=== PATIENT | male | born 1940 | race African-American/Black ===

== ENCOUNTER 2016-08-24 00:06 | Inpatient (IN) | payer OTHER, BC ==
[2016-08-24 01:29] LABS: BASOPHIL 0.5 % (0-2.0); EOSINOPHIL 2.1 % (0-4.5); MCH 30.4 pg (25.7-33.7); MCHC 32.5 g/dl (32.0-35.9); MEAN CELL VOLUME 93.7 fl (80-96); MEAN PLT VOLUME 7.2 fl (7.5-11.1); NEUTROPHILS 58.9 % (42.8-82.8); PLATELET COUNT 207 K/MM3 (134-434); RDW 13.3 % (11.9-15.9); WHITE BLOOD COUNT 4.5 K/mm3 (4.0-10.0)
--- NOTE | 2016-08-24 01:33 | PDOC ---
History of Present Illness - General History Source: Patient Exam Limitations: No Limitations - History of Present Illness Initial Comments: 08/24/16 01:55 The patient is a 76 year old male with a significant past medical history of leukemia, diverticulosis, CAD s/p PCI, CHF, HTN, and hyperlipidemia who presents to the ED with SOB that began this evening. Patient was given O2 by EMS. Patient denies chest pain, fever, chills, nausea, vomiting, diarrhea. Patient states he was diagnosed with leukemia on August 05 2016 at [facility]. Patient was in and out of treatment at [facility]. Patient was released this morning. Patient is on chemo. Last treatment was 2 weeks ago. Patient is on chemo pill now. Past Surgical History: Yes: Colectomy PCP: Dr. Cassie Alex <Ian Celaya - Last Filed: 08/24/16 06:31> <Franklin Linares - Last Filed: 08/24/16 07:11> - General Chief Complaint: Shortness of Breath Stated Complaint: DIFF BREATHING Time Seen by Provider: 08/24/16 01:32 Past History <Ian Celaya - Last Filed: 08/24/16 06:31> - Past Medical History Anemia: No Asthma: No Cancer: No Cardiac Disorders: Yes (a-fib, [place]) CVA: Yes COPD: No CHF: Yes Dementia: No Diabetes: No GI Disorders: No Disorders: No HTN: Yes Hypercholesterolemia: Yes Liver Disease: No Suicide Attempt (Hx): No Seizures: No Thyroid Disease: No - Surgical History Abdominal Surgery: Yes (COLON RESECTION 2013) Appendectomy: No Cardiac Surgery: Yes (Stent placed 2009 pLA) Cholecystectomy: No Lung Surgery: No Neurologic Surgery: Yes (Cyst removed) Orthopedic Surgery: No - Immunization History Immunization Up to Date: Yes - Psycho/Social/Smoking Cessation Hx Anxiety: No Suicidal Ideation: No Smoking Status: No Smoking History: Never smoked Have you smoked in the past 12 months: No Number of Cigarettes Smoked Daily: 5 If you are a former smoker, when did you quit?: 45 YEARS AGO Information on smoking cessation initiated: No Hx Alcohol Use: No Drug/Substance Use Hx: No Substance Use Type: None Hx Substance Use Treatment: No <Franklin Linares - Last Filed: 08/24/16 07:11> - Past Medical History Allergies/Adverse Reactions: Allergies Allergy/AdvReac Type Severity Reaction Status Date / Time nitroglycerin [Nitroglycerin] Allergy Unknown severe Verified 08/24/16 00:43 headache Home Medications: Ambulatory Orders Alprazolam [Alprazolam Xr] 0.5 mg PO TID PRN 04/15/16 Amlodipine Besylate [Norvasc -] 5 mg PO DAILY 04/15/16 Aspirin [ASA -] 81 mg PO DAILY 04/15/16 Atorvastatin Ca [Lipitor] 80 mg PO HS 04/15/16 Metoprolol Succinate [Toprol XL -] 50 mg PO DAILY 04/15/16 Tamsulosin HCl 0.4 mg PO DAILY 04/15/16 Acetaminophen [Tylenol] 325 mg PO Q6H 30 Days 04/17/16 Allopurinol [Zyloprim -] 300 mg PO DAILY #30 tablet 04/17/16 Docusate Sodium [Colace -] 100 mg PO DAILY capsule 04/17/16 Metoprolol Succinate [Toprol Xl] 100 mg PO DAILY #30 tab.sr.24h 04/17/16 Oxycodone HCl [Roxicodone -] 5 mg PO Q4H PRN #0 tablet MDD 4 04/17/16 Sodium Chloride 0.45% [1/2 Normal Saline] 1,000 ml IV ASDIR infus.bag 04/17/16 Review of Systems - Review of Systems Able to Perform ROS?: Yes Comments:: 08/24/16 01:55 CONSTITUTIONAL: Absent: fever, chills, diaphoresis, generalized weakness, malaise, loss of appetite HEENT: Absent: rhinorrhea, nasal congestion, throat pain, throat swelling, difficulty swallowing, mouth swelling, ear pain, eye pain, visual Changes CARDIOVASCULAR: Absent: chest pain, syncope, palpitations, irregular heart rate, lightheadedness , peripheral edema RESPIRATORY: Present: SOB Absent: cough, dyspnea with exertion, orthopnea, wheezing, stridor, hemoptysis GASTROINTESTINAL: Absent: abdominal pain, abdominal distension, nausea, vomiting, diarrhea, constipation, melena, hematochezia GENITOURINARY: Absent: dysuria, frequency, urgency, hesitancy, hematuria, flank pain, genital pain MUSCULOSKELETAL: Absent: myalgia, arthralgia, joint swelling SKIN: Absent: rash, itching, pallor HEMATOLOGIC/IMMUNOLOGIC: Absent: easy bleeding, easy bruising, lymphadenopathy, frequent infections ENDOCRINE: Absent: unexplained weight gain, unexplained weight loss, heat intolerance, cold intolerance NEUROLOGIC: Absent: headache, focal weakness or paresthesias, dizziness, unsteady gait, seizure, mental status changes, bladder or bowel incontinence PSYCHIATRIC: Absent: anxiety, depression, suicidal or homicidal ideation, hallucinations. <Ian Cealya - Last Filed: 08/24/16 06:31> *Physical Exam - Vital Signs Last Vital Signs Temp Pulse Resp BP Pulse Ox 98.1 F 105 H 22 119/82 94 L 08/24/16 00:43 08/24/16 00:43 08/24/16 00:43 08/24/16 00:43 08/24/16 00:43 - Physical Exam Comments: 08/24/16 01:55 GENERAL: Well developed, well nourished. Awake and alert. No acute distress. HEENT: Normocephalic, atraumatic. PERRLA, EOMI. No conjunctival pallor. Sclera are non- icteric. Moist mucous membranes. Oropharynx is clear. NECK: Supple. Full ROM. No JVD. Carotid pulses 2+ and symmetric, without bruits. No thyromegaly. No lymphadenopathy. CARDIOVASCULAR: Regular rate and rhythm. No murmurs, rubs, or gallops. Distal pulses are 2+ and symmetric. PULMONARY: No evidence of respiratory distress. Lungs clear to auscultation bilaterally. No wheezing, rales or rhonchi. ABDOMINAL: Soft. Non-tender. Non-distended. No rebound or guarding. No organomegaly. Normoactive bowel sounds. MUSCULOSKELETAL Normal range of motion at all joints. No bony deformities or tenderness. No CVA tenderness. EXTREMITIES: No cyanosis. No clubbing. No edema. No calf tenderness. SKIN: Warm and dry. Normal capillary refill. No rashes. No jaundice. NEUROLOGICAL: Alert, awake, appropriate. Cranial nerves 2-12 intact. No deficits to light touch and temperature in face, upper extremities and lower extremities. No motor deficits in the in face, upper extremities and lower extremities. Normoreflexic in the upper and lower extremities. Normal speech. Toes are down-going bilaterally. Gait is normal without ataxia. PSYCHIATRIC: Cooperative. Good eye contact. Appropriate mood and affect. <Ian Celaya - Last Filed: 08/24/16 06:31> - Vital Signs Last Vital Signs Temp Pulse Resp BP Pulse Ox 98.1 F 105 H 22 119/82 94 L 08/24/16 00:43 08/24/16 00:43 08/24/16 00:43 08/24/16 00:43 08/24/16 00:43 <Franklin Linares - Last Filed: 08/24/16 07:11> ED Treatment Course - LABORATORY CBC & Chemistry Diagram: 08/24/16 01:00 08/24/16 01:00 - ADDITIONAL ORDERS Additional order review: 08/24/16 01:00 RBC 4.69 D MCV 93.7 MCHC 32.5 RDW 13.3 D MPV 7.2 L D Neutrophils % 58.9 D Lymphocytes % 20.8 D Monocytes % 17.7 H D Eosinophils % 2.1 D Basophils % 0.5 D - RADIOLOGY Radiology Studies Ordered: 08/24/16 06:11 EXAM: CT chest without contrast INDICATION: Right-sided infiltrate versus effusion DATE OF SERVICE: 2016-08-24 05:34:17.0 FINDINGS: There is no aortic aneurysm. There is no significant mediastinal or hilar adenopathy. The heart size is normal. The trachea and bronchi are patent. There is a trace pericardial effusion. There is a moderate to large right pleural effusion and moderate left pleural effusion with compressive atelectasis and/or pneumonia. Moderate paraseptal emphysema is noted. No interstitial edema.. Upper abdominal structures are notable for small gallstones or gallbladder inflammation. IMPRESSION: Moderate to large right pleural effusion with moderate left pleural effusion with compressive atelectasis and/or pneumonia. Paraseptal emphysema. THIS DOCUMENT HAS BEEN ELECTRONICALLY SIGNED Emre Lopes MD <Ian Celaya - Last Filed: 08/24/16 06:31> - LABORATORY CBC & Chemistry Diagram: 08/24/16 01:00 08/24/16 01:00 - ADDITIONAL ORDERS Additional order review: 08/24/16 01:00 RBC 4.69 D MCV 93.7 MCHC 32.5 RDW 13.3 D MPV 7.2 L D Neutrophils % 58.9 D Lymphocytes % 20.8 D Monocytes % 17.7 H D Eosinophils % 2.1 D Basophils % 0.5 D <Franklin Linares - Last Filed: 08/24/16 07:11> Medical Decision Making - Medical Decision Making 08/24/16 06:[address] Cosby at 06:13. 08/24/16 06:[address] Cosby at 06:29. 08/24/16 06:[address] Cosby ( on-call for PCP Dr. Cassie Alex). <Ian Celaya - Last Filed: 08/24/16 06:31> - Medical Decision Making 08/24/16 07:04 Paperwork that patient has with him from his discharge earlier in the day at [facility], it does not look like they saw the infiltrate on the right or the bilateral pleural effusions, right greator than left. Will add Zithromax to the Cipro and Flagyl as well as the antifungal he is already taking. He will need IV Access, and he may actually need a surgical procedure or a PICC line. <Franklin Linares - Last Filed: 08/24/16 07:11> *DC/Admit/Observation/Transfer - Attestations Scribe Attestion: 08/24/16 01:57 Documentation prepared by Ian Celaya, acting as medical education coordinator for Franklin Linares MD/DO. <Ian Celaya - Last Filed: 08/24/16 06:31> - Discharge Dispostion Admit: Yes - Attestations Physician Attestion: 08/24/16 01:32 I, Dr. Franklin Linares, attest that this document has been prepared under my direction and personally reviewed by me in its entirety. I further attest, that it accurately reflects all work, treatment, procedures and medical decision -making performed by me. <Franklin Linares - Last Filed: 08/24/16 07:11> Diagnosis at time of Disposition: Bilateral pleural effusion Acute leukemia Qualifiers: Leukemia Active/Remission status: without remission Qualified Code(s): C95.00 - Acute leukemia of unspecified cell type not having achieved remission Pneumonia Qualifiers: Pneumonia type: due to unspecified organism Laterality: bilateral Lung location : lower lobe of lung Qualified Code(s): J18.9 - Pneumonia, unspecified organism - Discharge Dispostion Condition at time of disposition: Good - Referrals Referrals: Shelley Sharpe MD [Primary Care Provider] -
[2016-08-24 01:52] LABS: ALBUMIN 3.9 g/dl (3.4-5.0); ANION GAP 11 (8-16); BILIRUBIN,TOTAL 0.5 mg/dL (0.2-1.0); CALCIUM 8.9 mg/dL (8.5-10.1); CO2 27 mmol/L (21-32); CREATININE 0.9 mg/dL (0.7-1.3); GLUCOSE,RANDOM 98 mg/dL (74-106); SGPT/ALT 36 U/L (12-78); TOT PROT 7.5 g/dl (6.4-8.2)
[2016-08-24 01:54] LABS: ALK PHOS 69 U/L (45-117)
[2016-08-24 01:55] LABS: SGOT/AST 30 U/L (15-37)
[2016-08-24 02:07] LABS: TROPONIN I < 0.02 ng/ml (0.00-0.05)
[2016-08-24 04:00] LABS: ARTERIAL BLD GAS O2 SATURATION 95.2 % (90-98.9); ARTERIAL BLOOD GAS BASE EXCESS 1.6 meq/l (-2-2); ARTERIAL BLOOD GAS HCO3 24.5 meq/L (22-26); ARTERIAL BLOOD GAS PO2 72.9 mmHg (70-100); ARTERIAL BLOOD GAS pH 7.48 (7.35-7.45)
[2016-08-24 04:01] LABS: METHEMOGLOBIN 1.5 % (0.4-1.5)
[2016-08-24 04:02] LABS: ART PUNCT SITE RIGHT BRACHIAL; LPM/O2% 4; PT. ON O2? YES
[2016-08-24] MEDS ORDERED: AZITHROMYCIN 250 MG TABLET (FP) PO ONE (06:57)
[2016-08-24] MEDS ORDERED: AZITHROMYCIN 250 MG TABLET (FP) ONE (07:47)
[2016-08-24] MEDS ORDERED: OXYCODONE/APAP 5/325MG COMBO TABLET PO ONE (08:00)
[2016-08-24] MEDS ORDERED: oxyCODONE HCL 5 MG TABLET PO PRN (10:19)
[2016-08-24] MEDS ORDERED: ALPRAZolam 0.25 MG TABLET PO PRN (10:19)
[2016-08-24] MEDS ORDERED: ASPIRIN 81 MG CHEWABLE TABLETS PO SCH (10:30)
[2016-08-24] MEDS ORDERED: METOPROLOL SUCCINATE 50 MG TAB.SR.24H (FP) PO SCH (11:37)
--- NOTE | 2016-08-24 11:37 | HP ---
Admitting History and Physical - Primary Care Physician PCP: Shelley Sharpe - Admission Chief Complaint: sob History of Present Illness: 76 yrs old male known to me from previous admission- admitted for SOB He was discharged yesterday morning from [facility]- he was admitted there on 08/14. 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 chest 08/14- showed new patchy ground glass opacities in rt upper lobe.Moderate right and left pleural effusion Negative for PE When pt was home- he experienced SOB and called EMS and was sent here. 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 (Arnold Chiari Malformation- s/p craniotomy/repair- 1998) Cardiovascular: Yes: CAD, CHF, HTN, Hyperlipdemia, Other (Cardiac arrhythmia- atrial tachycardia) Gastrointestinal: Yes: GI Bleed, Hemorrhoids, Other (s/p partial colectomy for diverticulosis) Renal/: Yes: Renal Calculi Heme/Onc: Yes: Other (ALL- [place] positive) - Past Surgical History Past Surgical History: Yes: Colectomy - Smoking History Smoking history: Never smoked Have you smoked in the past 12 months: No Aproximately how many cigarettes per day: 5 If you are a former smoker, when did you quit?: 45 YEARS AGO - Alcohol/Substance Use Hx Alcohol Use: No History of Substance Use: reports: None - Social History 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 Travel: No Home Medications - Allergies Allergies/Adverse Reactions: Allergies Allergy/AdvReac Type Severity Reaction Status Date / Time nitroglycerin [Nitroglycerin] Allergy Unknown severe Verified 08/24/16 00:43 headache - Home Medications Home Medications: Ambulatory Orders Alprazolam [Alprazolam Xr] 0.5 mg PO TID PRN 04/15/16 Amlodipine Besylate [Norvasc -] 5 mg PO DAILY 04/15/16 Aspirin [ASA -] 81 mg PO DAILY 04/15/16 Atorvastatin Ca [Lipitor] 80 mg PO HS 04/15/16 Metoprolol Succinate [Toprol XL -] 50 mg PO DAILY 04/15/16 Tamsulosin HCl 0.4 mg PO DAILY 04/15/16 Acetaminophen [Tylenol] 325 mg PO Q6H 30 Days 04/17/16 Allopurinol [Zyloprim -] 300 mg PO DAILY #30 tablet 04/17/16 Docusate Sodium [Colace -] 100 mg PO DAILY capsule 04/17/16 Metoprolol Succinate [Toprol Xl] 100 mg PO DAILY #30 tab.sr.24h 04/17/16 Oxycodone HCl [Roxicodone -] 5 mg PO Q4H PRN #0 tablet MDD 4 04/17/16 Sodium Chloride 0.45% [1/2 Normal Saline] 1,000 ml IV ASDIR infus.bag 04/17/16 Family Disease History - Family Disease History Family Disease History: Other: Son (CML) Review of Systems - Review of Systems Constitutional: denies: Chills, Fever Cardiovascular: denies: Chest Pain Respiratory: reports: Cough, SOB, SOB on Exertion. denies: Wheezing Gastrointestinal: denies: Bloating, Nausea Physical Examination Vital Signs: Vital Signs Temperature 97.9 F 08/24/16 07:36 Pulse Rate 98 H 08/24/16 08:45 Respiratory Rate 19 08/24/16 08:45 Blood Pressure 149/82 08/24/16 07:36 O2 Sat by Pulse Oximetry (%) 100 08/24/16 08:45 Constitutional: Yes: No Distress, Calm HENT: Yes: Other (periorbital edema) Cardiovascular: Yes: Regular Rate and Rhythm, Tachycardia Respiratory: Yes: Diminished, Rales (mid bases) Gastrointestinal: Yes: Normal Bowel Sounds, Soft. No: Distention, Tenderness Edema: Yes Edema: LLE: 2+, RLE: 2+ Psychiatric: Yes: Alert, Oriented Labs: Laboratory Last Values WBC 4.5 K/mm3 (4.0-10.0) D 08/24/16 01:00 RBC 4.69 M/mm3 (4.00-5.60) D 08/24/16 01:00 Hgb 14.3 GM/dL (11.7-16.9) D 08/24/16 01:00 Hct 44.0 % (35.4-49) D 08/24/16 01:00 MCV 93.7 fl (80-96) 08/24/16 01:00 MCHC 32.5 g/dl (32.0-35.9) 08/24/16 01:00 RDW 13.3 % (11.9-15.9) D 08/24/16 01:00 Plt Count 207 K/MM3 (134-434) D 08/24/16 01:00 MPV 7.2 fl (7.5-11.1) L D 08/24/16 01:00 Neutrophils % 58.9 % (42.8-82.8) D 08/24/16 01:00 Lymphocytes % 20.8 % (8-40) D 08/24/16 01:00 Monocytes % 17.7 % (3.8-10.2) H D 08/24/16 01:00 Eosinophils % 2.1 % (0-4.5) D 08/24/16 01:00 Basophils % 0.5 % (0-2.0) D 08/24/16 01:00 Puncture Site Right brachial 08/24/16 02:02 ABG pH 7.48 (7.35-7.45) H 08/24/16 02:02 ABG pCO2 at Pt Temp 32.9 mmHg (35-45) L 08/24/16 02:02 ABG pO2 at Pt Temp 72.9 mmHg (70-100) 08/24/16 02:02 ABG HCO3 24.5 meq/L (22-26) 08/24/16 02:02 ABG O2 Sat (Measured) 95.2 % (90-98.9) 08/24/16 02:02 ABG O2 Content 11.8 % vol (15-22) L 08/24/16 02:02 ABG Base Excess 1.6 meq/l (-2-2) 08/24/16 02:02 Suhail Test Not applicable 08/24/16 02:02 Carboxyhemoglobin 1.3 gm% (0.5-2.0) 08/24/16 02:03 Methemoglobin 1.5 % (0.4-1.5) 08/24/16 02:03 Oxygen Flow Rate 4 08/24/16 02:02 PEEP 0.0 cmH2O 08/24/16 02:02 Sodium 143 mmol/L (136-145) 08/24/16 01:00 Potassium 4.3 mmol/L (3.5-5.1) 08/24/16 01:00 Chloride 105 mmol/L (98-107) 08/24/16 01:00 Carbon Dioxide 27 mmol/L (21-32) D 08/24/16 01:00 Anion Gap 11 (8-16) 08/24/16 01:00 BUN 16 mg/dL (7-18) D 08/24/16 01:00 Creatinine 0.9 mg/dL (0.7-1.3) 08/24/16 01:00 Creat Clearance w eGFR > 60 (>60) 08/24/16 01:00 Random Glucose 98 mg/dL (74-106) D 08/24/16 01:00 Calcium 8.9 mg/dL (8.5-10.1) 08/24/16 01:00 Total Bilirubin 0.5 mg/dL (0.2-1.0) D 08/24/16 01:00 AST 30 U/L (15-37) D 08/24/16 01:00 ALT 36 U/L (12-78) 08/24/16 01:00 Alkaline Phosphatase 69 U/L (45-117) D 08/24/16 01:00 Creatine Kinase 167 IU/L (39-308) D 08/24/16 01:00 Creatine Kinase Index 1.3 % (0.0-5.0) 08/24/16 01:00 CK-MB (CK-2) 2.179 ng/ml (0.5-3.6) 08/24/16 01:00 CK-MB (CK-2) Rel Index Cancelled 08/24/16 01:00 Troponin I < 0.02 ng/ml (0.00-0.05) 08/24/16 01:00 B-Natriuretic Peptide 62.53 pg/ml (5-450) 08/24/16 01:00 Total Protein 7.5 g/dl (6.4-8.2) D 08/24/16 01:00 Albumin 3.9 g/dl (3.4-5.0) 08/24/16 01:00 Imaging - Results Chest X-ray: Image Reviewed (pleural effusions) Cat Scan: Report Reviewed EKG: Image Reviewed (Atrial trachycardia) Problem List - Problems (1) Acute leukemia Code(s): C95.00 - ACUTE LEUKEMIA OF UNSP CELL TYPE NOT ACHIEVE REMISSION Qualifiers: Leukemia Active/Remission status: without remission Qualified Code(s): C95.00 - Acute leukemia of unspecified cell type not having achieved remission (2) Bilateral pleural effusion Code(s): J90 - PLEURAL EFFUSION, NOT ELSEWHERE CLASSIFIED (3) ASHD (arteriosclerotic heart disease) Code(s): I25.10 - ATHSCL HEART DISEASE OF [place] CORONARY ARTERY W/O ANG PCTRS (4) HTN (hypertension) Code(s): I10 - ESSENTIAL (PRIMARY) HYPERTENSION Qualifiers: Hypertension type: essential hypertension Qualified Code(s): I10 - Essential (primary) hypertension Assessment/Plan PLAN -- pt was discharged on PO Cipro , Flagyl and Posaconazole-- ID eval -- IV Lasix -- monitor CBC -- Spoke with Hematology- Dr Grimaldo- 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
[2016-08-24 12:07] VITALS: BMI 24.4
[2016-08-24] MEDS: ALLOPURINOL 300 MG TABLET (FP) PO SCH (12:22)
[2016-08-24] MEDS: amLODIPine BESYLATE 5 MG TABLET (FP) PO SCH (12:23)
[2016-08-24] MEDS: FUROSEMIDE 40 MG/4 ML INJECTABLE VIAL IVPB SCH ×2 (12:33→12:35)
--- NOTE | 2016-08-24 12:58 | CONSULT ---
Consult Consult Specialty:: PULMONARY Referred by:: Dr. Alex Reason for Consultation:: shortness of breath - History of Present Illness Chief Complaint: shortness of breath History of Present Illness: 76yo male with h/o HTN, hyperlipidemia, CAD s/p stent, ALL diagnosed earlier this month, just discharged from [facility] where he was receiving chemotherapy who presents with worsening shortness of breath. He denies any chest pain or palpitations. No fevers, chills or sweats. He does report a cough productive of clear sputum and no wheezing. No leg swelling but with orthopnea. He is a remote smoker, denies history of asthma or COPD. Last echocardiogram done in 2015 showing normal LVEF with mildly elevated RVSP. MUGA scan done in March showing an EF 66%. CXR and CT chest done showing bilateral effusions, pt denies any history of CHF or pleural effusions. 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 (Arnold Chiari Malformation- s/p craniotomy/repair- 1998) Cardio/Vascular: Yes: CAD, CHF, HTN, Hyperlipdemia, Other (Cardiac arrhythmia- atrial tachycardia) Gastrointestinal: Yes: GI Bleed, Hemorrhoids, Other (s/p partial colectomy for diverticulosis) Renal/: Yes: Renal Calculi - Past Surgical History Past Surgical History: Yes: Colectomy - Alcohol/Substance Use Hx Alcohol Use: No History of Substance Use: reports: None - Smoking History Smoking history: Never smoked Have you smoked in the past 12 months: No Aproximately how many cigarettes per day: 5 If you are a former smoker, when did you quit?: 45 YEARS AGO - Social History Usual Living Arrangement: With Spouse 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 Travel: No Home Medications - Allergies Allergies/Adverse Reactions: Allergies Allergy/AdvReac Type Severity Reaction Status Date / Time nitroglycerin [Nitroglycerin] Allergy Unknown severe Verified 08/24/16 00:43 headache - Home Medications Home Medications: Ambulatory Orders Alprazolam [Alprazolam Xr] 0.5 mg PO TID PRN 04/15/16 Amlodipine Besylate [Norvasc -] 5 mg PO DAILY 04/15/16 Aspirin [ASA -] 81 mg PO DAILY 04/15/16 Atorvastatin Ca [Lipitor] 80 mg PO HS 04/15/16 Metoprolol Succinate [Toprol XL -] 50 mg PO DAILY 04/15/16 Tamsulosin HCl 0.4 mg PO DAILY 04/15/16 Acetaminophen [Tylenol] 325 mg PO Q6H 30 Days 04/17/16 Allopurinol [Zyloprim -] 300 mg PO DAILY #30 tablet 04/17/16 Docusate Sodium [Colace -] 100 mg PO DAILY capsule 04/17/16 Metoprolol Succinate [Toprol Xl] 100 mg PO DAILY #30 tab.sr.24h 04/17/16 Oxycodone HCl [Roxicodone -] 5 mg PO Q4H PRN #0 tablet MDD 4 04/17/16 Sodium Chloride 0.45% [1/2 Normal Saline] 1,000 ml IV ASDIR infus.bag 04/17/16 Family Disease History - Family Disease History Family Disease History: Other: Son (CML) Review of Systems - Review of Systems Constitutional: reports: Weakness. denies: Chills, Fever Eyes: denies: Recent Change in Vision HENT: denies: Nasal Congestion, Throat Pain Neck: denies: Stiffness, Tenderness Cardiovascular: reports: Shortness of Breath. denies: Chest Pain, Edema, Palpitations Respiratory: reports: Cough, SOB, SOB on Exertion. denies: Hemoptysis, Wheezing Gastrointestinal: denies: Abdominal Pain, Nausea, Vomiting Genitourinary: denies: Dysuria, Hematuria Neurological: denies: Dizziness, Headache Physical Exam Vital Sings: Vital Signs Temperature 98.9 F 08/24/16 11:47 Pulse Rate 99 H 08/24/16 12:34 Respiratory Rate 24 08/24/16 12:34 Blood Pressure 142/72 08/24/16 12:34 O2 Sat by Pulse Oximetry (%) 98 08/24/16 12:16 Constitutional: Yes: Calm Eyes: Yes: Conjunctiva Clear, EOM Intact HENT: Yes: Atraumatic, Normocephalic Neck: Yes: Supple, Trachea Midline Cardiovascular: Yes: Regular Rate and Rhythm Respiratory: Yes: Diminished (decreased breath sounds at the bases), Rales (R>L) ...Clubbing: No Gastrointestinal: Yes: Normal Bowel Sounds, Soft. No: Tenderness Edema: No Neurological: Yes: Alert, Oriented Labs: ABG Results ABG pH 7.48 (7.35-7.45) H 08/24/16 02:02 ABG pCO2 at Pt Temp 32.9 mmHg (35-45) L 08/24/16 02:02 ABG pO2 at Pt Temp 72.9 mmHg (70-100) 08/24/16 02:02 ABG HCO3 24.5 meq/L (22-26) 08/24/16 02:02 ABG O2 Sat (Measured) 95.2 % (90-98.9) 08/24/16 02:02 ABG O2 Content 11.8 % vol (15-22) L 08/24/16 02:02 ABG Base Excess 1.6 meq/l (-2-2) 08/24/16 02:02 Imaging - Results Chest X-ray: Report Reviewed, Image Reviewed Cat Scan: Report Reviewed, Image Reviewed (bilateral effusions with compressive atelectasis) Problem List - Problems (1) Shortness of breath Code(s): R06.02 - SHORTNESS OF BREATH (2) Bilateral pleural effusion Code(s): J90 - PLEURAL EFFUSION, NOT ELSEWHERE CLASSIFIED (3) Acute leukemia Code(s): C95.00 - ACUTE LEUKEMIA OF UNSP CELL TYPE NOT ACHIEVE REMISSION Qualifiers: Leukemia Active/Remission status: without remission Qualified Code(s): C95.00 - Acute leukemia of unspecified cell type not having achieved remission (4) ASHD (arteriosclerotic heart disease) Code(s): I25.10 - ATHSCL HEART DISEASE OF [place] CORONARY ARTERY W/O ANG PCTRS (5) HTN (hypertension) Code(s): I10 - ESSENTIAL (PRIMARY) HYPERTENSION Qualifiers: Hypertension type: essential hypertension Qualified Code(s): I10 - Essential (primary) hypertension Assessment/Plan Shortness of Breath ALL on Chemotherapy Bilateral Pleural Effusions Pulmonary HTN HTN CAD Hyperlipidemia - pt on active chemotherapy with new pleural effusions, although no history of CHF and BNP normal, would give trial of lasix to assess response - if no improvement in imaging or symptoms, would recommend a diagnostic/ therapeutic thoracentesis for fluid analysis - do not suspect pneumonia at this time, can d/c antibiotics if cultures negative - O2 to keep Spo2 >90% - will obtain a more recent echocardiogram as pt now post chemotherapy to re- evaluate LVEF, RVSP - inhaled bronchodilators as needed - DVT prophylaxis - will follow Thank you for this consult Brian Harris MD
[2016-08-24] MEDS ORDERED: metroNIDAZOLE 250 MG TABLET PO SCH (14:00)
[2016-08-24] MEDS ORDERED: valACYclovir HCL 500 MG TABLET (FP) PO ONE (16:15)
--- NOTE | 2016-08-24 16:28 | PN ---
Progress Note (short form) - Note Progress Note: ID Consult dictated 76 y/o male PMH ALL on chemotherapy admitted with dyspnea, LE swelling CT chest bilateral pleural effusions, possible infiltrates No fever WBC 4.5 ANC 2.6 Bilateral effusions Possible pneumonia Leukopenia Recent E coli bacteremia/ sepsis Empiric zosyn Diuretic therapy Posaconazole, valtrex
[2016-08-24] MEDS: METOPROLOL SUCCINATE 50 MG TAB.SR.24H (FP) PO SCH (16:40)
--- NOTE | 2016-08-24 16:58 | CONS ---
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 The patient was discharged from [facility] after being admitted with GI bleed. His course at that time was complicated by E. coli bacteremia, for which he received a course of IV antibiotic therapy. He was discharged home yesterday after a 10-day hospitalization to complete a 14-day course of antibiotic therapy for his sepsis. He is now readmitted with increasing shortness of breath and edema. The family member reports that he had increasing shortness of breath associated with bilateral leg edema. He presented to the emergency room where he was afebrile. His white blood cell count was 4.5. A CAT scan of the chest was performed that showed bilateral moderately sized pleural effusions with compressive atelectasis versus consolidation at the lung bases. He complains of shortness of breath. He has occasional cough. He denies any purulent sputum production, no hemoptysis, no complaints of chest pain. He has been afebrile, no shaking chills. PAST MEDICAL HISTORY: Positive for ALL, coronary artery disease, hypertension, hyperlipidemia, nephrolithiasis, GI bleeding, Arnold Chiari malformation, coronary artery disease. PAST SURGICAL HISTORY: Status post coronary artery stent, colectomy, and craniotomy. ALLERGIES: NITROGLYCERIN. DISCHARGE MEDICATIONS: Included ciprofloxacin, Flagyl, posaconazole, Valtrex. SOCIAL HISTORY: Lives at home with family members. Former smoker. SYSTEMS REVIEW: Neurologic: No loss of consciousness, seizure activity, or focal weakness. Cardiac: Negative chest pain or palpitations. Respiratory: As per HPI. Gastrointestinal: Status post recent GI bleed. Genitourinary: Negative for urinary tract infection. LABORATORY DATA: White count 4.5, with an absolute neutrophil count of 2.6, 59 neutrophils, 17 lymphocytes, 2 monocytes, hematocrit 44.0, platelet count 207. BUN 16, creatinine 0.9. Liver enzymes normal. Urinalysis pending. PHYSICAL EXAMINATION: General: He is awake and alert. He is slightly short of breath at rest. Vital signs: Temperature 98.9, blood pressure 143/73, pulse 98 regular, respirations 21 per minute. HEENT: Sclerae anicteric. Cardiovascular: Heart sounds S1, S2. Respiratory: Lungs diminished breath sounds at the bases bilaterally. Abdomen: Soft. Nontender. Extremities: Positive for edema. 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 Admitted with dyspnea, lower extremity swelling. Chest x-ray with bilateral pleural effusions and possible lung consolidations. 1. Bilateral pleural effusions. 2. Possible hospital acquired pneumonia. 3. Leukopenia. 4. History of recent Escherichia coli bacteremia/sepsis. 5. Acute lymphocytic leukemia status post chemotherapy. Etiology of pleural effusion is unclear, may be secondary to recent chemotherapy, infected parapneumonic effusion or empyema, less likely. Cannot rule out hospital-acquired pneumonia; however, this is also less likely. Await blood culture results. Continue diuretic therapy. Possible diagnostic/therapeutic thoracentesis. Empiric antibiotic coverage nosocomial respiratory tract pathogens with Zosyn as well as to complete the course of therapy for his E. coli bacteremia, continue posaconazole and Valtrex, monitor white blood cell count. Case discussed with family member present at the time of the examination. Thank you for the kind referral. ESDRAS NESBITT M.D. [id number]
[2016-08-24] MEDS: PIPERACILLIN/TAZOB 3.375 GM 50 ML IVPB SCH (18:21)
[2016-08-24] MEDS: POSACONAZOLE PO SCH (18:22)
[2016-08-24] MEDS ORDERED: PT OWN MED DRAWER 7, Y5N ONE (18:28)
--- NOTE | 2016-08-24 18:29 | CONSULT ---
Consult - text type - Consultation Consultation Note: 76yo male with h/o HTN, hyperlipidemia, CAD s/p stent, ALL diagnosed earlier this year, just discharged from [facility] where he was receiving chemotherapy who presents with worsening shortness of breath. He denies any chest pain or palpitations. No fevers, chills or sweats. He does report a cough productive of clear sputum and no wheezing. No leg swelling but with orthopnea. He is a remote smoker, denies history of asthma or COPD. Last echocardiogram done in 2015 showing normal LVEF with mildly elevated RVSP. MUGA scan done in March showing an EF 66%. CXR and CT chest done showing bilateral effusions, pt denies any history of CHF or pleural effusions. 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 Home Medications - Allergies Allergies/Adverse Reactions: Allergies Allergy/AdvReac Type Severity Reaction Status Date / Time nitroglycerin [Nitroglycerin] Allergy Unknown severe Verified 08/24/16 00:43 headache - Home Medications Home Medications: Ambulatory Orders Alprazolam [Alprazolam Xr] 0.5 mg PO TID PRN 04/15/16 Amlodipine Besylate [Norvasc -] 5 mg PO DAILY 04/15/16 Aspirin [ASA -] 81 mg PO DAILY 04/15/16 Atorvastatin Ca [Lipitor] 80 mg PO HS 04/15/16 Metoprolol Succinate [Toprol XL -] 50 mg PO DAILY 04/15/16 Tamsulosin HCl 0.4 mg PO DAILY 04/15/16 Acetaminophen [Tylenol] 325 mg PO Q6H 30 Days 04/17/16 Allopurinol [Zyloprim -] 300 mg PO DAILY #30 tablet 04/17/16 Docusate Sodium [Colace -] 100 mg PO DAILY capsule 04/17/16 Metoprolol Succinate [Toprol Xl] 100 mg PO DAILY #30 tab.sr.24h 04/17/16 Oxycodone HCl [Roxicodone -] 5 mg PO Q4H PRN #0 tablet MDD 4 04/17/16 Sodium Chloride 0.45% [1/2 Normal Saline] 1,000 ml IV ASDIR infus.bag 04/17/16 Current Medications Acetaminophen (Tylenol -) 650 mg PO Q6H PRN PRN Reason: FEVER Allopurinol (Zyloprim -) 300 mg PO DAILY [facility] Last Admin: 08/24/16 12:22 Dose: 300 mg Alprazolam (Xanax -) 0.5 mg PO TID PRN PRN Reason: ANXIETY Amlodipine Besylate (Norvasc -) 5 mg PO DAILY [facility] Last Admin: 08/24/16 12:23 Dose: 5 mg Atorvastatin Calcium (Lipitor -) 80 mg PO HS [facility] Docusate Sodium (Colace -) 100 mg PO DAILY [facility] Furosemide (Lasix Injection -) 40 mg IVPB DAILY [facility] Last Admin: 08/24/16 12:35 Dose: 40 mg Piperacillin Sod/Tazobactam Sod (Zosyn 3.375gm Ivpb (Pre-Docked)) 50 mls @ 100 mls/hr IVPB Q8H-IV [facility] Last Admin: 08/24/16 18:21 Dose: 100 mls/hr Metoprolol Succinate (Toprol Xl -) 50 mg PO DAILY [facility] Last Admin: 08/24/16 16:40 Dose: 50 mg Oxycodone HCl (Roxicodone -) 10 mg PO Q4H PRN PRN Reason: PAIN Tamsulosin HCl (Flomax -) 0.4 mg PO DAILY@0830 [facility] Family Disease History - Family Disease History Family Disease History: Other: Son (CML) Physical Exam Vital Sings: Vital Signs Temperature 98.9 F 08/24/16 11:47 Pulse Rate 99 H 08/24/16 12:34 Respiratory Rate 24 08/24/16 12:34 Blood Pressure 142/72 08/24/16 12:34 O2 Sat by Pulse Oximetry (%) 98 08/24/16 12:16 Constitutional: Yes: Calm Eyes: Yes: Conjunctiva Clear, EOM Intact HENT: Yes: Atraumatic, Normocephalic Neck: Yes: Supple, Trachea Midline Cardiovascular: Yes: Regular Rate and Rhythm Respiratory: Yes: Diminished (decreased breath sounds at the bases), Rales (R>L) Gastrointestinal: Yes: Normal Bowel Sounds, Soft. No: Tenderness Neurological: Yes: Alert, Oriented - Results Chest X-ray: Report Reviewed, Image Reviewed Cat Scan: Report Reviewed, Image Reviewed (bilateral effusions with compressive atelectasis) Problem List - Problems (1) Shortness of breath Code(s): R06.02 - SHORTNESS OF BREATH (2) Bilateral pleural effusion Code(s): J90 - PLEURAL EFFUSION, NOT ELSEWHERE CLASSIFIED (3) Acute leukemia Code(s): C95.00 - ACUTE LEUKEMIA OF [place]SP CELL TYPE NOT ACHIEVE REMISSION Qualifiers: Leukemia Active/Remission status: without remission Qualified Code(s): C95.00 - Acute leukemia of unspecified cell type not having achieved remission (4) ASHD (arteriosclerotic heart disease) Code(s): I25.10 - ATHSCL HEART DISEASE OF [place] CORONARY ARTERY W/O ANG PCTRS (5) HTN (hypertension) Code(s): I10 - ESSENTIAL (PRIMARY) HYPERTENSION Qualifiers: Hypertension type: essential hypertension Qualified Code(s): I10 - Essential (primary) hypertension Assessment/Plan Shortness of Breath 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 Bilateral Pleural Effusions Pulmonary HTN HTN CAD Hyperlipidemia Pleural effusions--due to dasatinib. Hold dasatinib. On supportive care -- diuretics. May need steroids/.thoracentesis. consider echo to r/o pericardial effusion will discuss with team at [facility] ? Pneumonia --cultures pending. On empiric and prophylactic antibiotics
[2016-08-24] MEDS: ATORVASTATIN CA 80 MG TABLET (FP) PO SCH (22:33)
[2016-08-25] MEDS: PIPERACILLIN/TAZOB 3.375 GM 50 ML IVPB SCH (02:38)
[2016-08-25] MEDS: ACETAMINOPHEN 325 MG TABLET (FP) PO PRN ×3 (03:35→22:48)
[2016-08-25 08:24] LABS: INR 1.22 (0.82-1.09); PROTHROMBIN TIME (PATIENT) 13.5 SEC (9.98-11.88)
[2016-08-25 08:27] LABS: ACTIVATED PTT 31.6 SECONDS (26.9-34.4)
[2016-08-25 08:48] LABS: CALCIUM 8.1 mg/dL (8.5-10.1); CREATININE 1.1 mg/dL (0.7-1.3)
--- NOTE | 2016-08-25 08:52 | PN ---
Progress Note, Physician Chief Complaint: ID Alert NAD and no fever chills since admission Zosyn started - Current Medication List Current Medications: Active Medications Acetaminophen (Tylenol -) 650 mg PO Q6H PRN PRN Reason: FEVER Last Admin: 08/25/16 03:35 Dose: 650 mg Allopurinol (Zyloprim -) 300 mg PO DAILY [facility] Last Admin: 08/24/16 12:22 Dose: 300 mg Alprazolam (Xanax -) 0.5 mg PO TID PRN PRN Reason: ANXIETY Amlodipine Besylate (Norvasc -) 5 mg PO DAILY [facility] Last Admin: 08/24/16 12:23 Dose: 5 mg Atorvastatin Calcium (Lipitor -) 80 mg PO HS [facility] Last Admin: 08/24/16 22:33 Dose: 80 mg Docusate Sodium (Colace -) 100 mg PO DAILY [facility] Furosemide (Lasix Injection -) 40 mg IVPB DAILY [facility] Last Admin: 08/24/16 12:35 Dose: 40 mg Piperacillin Sod/Tazobactam Sod (Zosyn 3.375gm Ivpb (Pre-Docked)) 50 mls @ 100 mls/hr IVPB Q8H-IV [facility] Last Admin: 08/25/16 02:38 Dose: 100 mls/hr Metoprolol Succinate (Toprol Xl -) 50 mg PO DAILY [facility] Last Admin: 08/24/16 16:40 Dose: 50 mg Oxycodone HCl (Roxicodone -) 10 mg PO Q4H PRN PRN Reason: PAIN Tamsulosin HCl (Flomax -) 0.4 mg PO DAILY@0830 [facility] - Objective Vital Signs: Vital Signs Temperature 97.7 F 08/25/16 06:00 Pulse Rate 100 H 08/25/16 06:00 Respiratory Rate 20 08/25/16 06:00 Blood Pressure 144/75 08/25/16 06:00 O2 Sat by Pulse Oximetry (%) 98 08/24/16 21:00 Constitutional: Yes: Well Nourished, No Distress Neck: Yes: WNL, Supple Cardiovascular: Yes: Regular Rate and Rhythm, S1, S2. No: Murmur Respiratory: Yes: WNL, Regular, CTA Bilaterally, Diminished Gastrointestinal: Yes: Soft. No: Tenderness, Tenderness, Rebound Edema: Yes Labs: INR, PTT INR 1.22 (0.82-1.09) H 08/25/16 06:45 Assessment/Plan Microbiology 08/24/16 01:50 Blood - Peripheral Venous Blood Culture - Preliminary Pending Organism 08/24/16 01:50 Blood - Peripheral Venous Blood Culture - Preliminary NO GROWTH OBTAINED AFTER 24 HOURS, INCUBATION TO CONTINUE FOR 4 DAYS. Laboratory Tests 08/24/16 01:00 WBC 4.5 D Hgb 14.3 D Plt Count 207 D Neutrophils % 58.9 D Lymphocytes % 20.8 D Monocytes % 17.7 H D Assessment No evidence for current infection Has bilateral pleural effusions with bilateral peripheral edema ? heart failure. 09/01 blood GPC clusters probable contaminant NO fever chills Plan Would stop Zosyn Await final blood culture report ? Coag negative staph 09/01 Dena HERNANDEZ
[2016-08-25] MEDS ORDERED: PT OWN MED DRAWER 7, Y5N ONE ×2 (08:56→17:00)
[2016-08-25] MEDS: POSACONAZOLE PO SCH ×2 (09:00→18:23)
[2016-08-25] MEDS: DOCUSATE SODIUM 100 MG CAPSULE (FP) PO SCH ×2 (09:02→10:31)
[2016-08-25] MEDS: TAMSULOSIN HCL 0.4 MG CAP.ER.24H (FP) PO SCH (09:02)
[2016-08-25] MEDS: FUROSEMIDE 40 MG/4 ML INJECTABLE VIAL IVPB SCH (09:03)
[2016-08-25] MEDS: METOPROLOL SUCCINATE 50 MG TAB.SR.24H (FP) PO SCH (09:03)
[2016-08-25] MEDS: ALLOPURINOL 300 MG TABLET (FP) PO SCH ×2 (09:03→13:33)
[2016-08-25] MEDS: amLODIPine BESYLATE 5 MG TABLET (FP) PO SCH (09:03)
[2016-08-25 09:10] LABS: MCH 28.2 pg (25.7-33.7); MCHC 32.6 g/dl (32.0-35.9); MEAN CELL VOLUME 86.5 fl (80-96); MEAN PLT VOLUME 8.9 fl (7.5-11.1); PLATELET COUNT 67 K/MM3 (134-434); RDW 16.3 % (11.9-15.9)
[2016-08-25 09:13] LABS: WHITE BLOOD COUNT 30.1 K/mm3 (4.0-10.0)
[2016-08-25] MEDS ORDERED: CEFTRIAXONE 50 ML IVPB SCH (10:00)
[2016-08-25] MEDS ORDERED: METOPROLOL SUCCINATE 50 MG TAB.SR.24H (FP) PO SCH ×2 (10:00)
[2016-08-25] MEDS ORDERED: METOPROLOL SUCCINATE 100 MG TAB.SR.24H (FP) PO SCH (10:00)
--- NOTE | 2016-08-25 11:31 | PN ---
Progress Note (short form) - Note Progress Note: PULMONARY AWAKE/ALERT SOB IS IMPROVED/LYING FLAT NO O2/NOT SOB VSS/AFEBRILE ANICTERIC DISTANT B/L BREATH SOUNDS BASES S1S2 BS+ 2+ EDEMA LABS/MEDS/NOTES/IMAGING REVIEWED ECHO PENDING ALL ON CHEMOTX B/L EFFUSIONS ETIOLOGY TO BE DETERMINED PULMONARY HTN MILD CAD S/P STENT/HTN/HPL WOULD SUGGEST THORACENTESIS TO DETERMINE NATURE OF FLUID CHECK ECHO CONTINUE CURRENT TREATMENT Harjinder FIGUEROA MD
--- NOTE | 2016-08-25 11:57 | PN ---
Progress Note, Physician Chief Complaint: Pt feels well today states he does not have SOB when he ambulates to the bathroom No chest pain no cough - Current Medication List Current Medications: Active Medications Acetaminophen (Tylenol -) 650 mg PO Q6H PRN PRN Reason: FEVER Last Admin: 08/25/16 03:35 Dose: 650 mg Allopurinol (Zyloprim -) 300 mg PO DAILY [facility] Last Admin: 08/24/16 12:22 Dose: 300 mg Alprazolam (Xanax -) 0.5 mg PO TID PRN PRN Reason: ANXIETY Amlodipine Besylate (Norvasc -) 5 mg PO DAILY [facility] Last Admin: 08/25/16 09:03 Dose: 5 mg Atorvastatin Calcium (Lipitor -) 80 mg PO HS [facility] Last Admin: 08/24/16 22:33 Dose: 80 mg Docusate Sodium (Colace -) 100 mg PO DAILY [facility] Last Admin: 08/25/16 10:31 Dose: Not Given Furosemide (Lasix Injection -) 40 mg IVPB DAILY [facility] Last Admin: 08/25/16 09:03 Dose: 40 mg Metoprolol Succinate (Toprol Xl -) 50 mg PO DAILY [facility] Last Admin: 08/25/16 09:03 Dose: 50 mg Oxycodone HCl (Roxicodone -) 10 mg PO Q4H PRN PRN Reason: PAIN Tamsulosin HCl (Flomax -) 0.4 mg PO DAILY@0830 [facility] Last Admin: 08/25/16 09:02 Dose: 0.4 mg - Objective Vital Signs: Vital Signs Temperature 97.7 F 08/25/16 06:00 Pulse Rate 100 H 08/25/16 06:00 Respiratory Rate 20 08/25/16 06:00 Blood Pressure 144/75 08/25/16 06:00 O2 Sat by Pulse Oximetry (%) 98 08/24/16 21:00 Constitutional: Yes: No Distress, Calm Cardiovascular: Yes: Regular Rate and Rhythm Respiratory: Yes: Diminished, Rales Gastrointestinal: Yes: Normal Bowel Sounds, Soft. No: Distention, Tenderness Edema: Yes Edema: LLE: 2+, RLE: 2+ Psychiatric: Yes: Alert, Oriented Labs: CBC, BMP 08/25/16 06:45 08/25/16 06:45 INR, PTT INR 1.22 (0.82-1.09) H 08/25/16 06:45 Problem List - Problems (1) Acute leukemia Code(s): C95.00 - ACUTE LEUKEMIA OF [place] CELL TYPE NOT ACHIEVE REMISSION Qualifiers: Leukemia Active/Remission status: without remission Qualified Code(s): C95.00 - Acute leukemia of unspecified cell type not having achieved remission (2) Bilateral pleural effusion Code(s): J90 - PLEURAL EFFUSION, NOT ELSEWHERE CLASSIFIED (3) ASHD (arteriosclerotic heart disease) Code(s): I25.10 - ATHSCL HEART DISEASE OF [place] CORONARY ARTERY W/O ANG PCTRS (4) HTN (hypertension) Code(s): I10 - ESSENTIAL (PRIMARY) HYPERTENSION Qualifiers: Hypertension type: essential hypertension Qualified Code(s): I10 - Essential (primary) hypertension Assessment/Plan PLAN -- noted positive blood cultires- one bottle -- IV Lasix -- repeat CBC today -- may need therapeutic thoracentesis -- check Echo -- continue with Toprol -- appreciate pulmonary and ID eval
[2016-08-25 12:23] LABS: MCHC 32.7 g/dl (32.0-35.9); MEAN CELL VOLUME 85.8 fl (80-96); MEAN PLT VOLUME 8.4 fl (7.5-11.1); PLATELET COUNT 77 K/MM3 (134-434); RDW 16.5 % (11.9-15.9)
[2016-08-25 12:30] LABS: WHITE BLOOD COUNT 34.4 K/mm3 (4.0-10.0)
[2016-08-25 13:01] LABS: METAMYELOCYTE 6 % (0-2)
[2016-08-25] MEDS: POTASSIUM CHLORIDE TABS 20 MEQ TABLET.ER (FP) PO SCH (13:34)
--- NOTE | 2016-08-25 16:55 | EKG ---
Test Reason : Blood Pressure : / mmHG Vent. Rate : 099 BPM Atrial Rate : 099 BPM P-R Int : 150 ms QRS Dur : 084 ms QT Int : 378 ms P-R-T Axes : 046 034 027 degrees QTc Int : 485 ms SINUS RHYTHM WITH PREMATURE SUPRAVENTRICULAR COMPLEXES WITH OCCASIONAL PREMATURE VENTRICULAR COMPLEXES SEPTAL INFARCT , AGE UNDETERMINED ABNORMAL ECG WHEN COMPARED WITH ECG OF 15-APR-2016 18:20, PREMATURE VENTRICULAR COMPLEXES ARE NOW PRESENT PREMATURE SUPRAVENTRICULAR COMPLEXES ARE NOW PRESENT SEPTAL INFARCT IS NOW PRESENT Confirmed by PHILIP LIRIANO MD ([id number]) on 08/25/2016 4:55:33 PM Referred By: Overread By: PHILIP LIRIANO MD
--- NOTE | 2016-08-25 21:07 | PN ---
Progress Note (short form) - Note Progress Note: Patient seen and examined Dnies any complaints Last Vital Signs Temp Pulse Resp BP Pulse Ox 98.1 F 97 H 18 146/83 95 08/25/16 18:30 08/25/16 18:30 08/25/16 18:30 08/25/16 18:30 08/25/16 09:00 HEENT: [place], EOM Intact Oropharynx: No thrush, No mucositis Neck: Supple Nodes: Without adenopathy Breasts: Without masses Cor: RSR, No murmurs, No gallops Lungs: Clear to P&A Abd: Soft, Normal bowel sounds, No organomegaly Ext:No significant edema Skin: No rashes, Integument intact Abnormal Lab Results 08/25/16 08/25/16 08/25/16 06:45 06:45 06:45 WBC 30.1 H* D RBC 3.04 L D Hgb 8.6 L D Hct 26.3 L D RDW 16.3 H D Plt Count 67 L D Lymphocytes % 2.0 L D Monocytes % 11.0 H Metamyelocytes 6 H D Myelocytes 6 H D INR 1.22 H Sodium 148 H Potassium 3.0 L D Chloride 112 H Calcium 8.1 L 08/25/16 12:00 WBC 34.4 H* RBC 3.40 L Hgb 9.5 L D Hct 29.1 L RDW 16.5 H Plt Count 77 L Lymphocytes % Monocytes % Metamyelocytes Myelocytes INR Sodium Potassium Chloride Calcium Current Medications Acetaminophen (Tylenol -) 650 mg PO Q6H PRN PRN Reason: FEVER Last Admin: 08/25/16 13:39 Dose: 650 mg Allopurinol (Zyloprim -) 300 mg PO DAILY [facility] Last Admin: 08/25/16 13:33 Dose: 300 mg Alprazolam (Xanax -) 0.5 mg PO TID PRN PRN Reason: ANXIETY Amlodipine Besylate (Norvasc -) 5 mg PO DAILY [facility] Last Admin: 08/25/16 09:03 Dose: 5 mg Atorvastatin Calcium (Lipitor -) 80 mg PO HS [facility] Last Admin: 08/24/16 22:33 Dose: 80 mg Docusate Sodium (Colace -) 100 mg PO DAILY [facility] Last Admin: 08/25/16 10:31 Dose: Not Given Furosemide (Lasix Injection -) 40 mg IVPB DAILY [facility] Last Admin: 08/25/16 09:03 Dose: 40 mg Metoprolol Succinate (Toprol Xl -) 50 mg PO DAILY [facility] Last Admin: 08/25/16 09:03 Dose: 50 mg Oxycodone HCl (Roxicodone -) 10 mg PO Q4H PRN PRN Reason: PAIN Potassium Chloride (K-Dur -) 40 meq PO DAILY [facility] Last Admin: 08/25/16 13:34 Dose: 40 meq Tamsulosin HCl (Flomax -) 0.4 mg PO DAILY@0830 [facility] Last Admin: 08/25/16 09:02 Dose: 0.4 mg A/P 76 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 Now with pleural effusions/SOB Echo pending WBC rising/ thrombocytopenia --few atypical ceels on smear check flowcytometry will consider switch to gleevec as patient with recurrent effusions on dasatinib continue allopurinol monitor Cr on lasix thoracentesis ordered. to consider platelets iof <[id number] monitor
[2016-08-25] MEDS: ATORVASTATIN CA 80 MG TABLET (FP) PO SCH (22:38)
[2016-08-25] MEDS: oxyCODONE HCL 5 MG TABLET PO PRN (22:48)
[2016-08-26] MEDS ORDERED: PT OWN MED DRAWER 7, Y5N ONE ×2 (09:15→17:05)
[2016-08-26] MEDS: POSACONAZOLE PO SCH ×2 (09:16→18:22)
[2016-08-26] MEDS: TAMSULOSIN HCL 0.4 MG CAP.ER.24H (FP) PO SCH (09:16)
[2016-08-26] MEDS: amLODIPine BESYLATE 5 MG TABLET (FP) PO SCH (09:34)
[2016-08-26] MEDS: ALLOPURINOL 300 MG TABLET (FP) PO SCH (09:34)
[2016-08-26] MEDS: POTASSIUM CHLORIDE TABS 20 MEQ TABLET.ER (FP) PO SCH (09:35)
[2016-08-26] MEDS: FUROSEMIDE 40 MG/4 ML INJECTABLE VIAL IVPB SCH (09:35)
[2016-08-26] MEDS: METOPROLOL SUCCINATE 50 MG TAB.SR.24H (FP) PO SCH (09:35)
[2016-08-26] MEDS: DOCUSATE SODIUM 100 MG CAPSULE (FP) PO SCH (10:08)
[2016-08-26 10:27] LABS: MCH 27.9 pg (25.7-33.7); MCHC 32.1 g/dl (32.0-35.9); MEAN CELL VOLUME 86.9 fl (80-96); MEAN PLT VOLUME 9.2 fl (7.5-11.1); PLATELET COUNT 125 K/MM3 (134-434)
[2016-08-26 10:40] LABS: WHITE BLOOD COUNT 31.2 K/mm3 (4.0-10.0)
[2016-08-26 10:57] LABS: ALBUMIN 2.5 g/dl (3.4-5.0); ANION GAP 7 (8-16); CALCIUM 8.3 mg/dL (8.5-10.1); CO2 30 mmol/L (21-32); GLUCOSE,RANDOM 135 mg/dL (74-106)
[2016-08-26 11:01] LABS: BILIRUBIN,TOTAL 0.6 mg/dL (0.2-1.0); CREATININE 0.9 mg/dL (0.7-1.3); SGOT/AST 45 U/L (15-37); SGPT/ALT 40 U/L (12-78); TOT PROT 6.4 g/dl (6.4-8.2)
[2016-08-26 11:02] LABS: ALK PHOS 104 U/L (45-117)
--- NOTE | 2016-08-26 11:22 | PN ---
Progress Note, Physician Chief Complaint: Pt feels well has SOB No chest pain he is urinating frequently no cough - Current Medication List Current Medications: Active Medications Acetaminophen (Tylenol -) 650 mg PO Q6H PRN PRN Reason: FEVER Last Admin: 08/25/16 22:48 Dose: 650 mg Allopurinol (Zyloprim -) 300 mg PO DAILY [facility] Last Admin: 08/26/16 09:34 Dose: 300 mg Alprazolam (Xanax -) 0.5 mg PO TID PRN PRN Reason: ANXIETY Amlodipine Besylate (Norvasc -) 5 mg PO DAILY [facility] Last Admin: 08/26/16 09:34 Dose: 5 mg Atorvastatin Calcium (Lipitor -) 80 mg PO HS [facility] Last Admin: 08/25/16 22:38 Dose: 80 mg Docusate Sodium (Colace -) 100 mg PO DAILY [facility] Last Admin: 08/26/16 10:08 Dose: Not Given Furosemide (Lasix Injection -) 40 mg IVPB DAILY [facility] Last Admin: 08/26/16 09:35 Dose: 40 mg Metoprolol Succinate (Toprol Xl -) 50 mg PO DAILY [facility] Last Admin: 08/26/16 09:35 Dose: 50 mg Oxycodone HCl (Roxicodone -) 10 mg PO Q4H PRN PRN Reason: PAIN Last Admin: 08/25/16 22:48 Dose: 10 mg Potassium Chloride (K-Dur -) 40 meq PO DAILY [facility] Last Admin: 08/26/16 09:35 Dose: 40 meq Tamsulosin HCl (Flomax -) 0.4 mg PO DAILY@0830 [facility] Last Admin: 08/26/16 09:16 Dose: 0.4 mg - Objective Vital Signs: Vital Signs Temperature 98.9 F 08/26/16 10:56 Pulse Rate 92 H 08/26/16 09:33 Respiratory Rate 20 08/26/16 09:33 Blood Pressure 146/80 08/26/16 09:33 O2 Sat by Pulse Oximetry (%) 95 08/25/16 21:00 Constitutional: Yes: No Distress, Calm Cardiovascular: Yes: Regular Rate and Rhythm Respiratory: Yes: Diminished, Rales Gastrointestinal: Yes: Normal Bowel Sounds, Soft. No: Distention, Tenderness Edema: Yes (decreased) Labs: CBC, BMP 08/26/16 09:58 08/26/16 09:58 INR, PTT INR 1.22 (0.82-1.09) H 08/25/16 06:45 Problem List - Problems (1) Acute leukemia Code(s): C95.00 - ACUTE LEUKEMIA OF [place] CELL TYPE NOT ACHIEVE REMISSION Qualifiers: Leukemia Active/Remission status: without remission Qualified Code(s): C95.00 - Acute leukemia of unspecified cell type not having achieved remission (2) Bilateral pleural effusion Code(s): J90 - PLEURAL EFFUSION, NOT ELSEWHERE CLASSIFIED (3) ASHD (arteriosclerotic heart disease) Code(s): I25.10 - ATHSCL HEART DISEASE OF [place] CORONARY ARTERY W/O ANG PCTRS (4) HTN (hypertension) Code(s): I10 - ESSENTIAL (PRIMARY) HYPERTENSION Qualifiers: Hypertension type: essential hypertension Qualified Code(s): I10 - Essential (primary) hypertension Assessment/Plan PLAN -- noted positive blood cultures- one bottle -- contaminant-- off antibiotics per ID -- IV Lasix , replace potassium -- need therapeutic thoracentesis -- likely today -- spoke with Dr marroquin-- awaiting flow cytometry -- continue with Deshaun
[2016-08-26 11:52] LABS: METAMYELOCYTE 1 % (0-2)
[2016-08-26] MEDS ORDERED: POTASSIUM CHLORIDE TABS 20 MEQ TABLET.ER (FP) PO ONE (11:57)
--- NOTE | 2016-08-26 13:03 | PN ---
Progress Note (short form) - Note Progress Note: PULMONARY Breathing better. Getting thoracentesis. Last Vital Signs Temp Pulse Resp BP Pulse Ox 98.9 F 92 H 20 146/80 95 08/26/16 10:56 08/26/16 09:33 08/26/16 09:33 08/26/16 09:33 08/25/16 21:00 Gen: NAD at rest Heart: RRR Lung: decreased breath sounds at the bases Abd: soft, nontender Ext: no edema CBC, BMP 08/26/16 09:58 08/26/16 09:58 Active Medications Acetaminophen (Tylenol -) 650 mg PO Q6H PRN PRN Reason: FEVER Last Admin: 08/25/16 22:48 Dose: 650 mg Allopurinol (Zyloprim -) 300 mg PO DAILY [facility] Last Admin: 08/26/16 09:34 Dose: 300 mg Alprazolam (Xanax -) 0.5 mg PO TID PRN PRN Reason: ANXIETY Amlodipine Besylate (Norvasc -) 5 mg PO DAILY [facility] Last Admin: 08/26/16 09:34 Dose: 5 mg Atorvastatin Calcium (Lipitor -) 80 mg PO HS [facility] Last Admin: 08/25/16 22:38 Dose: 80 mg Docusate Sodium (Colace -) 100 mg PO DAILY [facility] Last Admin: 08/26/16 10:08 Dose: Not Given Furosemide (Lasix Injection -) 40 mg IVPB DAILY [facility] Last Admin: 08/26/16 09:35 Dose: 40 mg Metoprolol Succinate (Toprol Xl -) 50 mg PO DAILY [facility] Last Admin: 08/26/16 09:35 Dose: 50 mg Oxycodone HCl (Roxicodone -) 10 mg PO Q4H PRN PRN Reason: PAIN Last Admin: 08/25/16 22:48 Dose: 10 mg Potassium Chloride (K-Dur -) 40 meq PO DAILY [facility] Last Admin: 08/26/16 09:35 Dose: 40 meq Tamsulosin HCl (Flomax -) 0.4 mg PO DAILY@0830 [facility] Last Admin: 08/26/16 09:16 Dose: 0.4 mg A/P ALL on Chemotherapy Bilateral Pleural Effusions Pulmonary HTN HTN CAD Hyperlipidemia - f/u pleural fluid studies - monitor off antibiotics - continue lasix for now - replete lytes - O2 to keep Spo2 >90% - inhaled bronchodilators as needed - DVT prophylaxis - further recommendations pending fluid analysis Problem List - Problems (1) Shortness of breath Code(s): R06.02 - SHORTNESS OF BREATH (2) Bilateral pleural effusion Code(s): J90 - PLEURAL EFFUSION, NOT ELSEWHERE CLASSIFIED (3) Acute leukemia Code(s): C95.00 - ACUTE LEUKEMIA OF [place] CELL TYPE NOT ACHIEVE REMISSION Qualifiers: Leukemia Active/Remission status: without remission Qualified Code(s): C95.00 - Acute leukemia of unspecified cell type not having achieved remission (4) ASHD (arteriosclerotic heart disease) Code(s): I25.10 - ATHSCL HEART DISEASE OF [place] CORONARY ARTERY W/O ANG PCTRS (5) HTN (hypertension) Code(s): I10 - ESSENTIAL (PRIMARY) HYPERTENSION Qualifiers: Hypertension type: essential hypertension Qualified Code(s): I10 - Essential (primary) hypertension
[2016-08-26 14:22] LABS: GLUCOSE,PLEURAL FLUID 113.838; TOTAL PROTEIN,PLEURAL FLUID 2.526
[2016-08-26 14:24] LABS: CHLORIDE PLEURAL FLUID 113
[2016-08-26] MEDS: oxyCODONE HCL 5 MG TABLET PO PRN ×2 (14:55→21:36)
[2016-08-26 15:06] LABS: PLEURAL FLUID APPEARANCE HAZY; PLEURAL FLUID COLOR YELLOW; PLEURAL FLUID SOURCE RIGHT PLEURAL
--- NOTE | 2016-08-26 15:46 | PN ---
Progress Note, Physician History of Present Illness: S/P thoracentesis Breathing , LE edema improved No fever/ chills Off antibiotics - Current Medication List Current Medications: Active Medications Acetaminophen (Tylenol -) 650 mg PO Q6H PRN PRN Reason: FEVER Last Admin: 08/25/16 22:48 Dose: 650 mg Allopurinol (Zyloprim -) 300 mg PO DAILY [facility] Last Admin: 08/26/16 09:34 Dose: 300 mg Alprazolam (Xanax -) 0.5 mg PO TID PRN PRN Reason: ANXIETY Amlodipine Besylate (Norvasc -) 5 mg PO DAILY [facility] Last Admin: 08/26/16 09:34 Dose: 5 mg Atorvastatin Calcium (Lipitor -) 80 mg PO HS [facility] Last Admin: 08/25/16 22:38 Dose: 80 mg Docusate Sodium (Colace -) 100 mg PO DAILY [facility] Last Admin: 08/26/16 10:08 Dose: Not Given Furosemide (Lasix Injection -) 40 mg IVPB DAILY [facility] Last Admin: 08/26/16 09:35 Dose: 40 mg Metoprolol Succinate (Toprol Xl -) 50 mg PO DAILY [facility] Last Admin: 08/26/16 09:35 Dose: 50 mg Oxycodone HCl (Roxicodone -) 10 mg PO Q4H PRN PRN Reason: PAIN Last Admin: 08/26/16 14:55 Dose: 10 mg Potassium Chloride (K-Dur -) 40 meq PO DAILY [facility] Last Admin: 08/26/16 09:35 Dose: 40 meq Tamsulosin HCl (Flomax -) 0.4 mg PO DAILY@0830 [facility] Last Admin: 08/26/16 09:16 Dose: 0.4 mg - Objective Vital Signs: Vital Signs Temperature 98.9 F 08/26/16 10:56 Pulse Rate 90 08/26/16 13:49 Respiratory Rate 24 08/26/16 13:49 Blood Pressure 145/73 08/26/16 13:49 O2 Sat by Pulse Oximetry (%) 100 08/26/16 13:49 Constitutional: Yes: No Distress Eyes: Yes: Conjunctiva Clear Cardiovascular: Yes: Regular Rate and Rhythm, S1, S2 Respiratory: Yes: Diminished Gastrointestinal: Yes: Normal Bowel Sounds, Soft Edema: Yes Labs: CBC, BMP 08/26/16 09:58 08/26/16 09:58 INR, PTT INR 1.22 (0.82-1.09) H 08/25/16 06:45 Assessment/Plan S/P thoracentesis AML Observe off antibiotics
[2016-08-26] MEDS: ATORVASTATIN CA 80 MG TABLET (FP) PO SCH (21:37)
[2016-08-26 21:41] LABS: PLEURAL FLUID LYMPHOCYTES 31 %; PLEURAL FLUID MACROPHAGES 37 %; PLEURAL FLUID NEUTROPHIL 18 %
[2016-08-27 07:22] LABS: MCH 27.8 pg (25.7-33.7); MCHC 32.6 g/dl (32.0-35.9); MEAN CELL VOLUME 85.5 fl (80-96); MEAN PLT VOLUME 8.9 fl (7.5-11.1); PLATELET COUNT 219 K/MM3 (134-434); RDW 16.2 % (11.9-15.9)
[2016-08-27 07:44] LABS: WHITE BLOOD COUNT 30.8 K/mm3 (4.0-10.0)
[2016-08-27 08:02] LABS: ALBUMIN 2.6 g/dl (3.4-5.0); ALK PHOS 93 U/L (45-117); ANION GAP 9 (8-16); BILIRUBIN,TOTAL 0.5 mg/dL (0.2-1.0); CALCIUM 8.4 mg/dL (8.5-10.1); CO2 28 mmol/L (21-32); CREATININE 0.9 mg/dL (0.7-1.3); GLUCOSE,RANDOM 96 mg/dL (74-106); SGOT/AST 38 U/L (15-37); SGPT/ALT 37 U/L (12-78); TOT PROT 6.3 g/dl (6.4-8.2)
--- NOTE | 2016-08-27 08:30 | PN ---
Progress Note (short form) - Note Progress Note: SUBJECTIVE: Patient seen and examined. Chart reviewed. Chief complaint: Pain at the thoracentesis site. Denies chest pain. Breathing is stable. OBJECTIVE: Intake & Output 08/26/16 08/27/16 08/27/16 23:59 07:59 15:59 Intake Total 1550 0 Output Total 950 Balance 600 0 Weight 70.777 kg Intake: IVPB 0 Oral 1550 Output: Urine 950 Void 950 Other: Voiding Method Urinal Urinal Bowel Movement No Weight Measurement Method Standing Scale Active Medications Acetaminophen (Tylenol -) 650 mg PO Q6H PRN PRN Reason: FEVER Last Admin: 08/25/16 22:48 Dose: 650 mg Allopurinol (Zyloprim -) 300 mg PO DAILY [facility] Last Admin: 08/26/16 09:34 Dose: 300 mg Alprazolam (Xanax -) 0.5 mg PO TID PRN PRN Reason: ANXIETY Amlodipine Besylate (Norvasc -) 5 mg PO DAILY [facility] Last Admin: 08/26/16 09:34 Dose: 5 mg Atorvastatin Calcium (Lipitor -) 80 mg PO HS [facility] Last Admin: 08/26/16 21:37 Dose: 80 mg Docusate Sodium (Colace -) 100 mg PO DAILY [facility] Last Admin: 08/26/16 10:08 Dose: Not Given Furosemide (Lasix Injection -) 40 mg IVPB DAILY [facility] Last Admin: 08/26/16 09:35 Dose: 40 mg Metoprolol Succinate (Toprol Xl -) 50 mg PO DAILY [facility] Last Admin: 08/26/16 09:35 Dose: 50 mg Oxycodone HCl (Roxicodone -) 10 mg PO Q4H PRN PRN Reason: PAIN Last Admin: 08/26/16 21:36 Dose: 10 mg Potassium Chloride (K-Dur -) 40 meq PO DAILY [facility] Last Admin: 08/26/16 09:35 Dose: 40 meq Tamsulosin HCl (Flomax -) 0.4 mg PO DAILY@0830 [facility] Last Admin: 08/27/16 09:15 Dose: 0.4 mg CBC, BMP 08/27/16 05:35 08/27/16 05:35 Laboratory Results - last 24 hr 08/26/16 08/26/16 08/26/16 09:58 09:58 13:30 WBC 31.2 H* RBC 3.02 L Hgb 8.4 L D Hct 26.3 L MCV 86.9 MCHC 32.1 RDW 16.0 H Plt Count 125 L D MPV 9.2 Neutrophils % 84.0 H Lymphocytes % 2.0 L Monocytes % 5.0 Band Neutrophils 4.0 Metamyelocytes 1 D Myelocytes 2 D Differential Comment Manual diff done Blast Cells 2 H D Sodium 146 H Potassium 3.3 L Chloride 109 H Carbon Dioxide 30 Anion Gap 7 L BUN 8 D Creatinine 0.9 Creat Clearance w eGFR > 60 Random Glucose 135 H D Calcium 8.3 L Total Bilirubin 0.6 AST 45 H D ALT 40 Alkaline Phosphatase 104 D Total Protein 6.4 Albumin 2.5 L D Pleural Fluid Source Right pleural Pleural Color Yellow Pleural Appearance Hazy Pleural WBC Replacer Pleural RBC Y Pleural Neutrophils 18 Pleural Lymphocytes 31 Pleural Monocytes 5 Pleural Macrophages 37 Pleural Mesothelial 9 Pleural Chloride 113 Pleural Total Protein 2.526 Pleural Albumin 1 Pleural LDH 271 Pleural Glucose 113.838 Pleural Amylase 14.552 Pleural Cholesterol < 50 08/27/16 08/27/16 05:35 05:35 WBC 30.8 H* RBC 2.96 L Hgb 8.3 L Hct 25.3 L MCV 85.5 MCHC 32.6 RDW 16.2 H Plt Count 219 D MPV 8.9 Neutrophils % 75.0 Lymphocytes % 3.0 L D Monocytes % 8.0 Band Neutrophils 1.0 D Metamyelocytes 3 H D Myelocytes 6 H D Differential Comment Manual diff done Blast Cells 4 H D Sodium 146 H Potassium 3.1 L Chloride 109 H Carbon Dioxide 28 Anion Gap 9 BUN 8 Creatinine 0.9 Creat Clearance w eGFR > 60 Random Glucose 96 D Calcium 8.4 L Total Bilirubin 0.5 AST 38 H ALT 37 Alkaline Phosphatase 93 Total Protein 6.3 L Albumin 2.6 L Pleural Fluid Source Pleural Color Pleural Appearance Pleural WBC Pleural RBC Pleural Neutrophils Pleural Lymphocytes Pleural Monocytes Pleural Macrophages Pleural Mesothelial Pleural Chloride Pleural Total Protein Pleural Albumin Pleural LDH Pleural Glucose Pleural Amylase Pleural Cholesterol Microbiology 08/24/16 01:50 Blood Culture - Preliminary Blood - Peripheral Venous Staphylococcus Epidermidis 08/26/16 13:30 AFB Smear Concentration - Preliminary Pleural Fluid Mycobacterial Culture - Preliminary 08/24/16 01:50 Blood Culture - Preliminary Blood - Peripheral Venous NO GROWTH OBTAINED AFTER 72 HOURS, INCUBATION TO CONTINUE FOR 2 DAYS. PHYSICAL EXAMINATION: Constitutional: Yes: No Distress, Calm Cardiovascular: Yes: Regular Rate and Rhythm Respiratory: Yes: Diminished at bases. Gastrointestinal: Yes: Normal Bowel Sounds, Soft. No: Distention, Tenderness Edema: Yes (decreased) ASSESSMENT & PLAN: - Status post thoracentesis. - Off antibiotics. - Continue present care. - Pain control. - Fix electrolytes. - Will follow. Documentation prepared by Nely Smith, acting as a medical records assistant for Leona Cosby MD.
[2016-08-27 08:46] LABS: METAMYELOCYTE 3 % (0-2)
[2016-08-27] MEDS ORDERED: PT OWN MED DRAWER 7, Y5N ONE ×4 (09:13→17:55)
[2016-08-27] MEDS: TAMSULOSIN HCL 0.4 MG CAP.ER.24H (FP) PO SCH (09:15)
[2016-08-27] MEDS: POSACONAZOLE PO SCH ×3 (09:16→18:46)
[2016-08-27] MEDS: DOCUSATE SODIUM 100 MG CAPSULE (FP) PO SCH (10:50)
[2016-08-27] MEDS: ALLOPURINOL 300 MG TABLET (FP) PO SCH (10:56)
[2016-08-27] MEDS: METOPROLOL SUCCINATE 50 MG TAB.SR.24H (FP) PO SCH (10:56)
[2016-08-27] MEDS: FUROSEMIDE 40 MG/4 ML INJECTABLE VIAL IVPB SCH (10:56)
[2016-08-27] MEDS: oxyCODONE HCL 5 MG TABLET PO PRN (10:57)
[2016-08-27] MEDS: amLODIPine BESYLATE 5 MG TABLET (FP) PO SCH (10:58)
[2016-08-27] MEDS: POTASSIUM CHLORIDE TABS 20 MEQ TABLET.ER (FP) PO SCH (11:07)
--- NOTE | 2016-08-27 13:46 | PN ---
Progress Note (short form) - Note Progress Note: PULMONARY AWAKE/ALERT SOB IS IMPROVED/LYING FLAT NO O2/NOT SOB VSS/AFEBRILE ANICTERIC DISTANT B/L BREATH SOUNDS BASES S1S2 BS+ 2+ EDEMA LABS/MEDS/NOTES/IMAGING/ECHO REVIEWED EXUDATIVE CHARACTERISTIC BY LDH CRITERIA(GREATER THAN 2/3 UPPER LIMIT OF NL SERUM LDH) ALL ON CHEMOTX PULMONARY HTN CAD S/P STENT/HTN/HPL PLEURAL EFFUSION CONTINUE CURRENT TREATMENT CHECK CYTOLOGY ON PLEURAL FLUID Harjinder FIGUEROA MD
--- NOTE | 2016-08-27 15:22 | PATH ---
Surgical Pathology Report Patient Name: AGATHA KING Med. Rec. #: [id number] /Age/Gender: 1940 (Age: 76) / M Account: [id number] Location: [address] [place] [address]/[facility] Taken: 08/25/2016 Received: 08/25/2016 Reported: 08/27/2016 Physicians: Hanane Easley M.D. Specimen(s) Received PERIPHERAL BLOOD Clinical History H/o B-ALL with Ph chromosome Final Diagnosis FLOW CYTOMETRY PERFORMED AND INTERPRETED AT [place], [place] ([id number]) SHOWED THE FOLLOWING: INTERPRETATION: In the sample analyzed there is no detectable evidence of recurrent acute lymphoblastic leukemia. Phenotype: In the sample analyzed, there is a mixed population of myeloid cells, B cells and T cells. No abnormal myeloid maturation is seen. There is no increase in CD34+ positive blasts and they comprise 2% of total cells. Myeloid cells are 86% and monocytes are 7% of total cells. The B-cells are virtually absent and the T-cells (3% of total) show no arenas T-cell antigen deletion. Electronically Signed Armaan Flores M.D. Gross Description Received is one lavender top tube of blood which is sent to [facility]. 08/25/201608/25/2016
--- NOTE | 2016-08-27 15:40 | PATH ---
Cytology Non-Gynecological Report Patient Name: AGATHA KING [facility]. Rec. #: [id number] /Age/Gender: 1940 (Age: 76) / M Account: [id number] Location: [address] [place] [address]/[facility] Taken: 08/26/2016 Received: 08/26/2016 Reported: 08/27/2016 Physicians: Jade Irizarry M.D. Smitha Mellacheruvu, M.D. Specimen(s) Received A: RIGHT PLEURAL FLUID IN 50% ALCOHOL B: RIGHT PLEURAL FLUID FRESH Clinical History Pleural effusion Final Diagnosis ----- A,B. Pleural fluid, right, thoracentesis: Satisfactory for evaluation. No malignant cells identified. Reactive mesothelial cells, histiocytes and lymphocytes. Comment: Immunohistochemical stains performed and interpreted on cell block at [facility] show the following: the cells in the effusion are negative for BerEP4/YISEL and TTF1 immunostains; CK7 highlights mesothelial cells. This result is supportive of the interpretation above. ___ Electronically Signed Armaan Flores M.D. Gross Description ----- A. Received is a 50 cc of bloody fluid in 50% alcohol. One cytofunnel slide and one cell block are made. B. Received is 1000 cc of bloody fluid fresh. One cytofunnel slide and one cell block are made. ___
[2016-08-27] MEDS: ACETAMINOPHEN 325 MG TABLET (FP) PO PRN (19:18)
[2016-08-27] MEDS ORDERED: VANCOMYCIN 1,000 MG in DEXTROSE 5%-WATER - 250 ML IVPB ONE (21:27)
[2016-08-27] MEDS ORDERED: PIPERACILLIN/TAZOB 3.375 GM 3.375 GM in DEXTROSE 5%-WATER - 50 ML IVPB SCH (21:30)
[2016-08-27] MEDS ORDERED: VANCOMYCIN 1 GRAM (PRE-DOCKED) 1,000 MG/250 ML BAG IVPB ONE (21:45)
[2016-08-27] MEDS: PIPERACILLIN/TAZOB 3.375 GM/50 ML PRE-DOCKED IVPB SCH (21:53)
[2016-08-27] MEDS: ATORVASTATIN CA 80 MG TABLET (FP) PO SCH (21:54)
--- NOTE | 2016-08-27 22:44 | PN ---
Progress Note (short form) - Note Progress Note: Patient seen and examined c/o headaches Last Vital Signs Temp Pulse Resp BP Pulse Ox 101.5 F H 104 H 28 H 136/73 97 08/27/16 19:17 08/27/16 19:17 08/27/16 19:17 08/27/16 14:02 08/27/16 11:00 HEENT: MASOOD, EOM Intact Oropharynx: coated tongue Cor: RSR, No murmurs, No gallops Lungs: Clear to P&A Abd: Soft, Normal bowel sounds, No organomegaly Abnormal Lab Results 08/27/16 08/27/16 05:35 05:35 WBC 30.8 H* RBC 2.96 L Hgb 8.3 L Hct 25.3 L RDW 16.2 H Lymphocytes % 3.0 L D Metamyelocytes 3 H D Myelocytes 6 H D Blast Cells 4 H D Sodium 146 H Potassium 3.1 L Chloride 109 H Calcium 8.4 L AST 38 H Total Protein 6.3 L Albumin 2.6 L Current Medications Acetaminophen (Tylenol -) 650 mg PO Q6H PRN PRN Reason: FEVER Last Admin: 08/27/16 19:18 Dose: 650 mg Allopurinol (Zyloprim -) 300 mg PO DAILY [facility] Last Admin: 08/27/16 10:56 Dose: 300 mg Alprazolam (Xanax -) 0.5 mg PO TID PRN PRN Reason: ANXIETY Amlodipine Besylate (Norvasc -) 5 mg PO DAILY [facility] Last Admin: 08/27/16 10:58 Dose: 5 mg Atorvastatin Calcium (Lipitor -) 80 mg PO HS [facility] Last Admin: 08/27/16 21:54 Dose: 80 mg Docusate Sodium (Colace -) 100 mg PO DAILY [facility] Last Admin: 08/27/16 10:50 Dose: Not Given Furosemide (Lasix Injection -) 40 mg IVPB DAILY [facility] Last Admin: 08/27/16 10:56 Dose: 40 mg Metoprolol Succinate (Toprol Xl -) 50 mg PO DAILY [facility] Last Admin: 08/27/16 10:56 Dose: 50 mg Oxycodone HCl (Roxicodone -) 10 mg PO Q4H PRN PRN Reason: PAIN Last Admin: 08/27/16 10:57 Dose: 10 mg Piperacillin Sod/Tazobactam Sod (Zosyn 3.375gm Ivpb (Pre-Docked)) 3.375 gm IVPB Q8H-IV [facility] Stop: 08/28/16 02:01 Last Admin: 08/27/16 21:53 Dose: 3.375 gm Piperacillin Sod/Tazobactam Sod (Zosyn 3.375gm Ivpb (Pre-Docked)) 3.375 gm IVPB Q8H-IV [facility] Potassium Chloride (K-Dur -) 40 meq PO DAILY [facility] Last Admin: 08/27/16 11:07 Dose: 40 meq Tamsulosin HCl (Flomax -) 0.4 mg PO DAILY@0830 [facility] Last Admin: 08/27/16 09:15 Dose: 0.4 mg Valacyclovir HCl (Valtrex -) 500 mg PO DAILY [facility] 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 Now with pleural effusions/SOB Echo pending WBC rising/ thrombocytopenia -- flowcytometry shows no e/o recurrent blasts. 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 Fever-- repeat cx/. check sputum cx. Restart valtrex/ zosyn/ Vanco. 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 and headaches. Refusing CT scan
[2016-08-28] MEDS: ACETAMINOPHEN 325 MG TABLET (FP) PO PRN ×4 (02:05→21:50)
[2016-08-28] MEDS: PIPERACILLIN/TAZOB 3.375 GM/50 ML PRE-DOCKED IVPB SCH (02:32)
[2016-08-28] MEDS ORDERED: PT OWN MED DRAWER 7, Y5N ONE ×3 (08:29→17:02)
[2016-08-28] MEDS: TAMSULOSIN HCL 0.4 MG CAP.ER.24H (FP) PO SCH (08:32)
[2016-08-28 08:33] LABS: MCH 28.4 pg (25.7-33.7); MEAN CELL VOLUME 85.9 fl (80-96); MEAN PLT VOLUME 8.5 fl (7.5-11.1); PLATELET COUNT 371 K/MM3 (134-434)
[2016-08-28 08:59] LABS: WHITE BLOOD COUNT 30.8 K/mm3 (4.0-10.0)
[2016-08-28 09:04] LABS: ALBUMIN 2.8 g/dl (3.4-5.0); BILIRUBIN,TOTAL 0.4 mg/dL (0.2-1.0); CALCIUM 8.5 mg/dL (8.5-10.1); CREATININE 1.2 mg/dL (0.7-1.3); MAGNESIUM 1.7 mg/dL (1.8-2.4); TOT PROT 7.1 g/dl (6.4-8.2)
[2016-08-28 09:13] LABS: INR 1.2 (0.82-1.09); PROTHROMBIN TIME (PATIENT) 13.2 SEC (9.98-11.88)
[2016-08-28 09:16] LABS: ACTIVATED PTT 31.2 SECONDS (26.9-34.4)
[2016-08-28] MEDS: METOPROLOL SUCCINATE 50 MG TAB.SR.24H (FP) PO SCH (09:16)
[2016-08-28] MEDS: POTASSIUM CHLORIDE TABS 20 MEQ TABLET.ER (FP) PO SCH (09:16)
[2016-08-28] MEDS: amLODIPine BESYLATE 5 MG TABLET (FP) PO SCH (09:16)
[2016-08-28] MEDS: ALLOPURINOL 300 MG TABLET (FP) PO SCH (09:17)
[2016-08-28] MEDS: DOCUSATE SODIUM 100 MG CAPSULE (FP) PO SCH (09:17)
[2016-08-28] MEDS: FUROSEMIDE 40 MG/4 ML INJECTABLE VIAL IVPB SCH (09:17)
--- NOTE | 2016-08-28 09:21 | PN ---
Progress Note, Physician Chief Complaint: ID Asked to see him for onset of fever 101 Denies any localizing complaints NO SOB chest pain headaches urinary complaints or diarrhea Zosyn given NAD History of Present Illness: ID - Current Medication List Current Medications: Active Medications Acetaminophen (Tylenol -) 650 mg PO Q6H PRN PRN Reason: FEVER Last Admin: 08/28/16 08:31 Dose: 650 mg Allopurinol (Zyloprim -) 300 mg PO DAILY [facility] Last Admin: 08/27/16 10:56 Dose: 300 mg Alprazolam (Xanax -) 0.5 mg PO TID PRN PRN Reason: ANXIETY Amlodipine Besylate (Norvasc -) 5 mg PO DAILY [facility] Last Admin: 08/27/16 10:58 Dose: 5 mg Atorvastatin Calcium (Lipitor -) 80 mg PO HS [facility] Last Admin: 08/27/16 21:54 Dose: 80 mg Docusate Sodium (Colace -) 100 mg PO DAILY [facility] Last Admin: 08/27/16 10:50 Dose: Not Given Furosemide (Lasix Injection -) 40 mg IVPB DAILY [facility] Last Admin: 08/27/16 10:56 Dose: 40 mg Metoprolol Succinate (Toprol Xl -) 50 mg PO DAILY [facility] Last Admin: 08/27/16 10:56 Dose: 50 mg Oxycodone HCl (Roxicodone -) 10 mg PO Q4H PRN PRN Reason: PAIN Last Admin: 08/27/16 10:57 Dose: 10 mg Piperacillin Sod/Tazobactam Sod (Zosyn 3.375gm Ivpb (Pre-Docked)) 3.375 gm IVPB Q8H-IV [facility] Potassium Chloride (K-Dur -) 40 meq PO DAILY [facility] Last Admin: 08/27/16 11:07 Dose: 40 meq Tamsulosin HCl (Flomax -) 0.4 mg PO DAILY@0830 [facility] Last Admin: 08/28/16 08:32 Dose: 0.4 mg Valacyclovir HCl (Valtrex -) 500 mg PO DAILY [facility] - Objective Vital Signs: Vital Signs Temperature 99.6 F 08/28/16 06:00 Pulse Rate 96 H 08/28/16 06:00 Respiratory Rate 20 08/28/16 06:00 Blood Pressure 146/68 08/28/16 06:00 O2 Sat by Pulse Oximetry (%) 96 08/27/16 21:00 Constitutional: Yes: Well Nourished, No Distress HENT: Yes: Other (Dentures). No: Thrush Neck: Yes: WNL, Supple Cardiovascular: Yes: Regular Rate and Rhythm, Murmur, S1, S2 Respiratory: Yes: WNL, Regular, CTA Bilaterally. No: Rales, Rhonchi Gastrointestinal: Yes: WNL, Normal Bowel Sounds, Soft. No: Tenderness Edema: No Labs: CBC, BMP 08/28/16 07:00 INR, PTT INR 1.22 (0.82-1.09) H 08/25/16 06:45 Assessment/Plan Laboratory Tests 08/28/16 07:00 WBC 30.8 H* Hgb 8.7 L Hct 26.2 L Plt Count 371 D Microbiology Laboratory Tests 08/27/16 05:35 BUN 8 Creatinine 0.9 Creat Clearance w eGFR > 60 Assessment ALL post chemotherapy New onset of fever with no localizing source He is on Posaconazole for antifungal prophylaxis ? hospital acquired though blood cultures negative so far this morning Pleural effusion sent for culture fungal routine no gram stain WBC up from leukemia Advise Empiric Vanco and Cefepime pending final cultures Await c.s Crypto Antigen Dena HERNANDEZ
[2016-08-28] MEDS: valACYclovir HCL 500 MG TABLET (FP) PO SCH (09:45)
[2016-08-28] MEDS: POSACONAZOLE PO SCH ×2 (09:46→17:29)
[2016-08-28] MEDS ORDERED: PIPERACILLIN/TAZOB 3.375 GM/50 ML PRE-DOCKED IVPB SCH (10:00)
[2016-08-28] MEDS ORDERED: CEFEPIME HCL 2 GM VIAL (RESTRICTED TO ID) IVPB SCH (10:00)
[2016-08-28 10:51] LABS: ANISOCYTOSIS 1+; HYPOCHROMIA 1+; METAMYELOCYTE 2 % (0-2); PLATELET COMMENT2 NO CLOTTING DETECTED; PLATELET ESTIMATE ADEQUATE (NORMAL); POIKILOCYTOSIS 1+; SMUDGE CELLS FEW
[2016-08-28 10:52] LABS: TOXIC GRANULATION 1+
--- NOTE | 2016-08-28 11:18 | PN ---
Progress Note (short form) - Note Progress Note: PULMONARY AWAKE/ALERT SOB IS IMPROVED/LYING FLAT NO O2/NOT SOB VSS/LOW GRADE TEMPS ANICTERIC DISTANT B/L BREATH SOUNDS BASES S1S2 BS+ 2+ EDEMA LABS/MEDS/NOTES/IMAGING/ECHO REVIEWED EXUDATIVE CHARACTERISTIC BY LDH CRITERIA(GREATER THAN 2/3 UPPER LIMIT OF NL SERUM LDH) CULTURE OF PL FLUID NO GROWTH/SUBSTANTIAL IMPROVEMENT IN CXR POST TAP FEVER DOWN TRENDING ALL ON CHEMOTX PULMONARY HTN CAD S/P STENT/HTN/HPL PLEURAL EFFUSION CONTINUE CURRENT TREATMENT/ABS/ID F/U CHECK CYTOLOGY ON PLEURAL FLUID Harjinder FGIUEROA MD
[2016-08-28] MEDS: CEFEPIME 2 GM in DEXTROSE 5%-WATER - 100 ML IVPB SCH ×2 (12:01→17:05)
--- NOTE | 2016-08-28 12:22 | PN ---
Progress Note, Physician Chief Complaint: no complaints breathing better - Current Medication List Current Medications: Active Medications Acetaminophen (Tylenol -) 650 mg PO Q6H PRN PRN Reason: FEVER Last Admin: 08/28/16 08:31 Dose: 650 mg Allopurinol (Zyloprim -) 300 mg PO DAILY [facility] Last Admin: 08/28/16 09:17 Dose: 300 mg Alprazolam (Xanax -) 0.5 mg PO TID PRN PRN Reason: ANXIETY Amlodipine Besylate (Norvasc -) 5 mg PO DAILY [facility] Last Admin: 08/28/16 09:16 Dose: 5 mg Atorvastatin Calcium (Lipitor -) 80 mg PO HS [facility] Last Admin: 08/27/16 21:54 Dose: 80 mg Docusate Sodium (Colace -) 100 mg PO DAILY [facility] Last Admin: 08/28/16 09:17 Dose: Not Given Furosemide (Lasix Injection -) 40 mg IVPB DAILY [facility] Last Admin: 08/28/16 09:17 Dose: 40 mg Vancomycin HCl (Vancomycin (Pre-Docked)) 250 mls @ 166.667 mls/hr IVPB BID [facility] Cefepime HCl 2 gm/ Dextrose 100 mls @ 200 mls/hr IVPB Q8H-IV [facility] Last Admin: 08/28/16 12:01 Dose: 200 mls/hr Metoprolol Succinate (Toprol Xl -) 50 mg PO DAILY [facility] Last Admin: 08/28/16 09:16 Dose: 50 mg Oxycodone HCl (Roxicodone -) 10 mg PO Q4H PRN PRN Reason: PAIN Last Admin: 08/27/16 10:57 Dose: 10 mg Potassium Chloride (K-Dur -) 40 meq PO DAILY [facility] Last Admin: 08/28/16 09:16 Dose: 40 meq Tamsulosin HCl (Flomax -) 0.4 mg PO DAILY@0830 [facility] Last Admin: 08/28/16 08:32 Dose: 0.4 mg Valacyclovir HCl (Valtrex -) 500 mg PO DAILY [facility] Last Admin: 08/28/16 09:45 Dose: 500 mg - Objective Vital Signs: Vital Signs Temperature 99.6 F 08/28/16 06:00 Pulse Rate 96 H 08/28/16 06:00 Respiratory Rate 20 08/28/16 06:00 Blood Pressure 146/68 08/28/16 06:00 O2 Sat by Pulse Oximetry (%) 96 08/27/16 21:00 Constitutional: Yes: No Distress Cardiovascular: Yes: Regular Rate and Rhythm Respiratory: Yes: Diminished Gastrointestinal: Yes: Normal Bowel Sounds, Soft. No: Tenderness Edema: No Labs: CBC, BMP 08/28/16 07:00 08/28/16 07:00 INR, PTT INR 1.20 (0.82-1.09) H 08/28/16 07:00 Fibrinogen 320.0 mg/dL (238-498) 08/28/16 07:00 Problem List - Problems (1) Acute leukemia Code(s): C95.00 - ACUTE LEUKEMIA OF UNSP CELL TYPE NOT ACHIEVE REMISSION Qualifiers: Leukemia Active/Remission status: without remission Qualified Code(s): C95.00 - Acute leukemia of unspecified cell type not having achieved remission (2) Bilateral pleural effusion Code(s): J90 - PLEURAL EFFUSION, NOT ELSEWHERE CLASSIFIED (3) ASHD (arteriosclerotic heart disease) Code(s): I25.10 - ATHSCL HEART DISEASE OF [place] CORONARY ARTERY W/O ANG PCTRS (4) HTN (hypertension) Code(s): I10 - ESSENTIAL (PRIMARY) HYPERTENSION Qualifiers: Hypertension type: essential hypertension Qualified Code(s): I10 - Essential (primary) hypertension Assessment/Plan PLAN -- pt febrile -- on antibiotics -- cultures pending -- IV Lasix , replace potassium and magnesium -- s/p thoracentesis -- incentive spirometry
[2016-08-28] MEDS: VANCOMYCIN 1 GRAM (PRE-DOCKED) 250 ML IVPB SCH ×2 (13:17→21:50)
[2016-08-28] MEDS: oxyCODONE HCL 5 MG TABLET PO PRN (16:50)
[2016-08-28] MEDS ORDERED: POTASSIUM CHLORIDE TABS 20 MEQ TABLET.ER (FP) PO ONE (17:03)
[2016-08-28] MEDS ORDERED: MAGNESIUM SULF 50% (8.12 MEQ/2 ML-1 GM VIAL) IVPB ONE ×2 (17:03→17:29)
--- NOTE | 2016-08-28 17:36 | PN ---
Progress Note (short form) - Note Progress Note: Patient seen and examined c/o headaches Last Vital Signs Temp Pulse Resp BP Pulse Ox 101.8 F H 98 H 20 148/77 96 08/28/16 14:35 08/28/16 14:35 08/28/16 14:35 08/28/16 08:30 08/28/16 09:00 HEENT: MASOOD, EOM Intact Oropharynx: coated tongue Cor: RSR, No murmurs, No gallops Lungs: Clear to P&A Abd: Soft, Normal bowel sounds, No organomegaly Abnormal Lab Results 08/28/16 08/28/16 08/28/16 07:00 07:00 07:00 WBC 30.8 H* RBC 3.05 L Hgb 8.7 L Hct 26.2 L RDW 16.0 H Lymphocytes % 2.0 L D ESR 80 H INR Potassium 3.4 L Magnesium 1.7 L D AST 80 H D LD Total 734 H D Albumin 2.8 L 08/28/16 07:00 WBC RBC Hgb Hct RDW Lymphocytes % ESR INR 1.20 H Potassium Magnesium AST LD Total Albumin Current Medications Acetaminophen (Tylenol -) 650 mg PO Q6H PRN PRN Reason: FEVER Last Admin: 08/28/16 14:49 Dose: 650 mg Allopurinol (Zyloprim -) 300 mg PO DAILY [facility] Last Admin: 08/28/16 09:17 Dose: 300 mg Alprazolam (Xanax -) 0.5 mg PO TID PRN PRN Reason: ANXIETY Amlodipine Besylate (Norvasc -) 5 mg PO DAILY [facility] Last Admin: 08/28/16 09:16 Dose: 5 mg Atorvastatin Calcium (Lipitor -) 80 mg PO HS [facility] Last Admin: 08/27/16 21:54 Dose: 80 mg Docusate Sodium (Colace -) 100 mg PO DAILY [facility] Last Admin: 08/28/16 09:17 Dose: Not Given Vancomycin HCl (Vancomycin (Pre-Docked)) 250 mls @ 166.667 mls/hr IVPB BID [facility] Last Admin: 08/28/16 13:17 Dose: 166.667 mls/hr Cefepime HCl 2 gm/ Dextrose 100 mls @ 200 mls/hr IVPB Q8H-IV [facility] Last Admin: 08/28/16 17:05 Dose: 200 mls/hr Sodium Chloride (Normal Saline -) 1,000 mls @ 42 mls/hr IV [facility] Metoprolol Succinate (Toprol Xl -) 50 mg PO DAILY [facility] Last Admin: 08/28/16 09:16 Dose: 50 mg Oxycodone HCl (Roxicodone -) 10 mg PO Q4H PRN PRN Reason: PAIN Last Admin: 08/28/16 16:50 Dose: 10 mg Potassium Chloride (K-Dur -) 40 meq PO DAILY [facility] Last Admin: 08/28/16 09:16 Dose: 40 meq Tamsulosin HCl (Flomax -) 0.4 mg PO DAILY@0830 [facility] Last Admin: 08/28/16 08:32 Dose: 0.4 mg Valacyclovir HCl (Valtrex -) 500 mg PO DAILY [facility] Last Admin: 08/28/16 09:45 Dose: 500 mg 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 Now with pleural effusions/SOB Echo pending WBC rising/ thrombocytopenia -- flowcytometry shows no e/o recurrent blasts. 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 Fever-- repeat cx/. check sputum cx. Restart valtrex/ zosyn/ Vanco. HAs cough/ headaches,. ? 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 and headaches. Refusing CT scan [facility] with [facility] --will consider transfer
[2016-08-28] MEDS: SODIUM CHLORIDE 1,000 ML IV SCH (17:50)
[2016-08-28] MEDS: ATORVASTATIN CA 80 MG TABLET (FP) PO SCH (21:55)
[2016-08-29] MEDS: oxyCODONE HCL 5 MG TABLET PO PRN ×3 (01:18→15:31)
[2016-08-29] MEDS: CEFEPIME 2 GM in DEXTROSE 5%-WATER - 100 ML IVPB SCH ×3 (01:18→17:22)
[2016-08-29] MEDS ORDERED: PT OWN MED DRAWER 7, Y5N ONE ×2 (08:15→10:27)
[2016-08-29] MEDS: TAMSULOSIN HCL 0.4 MG CAP.ER.24H (FP) PO SCH (08:21)
[2016-08-29] MEDS: POSACONAZOLE PO SCH ×2 (09:12→17:22)
--- NOTE | 2016-08-29 09:46 | PN ---
Progress Note, Physician Chief Complaint: has recurrent fever sore throat mild headaches no neck stiffness no body aches - Current Medication List Current Medications: Active Medications Acetaminophen (Tylenol -) 650 mg PO Q6H PRN PRN Reason: FEVER Last Admin: 08/28/16 21:50 Dose: 650 mg Allopurinol (Zyloprim -) 300 mg PO DAILY [facility] Last Admin: 08/28/16 09:17 Dose: 300 mg Alprazolam (Xanax -) 0.5 mg PO TID PRN PRN Reason: ANXIETY Amlodipine Besylate (Norvasc -) 5 mg PO DAILY [facility] Last Admin: 08/28/16 09:16 Dose: 5 mg Atorvastatin Calcium (Lipitor -) 80 mg PO HS [facility] Last Admin: 08/28/16 21:55 Dose: 80 mg Docusate Sodium (Colace -) 100 mg PO DAILY [facility] Last Admin: 08/28/16 09:17 Dose: Not Given Vancomycin HCl (Vancomycin (Pre-Docked)) 250 mls @ 166.667 mls/hr IVPB BID [facility] Last Admin: 08/28/16 21:50 Dose: 166.667 mls/hr Cefepime HCl 2 gm/ Dextrose 100 mls @ 200 mls/hr IVPB Q8H-IV [facility] Last Admin: 08/29/16 01:18 Dose: 200 mls/hr Sodium Chloride (Normal Saline -) 1,000 mls @ 42 mls/hr IV ASDIR [facility] Last Admin: 08/28/16 17:50 Dose: 42 mls/hr Metoprolol Succinate (Toprol Xl -) 50 mg PO DAILY [facility] Last Admin: 08/28/16 09:16 Dose: 50 mg Oxycodone HCl (Roxicodone -) 10 mg PO Q4H PRN PRN Reason: PAIN Last Admin: 08/29/16 01:18 Dose: 10 mg Potassium Chloride (K-Dur -) 40 meq PO DAILY [facility] Last Admin: 08/28/16 09:16 Dose: 40 meq Tamsulosin HCl (Flomax -) 0.4 mg PO DAILY@0830 [facility] Last Admin: 08/29/16 08:21 Dose: 0.4 mg Valacyclovir HCl (Valtrex -) 500 mg PO DAILY [facility] Last Admin: 08/28/16 09:45 Dose: 500 mg - Objective Vital Signs: Vital Signs Temperature 99.5 F 01/01/17 06:00 Pulse Rate 86 08/29/16 06:00 Respiratory Rate 20 08/29/16 06:00 Blood Pressure 139/77 08/29/16 06:00 O2 Sat by Pulse Oximetry (%) 95 08/28/16 21:00 Constitutional: Yes: No Distress HENT: No: Pharyngeal Erythema, Thrush Cardiovascular: Yes: Regular Rate and Rhythm Respiratory: Yes: Diminished Gastrointestinal: Yes: Normal Bowel Sounds, Soft. No: Distention, Tenderness Edema: Yes Edema: LLE: Trace, RLE: Trace Labs: CBC, BMP 08/28/16 07:00 08/28/16 07:00 INR, PTT INR 1.20 (0.82-1.09) H 08/28/16 07:00 Fibrinogen 320.0 mg/dL (238-498) 08/28/16 07:00 Problem List - Problems (1) Acute leukemia Code(s): C95.00 - ACUTE LEUKEMIA OF UNSP CELL TYPE NOT ACHIEVE REMISSION Qualifiers: Leukemia Active/Remission status: without remission Qualified Code(s): C95.00 - Acute leukemia of unspecified cell type not having achieved remission (2) Bilateral pleural effusion Code(s): J90 - PLEURAL EFFUSION, NOT ELSEWHERE CLASSIFIED (3) ASHD (arteriosclerotic heart disease) Code(s): I25.10 - ATHSCL HEART DISEASE OF [place] CORONARY ARTERY W/O ANG PCTRS (4) HTN (hypertension) Code(s): I10 - ESSENTIAL (PRIMARY) HYPERTENSION Qualifiers: Hypertension type: essential hypertension Qualified Code(s): I10 - Essential (primary) hypertension Assessment/Plan PLAN -- pt febrile -- check influenza swab -- spoke with Oncology-- may need to be transferred to [facility] -- on iv antibiotics -- s/p thoracentesis -- incentive spirometry
[2016-08-29] MEDS: POTASSIUM CHLORIDE TABS 20 MEQ TABLET.ER (FP) PO SCH (10:07)
[2016-08-29] MEDS: METOPROLOL SUCCINATE 50 MG TAB.SR.24H (FP) PO SCH (10:08)
[2016-08-29] MEDS: ALLOPURINOL 300 MG TABLET (FP) PO SCH (10:08)
[2016-08-29] MEDS: DOCUSATE SODIUM 100 MG CAPSULE (FP) PO SCH ×2 (10:08→10:16)
[2016-08-29] MEDS: amLODIPine BESYLATE 5 MG TABLET (FP) PO SCH (10:08)
[2016-08-29] MEDS: valACYclovir HCL 500 MG TABLET (FP) PO SCH (10:10)
[2016-08-29] MEDS: ACETAMINOPHEN 325 MG TABLET (FP) PO PRN (10:47)
--- NOTE | 2016-08-29 10:49 | PN ---
Progress Note, Physician Chief Complaint: ID Fevers 101 Reports headaches 5/10 pain scale but says that he gets these chronically no different - Current Medication List Current Medications: Active Medications Acetaminophen (Tylenol -) 650 mg PO Q6H PRN PRN Reason: FEVER Last Admin: 08/28/16 21:50 Dose: 650 mg Allopurinol (Zyloprim -) 300 mg PO DAILY [facility] Last Admin: 08/29/16 10:08 Dose: 300 mg Alprazolam (Xanax -) 0.5 mg PO TID PRN PRN Reason: ANXIETY Amlodipine Besylate (Norvasc -) 5 mg PO DAILY [facility] Last Admin: 08/29/16 10:08 Dose: 5 mg Atorvastatin Calcium (Lipitor -) 80 mg PO HS [facility] Last Admin: 08/28/16 21:55 Dose: 80 mg Docusate Sodium (Colace -) 100 mg PO DAILY [facility] Last Admin: 08/29/16 10:16 Dose: Not Given Vancomycin HCl (Vancomycin (Pre-Docked)) 250 mls @ 166.667 mls/hr IVPB BID [facility] Last Admin: 08/28/16 21:50 Dose: 166.667 mls/hr Cefepime HCl 2 gm/ Dextrose 100 mls @ 200 mls/hr IVPB Q8H-IV [facility] Last Admin: 08/29/16 10:08 Dose: 200 mls/hr Sodium Chloride (Normal Saline -) 1,000 mls @ 42 mls/hr IV ASDIR [facility] Last Admin: 08/28/16 17:50 Dose: 42 mls/hr Metoprolol Succinate (Toprol Xl -) 50 mg PO DAILY [facility] Last Admin: 08/29/16 10:08 Dose: 50 mg Oxycodone HCl (Roxicodone -) 10 mg PO Q4H PRN PRN Reason: PAIN Last Admin: 08/29/16 01:18 Dose: 10 mg Potassium Chloride (K-Dur -) 40 meq PO DAILY [facility] Last Admin: 08/29/16 10:07 Dose: 40 meq Tamsulosin HCl (Flomax -) 0.4 mg PO DAILY@0830 [facility] Last Admin: 08/29/16 08:21 Dose: 0.4 mg Valacyclovir HCl (Valtrex -) 500 mg PO DAILY [facility] Last Admin: 08/29/16 10:10 Dose: 500 mg - Objective Vital Signs: Vital Signs Temperature 99.5 F 08/29/16 06:00 Pulse Rate 86 08/29/16 06:00 Respiratory Rate 20 08/29/16 06:00 Blood Pressure 139/77 08/29/16 06:00 O2 Sat by Pulse Oximetry (%) 95 08/28/16 21:00 Constitutional: Yes: Well Nourished, No Distress HENT: No: Pharyngeal Erythema, Thrush Neck: Yes: WNL, Supple Cardiovascular: Yes: Regular Rate and Rhythm, S1, S2. No: Murmur Respiratory: Yes: WNL, Regular, CTA Bilaterally Gastrointestinal: Yes: WNL, Normal Bowel Sounds, Soft. No: Tenderness Edema: No Labs: CBC, BMP 08/28/16 07:00 08/28/16 07:00 INR, PTT INR 1.20 (0.82-1.09) H 08/28/16 07:00 Fibrinogen 320.0 mg/dL (238-498) 08/28/16 07:00 Assessment/Plan Microbiology 08/24/16 01:50 Blood - Peripheral Venous Blood Culture - Final Staphylococcus Epidermidis Laboratory Tests 08/28/16 08/28/16 07:00 07:00 WBC 30.8 H* Hgb 8.7 L Hct 26.2 L Plt Count 371 D BUN 8 Creatinine 1.2 D Creat Clearance w eGFR 58.86 Microbiology 08/27/16 23:30 Sputum - Expectorated Gram Stain - Final 08/28/16 09:50 Serum Cryptococcal Antigen - Preliminary 08/27/16 23:30 Sputum - Expectorated Sputum Culture - Preliminary Lactose Fermenting Neg Bacilli 08/27/16 21:45 Blood - Peripheral Venous Blood Culture - Preliminary NO GROWTH OBTAINED AFTER 24 HOURS, INCUBATION TO CONTINUE FOR 4 DAYS. 08/27/16 21:45 Blood - Peripheral Venous Blood Culture - Preliminary NO GROWTH OBTAINED AFTER 24 HOURS, INCUBATION TO CONTINUE FOR 4 DAYS. 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
[2016-08-29] MEDS: VANCOMYCIN 1 GRAM (PRE-DOCKED) 250 ML IVPB SCH (10:52)
[2016-08-29 11:02] LABS: MCH 28.1 pg (25.7-33.7); MCHC 32.7 g/dl (32.0-35.9); MEAN CELL VOLUME 85.8 fl (80-96); MEAN PLT VOLUME 8.5 fl (7.5-11.1); PLATELET COUNT 436 K/MM3 (134-434); RDW 16.2 % (11.9-15.9); WHITE BLOOD COUNT 24.4 K/mm3 (4.0-10.0)
--- NOTE | 2016-08-29 11:13 | PN ---
Progress Note (short form) - Note Progress Note: PULMONARY AWAKE/ALERT SOB IS IMPROVED/LYING FLAT NO O2/NOT SOB VSS/ TEMPS CONTINUE ANICTERIC DISTANT B/L BREATH SOUNDS BASES S1S2 BS+ 2+ EDEMA LABS/MEDS/NOTES/IMAGING/ECHO/MICRO REVIEWED EXUDATIVE CHARACTERISTIC BY LDH CRITERIA(GREATER THAN 2/3 UPPER LIMIT OF NL SERUM LDH) CULTURE OF PL FLUID NO GROWTH/SUBSTANTIAL IMPROVEMENT IN CXR POST TAP THROAT CULTURE/NASAL SWAB PENDING FEVER ALL ON CHEMOTX PULMONARY HTN CAD S/P STENT/HTN/HPL PLEURAL EFFUSION S/P THORACENTESIS CONTINUE CURRENT TREATMENT/ABS/ID F/U CHECK CYTOLOGY ON PLEURAL FLUID ONCO IS CONSIDERING TRANSFER TO [facility] MD
[2016-08-29 12:23] LABS: METAMYELOCYTE 3 % (0-2)
[2016-08-29 12:24] LABS: TOXIC GRANULATION 1+
[2016-08-29 12:49] LABS: ALBUMIN 2.5 g/dl (3.4-5.0); ALK PHOS 445 U/L (45-117); ANION GAP 11 (8-16); BILIRUBIN,TOTAL 0.4 mg/dL (0.2-1.0); CALCIUM 7.6 mg/dL (8.5-10.1); CO2 24 mmol/L (21-32); CREATININE 1.1 mg/dL (0.7-1.3); GLUCOSE,RANDOM 112 mg/dL (74-106); MAGNESIUM 1.8 mg/dL (1.8-2.4); SGOT/AST 247 U/L (15-37); SGPT/ALT 150 U/L (12-78); TOT PROT 6.7 g/dl (6.4-8.2)
--- NOTE | 2016-08-29 17:59 | PN ---
Progress Note (short form) - Note Progress Note: Patient seen and examined c/o headaches Last Vital Signs Temp Pulse Resp BP Pulse Ox 100 F H 99 H 20 144/75 98 08/29/16 09:00 08/29/16 09:00 08/29/16 09:00 08/29/16 09:00 08/29/16 09:00 HEENT: MASOOD, EOM Intact Oropharynx: coated tongue Cor: RSR, No murmurs, No gallops Lungs: Clear to P&A Abd: Soft, Normal bowel sounds, No organomegaly Abnormal Lab Results 08/29/16 08/29/16 10:30 10:30 WBC 24.4 H RBC 2.86 L Hgb 8.0 L Hct 24.6 L RDW 16.2 H Plt Count 436 H Lymphocytes % 5.0 L D Monocytes % 12.0 H Metamyelocytes 3 H D Myelocytes 3 H D Nucleated RBCs 1 H Random Glucose 112 H Calcium 7.6 L AST 247 H D ALT 150 H D Alkaline Phosphatase 445 H D Albumin 2.5 L Current Medications Acetaminophen (Tylenol -) 650 mg PO Q6H PRN PRN Reason: FEVER Last Admin: 08/29/16 10:47 Dose: 650 mg Allopurinol (Zyloprim -) 300 mg PO DAILY [facility] Last Admin: 08/29/16 10:08 Dose: 300 mg Alprazolam (Xanax -) 0.5 mg PO TID PRN PRN Reason: ANXIETY Amlodipine Besylate (Norvasc -) 5 mg PO DAILY [facility] Last Admin: 08/29/16 10:08 Dose: 5 mg Atorvastatin Calcium (Lipitor -) 80 mg PO HS [facility] Last Admin: 08/28/16 21:55 Dose: 80 mg Benzocaine/Menthol (Cepacol Lozenge -) 1 each MM PRN PRN PRN Reason: SORE THROAT Docusate Sodium (Colace -) 100 mg PO DAILY [facility] Last Admin: 08/29/16 10:16 Dose: Not Given Cefepime HCl 2 gm/ Dextrose 100 mls @ 200 mls/hr IVPB Q8H-IV [facility] Last Admin: 08/29/16 17:22 Dose: 200 mls/hr Sodium Chloride (Normal Saline -) 1,000 mls @ 42 mls/hr IV ASDIR [facility] Last Admin: 08/28/16 17:50 Dose: 42 mls/hr Metoprolol Succinate (Toprol Xl -) 50 mg PO DAILY [facility] Last Admin: 08/29/16 10:08 Dose: 50 mg Oseltamivir Phosphate (Tamiflu -) 30 mg PO BID [facility] Oxycodone HCl (Roxicodone -) 10 mg PO Q4H PRN PRN Reason: PAIN Last Admin: 08/29/16 15:31 Dose: 10 mg Potassium Chloride (K-Dur -) 40 meq PO DAILY [facility] Last Admin: 08/29/16 10:07 Dose: 40 meq Tamsulosin HCl (Flomax -) 0.4 mg PO DAILY@0830 [facility] Last Admin: 08/29/16 08:21 Dose: 0.4 mg Valacyclovir HCl (Valtrex -) 500 mg PO DAILY [facility] Last Admin: 08/29/16 10:10 Dose: 500 mg 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 Now with pleural effusions/SOB Echo pending WBC rising/ thrombocytopenia -- flowcytometry shows no e/o recurrent blasts. 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 Fever-- repeat cx/. check sputum cx. Restart valtrex/ zosyn/ Vanco. HAs cough/ headaches,. ? 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 and headaches. Refusing CT scan discussed with [facility] team --will consider transfer
[2016-08-29] MEDS: SODIUM CHLORIDE 1,000 ML IV SCH ×2 (19:16→21:41)
[2016-08-29] MEDS: ATORVASTATIN CA 80 MG TABLET (FP) PO SCH (21:40)
[2016-08-29] MEDS: OSELTAMIVIR PHOSPHATE 30 MG CAPSULE PO SCH (21:40)
[2016-08-30] MEDS ORDERED: PT OWN MED DRAWER 7, Y5N ONE ×5 (01:46→21:15)
[2016-08-30] MEDS: CEFEPIME 2 GM in DEXTROSE 5%-WATER - 100 ML IVPB SCH ×2 (01:50→10:58)
[2016-08-30] MEDS: oxyCODONE HCL 5 MG TABLET PO PRN ×2 (01:50→10:59)
[2016-08-30] MEDS: BENZOCAINE/MENTH/CETYLPYRD CL 1 EACH LOZENGE MM PRN ×2 (06:13→22:03)
[2016-08-30] MEDS: valACYclovir HCL 500 MG TABLET (FP) PO SCH (10:57)
[2016-08-30] MEDS: TAMSULOSIN HCL 0.4 MG CAP.ER.24H (FP) PO SCH (10:57)
--- NOTE | 2016-08-30 10:57 | PN ---
Progress Note (short form) - Note Progress Note: PULMONARY AWAKE/ALERT VSS/ TEMPS CONTINUE ANICTERIC DISTANT B/L BREATH SOUNDS BASES S1S2 BS+ 2+ EDEMA LABS/MEDS/NOTES/IMAGING/ECHO/MICRO REVIEWED INFLU A+ FEVER RESOLVING/TAMIFLU ALL PULMONARY HTN CAD S/P STENT/HTN/HPL PLEURAL EFFUSION S/P THORACENTESIS CONTINUE CURRENT TREATMENT/ABS/ID F/U CYTOLOGY ON PLEURAL FLUID IS NEGATIVE PER ONCO ONCO IS CONSIDERING TRANSFER TO [facility] MD
[2016-08-30] MEDS: DOCUSATE SODIUM 100 MG CAPSULE (FP) PO SCH (10:58)
[2016-08-30] MEDS: ALLOPURINOL 300 MG TABLET (FP) PO SCH (10:58)
[2016-08-30] MEDS: METOPROLOL SUCCINATE 50 MG TAB.SR.24H (FP) PO SCH (10:58)
[2016-08-30] MEDS: POTASSIUM CHLORIDE TABS 20 MEQ TABLET.ER (FP) PO SCH (10:59)
[2016-08-30] MEDS: OSELTAMIVIR PHOSPHATE 30 MG CAPSULE PO SCH ×2 (11:00→22:01)
[2016-08-30] MEDS: amLODIPine BESYLATE 5 MG TABLET (FP) PO SCH (11:00)
[2016-08-30] MEDS: POSACONAZOLE PO SCH ×2 (11:01→20:02)
--- NOTE | 2016-08-30 11:31 | PN ---
Progress Note, Physician History of Present Illness: Feeling better No focal complaint No fever/ chills Temps down- low grade No bodyache. Denies headache Occasional cough, dry - Current Medication List Current Medications: Active Medications Acetaminophen (Tylenol -) 650 mg PO Q6H PRN PRN Reason: FEVER Last Admin: 08/29/16 10:47 Dose: 650 mg Allopurinol (Zyloprim -) 300 mg PO DAILY [facility] Last Admin: 08/30/16 10:58 Dose: 300 mg Alprazolam (Xanax -) 0.5 mg PO TID PRN PRN Reason: ANXIETY Amlodipine Besylate (Norvasc -) 5 mg PO DAILY [facility] Last Admin: 08/30/16 11:00 Dose: 5 mg Atorvastatin Calcium (Lipitor -) 80 mg PO HS [facility] Last Admin: 08/29/16 21:40 Dose: 80 mg Benzocaine/Menthol (Cepacol Lozenge -) 1 each MM PRN PRN PRN Reason: SORE THROAT Last Admin: 08/30/16 06:13 Dose: 1 each Docusate Sodium (Colace -) 100 mg PO DAILY [facility] Last Admin: 08/30/16 10:58 Dose: 100 mg Cefepime HCl 2 gm/ Dextrose 100 mls @ 200 mls/hr IVPB Q8H-IV [facility] Last Admin: 08/30/16 10:58 Dose: 200 mls/hr Sodium Chloride (Normal Saline -) 1,000 mls @ 42 mls/hr IV ASDIR [facility] Last Admin: 08/29/16 21:41 Dose: 42 mls/hr Metoprolol Succinate (Toprol Xl -) 50 mg PO DAILY [facility] Last Admin: 08/30/16 10:58 Dose: 50 mg Oseltamivir Phosphate (Tamiflu -) 30 mg PO BID [facility] Last Admin: 08/30/16 11:00 Dose: 30 mg Oxycodone HCl (Roxicodone -) 10 mg PO Q4H PRN PRN Reason: PAIN Last Admin: 08/30/16 10:59 Dose: 10 mg Potassium Chloride (K-Dur -) 40 meq PO DAILY [facility] Last Admin: 08/30/16 10:59 Dose: 40 meq Tamsulosin HCl (Flomax -) 0.4 mg PO DAILY@0830 [facility] Last Admin: 08/30/16 10:57 Dose: 0.4 mg Valacyclovir HCl (Valtrex -) 500 mg PO DAILY [facility] Last Admin: 08/30/16 10:57 Dose: 500 mg - Objective Vital Signs: Vital Signs Temperature 98.6 F 08/30/16 06:00 Pulse Rate 78 08/30/16 06:00 Respiratory Rate 20 08/30/16 06:00 Blood Pressure 136/72 08/30/16 06:00 O2 Sat by Pulse Oximetry (%) 98 08/29/16 21:00 Constitutional: Yes: No Distress Eyes: Yes: Conjunctiva Clear Cardiovascular: Yes: Regular Rate and Rhythm, S1, S2 Respiratory: Yes: CTA Bilaterally Gastrointestinal: Yes: Normal Bowel Sounds, Soft. No: Tenderness Extremities: Yes: Other (decreased edema) Labs: CBC, BMP 08/29/16 10:30 08/29/16 10:30 INR, PTT INR 1.20 (0.82-1.09) H 08/28/16 07:00 Fibrinogen 320.0 mg/dL (238-498) 08/28/16 07:00 Assessment/Plan Acute influenza A + sputum c/s Klebsiella CML Continue Tamiflu- complete 5d course Levaquin for treatment of Klebsiella in sputum
[2016-08-30] MEDS: LEVOFLOXACIN 500 MG IVPB 100 ML IVPB SCH (12:19)
--- NOTE | 2016-08-30 13:53 | PN ---
Progress Note (short form) - Note Progress Note: Patient seen and examined feels better Last Vital Signs Temp Pulse Resp BP Pulse Ox 98.4 F 76 18 131/60 98 08/30/16 10:00 08/30/16 10:00 08/30/16 10:00 08/30/16 10:00 08/29/16 21:00 HEENT: MASOOD, EOM Intact Oropharynx: coated tongue Cor: RSR, No murmurs, No gallops Lungs: Clear to P&A Abd: Soft, Normal bowel sounds, No organomegaly Current Medications Acetaminophen (Tylenol -) 650 mg PO Q6H PRN PRN Reason: FEVER Last Admin: 08/29/16 10:47 Dose: 650 mg Allopurinol (Zyloprim -) 300 mg PO DAILY [facility] Last Admin: 08/30/16 10:58 Dose: 300 mg Alprazolam (Xanax -) 0.5 mg PO TID PRN PRN Reason: ANXIETY Amlodipine Besylate (Norvasc -) 5 mg PO DAILY [facility] Last Admin: 08/30/16 11:00 Dose: 5 mg Atorvastatin Calcium (Lipitor -) 80 mg PO HS [facility] Last Admin: 08/29/16 21:40 Dose: 80 mg Benzocaine/Menthol (Cepacol Lozenge -) 1 each MM PRN PRN PRN Reason: SORE THROAT Last Admin: 08/30/16 06:13 Dose: 1 each Docusate Sodium (Colace -) 100 mg PO DAILY [facility] Last Admin: 08/30/16 10:58 Dose: 100 mg Sodium Chloride (Normal Saline -) 1,000 mls @ 42 mls/hr IV ASDIR [facility] Last Admin: 08/29/16 21:41 Dose: 42 mls/hr Levofloxacin (Levaquin 500 Mg Premixed Ivpb -) 100 mls @ 100 mls/hr IVPB DAILY [facility] Last Admin: 08/30/16 12:19 Dose: 100 mls/hr Metoprolol Succinate (Toprol Xl -) 50 mg PO DAILY [facility] Last Admin: 08/30/16 10:58 Dose: 50 mg Oseltamivir Phosphate (Tamiflu -) 30 mg PO BID [facility] Last Admin: 08/30/16 11:00 Dose: 30 mg Oxycodone HCl (Roxicodone -) 10 mg PO Q4H PRN PRN Reason: PAIN Last Admin: 08/30/16 10:59 Dose: 10 mg Potassium Chloride (K-Dur -) 40 meq PO DAILY [facility] Last Admin: 08/30/16 10:59 Dose: 40 meq Tamsulosin HCl (Flomax -) 0.4 mg PO DAILY@0830 [facility] Last Admin: 08/30/16 10:57 Dose: 0.4 mg Tramadol HCl (Ultram -) 50 mg PO Q6H PRN PRN Reason: PAIN Valacyclovir HCl (Valtrex -) 500 mg PO DAILY [facility] Last Admin: 08/30/16 10:57 Dose: 500 mg 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 Now with pleural effusions/SOB Echo pending WBC rising/ thrombocytopenia -- flowcytometry shows no e/o recurrent blasts. 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 Fever-- repeat cx/. check sputum cx. Restart valtrex/ zosyn/ Vanco. Influenza A+ --fever curve coming down. 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 and headaches. Refusing CT scan
--- NOTE | 2016-08-30 15:40 | PN ---
Progress Note, Physician Chief Complaint: no fever feels better has mild headaches no neck stiffness no body aches now on droplet isolation - Current Medication List Current Medications: Active Medications Acetaminophen (Tylenol -) 650 mg PO Q6H PRN PRN Reason: FEVER Last Admin: 08/29/16 10:47 Dose: 650 mg Allopurinol (Zyloprim -) 300 mg PO DAILY [facility] Last Admin: 08/30/16 10:58 Dose: 300 mg Alprazolam (Xanax -) 0.5 mg PO TID PRN PRN Reason: ANXIETY Amlodipine Besylate (Norvasc -) 5 mg PO DAILY [facility] Last Admin: 08/30/16 11:00 Dose: 5 mg Atorvastatin Calcium (Lipitor -) 80 mg PO HS [facility] Last Admin: 08/29/16 21:40 Dose: 80 mg Benzocaine/Menthol (Cepacol Lozenge -) 1 each MM PRN PRN PRN Reason: SORE THROAT Last Admin: 08/30/16 06:13 Dose: 1 each Docusate Sodium (Colace -) 100 mg PO DAILY [facility] Last Admin: 08/30/16 10:58 Dose: 100 mg Sodium Chloride (Normal Saline -) 1,000 mls @ 42 mls/hr IV ASDIR [facility] Last Admin: 08/29/16 21:41 Dose: 42 mls/hr Levofloxacin (Levaquin 500 Mg Premixed Ivpb -) 100 mls @ 100 mls/hr IVPB DAILY [facility] Last Admin: 08/30/16 12:19 Dose: 100 mls/hr Metoprolol Succinate (Toprol Xl -) 50 mg PO DAILY [facility] Last Admin: 08/30/16 10:58 Dose: 50 mg Oseltamivir Phosphate (Tamiflu -) 30 mg PO BID [facility] Last Admin: 08/30/16 11:00 Dose: 30 mg Oxycodone HCl (Roxicodone -) 10 mg PO Q4H PRN PRN Reason: PAIN Last Admin: 08/30/16 10:59 Dose: 10 mg Potassium Chloride (K-Dur -) 40 meq PO DAILY [facility] Last Admin: 08/30/16 10:59 Dose: 40 meq Tamsulosin HCl (Flomax -) 0.4 mg PO DAILY@0830 [facility] Last Admin: 08/30/16 10:57 Dose: 0.4 mg Tramadol HCl (Ultram -) 50 mg PO Q6H PRN PRN Reason: PAIN Valacyclovir HCl (Valtrex -) 500 mg PO DAILY [facility] Last Admin: 08/30/16 10:57 Dose: 500 mg - Objective Vital Signs: Vital Signs Temperature 98.4 F 08/30/16 10:00 Pulse Rate 76 08/30/16 10:00 Respiratory Rate 18 08/30/16 10:00 Blood Pressure 131/60 08/30/16 10:00 O2 Sat by Pulse Oximetry (%) 98 08/29/16 21:00 Constitutional: Yes: No Distress, Calm Cardiovascular: Yes: Regular Rate and Rhythm Respiratory: Yes: Diminished Gastrointestinal: Yes: Normal Bowel Sounds, Soft. No: Distention, Tenderness Edema: No Labs: CBC, BMP 08/29/16 10:30 08/29/16 10:30 INR, PTT INR 1.20 (0.82-1.09) H 08/28/16 07:00 Fibrinogen 320.0 mg/dL (238-498) 08/28/16 07:00 Problem List - Problems (1) Acute leukemia Code(s): C95.00 - ACUTE LEUKEMIA OF [place] CELL TYPE NOT ACHIEVE REMISSION Qualifiers: Leukemia Active/Remission status: without remission Qualified Code(s): C95.00 - Acute leukemia of unspecified cell type not having achieved remission (2) Bilateral pleural effusion Code(s): J90 - PLEURAL EFFUSION, NOT ELSEWHERE CLASSIFIED (3) ASHD (arteriosclerotic heart disease) Code(s): I25.10 - ATHSCL HEART DISEASE OF [place] CORONARY ARTERY W/O ANG PCTRS (4) HTN (hypertension) Code(s): I10 - ESSENTIAL (PRIMARY) HYPERTENSION Qualifiers: Hypertension type: essential hypertension Qualified Code(s): I10 - Essential (primary) hypertension Assessment/Plan PLAN -- pt febrile -- influenza swab positive -- on tamiflu --LFT elevated-- check sono abdomen, maybe due to meds -- on iv antibiotics -- s/p thoracentesis -- incentive spirometry
[2016-08-30] MEDS: traMADol HCL 50 MG TABLET PO PRN ×2 (17:25→22:00)
[2016-08-30] MEDS: ENOXAPARIN NA (PORCINE) 40 MG/0.4 ML DISP.SYRIN SQ SCH (17:25)
[2016-08-30] MEDS: SODIUM CHLORIDE 1,000 ML IV SCH ×2 (19:29→23:00)
[2016-08-30] MEDS: ATORVASTATIN CA 80 MG TABLET (FP) PO SCH (22:02)
[2016-08-31 08:21] LABS: MCH 28.4 pg (25.7-33.7); MEAN PLT VOLUME 8.6 fl (7.5-11.1); PLATELET COUNT 496 K/MM3 (134-434); RDW 16.5 % (11.9-15.9); WHITE BLOOD COUNT 17.1 K/mm3 (4.0-10.0)
[2016-08-31] MEDS ORDERED: PT OWN MED DRAWER 7, Y5N ONE ×2 (08:28→17:02)
[2016-08-31 08:43] LABS: ALBUMIN 2.4 g/dl (3.4-5.0); ANION GAP 9 (8-16); CALCIUM 7.8 mg/dL (8.5-10.1); CO2 24 mmol/L (21-32); CREATININE 0.7 mg/dL (0.7-1.3); GLUCOSE,RANDOM 86 mg/dL (74-106); SGOT/AST 95 U/L (15-37); SGPT/ALT 86 U/L (12-78)
[2016-08-31 08:45] LABS: ALK PHOS 298 U/L (45-117); BILIRUBIN,TOTAL 0.5 mg/dL (0.2-1.0); TOT PROT 6.4 g/dl (6.4-8.2)
--- NOTE | 2016-08-31 09:22 | PN ---
Progress Note (short form) - Note Progress Note: Overall appears better. No fever. No acute events overnight. Intake & Output 08/28/16 08/29/16 08/30/16 08/31/16 23:59 23:59 23:59 23:59 Intake Total 1492 1210 2401 394 Output Total 2150 800 Balance -015 342 8301 394 Weight 155 lb 7 oz 160 lb 157 lb 6 oz Last Vital Signs Temp Pulse Resp BP Pulse Ox 98.2 F 78 20 146/72 98 08/31/16 07:07 08/31/16 07:07 08/31/16 07:07 08/31/16 07:07 08/30/16 21:00 Active Medications Acetaminophen (Tylenol -) 650 mg PO Q6H PRN PRN Reason: FEVER Last Admin: 08/29/16 10:47 Dose: 650 mg Allopurinol (Zyloprim -) 300 mg PO DAILY [facility] Last Admin: 08/30/16 10:58 Dose: 300 mg Alprazolam (Xanax -) 0.5 mg PO TID PRN PRN Reason: ANXIETY Amlodipine Besylate (Norvasc -) 5 mg PO DAILY [facility] Last Admin: 08/30/16 11:00 Dose: 5 mg Atorvastatin Calcium (Lipitor -) 80 mg PO HS [facility] Last Admin: 08/30/16 22:02 Dose: 80 mg Benzocaine/Menthol (Cepacol Lozenge -) 1 each MM PRN PRN PRN Reason: SORE THROAT Last Admin: 08/30/16 22:03 Dose: 1 each Docusate Sodium (Colace -) 100 mg PO DAILY [facility] Last Admin: 08/30/16 10:58 Dose: 100 mg Enoxaparin Sodium (Lovenox -) 40 mg SQ DAILY [facility] Last Admin: 08/30/16 17:25 Dose: 40 mg Sodium Chloride (Normal Saline -) 1,000 mls @ 42 mls/hr IV ASDIR [facility] Last Admin: 08/30/16 23:00 Dose: 42 mls/hr Levofloxacin (Levaquin 500 Mg Premixed Ivpb -) 100 mls @ 100 mls/hr IVPB DAILY [facility] Last Admin: 08/30/16 12:19 Dose: 100 mls/hr Metoprolol Succinate (Toprol Xl -) 50 mg PO DAILY [facility] Last Admin: 08/30/16 10:58 Dose: 50 mg Oseltamivir Phosphate (Tamiflu -) 30 mg PO BID [facility] Last Admin: 08/30/16 22:01 Dose: 30 mg Oxycodone HCl (Roxicodone -) 10 mg PO Q4H PRN PRN Reason: PAIN Last Admin: 08/30/16 10:59 Dose: 10 mg Potassium Chloride (K-Dur -) 40 meq PO DAILY [facility] Last Admin: 08/30/16 10:59 Dose: 40 meq Tamsulosin HCl (Flomax -) 0.4 mg PO DAILY@0830 [facility] Last Admin: 08/30/16 10:57 Dose: 0.4 mg Tramadol HCl (Ultram -) 50 mg PO Q6H PRN PRN Reason: PAIN Last Admin: 08/30/16 22:00 Dose: 50 mg Valacyclovir HCl (Valtrex -) 500 mg PO DAILY [facility] Last Admin: 08/30/16 10:57 Dose: 500 mg Gen: NAD at rest Heart: RRR Lung: decreased breath sounds at the bases Abd: soft, nontender Ext: no edema Laboratory Results - last 24 hr 08/31/16 08/31/16 07:30 07:30 WBC 17.1 H RBC 2.66 L Hgb 7.6 L Hct 22.9 L MCV 86.0 MCHC 33.0 RDW 16.5 H Plt Count 496 H MPV 8.6 Neutrophils % Y Lymphocytes % Y Sodium 142 Potassium 3.6 Chloride 109 H Carbon Dioxide 24 Anion Gap 9 BUN 8 Creatinine 0.7 D Creat Clearance w eGFR > 60 Random Glucose 86 D Calcium 7.8 L Total Bilirubin 0.5 D AST 95 H D ALT 86 H D Alkaline Phosphatase 298 H D Total Protein 6.4 Albumin 2.4 L A/P ALL on Chemotherapy Bilateral Pleural Effusions Pulmonary HTN HTN CAD Hyperlipidemia - f/u pleural fluid studies - monitor off antibiotics - continue lasix for now - replete lytes - O2 to keep Spo2 >90% - inhaled bronchodilators as needed - DVT prophylaxis - further recommendations pending fluid analysis Problem List - Problems (1) Shortness of breath Code(s): R06.02 - SHORTNESS OF BREATH (2) Bilateral pleural effusion Code(s): J90 - PLEURAL EFFUSION, NOT ELSEWHERE CLASSIFIED (3) Acute leukemia Code(s): C95.00 - ACUTE LEUKEMIA OF [place] CELL TYPE NOT ACHIEVE REMISSION Qualifiers: Leukemia Active/Remission status: without remission Qualified Code(s): C95.00 - Acute leukemia of unspecified cell type not having achieved remission (4) ASHD (arteriosclerotic heart disease) Code(s): I25.10 - ATHSCL HEART DISEASE OF [place] CORONARY ARTERY W/O ANG PCTRS (5) HTN (hypertension) Code(s): I10 - ESSENTIAL (PRIMARY) HYPERTENSION Qualifiers: Hypertension type: essential hypertension Qualified Code(s): I10 - Essential (primary) hypertension A/P Influenza A Transudative Pleural effusion (Negative fluid cytology) ALL on Chemotherapy Pulmonary HTN HTN CAD Hyperlipidemia Klebsiella (+) sputum -> (?) PNA - Tamiflu / Levaquin per ID - Lasix - O2 to keep Spo2 >90% - inhaled bronchodilators as needed - DVT prophylaxis Dr Castaneda
[2016-08-31 10:14] LABS: METAMYELOCYTE 3 % (0-2)
[2016-08-31] MEDS: TAMSULOSIN HCL 0.4 MG CAP.ER.24H (FP) PO SCH (10:52)
[2016-08-31] MEDS: ENOXAPARIN NA (PORCINE) 40 MG/0.4 ML DISP.SYRIN SQ SCH (10:52)
[2016-08-31] MEDS: METOPROLOL SUCCINATE 50 MG TAB.SR.24H (FP) PO SCH (10:53)
[2016-08-31] MEDS: DOCUSATE SODIUM 100 MG CAPSULE (FP) PO SCH (10:53)
[2016-08-31] MEDS: ALLOPURINOL 300 MG TABLET (FP) PO SCH (10:53)
[2016-08-31] MEDS: amLODIPine BESYLATE 5 MG TABLET (FP) PO SCH (10:53)
[2016-08-31] MEDS: POTASSIUM CHLORIDE TABS 20 MEQ TABLET.ER (FP) PO SCH (10:54)
[2016-08-31] MEDS: LEVOFLOXACIN 500 MG IVPB 100 ML IVPB SCH (10:54)
[2016-08-31] MEDS: POSACONAZOLE PO SCH ×2 (10:54→17:48)
[2016-08-31] MEDS: OSELTAMIVIR PHOSPHATE 30 MG CAPSULE PO SCH ×2 (10:55→21:28)
[2016-08-31] MEDS ORDERED: FUROSEMIDE 40 MG/4 ML INJECTABLE VIAL IVPB SCH (11:00)
[2016-08-31] MEDS: valACYclovir HCL 500 MG TABLET (FP) PO SCH (11:14)
--- NOTE | 2016-08-31 11:46 | PN ---
Progress Note, Physician Chief Complaint: no distress no cough or SOb or chest pain - Current Medication List Current Medications: Active Medications Acetaminophen (Tylenol -) 650 mg PO Q6H PRN PRN Reason: FEVER Last Admin: 08/29/16 10:47 Dose: 650 mg Allopurinol (Zyloprim -) 300 mg PO DAILY [facility] Last Admin: 08/31/16 10:53 Dose: 300 mg Alprazolam (Xanax -) 0.5 mg PO TID PRN PRN Reason: ANXIETY Amlodipine Besylate (Norvasc -) 5 mg PO DAILY [facility] Last Admin: 08/31/16 10:53 Dose: 5 mg Atorvastatin Calcium (Lipitor -) 80 mg PO HS [facility] Last Admin: 08/30/16 22:02 Dose: 80 mg Benzocaine/Menthol (Cepacol Lozenge -) 1 each MM PRN PRN PRN Reason: SORE THROAT Last Admin: 08/30/16 22:03 Dose: 1 each Docusate Sodium (Colace -) 100 mg PO DAILY [facility] Last Admin: 08/31/16 10:53 Dose: 100 mg Enoxaparin Sodium (Lovenox -) 40 mg SQ DAILY [facility] Last Admin: 08/31/16 10:52 Dose: 40 mg Furosemide (Lasix Injection -) 40 mg IVPB ONCE ONE Stop: 08/31/16 11:45 Sodium Chloride (Normal Saline -) 1,000 mls @ 42 mls/hr IV ASDIR [facility] Last Admin: 08/30/16 23:00 Dose: 42 mls/hr Levofloxacin (Levaquin 500 Mg Premixed Ivpb -) 100 mls @ 100 mls/hr IVPB DAILY [facility] Last Admin: 08/31/16 10:54 Dose: 100 mls/hr Metoprolol Succinate (Toprol Xl -) 50 mg PO DAILY [facility] Last Admin: 08/31/16 10:53 Dose: 50 mg Oseltamivir Phosphate (Tamiflu -) 30 mg PO BID [facility] Last Admin: 08/31/16 10:55 Dose: 30 mg Oxycodone HCl (Roxicodone -) 10 mg PO Q4H PRN PRN Reason: PAIN Last Admin: 08/30/16 10:59 Dose: 10 mg Potassium Chloride (K-Dur -) 40 meq PO DAILY [facility] Last Admin: 08/31/16 10:54 Dose: 40 meq Tamsulosin HCl (Flomax -) 0.4 mg PO DAILY@0830 [facility] Last Admin: 08/31/16 10:52 Dose: 0.4 mg Tramadol HCl (Ultram -) 50 mg PO Q6H PRN PRN Reason: PAIN Last Admin: 08/30/16 22:00 Dose: 50 mg Valacyclovir HCl (Valtrex -) 500 mg PO DAILY [facility] Last Admin: 08/31/16 11:14 Dose: 500 mg - Objective Vital Signs: Vital Signs Temperature 98.2 F 08/31/16 07:07 Pulse Rate 78 08/31/16 07:07 Respiratory Rate 20 08/31/16 07:07 Blood Pressure 146/72 08/31/16 07:07 O2 Sat by Pulse Oximetry (%) 98 08/30/16 21:00 Constitutional: Yes: No Distress, Calm Cardiovascular: Yes: Regular Rate and Rhythm Respiratory: Yes: Diminished. No: Rales, Wheezes Gastrointestinal: Yes: Normal Bowel Sounds, Soft. 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.00 - ACUTE LEUKEMIA OF [place] CELL TYPE NOT ACHIEVE REMISSION Qualifiers: Leukemia Active/Remission status: without remission Qualified Code(s): C95.00 - Acute leukemia of unspecified cell type not having achieved remission (2) Bilateral pleural effusion Code(s): J90 - PLEURAL EFFUSION, NOT ELSEWHERE CLASSIFIED (3) ASHD (arteriosclerotic heart disease) Code(s): I25.10 - ATHSCL HEART DISEASE OF [place] CORONARY ARTERY W/O ANG PCTRS (4) HTN (hypertension) Code(s): I10 - ESSENTIAL (PRIMARY) HYPERTENSION Qualifiers: Hypertension type: essential hypertension Qualified Code(s): I10 - Essential (primary) hypertension Assessment/Plan PLAN -- pt febrile -- influenza swab positive -- on tamiflu --LFT trending down spoke with Dr Koo today- will transfuse 2 units PRBC -- on iv antibiotics -- s/p thoracentesis -- incentive spirometry
--- NOTE | 2016-08-31 13:13 | PN ---
Progress Note, Physician History of Present Illness: Feeling better Afebrile Occasional cough- white sputum No c/o chest pain/ dyspnea - Current Medication List Current Medications: Active Medications Acetaminophen (Tylenol -) 650 mg PO Q6H PRN PRN Reason: FEVER Last Admin: 08/29/16 10:47 Dose: 650 mg Allopurinol (Zyloprim -) 300 mg PO DAILY [facility] Last Admin: 08/31/16 10:53 Dose: 300 mg Alprazolam (Xanax -) 0.5 mg PO TID PRN PRN Reason: ANXIETY Amlodipine Besylate (Norvasc -) 5 mg PO DAILY [facility] Last Admin: 08/31/16 10:53 Dose: 5 mg Atorvastatin Calcium (Lipitor -) 80 mg PO HS [facility] Last Admin: 08/30/16 22:02 Dose: 80 mg Benzocaine/Menthol (Cepacol Lozenge -) 1 each MM PRN PRN PRN Reason: SORE THROAT Last Admin: 08/30/16 22:03 Dose: 1 each Docusate Sodium (Colace -) 100 mg PO DAILY [facility] Last Admin: 08/31/16 10:53 Dose: 100 mg Enoxaparin Sodium (Lovenox -) 40 mg SQ DAILY [facility] Last Admin: 08/31/16 10:52 Dose: 40 mg Furosemide (Lasix Injection -) 40 mg IVPB [employer] [facility] Stop: 08/31/16 18:00 Sodium Chloride (Normal Saline -) 1,000 mls @ 42 mls/hr IV ASDIR [facility] Last Admin: 08/30/16 23:00 Dose: 42 mls/hr Levofloxacin (Levaquin 500 Mg Premixed Ivpb -) 100 mls @ 100 mls/hr IVPB DAILY [facility] Last Admin: 08/31/16 10:54 Dose: 100 mls/hr Metoprolol Succinate (Toprol Xl -) 50 mg PO DAILY [facility] Last Admin: 08/31/16 10:53 Dose: 50 mg Oseltamivir Phosphate (Tamiflu -) 30 mg PO BID [facility] Last Admin: 08/31/16 10:55 Dose: 30 mg Oxycodone HCl (Roxicodone -) 10 mg PO Q4H PRN PRN Reason: PAIN Last Admin: 08/30/16 10:59 Dose: 10 mg Potassium Chloride (K-Dur -) 40 meq PO DAILY [facility] Last Admin: 08/31/16 10:54 Dose: 40 meq Tamsulosin HCl (Flomax -) 0.4 mg PO DAILY@0830 [facility] Last Admin: 08/31/16 10:52 Dose: 0.4 mg Tramadol HCl (Ultram -) 50 mg PO Q6H PRN PRN Reason: PAIN Last Admin: 08/30/16 22:00 Dose: 50 mg Valacyclovir HCl (Valtrex -) 500 mg PO DAILY [facility] Last Admin: 08/31/16 11:14 Dose: 500 mg - Objective Vital Signs: Vital Signs Temperature 98.4 F 08/31/16 10:00 Pulse Rate 82 08/31/16 10:00 Respiratory Rate 18 08/31/16 10:00 Blood Pressure 175/71 08/31/16 10:00 O2 Sat by Pulse Oximetry (%) 98 08/30/16 21:00 Constitutional: Yes: No Distress Eyes: Yes: Conjunctiva Clear Cardiovascular: Yes: Regular Rate and Rhythm, S1, S2 Respiratory: Yes: CTA Bilaterally Gastrointestinal: Yes: Normal Bowel Sounds, Soft. No: Tenderness Edema: Yes Edema: LLE: 1+, RLE: 1+ Labs: CBC, BMP 08/31/16 07:30 08/31/16 07:30 INR, PTT INR 1.20 (0.82-1.09) H 08/28/16 07:00 Fibrinogen 320.0 mg/dL (238-498) 08/28/16 07:00 Assessment/Plan Acute influenza A clinically improved + sputum c/s Klebsiella CML Continue Tamiflu- complete 5d course Levaquin for treatment of Klebsiella in sputum
[2016-08-31] MEDS: SODIUM CHLORIDE 1,000 ML IV SCH (17:48)
--- NOTE | 2016-08-31 18:21 | PN ---
Progress Note (short form) - Note Progress Note: Patient seen and examined Clinically improved . Fever down, LFT's improving, less SOB, less cough and sputum which is clear. Last Vital Signs Temp Pulse Resp BP Pulse Ox 97.8 F 72 18 134/70 98 08/31/16 14:00 08/31/16 14:00 08/31/16 14:53 08/31/16 14:00 08/31/16 14:53 HEENT: MASOOD, EOM Intact Oropharynx: No thrush, No mucositis Neck: Supple Cor: RSR, No murmurs, No gallops Lungs: Clear to P&A Abd: Soft, Normal bowel sounds, No organomegaly Ext:No significant edema Skin: No rashes, Integument intact CBC, BMP 08/31/16 07:30 08/31/16 07:30 Current Medications Generic Name Dose Route Start Last Admin Trade Name Freq PRN Reason Stop Dose Admin Acetaminophen 650 mg 08/24/16 10:19 08/29/16 10:47 Tylenol - PO 650 mg Q6H PRN Administration FEVER Allopurinol 300 mg 08/24/16 11:00 08/31/16 10:53 Zyloprim - PO 300 mg DAILY [facility] Administration Alprazolam 0.5 mg 08/24/16 10:19 Xanax - PO TID PRN ANXIETY Amlodipine Besylate 5 mg 08/24/16 11:00 08/31/16 10:53 Norvasc - PO 5 mg DAILY [facility] Administration Atorvastatin Calcium 80 mg 08/24/16 22:00 08/30/16 22:02 Lipitor - PO 80 mg HS [facility] Administration Benzocaine/Menthol 1 each 08/29/16 11:31 08/30/16 22:03 Cepacol Lozenge - MM 1 each PRN PRN Administration SORE THROAT Docusate Sodium 100 mg 08/25/16 10:00 08/31/16 10:53 Colace - PO 100 mg DAILY [facility] Administration Enoxaparin Sodium 40 mg 08/30/16 16:00 08/31/16 10:52 Lovenox - SQ 40 mg DAILY [facility] Administration Sodium Chloride 1,000 mls @ 42 mls/hr 08/28/16 17:30 08/31/16 17:48 Normal Saline - IV Not Given ASDIR [facility] Levofloxacin 100 mls @ 100 mls/hr 08/30/16 12:15 08/31/16 10:54 Levaquin 500 Mg Premixed Ivpb - IVPB 100 mls/hr DAILY [facility] Administration Metoprolol Succinate 50 mg 08/24/16 16:45 08/31/16 10:53 Toprol Xl - PO 50 mg DAILY [facility] Administration Oseltamivir Phosphate 30 mg 08/29/16 22:00 08/31/16 10:55 Tamiflu - PO 30 mg BID [facility] Administration Oxycodone HCl 10 mg 08/24/16 15:41 08/30/16 10:59 Roxicodone - PO 10 mg Q4H PRN Administration PAIN Potassium Chloride 40 meq 08/25/16 12:00 08/31/16 10:54 K-Dur - PO 40 meq DAILY [facility] Administration Tamsulosin HCl 0.4 mg 08/25/16 08:30 08/31/16 10:52 Flomax - PO 0.4 mg DAILY@0830 [facility] Administration Tramadol HCl 50 mg 08/30/16 12:42 08/30/16 22:00 Ultram - PO 50 mg Q6H PRN Administration PAIN Valacyclovir HCl 500 mg 08/28/16 10:00 08/31/16 11:14 Valtrex - PO 500 mg DAILY [facility] Administration 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 ??Gleevac in future
[2016-08-31] MEDS: ATORVASTATIN CA 80 MG TABLET (FP) PO SCH (21:23)
[2016-08-31] MEDS: traMADol HCL 50 MG TABLET PO PRN (21:29)
[2016-08-31] MEDS: oxyCODONE HCL 5 MG TABLET PO PRN (23:57)
[2016-09-01] MEDS: SODIUM CHLORIDE 1,000 ML IV SCH ×2 (02:00→19:14)
[2016-09-01] MEDS ORDERED: PT OWN MED DRAWER 7, Y5N ONE ×4 (08:09→21:58)
[2016-09-01 08:20] LABS: MCH 29.2 pg (25.7-33.7); MCHC 34.1 g/dl (32.0-35.9); MEAN CELL VOLUME 85.7 fl (80-96); MEAN PLT VOLUME 8.5 fl (7.5-11.1); PLATELET COUNT 493 K/MM3 (134-434); RDW 15.4 % (11.9-15.9); WHITE BLOOD COUNT 16.2 K/mm3 (4.0-10.0)
[2016-09-01] MEDS: TAMSULOSIN HCL 0.4 MG CAP.ER.24H (FP) PO SCH (08:20)
[2016-09-01] MEDS: amLODIPine BESYLATE 5 MG TABLET (FP) PO SCH (09:39)
[2016-09-01] MEDS: DOCUSATE SODIUM 100 MG CAPSULE (FP) PO SCH ×2 (09:39→10:13)
[2016-09-01] MEDS: POTASSIUM CHLORIDE TABS 20 MEQ TABLET.ER (FP) PO SCH (09:39)
[2016-09-01] MEDS: POSACONAZOLE PO SCH ×2 (09:40→17:34)
[2016-09-01] MEDS: valACYclovir HCL 500 MG TABLET (FP) PO SCH (09:41)
[2016-09-01] MEDS: OSELTAMIVIR PHOSPHATE 30 MG CAPSULE PO SCH ×2 (09:41→22:00)
[2016-09-01] MEDS: METOPROLOL SUCCINATE 50 MG TAB.SR.24H (FP) PO SCH (09:41)
[2016-09-01] MEDS: LEVOFLOXACIN 500 MG IVPB 100 ML IVPB SCH (09:42)
[2016-09-01] MEDS: ALLOPURINOL 300 MG TABLET (FP) PO SCH (09:42)
[2016-09-01] MEDS: ENOXAPARIN NA (PORCINE) 40 MG/0.4 ML DISP.SYRIN SQ SCH (09:42)
[2016-09-01] MEDS: oxyCODONE HCL 5 MG TABLET PO PRN ×2 (10:51→22:00)
--- NOTE | 2016-09-01 11:28 | PN ---
Progress Note, Physician History of Present Illness: Clinically improved No c/o fever/ chills Afebrile Occasional cough- white sputum No chest pain/ dyspnea WBC, LFTs improving Day # 4 Tamiflu - Current Medication List Current Medications: Active Medications Acetaminophen (Tylenol -) 650 mg PO Q6H PRN PRN Reason: FEVER Last Admin: 08/29/16 10:47 Dose: 650 mg Allopurinol (Zyloprim -) 300 mg PO DAILY [facility] Last Admin: 09/01/16 09:42 Dose: 300 mg Alprazolam (Xanax -) 0.5 mg PO TID PRN PRN Reason: ANXIETY Amlodipine Besylate (Norvasc -) 5 mg PO DAILY [facility] Last Admin: 09/01/16 09:39 Dose: 5 mg Atorvastatin Calcium (Lipitor -) 80 mg PO HS [facility] Last Admin: 08/31/16 21:23 Dose: 80 mg Benzocaine/Menthol (Cepacol Lozenge -) 1 each MM PRN PRN PRN Reason: SORE THROAT Last Admin: 08/30/16 22:03 Dose: 1 each Docusate Sodium (Colace -) 100 mg PO DAILY [facility] Last Admin: 09/01/16 10:13 Dose: Not Given Enoxaparin Sodium (Lovenox -) 40 mg SQ DAILY [facility] Last Admin: 09/01/16 09:42 Dose: 40 mg Sodium Chloride (Normal Saline -) 1,000 mls @ 42 mls/hr IV ASDIR [facility] Last Admin: 09/01/16 02:00 Dose: 42 mls/hr Levofloxacin (Levaquin 500 Mg Premixed Ivpb -) 100 mls @ 100 mls/hr IVPB DAILY [facility] Last Admin: 09/01/16 09:42 Dose: 100 mls/hr Metoprolol Succinate (Toprol Xl -) 50 mg PO DAILY [facility] Last Admin: 09/01/16 09:41 Dose: 50 mg Oseltamivir Phosphate (Tamiflu -) 30 mg PO BID [facility] Last Admin: 09/01/16 09:41 Dose: 30 mg Oxycodone HCl (Roxicodone -) 10 mg PO Q4H PRN PRN Reason: PAIN Last Admin: 09/01/16 10:51 Dose: 10 mg Potassium Chloride (K-Dur -) 40 meq PO DAILY [facility] Last Admin: 09/01/16 09:39 Dose: 40 meq Tamsulosin HCl (Flomax -) 0.4 mg PO DAILY@0830 [facility] Last Admin: 09/01/16 08:20 Dose: 0.4 mg Tramadol HCl (Ultram -) 50 mg PO Q6H PRN PRN Reason: PAIN Last Admin: 08/31/16 21:29 Dose: 50 mg Valacyclovir HCl (Valtrex -) 500 mg PO DAILY [facility] Last Admin: 09/01/16 09:41 Dose: 500 mg - Objective Vital Signs: Vital Signs Temperature 98.1 F 09/01/16 08:39 Pulse Rate 86 09/01/16 08:39 Respiratory Rate 18 09/01/16 08:39 Blood Pressure 137/67 09/01/16 08:39 O2 Sat by Pulse Oximetry (%) 98 08/31/16 21:00 Constitutional: Yes: No Distress Eyes: Yes: Conjunctiva Clear Cardiovascular: Yes: Regular Rate and Rhythm, S1, S2 Respiratory: Yes: CTA Bilaterally Gastrointestinal: Yes: Normal Bowel Sounds, Soft. No: Tenderness Edema: Yes Edema: LLE: 1+, RLE: 1+ Labs: CBC, BMP 09/01/16 06:00 08/31/16 07:30 INR, PTT INR 1.20 (0.82-1.09) H 08/28/16 07:00 Fibrinogen 320.0 mg/dL (238-498) 08/28/16 07:00 Assessment/Plan Acute influenza A clinically improved + sputum c/s Klebsiella CML Continue Tamiflu- day #4/5 Levaquin for treatment of Klebsiella in sputum
--- NOTE | 2016-09-01 14:37 | PN ---
Progress Note (short form) - Note Progress Note: PULMONARY Ambulating around room. Some dyspnea on exertion but feeling overall improved. No fevers, chills. Minimal cough. Last Vital Signs Temp Pulse Resp BP Pulse Ox 98.1 F 86 18 137/67 98 09/01/16 08:39 09/01/16 08:39 09/01/16 08:39 09/01/16 08:39 08/31/16 21:00 Gen: NAD at rest Heart: RRR Lung: decreased breath sounds at the bases Abd: soft, nontender Ext: no edema CBC, BMP 09/01/16 06:00 08/31/16 07:30 Active Medications Acetaminophen (Tylenol -) 650 mg PO Q6H PRN PRN Reason: FEVER Last Admin: 08/29/16 10:47 Dose: 650 mg Allopurinol (Zyloprim -) 300 mg PO DAILY [facility] Last Admin: 09/01/16 09:42 Dose: 300 mg Alprazolam (Xanax -) 0.5 mg PO TID PRN PRN Reason: ANXIETY Amlodipine Besylate (Norvasc -) 5 mg PO DAILY [facility] Last Admin: 09/01/16 09:39 Dose: 5 mg Atorvastatin Calcium (Lipitor -) 80 mg PO HS [facility] Last Admin: 08/31/16 21:23 Dose: 80 mg Benzocaine/Menthol (Cepacol Lozenge -) 1 each MM PRN PRN PRN Reason: SORE THROAT Last Admin: 08/30/16 22:03 Dose: 1 each Docusate Sodium (Colace -) 100 mg PO DAILY [facility] Last Admin: 09/01/16 10:13 Dose: Not Given Enoxaparin Sodium (Lovenox -) 40 mg SQ DAILY [facility] Last Admin: 09/01/16 09:42 Dose: 40 mg Sodium Chloride (Normal Saline -) 1,000 mls @ 42 mls/hr IV ASDIR [facility] Last Admin: 09/01/16 02:00 Dose: 42 mls/hr Levofloxacin (Levaquin 500 Mg Premixed Ivpb -) 100 mls @ 100 mls/hr IVPB DAILY [facility] Last Admin: 09/01/16 09:42 Dose: 100 mls/hr Metoprolol Succinate (Toprol Xl -) 50 mg PO DAILY [facility] Last Admin: 01/04/17 09:41 Dose: 50 mg Oseltamivir Phosphate (Tamiflu -) 30 mg PO BID [facility] Last Admin: 09/01/16 09:41 Dose: 30 mg Oxycodone HCl (Roxicodone -) 10 mg PO Q4H PRN PRN Reason: PAIN Last Admin: 09/01/16 10:51 Dose: 10 mg Potassium Chloride (K-Dur -) 40 meq PO DAILY [facility] Last Admin: 09/01/16 09:39 Dose: 40 meq Tamsulosin HCl (Flomax -) 0.4 mg PO DAILY@0830 [facility] Last Admin: 09/01/16 08:20 Dose: 0.4 mg Tramadol HCl (Ultram -) 50 mg PO Q6H PRN PRN Reason: PAIN Last Admin: 08/31/16 21:29 Dose: 50 mg Valacyclovir HCl (Valtrex -) 500 mg PO DAILY [facility] Last Admin: 09/01/16 09:41 Dose: 500 mg A/P ALL/CML on Chemotherapy Bilateral Pleural Effusions Pulmonary HTN Influenza A HTN CAD Hyperlipidemia - antibiotics, tamiflu per ID - O2 to keep Spo2 >90% - inhaled bronchodilators as needed - DVT prophylaxis - rehab/PT Problem List - Problems (1) Shortness of breath Code(s): R06.02 - SHORTNESS OF BREATH (2) Bilateral pleural effusion Code(s): J90 - PLEURAL EFFUSION, NOT ELSEWHERE CLASSIFIED (3) Acute leukemia Code(s): C95.00 - ACUTE LEUKEMIA OF [place] CELL TYPE NOT ACHIEVE REMISSION Qualifiers: Leukemia Active/Remission status: without remission Qualified Code(s): C95.00 - Acute leukemia of unspecified cell type not having achieved remission (4) ASHD (arteriosclerotic heart disease) Code(s): I25.10 - ATHSCL HEART DISEASE OF [place] CORONARY ARTERY W/O ANG PCTRS (5) HTN (hypertension) Code(s): I10 - ESSENTIAL (PRIMARY) HYPERTENSION Qualifiers: Hypertension type: essential hypertension Qualified Code(s): I10 - Essential (primary) hypertension
[2016-09-01] MEDS: ATORVASTATIN CA 80 MG TABLET (FP) PO SCH (22:00)
[2016-09-02] MEDS: SODIUM CHLORIDE 1,000 ML IV SCH (01:28)
[2016-09-02] MEDS ORDERED: PT OWN MED DRAWER 7, Y5N ONE ×2 (08:06→09:29)
[2016-09-02 08:15] LABS: MCH 29.2 pg (25.7-33.7); MCHC 33.9 g/dl (32.0-35.9); MEAN CELL VOLUME 86.2 fl (80-96); MEAN PLT VOLUME 8.6 fl (7.5-11.1); PLATELET COUNT 495 K/MM3 (134-434); WHITE BLOOD COUNT 15.7 K/mm3 (4.0-10.0)
[2016-09-02] MEDS: TAMSULOSIN HCL 0.4 MG CAP.ER.24H (FP) PO SCH (08:16)
[2016-09-02 08:48] LABS: ALBUMIN 2.7 g/dl (3.4-5.0); ANION GAP 11 (8-16); CALCIUM 8.3 mg/dL (8.5-10.1); CO2 23 mmol/L (21-32); GLUCOSE,RANDOM 80 mg/dL (74-106); SGPT/ALT 66 U/L (12-78)
[2016-09-02 08:51] LABS: ALK PHOS 239 U/L (45-117); BILIRUBIN,TOTAL 0.6 mg/dL (0.2-1.0); CREATININE 0.8 mg/dL (0.7-1.3); SGOT/AST 55 U/L (15-37); TOT PROT 6.6 g/dl (6.4-8.2)
--- NOTE | 2016-09-02 09:17 | PN ---
Progress Note (short form) - Note Progress Note: Overall appears better. No acute events overnight. Intake & Output 08/30/16 08/31/16 09/01/16 09/02/16 23:59 23:59 23:59 23:59 Intake Total 2401 1869 489 444 Output Total 600 Balance 2401 1269 489 444 Weight 160 lb 157 lb 6 oz Last Vital Signs Temp Pulse Resp BP Pulse Ox 98.4 F 83 18 143/79 98 09/01/16 16:30 09/01/16 16:30 09/01/16 16:30 09/01/16 16:30 09/01/16 21:00 Active Medications Acetaminophen (Tylenol -) 650 mg PO Q6H PRN PRN Reason: FEVER Last Admin: 08/29/16 10:47 Dose: 650 mg Allopurinol (Zyloprim -) 300 mg PO DAILY [facility] Last Admin: 09/01/16 09:42 Dose: 300 mg Alprazolam (Xanax -) 0.5 mg PO TID PRN PRN Reason: ANXIETY Amlodipine Besylate (Norvasc -) 5 mg PO DAILY [facility] Last Admin: 09/01/16 09:39 Dose: 5 mg Atorvastatin Calcium (Lipitor -) 80 mg PO HS [facility] Last Admin: 09/01/16 22:00 Dose: 80 mg Benzocaine/Menthol (Cepacol Lozenge -) 1 each MM PRN PRN PRN Reason: SORE THROAT Last Admin: 08/30/16 22:03 Dose: 1 each Docusate Sodium (Colace -) 100 mg PO DAILY [facility] Last Admin: 09/01/16 10:13 Dose: Not Given Enoxaparin Sodium (Lovenox -) 40 mg SQ DAILY [facility] Last Admin: 09/01/16 09:42 Dose: 40 mg Sodium Chloride (Normal Saline -) 1,000 mls @ 42 mls/hr IV ASDIR [facility] Last Admin: 09/02/16 01:28 Dose: 42 mls/hr Levofloxacin (Levaquin 500 Mg Premixed Ivpb -) 100 mls @ 100 mls/hr IVPB DAILY [facility] Last Admin: 09/01/16 09:42 Dose: 100 mls/hr Metoprolol Succinate (Toprol Xl -) 50 mg PO DAILY [facility] Last Admin: 09/01/16 09:41 Dose: 50 mg Oseltamivir Phosphate (Tamiflu -) 30 mg PO BID [facility] Last Admin: 09/01/16 22:00 Dose: 30 mg Oxycodone HCl (Roxicodone -) 10 mg PO Q4H PRN PRN Reason: PAIN Last Admin: 09/01/16 22:00 Dose: 10 mg Potassium Chloride (K-Dur -) 40 meq PO DAILY [facility] Last Admin: 09/01/16 09:39 Dose: 40 meq Tamsulosin HCl (Flomax -) 0.4 mg PO DAILY@0830 [facility] Last Admin: 09/02/16 08:16 Dose: 0.4 mg Tramadol HCl (Ultram -) 50 mg PO Q6H PRN PRN Reason: PAIN Last Admin: 08/31/16 21:29 Dose: 50 mg Valacyclovir HCl (Valtrex -) 500 mg PO DAILY [facility] Last Admin: 09/01/16 09:41 Dose: 500 mg Gen: NAD at rest Heart: RRR Lung: decreased breath sounds at the bases Abd: soft, nontender Ext: no edema Laboratory Results - last 24 hr 09/02/16 09/02/16 06:55 06:55 WBC 15.7 H RBC 3.48 L Hgb 10.2 L Hct 30.0 L MCV 86.2 MCHC 33.9 RDW 16.0 H Plt Count 495 H MPV 8.6 Neutrophils % Y Lymphocytes % Y Sodium 143 Potassium 3.8 Chloride 109 H Carbon Dioxide 23 Anion Gap 11 BUN 10 D Creatinine 0.8 Creat Clearance w eGFR > 60 Random Glucose 80 Calcium 8.3 L Total Bilirubin 0.6 AST 55 H D ALT 66 D Alkaline Phosphatase 239 H Total Protein 6.6 Albumin 2.7 L Problem List - Problems (1) Shortness of breath Code(s): R06.02 - SHORTNESS OF BREATH (2) Bilateral pleural effusion Code(s): J90 - PLEURAL EFFUSION, NOT ELSEWHERE CLASSIFIED (3) Acute leukemia Code(s): C95.00 - ACUTE LEUKEMIA OF UNSP CELL TYPE NOT ACHIEVE REMISSION Qualifiers: Leukemia Active/Remission status: without remission Qualified Code(s): C95.00 - Acute leukemia of unspecified cell type not having achieved remission (4) ASHD (arteriosclerotic heart disease) Code(s): I25.10 - ATHSCL HEART DISEASE OF [place] CORONARY ARTERY W/O ANG PCTRS (5) HTN (hypertension) Code(s): I10 - ESSENTIAL (PRIMARY) HYPERTENSION Qualifiers: Hypertension type: essential hypertension Qualified Code(s): I10 - Essential (primary) hypertension A/P Influenza A Transudative Pleural effusion (Negative fluid cytology) ALL on Chemotherapy Pulmonary HTN HTN CAD Hyperlipidemia Klebsiella (+) sputum -> (?) PNA - Tamiflu / Levaquin per ID - Lasix - O2 to keep Spo2 >90% - inhaled bronchodilators as needed - DVT prophylaxis Dr Castaneda
[2016-09-02] MEDS: POTASSIUM CHLORIDE TABS 20 MEQ TABLET.ER (FP) PO SCH (09:32)
[2016-09-02] MEDS: DOCUSATE SODIUM 100 MG CAPSULE (FP) PO SCH (09:32)
[2016-09-02] MEDS: amLODIPine BESYLATE 5 MG TABLET (FP) PO SCH (09:35)
[2016-09-02] MEDS: oxyCODONE HCL 5 MG TABLET PO PRN ×3 (09:36→20:39)
[2016-09-02] MEDS: OSELTAMIVIR PHOSPHATE 30 MG CAPSULE PO SCH ×2 (09:36→21:58)
[2016-09-02] MEDS: valACYclovir HCL 500 MG TABLET (FP) PO SCH (09:37)
[2016-09-02] MEDS: ALLOPURINOL 300 MG TABLET (FP) PO SCH (09:37)
[2016-09-02] MEDS: LEVOFLOXACIN 500 MG IVPB 100 ML IVPB SCH (09:37)
[2016-09-02] MEDS: METOPROLOL SUCCINATE 50 MG TAB.SR.24H (FP) PO SCH (09:37)
[2016-09-02] MEDS: ENOXAPARIN NA (PORCINE) 40 MG/0.4 ML DISP.SYRIN SQ SCH (09:37)
[2016-09-02] MEDS: POSACONAZOLE PO SCH ×2 (11:23→17:56)
--- NOTE | 2016-09-02 12:16 | PN ---
[id number] Medications: Active Medications Acetaminophen (Tylenol -) 650 mg PO Q6H PRN PRN Reason: FEVER Last Admin: 08/29/16 10:47 Dose: 650 mg Allopurinol (Zyloprim -) 300 mg PO DAILY [facility] Last Admin: 09/02/16 09:37 Dose: 300 mg Alprazolam (Xanax -) 0.5 mg PO TID PRN PRN Reason: ANXIETY Amlodipine Besylate (Norvasc -) 5 mg PO DAILY [facility] Last Admin: 09/02/16 09:35 Dose: 5 mg Atorvastatin Calcium (Lipitor -) 80 mg PO HS [facility] Last Admin: 09/01/16 22:00 Dose: 80 mg Benzocaine/Menthol (Cepacol Lozenge -) 1 each MM PRN PRN PRN Reason: SORE THROAT Last Admin: 08/30/16 22:03 Dose: 1 each Docusate Sodium (Colace -) 100 mg PO DAILY [facility] Last Admin: 09/02/16 09:32 Dose: Not Given Enoxaparin Sodium (Lovenox -) 40 mg SQ DAILY [facility] Last Admin: 09/02/16 09:37 Dose: 40 mg Sodium Chloride (Normal Saline -) 1,000 mls @ 42 mls/hr IV ASDIR [facility] Last Admin: 09/02/16 01:28 Dose: 42 mls/hr Levofloxacin (Levaquin 500 Mg Premixed Ivpb -) 100 mls @ 100 mls/hr IVPB DAILY [facility] Last Admin: 09/02/16 09:37 Dose: 100 mls/hr Metoprolol Succinate (Toprol Xl -) 50 mg PO DAILY [facility] Last Admin: 09/02/16 09:37 Dose: 50 mg Oseltamivir Phosphate (Tamiflu -) 30 mg PO BID [facility] Last Admin: 09/02/16 09:36 Dose: 30 mg Oxycodone HCl (Roxicodone -) 10 mg PO Q4H PRN PRN Reason: PAIN Last Admin: 09/02/16 09:36 Dose: 10 mg Potassium Chloride (K-Dur -) 40 meq PO DAILY [facility] Last Admin: 09/02/16 09:32 Dose: 40 meq Tamsulosin HCl (Flomax -) 0.4 mg PO DAILY@0830 [facility] Last Admin: 09/02/16 08:16 Dose: 0.4 mg Tramadol HCl (Ultram -) 50 mg PO Q6H PRN PRN Reason: PAIN Last Admin: 08/31/16 21:29 Dose: 50 mg Valacyclovir HCl (Valtrex -) 500 mg PO DAILY [facility] Last Admin: 09/02/16 09:37 Dose: 500 mg - Objective Vital Signs: Vital Signs Temperature 98.4 F 09/01/16 16:30 Pulse Rate 83 09/01/16 16:30 Respiratory Rate 18 09/01/16 16:30 Blood Pressure 143/79 09/01/16 16:30 O2 Sat by Pulse Oximetry (%) 98 09/01/16 21:00 Constitutional: Yes: No Distress Cardiovascular: Yes: Regular Rate and Rhythm Respiratory: Yes: CTA Bilaterally Gastrointestinal: Yes: Normal Bowel Sounds, Soft. No: Tenderness Edema: No Labs: CBC, BMP 09/02/16 06:55 09/02/16 06:55 INR, PTT INR 1.20 (0.82-1.09) H 08/28/16 07:00 Fibrinogen 320.0 mg/dL (238-498) 08/28/16 07:00 Problem List - Problems (1) Acute leukemia Code(s): C95.00 - ACUTE LEUKEMIA OF UNSP CELL TYPE NOT ACHIEVE REMISSION Qualifiers: Leukemia Active/Remission status: without remission Qualified Code(s): C95.00 - Acute leukemia of unspecified cell type not having achieved remission (2) Bilateral pleural effusion Code(s): J90 - PLEURAL EFFUSION, NOT ELSEWHERE CLASSIFIED (3) ASHD (arteriosclerotic heart disease) Code(s): I25.10 - ATHSCL HEART DISEASE OF [place] CORONARY ARTERY W/O ANG PCTRS (4) HTN (hypertension) Code(s): I10 - ESSENTIAL (PRIMARY) HYPERTENSION Qualifiers: Hypertension type: essential hypertension Qualified Code(s): I10 - Essential (primary) hypertension Assessment/Plan PLAN -- afebrile -- on PO Levaquin now -- dc planning -- completes TAmiflu today -- dc isolation --LFT trending down -- s/p thoracentesis -- incentive spirometry
--- NOTE | 2016-09-02 12:31 | PN ---
Progress Note, Physician History of Present Illness: Appears comfortable at rest No c/o dyspnea/ cough Afebrile Completing course of Tamiflu - Current Medication List Current Medications: Active Medications Acetaminophen (Tylenol -) 650 mg PO Q6H PRN PRN Reason: FEVER Last Admin: 08/29/16 10:47 Dose: 650 mg Allopurinol (Zyloprim -) 300 mg PO DAILY [facility] Last Admin: 09/02/16 09:37 Dose: 300 mg Alprazolam (Xanax -) 0.5 mg PO TID PRN PRN Reason: ANXIETY Amlodipine Besylate (Norvasc -) 5 mg PO DAILY [facility] Last Admin: 09/02/16 09:35 Dose: 5 mg Atorvastatin Calcium (Lipitor -) 80 mg PO HS [facility] Last Admin: 09/01/16 22:00 Dose: 80 mg Benzocaine/Menthol (Cepacol Lozenge -) 1 each MM PRN PRN PRN Reason: SORE THROAT Last Admin: 08/30/16 22:03 Dose: 1 each Docusate Sodium (Colace -) 100 mg PO DAILY [facility] Last Admin: 09/02/16 09:32 Dose: Not Given Enoxaparin Sodium (Lovenox -) 40 mg SQ DAILY [facility] Last Admin: 09/02/16 09:37 Dose: 40 mg Sodium Chloride (Normal Saline -) 1,000 mls @ 42 mls/hr IV ASDIR [facility] Last Admin: 09/02/16 01:28 Dose: 42 mls/hr Levofloxacin (Levaquin 500 Mg Premixed Ivpb -) 100 mls @ 100 mls/hr IVPB DAILY [facility] Last Admin: 09/02/16 09:37 Dose: 100 mls/hr Metoprolol Succinate (Toprol Xl -) 50 mg PO DAILY [facility] Last Admin: 09/02/16 09:37 Dose: 50 mg Oseltamivir Phosphate (Tamiflu -) 30 mg PO BID [facility] Last Admin: 09/02/16 09:36 Dose: 30 mg Oxycodone HCl (Roxicodone -) 10 mg PO Q4H PRN PRN Reason: PAIN Last Admin: 09/02/16 09:36 Dose: 10 mg Potassium Chloride (K-Dur -) 40 meq PO DAILY [facility] Last Admin: 09/02/16 09:32 Dose: 40 meq Tamsulosin HCl (Flomax -) 0.4 mg PO DAILY@0830 [facility] Last Admin: 09/02/16 08:16 Dose: 0.4 mg Tramadol HCl (Ultram -) 50 mg PO Q6H PRN PRN Reason: PAIN Last Admin: 08/31/16 21:29 Dose: 50 mg Valacyclovir HCl (Valtrex -) 500 mg PO DAILY [facility] Last Admin: 09/02/16 09:37 Dose: 500 mg - Objective Vital Signs: Vital Signs Temperature 97.6 F 09/02/16 09:00 Pulse Rate 78 09/02/16 09:00 Respiratory Rate 20 09/02/16 09:00 Blood Pressure 144/73 09/02/16 09:00 O2 Sat by Pulse Oximetry (%) 98 09/01/16 21:00 Constitutional: Yes: No Distress Eyes: Yes: Conjunctiva Clear Cardiovascular: Yes: Regular Rate and Rhythm, S1, S2 Respiratory: Yes: CTA Bilaterally Gastrointestinal: Yes: Normal Bowel Sounds, Soft. No: Tenderness Edema: Yes Edema: LLE: 1+, RLE: 1+ Labs: CBC, BMP 09/02/16 06:55 09/02/16 06:55 INR, PTT INR 1.20 (0.82-1.09) H 08/28/16 07:00 Fibrinogen 320.0 mg/dL (238-498) 08/28/16 07:00 Assessment/Plan Acute influenza A clinically improved + sputum c/s Klebsiella CML Continue Tamiflu- day #5/5 Switch to po levaquin x 48h
[2016-09-02] MEDS ORDERED: ACETAMINOPHEN 325 MG TABLET (FP) PO PRN (13:45)
--- NOTE | 2016-09-02 20:25 | PN ---
Progress Note (short form) - Note Progress Note: Patient seen and examined feels much better Last Vital Signs Temp Pulse Resp BP Pulse Ox 98.2 F 79 20 141/77 98 09/02/16 16:30 09/02/16 16:30 09/02/16 20:42 09/02/16 16:30 09/02/16 20:42 HEENT: MASOOD, EOM Intact Oropharynx: coated tongue Cor: RSR, No murmurs, No gallops Lungs: Clear to P&A Abd: Soft, Normal bowel sounds, No organomegaly Current Medications Acetaminophen (Tylenol -) 650 mg PO Q4H PRN PRN Reason: FEVER Last Admin: 09/02/16 20:39 Dose: 650 mg Allopurinol (Zyloprim -) 300 mg PO DAILY [facility] Last Admin: 09/02/16 09:37 Dose: 300 mg Alprazolam (Xanax -) 0.5 mg PO TID PRN PRN Reason: ANXIETY Amlodipine Besylate (Norvasc -) 5 mg PO DAILY [facility] Last Admin: 09/02/16 09:35 Dose: 5 mg Atorvastatin Calcium (Lipitor -) 80 mg PO HS [facility] Last Admin: 09/02/16 21:58 Dose: 80 mg Benzocaine/Menthol (Cepacol Lozenge -) 1 each MM PRN PRN PRN Reason: SORE THROAT Last Admin: 08/30/16 22:03 Dose: 1 each Docusate Sodium (Colace -) 100 mg PO DAILY [facility] Last Admin: 09/02/16 09:32 Dose: Not Given Enoxaparin Sodium (Lovenox -) 40 mg SQ DAILY [facility] Last Admin: 09/02/16 09:37 Dose: 40 mg Levofloxacin (Levaquin -) 500 mg PO DAILY@0600 [facility] Metoprolol Succinate (Toprol Xl -) 50 mg PO DAILY [facility] Last Admin: 09/02/16 09:37 Dose: 50 mg Oseltamivir Phosphate (Tamiflu -) 30 mg PO BID [facility] Last Admin: 09/02/16 21:58 Dose: 30 mg Oxycodone HCl (Roxicodone -) 10 mg PO Q4H PRN PRN Reason: PAIN Last Admin: 09/02/16 20:39 Dose: 10 mg Potassium Chloride (K-Dur -) 40 meq PO DAILY [facility] Last Admin: 09/02/16 09:32 Dose: 40 meq Tamsulosin HCl (Flomax -) 0.4 mg PO DAILY@0830 [facility] Last Admin: 09/02/16 08:16 Dose: 0.4 mg Valacyclovir HCl (Valtrex -) 500 mg PO DAILY [facility] Last Admin: 09/02/16 09:37 Dose: 500 mg Abnormal Lab Results 09/02/16 09/02/16 06:55 06:55 WBC 15.7 H RBC 3.48 L Hgb 10.2 L Hct 30.0 L RDW 16.0 H Plt Count 495 H Monocytes % 19.0 H D Myelocytes 3 H D Chloride 109 H Calcium 8.3 L AST 55 H D Alkaline Phosphatase 239 H Albumin 2.7 L A/P 76 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 Now with pleural effusions/SOB Echo pending WBC elevated flowcytometry shows no e/o recurrent blasts. ?ch. phase CML will consider switch to gleevec as patient with recurrent effusions on dasatinib continue allopurinol to f/u closely with [facility] team on tue, noted pulmonary findings of exudative effusion cytology neg. Fever-- Influenza A+ --fever curve coming down. on tamiflu also on levaquin for klebsiella PAtient also reports h/o [employer] shunt removed 17 yrs. ago. and headaches. Refusing CT scan
[2016-09-02] MEDS: ATORVASTATIN CA 80 MG TABLET (FP) PO SCH (21:58)
[2016-09-03] MEDS ORDERED: LEVOFLOXACIN 500 MG TABLET (FP) PO SCH (06:00)
[2016-09-03] MEDS ORDERED: PT OWN MED DRAWER 7, Y5N ONE ×2 (06:56→09:05)
--- NOTE | 2016-09-03 08:10 | DS ---
Physical Examination Vital Signs: Vital Signs Temperature 98.4 F 09/03/16 07:17 Pulse Rate 82 09/03/16 07:17 Respiratory Rate 16 09/03/16 07:17 Blood Pressure 148/66 09/03/16 07:17 O2 Sat by Pulse Oximetry (%) 98 09/02/16 20:42 Findings/Remarks: patient feels much better Denies chest pain Denies shortness of breath Constitutional: Yes: No Distress, Calm Eyes: Yes: Conjunctiva Clear Neck: Yes: Supple Cardiovascular: Yes: Regular Rate and Rhythm Respiratory: Yes: Diminished (at bases) Gastrointestinal: Yes: Normal Bowel Sounds, Soft Edema: No Neurological: Yes: Alert Labs: CBC, BMP 09/02/16 06:55 09/02/16 06:55 Discharge Summary Reason For Visit: PNEUMONIA,ACUTE LEUKEMIA Current Active Problems Acute leukemia (Acute) Bilateral pleural effusion (Acute) Influenza A (Acute) Pneumonia (Acute) Shortness of breath (Acute) Hospital Course: patient With extensive past medical history as documented admitted for shortness of breath workup revealed pleural effusion as well as Klebsiella -positive sputum as well as positive for influenza Treated with antibiotics and Tamiflu ID followed as well as pulmonary Patient also had thoracocentesis done--which revealed no malignant cells. echocardiogram also done which showed severe pulmonary hypertension and severe TR Patient got better with treatment Oncology also followed due to his history of leukemia. patient stable enough to go home. finished treatment with Tamiflu We will send him on Levaquin Patient to follow with his PMD within 1 week Patient in agreement Plan also discussed with nursing staff Medications reconciled and prescribed as needed Condition: Good - Instructions Diet, Activity, Other Instructions: Activity as tolerated May take shower Regular diet Referrals: Hanane Easley MD [Staff Physician] - Shelley Sharpe MD [Primary Care Provider] - Disposition: HOME - Home Medications Comprehensive Discharge Medication List: Ambulatory Orders Alprazolam [Alprazolam Xr] 0.5 mg PO TID PRN 04/15/16 Amlodipine Besylate [Norvasc -] 5 mg PO DAILY 04/15/16 Aspirin [ASA -] 81 mg PO DAILY 04/15/16 Atorvastatin Ca [Lipitor] 80 mg PO HS 04/15/16 Tamsulosin HCl 0.4 mg PO DAILY 04/15/16 Acetaminophen [Tylenol] 325 mg PO Q6H 30 Days 04/17/16 Allopurinol [Zyloprim -] 300 mg PO DAILY #30 tablet 04/17/16 Docusate Sodium [Colace -] 100 mg PO DAILY capsule 04/17/16 Levofloxacin [Levaquin -] 500 mg PO DAILY@0600 #5 tablet 09/03/16 Metoprolol Succinate [Toprol XL -] 50 mg PO DAILY tab.sr.24h 09/03/16 Posaconazole [Noxafil] 400 mg PO BIDWM ml 09/03/16 Tramadol HCl [Ultram -] 50 mg PO Q6H PRN #30 tablet MDD 3 09/03/16 Valacyclovir HCl [Valtrex -] 500 mg PO DAILY tablet 09/03/16
[2016-09-03 08:42] VITALS: BP 143/62; PULSE 74; TEMP 97.8
[2016-09-03] MEDS: valACYclovir HCL 500 MG TABLET (FP) PO SCH (09:07)
[2016-09-03] MEDS: DOCUSATE SODIUM 100 MG CAPSULE (FP) PO SCH (09:07)
[2016-09-03] MEDS: ENOXAPARIN NA (PORCINE) 40 MG/0.4 ML DISP.SYRIN SQ SCH (09:07)
[2016-09-03] MEDS: METOPROLOL SUCCINATE 50 MG TAB.SR.24H (FP) PO SCH (09:07)
[2016-09-03] MEDS: ALLOPURINOL 300 MG TABLET (FP) PO SCH (09:07)
[2016-09-03] MEDS: amLODIPine BESYLATE 5 MG TABLET (FP) PO SCH (09:07)
[2016-09-03] MEDS: TAMSULOSIN HCL 0.4 MG CAP.ER.24H (FP) PO SCH (09:07)
[2016-09-03] MEDS: POTASSIUM CHLORIDE TABS 20 MEQ TABLET.ER (FP) PO SCH (09:07)
[2016-09-03] MEDS: OSELTAMIVIR PHOSPHATE 30 MG CAPSULE PO SCH (09:08)
--- NOTE | 2016-09-03 10:17 | PN ---
Progress Note (short form) - Note Progress Note: Patient seen and examined Completed course of Tamiflu Breathing, cough, sputum, all improved Last Vital Signs Temp Pulse Resp BP Pulse Ox 97.8 F 74 16 143/62 98 09/03/16 08:41 09/03/16 08:41 09/03/16 08:41 09/03/16 08:41 09/02/16 20:42 HEENT: [place], EOM Intact Oropharynx: No thrush, No mucositis Cor: RSR, No murmurs, No gallops Lungs: Clear to P&A Abd: Soft, Normal bowel sounds, No organomegaly Ext:No significant edema Skin: No rashes, Integument intact CBC, BMP 09/02/16 06:55 09/02/16 06:55 Current Medications Generic Name Dose Route Start Last Admin Trade Name Freq PRN Reason Stop Dose Admin Acetaminophen 650 mg 09/02/16 13:45 09/02/16 20:39 Tylenol - PO 650 mg Q4H PRN Administration FEVER Allopurinol 300 mg 08/24/16 11:00 09/03/16 09:07 Zyloprim - PO 300 mg DAILY [facility] Administration Alprazolam 0.5 mg 08/24/16 10:19 Xanax - PO TID PRN ANXIETY Amlodipine Besylate 5 mg 08/24/16 11:00 09/03/16 09:07 Norvasc - PO 5 mg DAILY [facility] Administration Atorvastatin Calcium 80 mg 08/24/16 22:00 09/02/16 21:58 Lipitor - PO 80 mg HS [facility] Administration Benzocaine/Menthol 1 each 08/29/16 11:31 08/30/16 22:03 Cepacol Lozenge - MM 1 each PRN PRN Administration SORE THROAT Docusate Sodium 100 mg 08/25/16 10:00 09/03/16 09:07 Colace - PO 100 mg DAILY [facility] Administration Enoxaparin Sodium 40 mg 08/30/16 16:00 09/03/16 09:07 Lovenox - SQ 40 mg DAILY [facility] Administration Levofloxacin 500 mg 09/03/16 06:00 09/03/16 05:41 Levaquin - PO 500 mg DAILY@0600 [facility] Administration Metoprolol Succinate 50 mg 08/24/16 16:45 09/03/16 09:07 Toprol Xl - PO 50 mg DAILY [facility] Administration Oseltamivir Phosphate 30 mg 08/29/16 22:00 09/03/16 09:08 Tamiflu - PO 30 mg BID [facility] Administration Oxycodone HCl 10 mg 08/24/16 15:41 09/02/16 20:39 Roxicodone - PO 10 mg Q4H PRN Administration PAIN Potassium Chloride 40 meq 08/25/16 12:00 09/03/16 09:07 K-Dur - PO 40 meq DAILY [facility] Administration Tamsulosin HCl 0.4 mg 08/25/16 08:30 09/03/16 09:07 Flomax - PO 0.4 mg DAILY@0830 [facility] Administration Valacyclovir HCl 500 mg 08/28/16 10:00 09/03/16 09:07 Valtrex - PO 500 mg DAILY [facility] Administration 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
== END 2016-09-03 11:26 | disposition home or self-care (01) | DRG 186 ==
LOC: JER 00:06 → JERBED 07:13 → J5S 09:59 → J8W 08-29 13:25
PROVIDERS: ADMIT Internal Medicine; ATTEND Internal Medicine
PROC: 0W993ZX Drainage of Right Pleural Cavity, Percutaneous Approach, Diagnostic (ICD-10-PCS; principal; 2016-08-26)
PROC: 30233N1 Transfusion of Nonautologous Red Blood Cells into Peripheral Vein, Percutaneous Approach (ICD-10-PCS; 2016-08-31)
DX: J90 Pleural effusion, not elsewhere classified (principal); J18.9 Pneumonia, unspecified organism; C91.00 Acute lymphoblastic leukemia not having achieved remission; T45.1X5A Adverse effect of antineoplastic and immunosuppressive drugs, initial encounter; J09.X2 Influenza due to identified novel influenza A virus with other respiratory manifestations; D69.6 Thrombocytopenia, unspecified; I27.2 Other secondary pulmonary hypertension; I25.10 Atherosclerotic heart disease of native coronary artery without angina pectoris; Z98.61 Coronary angioplasty status; E78.5 Hyperlipidemia, unspecified; I10 Essential (primary) hypertension; Z92.21 Personal history of antineoplastic chemotherapy
CPT/HCPCS: 36415; 36430; 36600; 71010-TC; 71250-TC; 76098-TC; 76705-TC; 76942; 80048; 80053; 82042; 82150; 82375; 82438; 82550; 82553; 82803; 82945; 83050; 83615; 83735; 83880; 84157; 84311; 84484; 85025; 85027; 85384; 85610; 85651; 85730; 86850; 86900; 86901; 86922; 87040; 87070; 87075; 87086; 87102; 87116; 87186; 87205; 87206; 87210; 87430; 87804; 87899; 88108; 88300-TC; 88305-TC; 88341-TC; 89051; 93005; 93010; 93306-TC; 97116-GP; 97163-GP; 99285-25; P9058

== ENCOUNTER 2017-05-11 06:32 | Day surgery (SDC) | payer OTHER, BC ==
[2017-05-09 08:21] VITALS: BMI 22.6
[~2017-05-11 06:32] MED LIST: ACETAMINOPHEN 325 MG TABLET (FP) PO PRN; CIPROFLOXACIN HCL 0.3% OPHTH 2.5ML BOTTLE OP SCH; CYCLOPENTOLATE HCL 1% OPHTH SOLN 2 ML BOTTLE OP SCH; FLURBIPROFEN 0.03% OPHTH SOLN 2.5 ML BOTTLE OP SCH; PHENYLEPHRINE 2.5% OPHTH SOLN 15 ML BOTTLE OP SCH; TROPICAMIDE 1% OPHTH SOLN 15 ML BOTTLE OP SCH; VANCOMYCIN 500 MG VIAL (RESTRICTED TO ID ONLY) IVPB ONE
[2017-05-11 06:33] VITALS: TEMP 98.1
[2017-05-11] MEDS ORDERED: CYCLOPENTOLATE HCL 1% OPHTH SOLN 2 ML BOTTLE ONE (06:40)
[2017-05-11] MEDS ORDERED: PHENYLEPHRINE 2.5% OPHTH SOLN 15 ML BOTTLE ONE (06:40)
[2017-05-11] MEDS ORDERED: CIPROFLOXACIN 0.3% EYE DROPS 5 ML BOTTLE ONE (06:40)
[2017-05-11] MEDS ORDERED: TROPICAMIDE 1% OPHTH SOLN 15 ML BOTTLE ONE (06:40)
[2017-05-11] MEDS ORDERED: CYCLOPENTOLATE HCL 1% OPHTH SOLN 2 ML BOTTLE OS ONE ×3 (06:45→07:08)
[2017-05-11] MEDS ORDERED: TROPICAMIDE 1% OPHTH SOLN 15 ML BOTTLE OS ONE ×3 (06:45→07:08)
[2017-05-11] MEDS ORDERED: PHENYLEPHRINE 2.5% OPHTH SOLN 15 ML BOTTLE OS ONE ×3 (06:45→07:09)
[2017-05-11] MEDS ORDERED: CIPROFLOXACIN HCL 0.3% OPHTH 2.5ML BOTTLE OS ONE ×2 (06:45→06:51)
[2017-05-11] MEDS ORDERED: LIDOCAINE HCL 2% JELLY (5 ML/TUBE) ONE (07:35)
[2017-05-11] MEDS ORDERED: VANCOMYCIN 500 MG VIAL (RESTRICTED TO ID ONLY) ONE (07:35)
[2017-05-11] MEDS ORDERED: LIDOCAINE HCL/PF 1% SDV 5ML VIAL ONE (07:35)
[2017-05-11] MEDS ORDERED: BSS (NA/CA/MG/K) BALANCED SALT SOLUTION OPHTH SOLN 15 ML BOTTLE ONE (07:35)
[2017-05-11] MEDS ORDERED: POVIDONE-IODINE 5% OPHTHALMIC PREP 30 ML SOLUTION ONE (07:35)
[2017-05-11] MEDS ORDERED: LIDOCAINE HCL 2% JELLY (5 ML/TUBE) TP ONE (07:52)
[2017-05-11] MEDS ORDERED: MIDAZOLAM HCL 2 MG/2 ML SINGLE DOSE VIAL ONE (08:10)
[2017-05-11] MEDS ORDERED: POVIDONE-IODINE 5% OPHTHALMIC PREP 30 ML SOLUTION OD ONE (08:12)
[2017-05-11] MEDS ORDERED: PHENYLEPHRINE/KETOROLAC 4 ML VIAL IO ONE ×2 (08:15→08:21)
[2017-05-11] MEDS ORDERED: BSS (NA/CA/MG/K) BALANCED SALT SOLUTION OPHTH SOLN 15 ML BOTTLE IO ONE (08:19)
[2017-05-11] MEDS ORDERED: LIDOCAINE HCL 1% PRESERVATIVE FREE - 30ML VIAL IO ONE (08:20)
[2017-05-11] MEDS ORDERED: CHONDROITIN SU A/HYALUR SOD 1 KIT IO ONE (08:21)
[2017-05-11] MEDS ORDERED: TRYPAN BLUE 0.5 ML DISP.SYRIN IO ONE ×2 (08:21)
[2017-05-11] MEDS ORDERED: VANCOMYCIN 500 MG VIAL (RESTRICTED TO ID ONLY) IVPB ONE (08:39)
[2017-05-11] MEDS ORDERED: TRYPAN BLUE 0.5 ML DISP.SYRIN ONE (09:02)
[2017-05-11 09:42] VITALS: BP 147/61; PULSE 73
--- NOTE | 2017-05-12 07:52 | SPEC ---
DATE OF OPERATION: 05/11/2017 PREOPERATIVE DIAGNOSIS: Cataract, left eye. POSTOPERATIVE DIAGNOSIS: Mature cataract, left eye. OPERATION: Phacoemulsification of left cataract with posterior chamber intraocular lens implantation and capsular staining with Trypan blue. The, lens used [id number], 22.5 diopter power, serial No. [id number]. SURGEON: Hermann Shay M.D. ANESTHESIA: Topical MAC. COMPLICATIONS: None. PROCEDURE: The patient was brought to the operating room and correctly identified along with the operative site as well as correct intraocular lens combs. The patient was then prepped and draped in the usual sterile fashion including 5% Betadine solution in the conjunctival sac and an eyelid drape. An eyelid speculum was then placed into the operative eye. The eye was inspected and a poor red reflex was noted. A paracentesis port was created and .5 mL of intracameral preservative-free Lidocaine 1% was given. Beneath an air bubble, the capsule was then stained with Trypan blue. The Trypan blue was then irrigated from the eye with balanced salt solution (BBS). Viscoelastic was injected to inflate the anterior chamber. A temporal clear corneal wound was created. A continuous circular capsulorrhexis was performed. The nucleus was then hydro-dissected and hydro-delineated was BSS and removed with phacoemulsification via [id number] approach. The remaining cortical material was irrigated and aspirated from the eye. Viscoelastic was injected in the anterior chamber to inflate the capsular bag. The intraocular lens was then injected into the bag. The Viscoelastic was irrigated and aspirated from the eye. All wounds were tested and found to be watertight. No suture was placed. The intraocular lens was noted to be well centered and covered by the anterior capsular border. Topical Vancomycin was given. The eye was patched and shielded. The patient was discharged from the operating room in stable condition HERMANN SHAY M.D. [id number]
== END 2017-05-11 09:45 | disposition home or self-care (01) ==
LOC: JASU-SURG 06:32
PROVIDERS: ATTEND Ophthalmology
PROC: 08RK3JZ Replacement of Left Lens with Synthetic Substitute, Percutaneous Approach (ICD-10-PCS; principal; 2017-05-11 08:00)
DX: H25.092 Other age-related incipient cataract, left eye (principal)
CPT/HCPCS: C9447

== ENCOUNTER 2017-07-27 03:18 | Inpatient (IN) | payer OTHER, BC ==
[2017-07-27] MEDS ORDERED: ALBUTEROL SO4 2.5/IPRATROPIUM 0.5 INH SOL 3 ML VIAL.NEB. NEB STA ×2 (04:07→06:14)
[2017-07-27] MEDS ORDERED: methylPREDNISolone NA SUCC 125 MG/2 ML VIAL IVPB ONE (04:07)
[2017-07-27] MEDS ORDERED: MAGNESIUM SULF 50% (8.12 MEQ/2 ML-1 GM VIAL) IVPB ONE (04:08)
[2017-07-27] MEDS ORDERED: ACETAMINOPHEN 500 MG TABLET (FP) PO ONE (04:09)
--- NOTE | 2017-07-27 04:09 | PDOC ---
History of Present Illness - General History Source: Patient - History of Present Illness Initial Comments: 07/27/17 04:11 The patient is a 77 year old male, with a significant past medical history of leukemia, diverticulosis, Afib, CAD s/p PCI, CHF, HTN, and hyperlipidemia, who presents to the emergency department with subjective fever, as well as, shortness of breath since Tuesday afternoon. The patient reports being seated, at rest, when he developed shortness of breath exacerbated by deep inspiration. He denies pleuritic chest pain. He denies recent travels. He denies recent sick contacts. He denies chest pain, headache and dizziness. He denies chills, nausea, vomit, diarrhea and constipation. Hedenies dysuria, frequency, urgency and hematuria. Allergies: nitroglycerin Past surgical history: colon resection (2009), Stent (2009), Cyst removal Social history: former smoker PCP - Dr. Cassie Alex <Britney Santos - Last Filed: 07/27/17 07:10> - General History Source: Patient <Ori Presley - Last Filed: 07/27/17 19:43> - General Chief Complaint: Shortness of Breath Stated Complaint: SHORTNESS OF BREATH Time Seen by Provider: 07/27/17 04:03 Past History <Britney Santos - Last Filed: 07/27/17 07:10> - Past Medical History Anemia: No Asthma: No Cancer: Yes (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) Cardiac Disorders: Yes (a-fib, STENTS [place]) CVA: No (denies stroke) COPD: No CHF: Yes Dementia: No Diabetes: No GI Disorders: No Disorders: No HTN: Yes Hypercholesterolemia: Yes Liver Disease: No Seizures: No Thyroid Disease: Yes (KIDNEY STONE) - Surgical History Abdominal Surgery: Yes (COLON RESECTION 2013) Cardiac Surgery: Yes (Stent placed 2009 pLA) Neurologic Surgery: Yes (Cyst removed) - Immunization History Immunization Up to Date: Yes - Suicide/Smoking/Psychosocial Hx Smoking Status: No Smoking History: Never smoked Have you smoked in the past 12 months: No Number of Cigarettes Smoked Daily: 5 If you are a former smoker, when did you quit?: 45 YEARS AGO Cigars Per Day: 0 Information on smoking cessation initiated: No 'Breaking Loose' booklet given: 08/24/16 Hx Alcohol Use: No Drug/Substance Use Hx: No Substance Use Type: None Hx Substance Use Treatment: No <Ori Presley - Last Filed: 07/27/17 19:43> - Past Medical History Allergies/Adverse Reactions: Allergies Allergy/AdvReac Type Severity Reaction Status Date / Time nitroglycerin [Nitroglycerin] Allergy Unknown severe Verified 07/27/17 03:45 headache Home Medications: Ambulatory Orders Amlodipine Besylate [Norvasc -] 5 mg PO DAILY 04/15/16 Atorvastatin Ca [Lipitor] 80 mg PO HS 04/15/16 Tamsulosin HCl 0.4 mg PO DAILY 04/15/16 Metoprolol Succinate [Toprol XL -] 50 mg PO DAILY tab.sr.24h 09/03/16 Dasatinib [Sprycel] 50 mg PO DAILY 05/09/17 Review of Systems - Review of Systems Able to Perform ROS?: Yes Comments:: 07/27/17 04:14 CONSTITUTIONAL: (+) fever, Absent:chills, diaphoresis, generalized weakness, malaise, loss of appetite HEENT: Absent: rhinorrhea, nasal congestion, throat pain, throat swelling, difficulty swallowing, mouth swelling, ear pain, eye pain, visual Changes CARDIOVASCULAR: Absent: chest pain, syncope, palpitations, irregular heart rate, lightheadedness , peripheral edema RESPIRATORY: (+) shortness of breath, Absent: cough, dyspnea with exertion, orthopnea, wheezing, stridor, hemoptysis GASTROINTESTINAL: Absent: abdominal pain, abdominal distension, nausea, vomiting, diarrhea, constipation, melena, hematochezia GENITOURINARY: Absent: dysuria, frequency, urgency, hesitancy, hematuria, flank pain, genital pain MUSCULOSKELETAL: Absent: myalgia, arthralgia, joint swelling SKIN: Absent: rash, itching, pallor HEMATOLOGIC/IMMUNOLOGIC: Absent: easy bleeding, easy bruising, lymphadenopathy, frequent infections ENDOCRINE: Absent: unexplained weight gain, unexplained weight loss, heat intolerance, cold intolerance NEUROLOGIC: Absent: headache, focal weakness or paresthesias, dizziness, unsteady gait, seizure, mental status changes, bladder or bowel incontinence PSYCHIATRIC: Absent: anxiety, depression, suicidal or homicidal ideation, hallucinations. <Brtiney Santos - Last Filed: 07/27/17 07:10> *Physical Exam - Vital Signs Last Vital Signs Temp Pulse Resp BP Pulse Ox 100.4 F H 119 H 20 126/69 97 07/27/17 03:45 07/27/17 03:45 07/27/17 03:45 07/27/17 03:45 07/27/17 03:45 - Physical Exam Comments: 07/27/17 04:14 GENERAL: Well developed, well nourished. Awake and alert. No acute distress. HEENT: Normocephalic, atraumatic. PERRLA, EOMI. No conjunctival pallor. Sclera are non- icteric. Moist mucous membranes. Oropharynx is clear. NECK: Supple. Full ROM. No JVD. Carotid pulses 2+ and symmetric, without bruits. No thyromegaly. No lymphadenopathy. CARDIOVASCULAR: Regular rate and rhythm. No murmurs, rubs, or gallops. Distal pulses are 2+ and symmetric. PULMONARY: (+) diminished breath sounds throughout and mild conversational dyspnea. No wheezing, rales or rhonchi. ABDOMINAL: Soft. Non-tender. Non-distended. No rebound or guarding. No organomegaly. Normoactive bowel sounds. MUSCULOSKELETAL Normal range of motion at all joints. No bony deformities or tenderness. No CVA tenderness. EXTREMITIES: No cyanosis. No clubbing. No edema. No calf tenderness. SKIN: Warm and dry. Normal capillary refill. No rashes. No jaundice. NEUROLOGICAL: Alert, awake, appropriate. Cranial nerves 2-12 intact. Normoreflexic in the upper and lower extremities. Normal speech. Toes are down-going bilaterally. Gait is normal without ataxia. PSYCHIATRIC: Cooperative. Good eye contact. Appropriate mood and affect. <Britney Santos - Last Filed: 07/27/17 07:10> - Vital Signs Last Vital Signs Temp Pulse Resp BP Pulse Ox 100.4 F H 119 H 20 126/69 97 07/27/17 03:45 07/27/17 03:45 07/27/17 03:45 07/27/17 03:45 07/27/17 03:45 <Ori Presley - Last Filed: 07/27/17 19:43> Heart Score/ECG Review - ECG Intrepretation Comment:: 07/27/17 05:05 ECG was read by Dr. Presley at 04:58 Impression: Sinus tachycardia. Septal infarct Vent. Rate: 101 bpm IN Interval: 130 ms QTc: 407 ms <Britney Santos - Last Filed: 07/27/17 07:10> ED Treatment Course - LABORATORY CBC & Chemistry Diagram: 07/27/17 04:32 07/27/17 04:32 <Britney Santos - Last Filed: 07/27/17 07:10> - LABORATORY CBC & Chemistry Diagram: 07/27/17 04:32 07/27/17 04:32 <Ori Presley - Last Filed: 07/27/17 19:43> Medical Decision Making - Medical Decision Making 07/27/17 06:15 Dr. Ray was paged via answering service requesting a call back for doctor to doctor. 07/27/17 06:50 Dr. Ray was paged via answering service requesting a call back for doctor to doctor. <Britney Santos - Last Filed: 07/27/17 07:10> - Medical Decision Making 07/27/17 19:43 Dr. Presley: The scribe's documentation has been prepared under my direction and personally reviewed by me in its entirery. I confirm that the note above accurately reflects all work, treatment, procedures, and medical decision making performed by me. <Ori Presley - Last Filed: 07/27/17 19:43> *DC/Admit/Observation/Transfer - Attestations Scribe Attestion: 07/27/17 04:15 Documentation prepared by Britney Santos, acting as electromedical service engineer for Ori Presley DO <Britney Santos - Last Filed: 07/27/17 07:10> <Ori Presley - Last Filed: 07/27/17 19:43> Diagnosis at time of Disposition: Shortness of breath, COPD (chronic obstructive pulmonary disease) - Discharge Dispostion Condition at time of disposition: Stable
[2017-07-27] MEDS ORDERED: ACETAMINOPHEN 325 MG TABLET (FP) ONE ×3 (04:13→16:17)
[2017-07-27] MEDS ORDERED: MAGNESIUM SULF 50% (8.12 MEQ/2 ML-1 GM VIAL) ONE (04:14)
[2017-07-27] MEDS ORDERED: methylPREDNISolone NA SUCC 125 MG/2 ML VIAL ONE (04:14)
[2017-07-27 04:49] LABS: PH,URINE 5.5 (5.0-8.0); URINE APPEARANCE CLEAR; URINE BILIRUBIN NEGATIVE (NEGATIVE); URINE BLOOD 2+ (NEGATIVE); URINE COLOR LT. YELLOW; URINE GLUCOSE (UA) NEGATIVE (NEGATIVE); URINE KETONE NEGATIVE (NEGATIVE); URINE NITRITE NEGATIVE (NEGATIVE); URINE UROBILINOGEN 0.2 mg/dL (0.2-1.0)
[2017-07-27 04:51] LABS: BASOPHIL 0.2 % (0-2.0); EOSINOPHIL 0.1 % (0-4.5); MCH 34.9 pg (25.7-33.7); MEAN CELL VOLUME 102.6 fl (80-96); NEUTROPHILS 80.9 % (42.8-82.8); PLATELET COUNT 127 K/MM3 (134-434); RDW 14.7 % (11.9-15.9); WHITE BLOOD COUNT 12.6 K/mm3 (4.0-10.0)
[2017-07-27 05:12] LABS: INR 1.12 (0.82-1.09); PROTHROMBIN TIME (PATIENT) 12.6 SEC (9.98-11.88)
[2017-07-27 05:20] LABS: ALBUMIN 3.5 g/dl (3.4-5.0); ANION GAP 9 (8-16); CALCIUM 8.6 mg/dL (8.5-10.1); CO2 23 mmol/L (21-32); CREATININE 1.1 mg/dL (0.7-1.3); GLUCOSE,RANDOM 101 mg/dL (74-106); SGPT/ALT 46 U/L (12-78)
[2017-07-27 05:25] LABS: ALK PHOS 69 U/L (45-117); BILIRUBIN,TOTAL 0.6 mg/dL (0.2-1.0); CPK 157 IU/L (39-308); TOT PROT 7.3 g/dl (6.4-8.2); TROPONIN I 0.02 ng/ml (0.00-0.05)
[2017-07-27 05:26] LABS: SGOT/AST 29 U/L (15-37)
[2017-07-27 06:03] LABS: URINE PROTEIN 2+ (NEGATIVE)
[2017-07-27 06:43] VITALS: BMI 22.6
[2017-07-27 06:50] LABS: URINE BACTERIA RARE /hpf (NONE SEEN); URINE HYALINE CAST 1 /lpf; URINE MUCUS RARE; URINE RBC 1 /hpf (0-3); URINE WBC 2 /hpf (3-5)
[2017-07-27] MEDS ORDERED: AZITHROMYCIN IVPB 500 MG in DEXTROSE 5%-WATER - 250 ML IVPB ONE (08:31)
--- NOTE | 2017-07-27 08:34 | PDOC ---
*Physical Exam - Vital Signs Last Vital Signs Temp Pulse Resp BP Pulse Ox 100.4 F H 119 H 20 126/69 97 07/27/17 03:45 07/27/17 03:45 07/27/17 03:45 07/27/17 03:45 07/27/17 03:45 <Batool Kolb - Last Filed: 07/27/17 08:30> - Vital Signs Last Vital Signs Temp Pulse Resp BP Pulse Ox 99 F 99 H 20 152/71 97 07/27/17 08:23 07/27/17 08:23 07/27/17 08:35 07/27/17 08:23 07/27/17 08:35 <Sara Lr - Last Filed: 07/27/17 09:07> ED Treatment Course - LABORATORY CBC & Chemistry Diagram: 07/27/17 04:32 07/27/17 04:32 - ADDITIONAL ORDERS Additional order review: Laboratory Results 07/27/17 07/27/17 07/27/17 04:39 04:37 04:32 PT with INR INR Sodium 140 Potassium 3.6 Chloride 108 H Carbon Dioxide 23 Anion Gap 9 BUN 18 Creatinine 1.1 Creat Clearance w eGFR > 60 Random Glucose 101 Lactic Acid 0.8 Calcium 8.6 Total Bilirubin 0.6 AST 29 D ALT 46 D Alkaline Phosphatase 69 Creatine Kinase 157 Creatine Kinase Index CK-MB (CK-2) < 1.000 Troponin I 0.02 B-Natriuretic Peptide 308.44 Total Protein 7.3 Albumin 3.5 Urine Color Lt. yellow Urine Appearance Clear Urine pH 5.5 Ur Specific [place] 1.025 Urine Protein 2+ H Urine Glucose (UA) Negative Urine Ketones Negative Urine Blood 2+ H Urine Nitrite Negative Urine Bilirubin Negative Urine Urobilinogen 0.2 Urine WBC (Auto) 2 Urine RBC (Auto) 1 Ur Epithelial Cells Rare Urine Bacteria Rare Hyaline Casts 1 Urine Mucus Rare 07/27/17 04:32 PT with INR 12.60 H INR 1.12 Sodium Potassium Chloride Carbon Dioxide Anion Gap BUN Creatinine Creat Clearance w eGFR Random Glucose Lactic Acid Calcium Total Bilirubin AST ALT Alkaline Phosphatase Creatine Kinase Creatine Kinase Index CK-MB (CK-2) Troponin I B-Natriuretic Peptide Total Protein Albumin Urine Color Urine Appearance Urine pH Ur Specific [place] Urine Protein Urine Glucose (UA) Urine Ketones Urine Blood Urine Nitrite Urine Bilirubin Urine Urobilinogen Urine WBC (Auto) Urine RBC (Auto) Ur Epithelial Cells Urine Bacteria Hyaline Casts Urine Mucus 07/27/17 04:32 RBC 2.99 L MCV 102.6 H MCHC 34.0 RDW 14.7 MPV 8.0 Neutrophils % 80.9 D Lymphocytes % 8.7 D Monocytes % 10.1 Eosinophils % 0.1 D Basophils % 0.2 - Medications Given in the ED: ED Medications Discontinued Medications Generic Name Dose Route Start Last Admin Trade Name Edna PRN Reason Stop Dose Admin Acetaminophen 975 mg 07/27/17 04:09 07/27/17 04:48 Tylenol - PO 07/27/17 04:10 975 mg ONCE ONE Administration Albuterol/Ipratropium 1 amp 07/27/17 04:07 07/27/17 04:10 Duoneb - NEB 07/27/17 04:08 1 amp ONCE STA Administration Magnesium Sulfate 1 gm 07/27/17 04:08 07/27/17 05:03 Magnesium Sulfate IVPB 07/27/17 04:09 1 gm ONCE ONE Administration Methylprednisolone Sodium Succinate 125 mg 07/27/17 04:07 07/27/17 04:55 Solu-Medrol - IVPB 07/27/17 04:08 125 mg ONCE ONE Administration <Batool Kolb - Last Filed: 07/27/17 08:30> - LABORATORY CBC & Chemistry Diagram: 07/27/17 04:32 07/27/17 04:32 - ADDITIONAL ORDERS Additional order review: Laboratory Results 07/27/17 07/27/17 07/27/17 04:39 04:37 04:32 PT with INR INR Sodium 140 Potassium 3.6 Chloride 108 H Carbon Dioxide 23 Anion Gap 9 BUN 18 Creatinine 1.1 Creat Clearance w eGFR > 60 Random Glucose 101 Lactic Acid 0.8 Calcium 8.6 Total Bilirubin 0.6 AST 29 D ALT 46 D Alkaline Phosphatase 69 Creatine Kinase 157 Creatine Kinase Index CK-MB (CK-2) < 1.000 Troponin I 0.02 B-Natriuretic Peptide 308.44 Total Protein 7.3 Albumin 3.5 Urine Color Lt. yellow Urine Appearance Clear Urine pH 5.5 Ur Specific [place] 1.025 Urine Protein 2+ H Urine Glucose (UA) Negative Urine Ketones Negative Urine Blood 2+ H Urine Nitrite Negative Urine Bilirubin Negative Urine Urobilinogen 0.2 Urine WBC (Auto) 2 Urine RBC (Auto) 1 Ur Epithelial Cells Rare Urine Bacteria Rare Hyaline Casts 1 Urine Mucus Rare 07/27/17 04:32 PT with INR 12.60 H INR 1.12 Sodium Potassium Chloride Carbon Dioxide Anion Gap BUN Creatinine Creat Clearance w eGFR Random Glucose Lactic Acid Calcium Total Bilirubin AST ALT Alkaline Phosphatase Creatine Kinase Creatine Kinase Index CK-MB (CK-2) Troponin I B-Natriuretic Peptide Total Protein Albumin Urine Color Urine Appearance Urine pH Ur Specific [place] Urine Protein Urine Glucose (UA) Urine Ketones Urine Blood Urine Nitrite Urine Bilirubin Urine Urobilinogen Urine WBC (Auto) Urine RBC (Auto) Ur Epithelial Cells Urine Bacteria Hyaline Casts Urine Mucus 07/27/17 04:32 RBC 2.99 L MCV 102.6 H MCHC 34.0 RDW 14.7 MPV 8.0 Neutrophils % 80.9 D Lymphocytes % 8.7 D Monocytes % 10.1 Eosinophils % 0.1 D Basophils % 0.2 - Medications Given in the ED: ED Medications Discontinued Medications Generic Name Dose Route Start Last Admin Trade Name Keeq PRN Reason Stop Dose Admin Acetaminophen 975 mg 07/27/17 04:09 07/27/17 04:48 Tylenol - PO 07/27/17 04:10 975 mg ONCE ONE Administration Albuterol/Ipratropium 1 amp 07/27/17 04:07 07/27/17 04:10 Duoneb - NEB 07/27/17 04:08 1 amp ONCE STA Administration Albuterol/Ipratropium 1 amp 07/27/17 06:14 07/27/17 08:49 Duoneb - NEB 07/27/17 06:15 1 amp ONCE STA Administration Magnesium Sulfate 1 gm 07/27/17 04:08 07/27/17 05:03 Magnesium Sulfate IVPB 07/27/17 04:09 1 gm ONCE ONE Administration Methylprednisolone Sodium Succinate 125 mg 07/27/17 04:07 07/27/17 04:55 Solu-Medrol - IVPB 07/27/17 04:08 125 mg ONCE ONE Administration <Sara Lr - Last Filed: 07/27/17 09:07> Medical Decision Making - Medical Decision Making 07/27/17 08:31 Patient signed out to me by Dr. Presley pending admission for COPD exacerbation. On reevaluation, patient is tachycardic to 110 and febrile to 100.4. I added azithromycin to cover for community-acquired pneumonia. Will also obtain a CTA to rule out PE or infiltrate. Patient admitted to Dr. Cosby for further evaluation and management Case discussed in detail with admitting physician including history, physical exam and ancillary studies. Admitting physician has assumed care for the patient, will follow all pending diagnostics and will complete the evaluation and treatment. <Batool Kolb - Last Filed: 07/27/17 08:30> - Medical Decision Making 07/27/17 09:02 Dr. Fontenot office paged at 7:[address] Fontenot cell phone paged at 8:19 AM-- no dial tone. Dr. Fontenot office paged at 8:20 AM-- Awaiting call back. Dr. Cosby returned the page at 8:35 AM and the patients case was discussed. <Sara Lr - Last Filed: 07/27/17 09:07> *DC/Admit/Observation/Transfer - Discharge Dispostion Admit: Yes - Attestations Physician Attestion: 07/27/17 08:33 I, Dr. Batool Kolb MD, attest that this document has been prepared under my direction and personally reviewed by me in its entirety. I further attest, that it accurately reflects all work, treatment, procedures and medical decision -making performed by me. <Batool Kolb - Last Filed: 07/27/17 08:30> - Attestations Scribe Attestion: 07/27/17 09:07 Documentation prepared by Sara Lr, acting as medical doctor md for Batool Kolb MD <Sara Lr - Last Filed: 07/27/17 09:07> Diagnosis at time of Disposition: Shortness of breath, COPD (chronic obstructive pulmonary disease) - Discharge Dispostion Condition at time of disposition: Stable
[2017-07-27] MEDS ORDERED: AZITHROMYCIN IVPB 250 ML IVPB ONE (08:38)
[2017-07-27] MEDS ORDERED: ALBUTEROL SO4 2.5/IPRATROPIUM 0.5 INH SOL 3 ML VIAL.NEB. NEB ONE (08:39)
[2017-07-27 09:08] LABS: URINE LEUK ESTERASE Negative (NEGATIVE)
--- NOTE | 2017-07-27 09:40 | HP ---
Admitting History and Physical - Primary Care Physician PCP: Alfredo Cameron - Admission Chief Complaint: SOB History of Present Illness: ER HISTORY General History Source: Patient - History of Present Illness Initial Comments: 07/27/17 04:11 The patient is a 77 year old male, with a significant past medical history of leukemia, diverticulosis, Afib, CAD s/p PCI, CHF, HTN, and hyperlipidemia, who presents to the emergency department with subjective fever, as well as, shortness of breath since Tuesday afternoon. The patient reports being seated, at rest, when he developed shortness of breath exacerbated by deep inspiration. He denies pleuritic chest pain. He denies recent travels. He denies recent sick contacts. He denies chest pain, headache and dizziness. He denies chills, nausea, vomit, diarrhea and constipation. He denies dysuria, frequency, urgency and hematuria. Allergies: nitroglycerin Past surgical history: colon resection (2009), Stent (2009), Cyst removal Social history: former smoker Pt examined by me in ER Known to me from previous admission. 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 Pt has been feeling SOB since yesterday, chills CBC checked in Hematology clinic-- WBC normal. 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 (Arnold Chiari Malformation- s/p craniotomy/repair- 1998) Cardiovascular: Yes: CAD, CHF, HTN, Hyperlipdemia, Other (Cardiac arrhythmia- atrial tachycardia) Gastrointestinal: Yes: GI Bleed, Hemorrhoids, Other (s/p partial colectomy for diverticulosis) Renal/: Yes: Renal Calculi Heme/Onc: Yes: Other (ALL- [place] positive) - Past Surgical History Past Surgical History: Yes: Colectomy - Smoking History Smoking history: Former smoker Have you smoked in the past 12 months: No Aproximately how many cigarettes per day: 5 If you are a former smoker, when did you quit?: 45 YEARS AGO - Alcohol/Substance Use Hx Alcohol Use: No History of Substance Use: reports: None - Social History 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 Travel: No Home Medications - Allergies Allergies/Adverse Reactions: Allergies Allergy/AdvReac Type Severity Reaction Status Date / Time nitroglycerin [Nitroglycerin] Allergy Unknown severe Verified 07/27/17 03:45 headache - Home Medications Home Medications: Ambulatory Orders Amlodipine Besylate [Norvasc -] 5 mg PO DAILY 04/15/16 Atorvastatin Ca [Lipitor] 80 mg PO HS 04/15/16 Tamsulosin HCl 0.4 mg PO DAILY 04/15/16 Metoprolol Succinate [Toprol XL -] 50 mg PO DAILY tab.sr.24h 09/03/16 Dasatinib [Sprycel] 50 mg PO DAILY 05/09/17 Family Disease History - Family Disease History Family Disease History: Other: Son (CML) Review of Systems - Review of Systems Constitutional: reports: Chills. denies: Fever, Loss of Appetite, Weakness Neck: denies: Tenderness Cardiovascular: reports: Shortness of Breath. denies: Chest Pain, Palpitations Respiratory: reports: SOB, SOB on Exertion. denies: Cough, Wheezing Physical Examination Vital Signs: Vital Signs Temperature 99 F 07/27/17 08:23 Pulse Rate 99 H 07/27/17 08:23 Respiratory Rate 20 07/27/17 08:35 Blood Pressure 152/71 07/27/17 08:23 O2 Sat by Pulse Oximetry (%) 97 07/27/17 08:35 Constitutional: Yes: No Distress, Calm Cardiovascular: Yes: Regular Rate and Rhythm Respiratory: Yes: Diminished. No: Rales, Rhonchi Gastrointestinal: Yes: Normal Bowel Sounds, Soft. No: Distention, Tenderness Edema: No Neurological: Yes: Alert, Oriented Labs: CBC, BMP 07/27/17 04:32 07/27/17 04:32 Imaging - Results Chest X-ray: Image Reviewed Cat Scan: Report Reviewed EKG: Image Reviewed (sinus tachycardia) Problem List - Problems (1) Community acquired bacterial pneumonia Code(s): J15.9 - UNSPECIFIED BACTERIAL PNEUMONIA (2) ALL (acute lymphoid leukemia) in remission Code(s): C91.01 - ACUTE LYMPHOBLASTIC LEUKEMIA, IN REMISSION (3) COPD (chronic obstructive pulmonary disease) Code(s): J44.9 - CHRONIC OBSTRUCTIVE PULMONARY DISEASE, UNSPECIFIED (4) Shortness of breath Code(s): R06.02 - SHORTNESS OF BREATH (5) HTN (hypertension) Code(s): I10 - ESSENTIAL (PRIMARY) HYPERTENSION Qualifiers: Hypertension type: essential hypertension Qualified Code(s): I10 - Essential (primary) hypertension Assessment/Plan PLAN COPD / Community acquired pneumonia -- received Solumedrol , Duoneb and Zithromax in ER -- continue with Solumedrol , though at lower dose and Duoneb -- Ceftriaxone IV -- check urine antigens -- O2 as needed -- CTA -- no PE ALL in remission -- continue with Desatinib -- hematology evaluation HTN/CAD/ASHD -- on meds- Amlodipine and Lipitor -- clinically stable -- cardiology eval called by ER -- echo ordered DVT prophylaxis -- Lovenox sc, OOB daily Time spent in assessment, plan, speaking to family, documentation 35 min
[2017-07-27] MEDS ORDERED: ALBUTEROL SO4 2.5/IPRATROPIUM 0.5 INH SOL 3 ML VIAL.NEB. NEB PRN (09:42)
--- NOTE | 2017-07-27 10:08 | EKG ---
Test Reason : Blood Pressure : / mmHG Vent. Rate : 101 BPM Atrial Rate : 102 BPM P-R Int : 130 ms QRS Dur : 074 ms QT Int : 314 ms P-R-T Axes : 050 061 057 degrees QTc Int : 407 ms SINUS TACHYCARDIA SEPTAL INFARCT , AGE UNDETERMINED ABNORMAL ECG WHEN COMPARED WITH ECG OF 15-APR-2017 08:16, NO SIGNIFICANT CHANGE WAS FOUND Confirmed by RUBY GARCIA MD ([id number]) on 07/27/2017 10:08:06 AM Referred By: Confirmed By:RUBY GARCIA MD
--- NOTE | 2017-07-27 10:10 | CON.CARD ---
Consult Consult Specialty:: Cardiology - History of Present Illness Chief Complaint: sob fever History of Present Illness: The patient is a 77 year old male, with a significant past medical history of leukemia, diverticulosis, SVT sd/p ablation, CAD s/p PCI, CHF, HTN, and hyperlipidemia, who presents to the emergency department with subjective fever, as well as, shortness of breath since Tuesday. The patient reports being seated, at rest, when he developed shortness of breath exacerbated by deep inspiration. He denies pleuritic chest pain. He denies recent travels. He denies recent sick contacts. He denies chest pain, headache and dizziness. He denies chills, nausea, vomit, diarrhea and constipation. Hedenies dysuria, frequency, urgency and hematuria. Allergies: nitroglycerin Past surgical history: colon resection (2009), Stent (2009), Cyst removal Social history: former smoker PCP - Dr. 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 (Arnold Chiari Malformation- s/p craniotomy/repair- 1998) Cardio/Vascular: Yes: CAD, CHF, HTN, Hyperlipdemia, Other (Cardiac arrhythmia- atrial tachycardia) Gastrointestinal: Yes: GI Bleed, Hemorrhoids, Other (s/p partial colectomy for diverticulosis) Renal/: Yes: Renal Calculi - Past Surgical History Past Surgical History: Yes: Colectomy - Alcohol/Substance Use Hx Alcohol Use: No History of Substance Use: reports: None - Smoking History Smoking history: Former smoker Have you smoked in the past 12 months: No Aproximately how many cigarettes per day: 5 If you are a former smoker, when did you quit?: 45 YEARS AGO - Social History Usual Living Arrangement: With Spouse 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 Travel: No Home Medications - Allergies Allergies/Adverse Reactions: Allergies Allergy/AdvReac Type Severity Reaction Status Date / Time nitroglycerin [Nitroglycerin] Allergy Unknown severe Verified 07/27/17 03:45 headache - Home Medications Home Medications: Ambulatory Orders Amlodipine Besylate [Norvasc -] 5 mg PO DAILY 04/15/16 Atorvastatin Ca [Lipitor] 80 mg PO HS 04/15/16 Tamsulosin HCl 0.4 mg PO DAILY 04/15/16 Metoprolol Succinate [Toprol XL -] 50 mg PO DAILY tab.sr.24h 09/03/16 Dasatinib [Sprycel] 50 mg PO DAILY 05/09/17 Family Disease History - Family Disease History Family Disease History: Other: Son (CML) Review of Systems - Review of Systems Constitutional: reports: Fever Eyes: reports: No Symptoms HENT: reports: No Symptoms Neck: reports: No Symptoms Cardiovascular: reports: Shortness of Breath Respiratory: reports: SOB Gastrointestinal: reports: No Symptoms Genitourinary: reports: No Symptoms Breasts: reports: No Symptoms Reported Musculoskeletal: reports: No Symptoms Integumentary: reports: No Symptoms Neurological: reports: No Symptoms Endocrine: reports: No Symptoms Hematology/Lymphatic: reports: No Symptoms Psychiatric: reports: No Symptoms Vital Signs: Vital Signs Temperature 99 F 07/27/17 08:23 Pulse Rate 99 H 07/27/17 08:23 Respiratory Rate 20 07/27/17 08:35 Blood Pressure 152/71 07/27/17 08:23 O2 Sat by Pulse Oximetry (%) 97 07/27/17 08:35 Constitutional: Yes: Well Nourished, No Distress, Calm Eyes: Yes: WNL, Conjunctiva Clear, EOM Intact HENT: Yes: WNL, Atraumatic, Normocephalic Neck: Yes: WNL, Supple, Trachea Midline Respiratory: Yes: WNL, Regular, CTA Bilaterally Gastrointestinal: Yes: WNL, Normal Bowel Sounds Renal/: Yes: WNL Cardiovascular: Yes: WNL, Regular Rate and Rhythm Musculoskeletal: Yes: WNL Extremities: Yes: WNL Integumentary: Yes: WNL Neurological: Yes: WNL, Alert, Oriented ...Motor Strength: WNL Psychiatric: Yes: WNL, Alert, Oriented - Other Data Labs, Other Data: CBC, BMP 07/27/17 04:32 07/27/17 04:32 INR, PTT INR 1.12 (0.82-1.09) 07/27/17 04:32 Troponin, BNP 07/27/17 04:32 Troponin I 0.02 B-Natriuretic Peptide 308.44 Troponin, BNP 07/27/17 04:32 Troponin I 0.02 B-Natriuretic Peptide 308.44 Imaging - Results Chest X-ray: Image Reviewed (no i/e) EKG: Image Reviewed (s tachy ant septal mi) Problem List - Problems (1) ALL (acute lymphoid leukemia) in remission Code(s): C91.01 - ACUTE LYMPHOBLASTIC LEUKEMIA, IN REMISSION (2) COPD (chronic obstructive pulmonary disease) Code(s): J44.9 - CHRONIC OBSTRUCTIVE PULMONARY DISEASE, UNSPECIFIED (3) Community acquired bacterial pneumonia Code(s): J15.9 - UNSPECIFIED BACTERIAL PNEUMONIA (4) Shortness of breath Code(s): R06.02 - SHORTNESS OF BREATH (5) ASHD (arteriosclerotic heart disease) Code(s): I25.10 - ATHSCL HEART DISEASE OF [place] CORONARY ARTERY W/O ANG PCTRS (6) Abdominal abscess Code(s): K65.1 - PERITONEAL ABSCESS (7) Abscess of gastrointestinal tract Code(s): K63.0 - ABSCESS OF INTESTINE (8) Acute leukemia Code(s): C95.00 - ACUTE LEUKEMIA OF [place]SP CELL TYPE NOT ACHIEVE REMISSION Qualifiers: Leukemia Active/Remission status: without remission Qualified Code(s): C95.00 - Acute leukemia of unspecified cell type not having achieved remission (9) Atrial tachycardia Code(s): I47.1 - SUPRAVENTRICULAR TACHYCARDIA (10) Bilateral pleural effusion Code(s): J90 - PLEURAL EFFUSION, NOT ELSEWHERE CLASSIFIED (11) Chest pain Code(s): R07.9 - CHEST PAIN, UNSPECIFIED Qualifiers: Chest pain type: other chest pain Qualified Code(s): R07.89 - Other chest pain (12) Chronic pain Code(s): G89.29 - OTHER CHRONIC PAIN (13) Dyspnea Code(s): R06.00 - DYSPNEA, UNSPECIFIED Qualifiers: Dyspnea type: dyspnea on exertion Qualified Code(s): R06.09 - Other forms of dyspnea (14) GI bleeding Code(s): K92.2 - GASTROINTESTINAL HEMORRHAGE, UNSPECIFIED (15) H/O heart artery stent Code(s): Z95.5 - PRESENCE OF CORONARY ANGIOPLASTY IMPLANT AND GRAFT (16) HTN (hypertension) Code(s): I10 - ESSENTIAL (PRIMARY) HYPERTENSION Qualifiers: Hypertension type: essential hypertension Qualified Code(s): I10 - Essential (primary) hypertension (17) Hydronephrosis of left kidney Code(s): N13.30 - UNSPECIFIED HYDRONEPHROSIS (18) Hydroureter on left Code(s): N13.4 - HYDROURETER (19) Influenza A Code(s): J10.1 - FLU DUE TO OTH IDENT INFLUENZA VIRUS W OTH RESP MANIFEST (20) Ischemic bowel syndrome Code(s): K55.9 - VASCULAR DISORDER OF INTESTINE, UNSPECIFIED (21) Leukocytosis Code(s): D72.829 - ELEVATED WHITE BLOOD CELL COUNT, UNSPECIFIED Qualifiers: Leukocytosis type: unspecified Qualified Code(s): D72.829 - Elevated white blood cell count, unspecified (22) Pneumonia Code(s): J18.9 - PNEUMONIA, UNSPECIFIED ORGANISM Qualifiers: Pneumonia type: due to unspecified organism Laterality: bilateral Lung location: lower lobe of lung Qualified Code(s): J18.9 - Pneumonia, unspecified organism (23) Postoperative ileus Code(s): K91.3 - POSTPROCEDURAL INTESTINAL OBSTRUCTION * DO NOT USE * (24) Renal calculus or stone Code(s): N20.0 - CALCULUS OF KIDNEY (25) S/P left colectomy Code(s): Z90.49 - ACQUIRED ABSENCE OF OTHER SPECIFIED PARTS OF DIGESTIVE TRACT Assessment/Plan PNA, leukemia, diverticulosis, SVT sd/p ablation, CAD s/p PCI, CHF, HTN abx echo med rx dvt plx will f/u
[2017-07-27] MEDS: amLODIPine BESYLATE 5 MG TABLET (FP) PO SCH (13:19)
[2017-07-27] MEDS: PANTOPRAZOLE 40 MG TABLET (FP) PO SCH (13:19)
[2017-07-27] MEDS: METOPROLOL SUCCINATE 50 MG TAB.SR.24H (FP) PO SCH (13:19)
[2017-07-27] MEDS: CEFTRIAXONE 1 G/50 ML PREMIX 50 ML IVPB SCH (13:20)
[2017-07-27] MEDS: TAMSULOSIN HCL 0.4 MG CAP.ER.24H (FP) PO SCH (13:20)
[2017-07-27] MEDS ORDERED: methylPREDNISolone NA SUCC 40 MG/1 ML VIAL IVPUSH SCH (15:00)
[2017-07-27] MEDS: DASATINIB 50 MG PO SCH (16:00)
[2017-07-27] MEDS: ACETAMINOPHEN 325 MG TABLET (FP) PO PRN ×2 (16:20→22:08)
--- NOTE | 2017-07-27 17:48 | CONSULT ---
Consult Consult Specialty:: Oncology - History of Present Illness History of Present Illness: The patient is a 77 year old male, with a significant past medical history of leukemia, diverticulosis, Afib, CAD s/p PCI, CHF, HTN, and hyperlipidemia, who presents to the emergency department with subjective fever, as well as, shortness of breath since Tuesday. The patient reports being seated, at rest, when he developed shortness of breath exacerbated by deep inspiration. He denies pleuritic chest pain. He denies recent travels. He denies recent sick contacts. He denies chest pain, headache and dizziness. He denies chills, nausea, vomit, diarrhea and constipation. He denies dysuria, frequency, urgency and hematuria. 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 (Arnold Chiari Malformation- s/p craniotomy/repair- 1998) Cardio/Vascular: Yes: CAD, CHF, HTN, Hyperlipdemia, Other (Cardiac arrhythmia- atrial tachycardia) Gastrointestinal: Yes: GI Bleed, Hemorrhoids, Other (s/p partial colectomy for diverticulosis) Renal/: Yes: Renal Calculi - Past Surgical History Past Surgical History: Yes: Colectomy - Alcohol/Substance Use Hx Alcohol Use: No History of Substance Use: reports: None - Smoking History Smoking history: Former smoker Have you smoked in the past 12 months: No Aproximately how many cigarettes per day: 5 If you are a former smoker, when did you quit?: 45 YEARS AGO - Social History Usual Living Arrangement: With Spouse 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 Travel: No Home Medications - Allergies Allergies/Adverse Reactions: Allergies Allergy/AdvReac Type Severity Reaction Status Date / Time nitroglycerin [Nitroglycerin] Allergy Unknown severe Verified 07/27/17 03:45 headache - Home Medications Home Medications: Ambulatory Orders Amlodipine Besylate [Norvasc -] 5 mg PO DAILY 04/15/16 Atorvastatin Ca [Lipitor] 80 mg PO HS 04/15/16 Tamsulosin HCl 0.4 mg PO DAILY 04/15/16 Metoprolol Succinate [Toprol XL -] 50 mg PO DAILY tab.sr.24h 09/03/16 Dasatinib [Sprycel] 50 mg PO DAILY 05/09/17 Family Disease History - Family Disease History Family Disease History: Other: Son (CML) Physical Exam Vital Signs: Vital Signs Temperature 98 F 07/27/17 13:21 Pulse Rate 96 H 07/27/17 13:21 Respiratory Rate 20 07/27/17 13:21 Blood Pressure 159/85 07/27/17 13:21 O2 Sat by Pulse Oximetry (%) 98 07/27/17 13:21 Constitutional: Yes: Well Nourished, No Distress, Calm Eyes: Yes: Conjunctiva Clear HENT: Yes: Atraumatic, Normocephalic Neck: Yes: Supple, Trachea Midline Cardiovascular: Yes: Regular Rate and Rhythm Respiratory: Yes: Regular, CTA Bilaterally Gastrointestinal: Yes: Soft Labs: CBC, BMP 07/27/17 04:32 07/27/17 04:32 Imaging - Results X-ray: Report Reviewed Problem List - Problems (1) ALL (acute lymphoid leukemia) in remission Code(s): C91.01 - ACUTE LYMPHOBLASTIC LEUKEMIA, IN REMISSION (2) COPD (chronic obstructive pulmonary disease) Code(s): J44.9 - CHRONIC OBSTRUCTIVE PULMONARY DISEASE, UNSPECIFIED (3) Thrombocytopenia Code(s): D69.6 - THROMBOCYTOPENIA, UNSPECIFIED Assessment/Plan 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 Monitor CBC ( has h/o thrombocytopenia with dasa in the past). COPD exacerbation per PMD/Pulm will follow
[2017-07-27] MEDS: methylPREDNISolone NA SUCC 40 MG/1 ML VIAL IVPUSH SCH (18:30)
[2017-07-27] MEDS: ATORVASTATIN CA 80 MG TABLET (FP) PO SCH (22:05)
[2017-07-28] MEDS: methylPREDNISolone NA SUCC 40 MG/1 ML VIAL IVPUSH SCH ×3 (02:46→15:48)
[2017-07-28 09:08] LABS: ALBUMIN 3.3 g/dl (3.4-5.0); ANION GAP 11 (8-16); BILIRUBIN,TOTAL 0.3 mg/dL (0.2-1.0); CALCIUM 8.9 mg/dL (8.5-10.1); CO2 21 mmol/L (21-32); GLUCOSE,RANDOM 140 mg/dL (74-106); SGPT/ALT 41 U/L (12-78); TOT PROT 7.5 g/dl (6.4-8.2)
[2017-07-28 09:09] LABS: ALK PHOS 61 U/L (45-117)
[2017-07-28 09:11] LABS: SGOT/AST 21 U/L (15-37)
[2017-07-28] MEDS: TAMSULOSIN HCL 0.4 MG CAP.ER.24H (FP) PO SCH (09:26)
[2017-07-28] MEDS: PANTOPRAZOLE 40 MG TABLET (FP) PO SCH (10:16)
[2017-07-28] MEDS: ENOXAPARIN NA (PORCINE) 40 MG/0.4 ML DISP.SYRIN SQ SCH (10:16)
[2017-07-28] MEDS: amLODIPine BESYLATE 5 MG TABLET (FP) PO SCH (10:16)
[2017-07-28] MEDS: CEFTRIAXONE 1 G/50 ML PREMIX 50 ML IVPB SCH (10:17)
[2017-07-28 10:22] LABS: BASOPHIL 0.1 % (0-2.0); MEAN CELL VOLUME 102.9 fl (80-96); MEAN PLT VOLUME 8.1 fl (7.5-11.1); NEUTROPHILS 86.7 % (42.8-82.8); PLATELET COUNT 151 K/MM3 (134-434); RDW 14.9 % (11.9-15.9)
[2017-07-28] MEDS: ACETAMINOPHEN 325 MG TABLET (FP) PO PRN ×2 (10:22→18:18)
[2017-07-28] MEDS: METOPROLOL SUCCINATE 50 MG TAB.SR.24H (FP) PO SCH (10:22)
[2017-07-28] MEDS: DASATINIB 50 MG PO SCH (12:30)
--- NOTE | 2017-07-28 14:53 | PN ---
Progress Note (short form) - Note Progress Note: Patient seen and examined in his room feels much better- overall cough+ productive mild sob on exertion Vital Signs Temp 98.4 F 07/28/17 06:00 Pulse 91 H 07/28/17 06:00 Resp 18 07/28/17 06:00 BP 150/78 07/28/17 06:00 Pulse Ox 100 07/27/17 20:33 Intake & Output 07/27/17 07/28/17 07/28/17 23:59 11:59 23:59 Intake Total 300 350 Balance 300 350 Weight 162 lb Intake: IVPB 0 Oral 300 350 Other: Voiding Method Toilet Toilet # Unmeasured Voids Void 1 1 Bowel Movement No Height 5 ft 11 in Body Mass Index (BMI) 22.6 Weight Measurement Method Stated by Patient Active Medications Acetaminophen (Tylenol -) 650 mg PO Q6H PRN PRN Reason: FEVER OR PAIN Last Admin: 07/28/17 10:22 Dose: 650 mg Albuterol/Ipratropium (Duoneb -) 1 amp NEB Q6H PRN PRN Reason: SHORTNESS OF BREATH Amlodipine Besylate (Norvasc -) 5 mg PO DAILY [facility] Last Admin: 07/28/17 10:16 Dose: 5 mg Atorvastatin Calcium (Lipitor -) 80 mg PO HS [facility] Last Admin: 07/27/17 22:05 Dose: 80 mg Enoxaparin Sodium (Lovenox -) 40 mg SQ DAILY [facility] Last Admin: 07/28/17 10:16 Dose: 40 mg CEFTRIAXONE 1 G/50 ML PREMIX (Ceftriaxone 1 Gm-D5w Bag) 50 mls @ 100 mls/hr IVPB DAILY [facility] Last Admin: 07/28/17 10:17 Dose: 100 mls/hr Methylprednisolone Sodium Succinate (Solu-Medrol -) 40 mg IVPUSH Q8H-IV [facility] Last Admin: 07/28/17 10:16 Dose: 40 mg Metoprolol Succinate (Toprol Xl -) 50 mg PO DAILY [facility] Last Admin: 07/28/17 10:22 Dose: 50 mg Pt's Own (Non- Formulary) ( Dasatinib [Sprycel] 50 Mg) 50 mg PO DAILY [facility] Last Admin: 07/28/17 12:30 Dose: 50 mg Pantoprazole Sodium (Protonix -) 40 mg PO DAILY [facility] Last Admin: 07/28/17 10:16 Dose: 40 mg Tamsulosin HCl (Flomax -) 0.4 mg PO DAILY@0830 [facility] Last Admin: 07/28/17 09:26 Dose: 0.4 mg Current Medications Generic Name Dose Route Start Last Admin Trade Name Edna PRN Reason Stop Dose Admin Acetaminophen 650 mg 07/27/17 12:55 07/28/17 10:22 Tylenol - PO 650 mg Q6H PRN Administration FEVER OR PAIN Albuterol/Ipratropium 1 amp 07/27/17 09:42 Duoneb - NEB Q6H PRN SHORTNESS OF BREATH Amlodipine Besylate 5 mg 07/27/17 10:00 07/28/17 10:16 Norvasc - PO 5 mg DAILY ELIF Administration Atorvastatin Calcium 80 mg 07/27/17 22:00 07/27/17 22:05 Lipitor - PO 80 mg HS [facility] Administration Enoxaparin Sodium 40 mg 07/28/17 10:00 07/28/17 10:16 Lovenox - SQ 40 mg DAILY [facility] Administration CEFTRIAXONE 1 G/50 ML PREMIX 50 mls @ 100 mls/hr 07/27/17 10:00 07/28/17 10: 17 Ceftriaxone 1 Gm-D5w Bag IVPB 100 mls/hr DAILY [facility] Administration Methylprednisolone Sodium Succinate 40 mg 07/27/17 18:00 07/28/17 10:16 Solu-Medrol - IVPUSH 40 mg Q8H-IV [facility]IF Administration Metoprolol Succinate 50 mg 07/27/17 10:00 07/28/17 10:22 Toprol Xl - PO 50 mg DAILY [facility] Administration Pt's Own (Non- 50 mg 07/27/17 16:00 07/28/17 12:30 Formulary) ( PO 50 mg Dasatinib [Sprycel] DAILY [facility] Administration 50 Mg) Pantoprazole Sodium 40 mg 07/27/17 10:00 07/28/17 10:16 Protonix - PO 40 mg DAILY ELIF Administration Tamsulosin HCl 0.4 mg 07/27/17 10:00 07/28/17 09:26 Flomax - PO 0.4 mg DAILY@0830 ELIF Administration N- alert, oriented cvs-s1s2 lungs-clear, no rhonchi, no wheezing abd-soft, nt LE- No edema plan CAP - Continue antibiotics -taper steroids -CT chest- no PE - ALL in remission - continue medications -hematology following - CAD, S/P PCI -no active issues - continue medications Need CT chest outpatient 3-4 weeks for complete resolution of infiltrates Problem List - Problems (1) ALL (acute lymphoid leukemia) in remission Code(s): C91.01 - ACUTE LYMPHOBLASTIC LEUKEMIA, IN REMISSION (2) Community acquired bacterial pneumonia Code(s): J15.9 - UNSPECIFIED BACTERIAL PNEUMONIA (3) COPD (chronic obstructive pulmonary disease) Code(s): J44.9 - CHRONIC OBSTRUCTIVE PULMONARY DISEASE, UNSPECIFIED (4) ASHD (arteriosclerotic heart disease) Code(s): I25.10 - ATHSCL HEART DISEASE OF [place] CORONARY ARTERY W/O ANG PCTRS
--- NOTE | 2017-07-28 14:56 | PN ---
Progress Note (short form) - Note Progress Note: Pt examined alongside JANITOR HELPER Sylvia I agree with her findings and plan Pt has no complaints He is feeling better Vital Signs - 24 hr 07/27/17 07/27/17 07/27/17 18:56 20:00 20:30 Temperature 98.3 F Pulse Rate 88 86 Pulse Rate [ Left Radial] Respiratory 18 18 18 Rate Blood Pressure 153/74 156/65 Blood Pressure [Right Arm] O2 Sat by Pulse 97 97 Oximetry (%) 07/27/17 07/28/17 20:33 06:00 Temperature 98.4 F 98.4 F Pulse Rate 91 H Pulse Rate [ 88 Left Radial] Respiratory 18 18 Rate Blood Pressure 150/78 Blood Pressure 152/80 [Right Arm] O2 Sat by Pulse 100 Oximetry (%) Current Medications Generic Name Dose Route Start Last Admin Trade Name Freq PRN Reason Stop Dose Admin Acetaminophen 650 mg 07/27/17 12:55 07/28/17 10:22 Tylenol - PO 650 mg Q6H PRN Administration FEVER OR PAIN Albuterol/Ipratropium 1 amp 07/27/17 09:42 Duoneb - NEB Q6H PRN SHORTNESS OF BREATH Amlodipine Besylate 5 mg 07/27/17 10:00 07/28/17 10:16 Norvasc - PO 5 mg DAILY ELIF Administration Atorvastatin Calcium 80 mg 07/27/17 22:00 07/27/17 22:05 Lipitor - PO 80 mg HS ELIF Administration Enoxaparin Sodium 40 mg 07/28/17 10:00 07/28/17 10:16 Lovenox - SQ 40 mg DAILY [facility] Administration CEFTRIAXONE 1 G/50 ML PREMIX 50 mls @ 100 mls/hr 07/27/17 10:00 07/28/17 10: 17 Ceftriaxone 1 Gm-D5w Bag IVPB 100 mls/hr DAILY [facility] Administration Methylprednisolone Sodium Succinate 40 mg 07/27/17 18:00 07/28/17 10:16 Solu-Medrol - IVPUSH 40 mg Q8H-IV ELIF Administration Metoprolol Succinate 50 mg 07/27/17 10:00 07/28/17 10:22 Toprol Xl - PO 50 mg DAILY [facility] Administration Pt's Own (Non- 50 mg 07/27/17 16:00 07/28/17 12:30 Formulary) ( PO 50 mg Dasatinib [Sprycel] DAILY [facility]IF Administration 50 Mg) Pantoprazole Sodium 40 mg 07/27/17 10:00 07/28/17 10:16 Protonix - PO 40 mg DAILY [facility]IF Administration Tamsulosin HCl 0.4 mg 07/27/17 10:00 07/28/17 09:26 Flomax - PO 0.4 mg DAILY@0830 ELIF Administration Laboratory Results - last 24 hr 07/28/17 07/28/17 08:00 08:00 WBC 15.0 H RBC 3.08 L Hgb 10.5 L Hct 31.7 L MCV 102.9 H MCH 34.0 H MCHC 33.0 RDW 14.9 Plt Count 151 MPV 8.1 Neutrophils % 86.7 H Lymphocytes % 7.9 L Monocytes % 5.3 Eosinophils % 0.0 D Basophils % 0.1 Sodium 140 Potassium 4.3 Chloride 108 H Carbon Dioxide 21 Anion Gap 11 BUN 23 H D Creatinine 1.0 Creat Clearance w eGFR > 60 Random Glucose 140 H D Calcium 8.9 Total Bilirubin 0.3 D AST 21 D ALT 41 Alkaline Phosphatase 61 Total Protein 7.5 Albumin 3.3 L S1 S2 RRR' Lungs clear No rales or ronchi No edema Abd soft, NT PLAN taper solumedrol CT chest as outpt within a month for resolution of infiltrates Continue with Dasatinib Problem List - Problems (1) Community acquired bacterial pneumonia Code(s): J15.9 - UNSPECIFIED BACTERIAL PNEUMONIA (2) ALL (acute lymphoid leukemia) in remission Code(s): C91.01 - ACUTE LYMPHOBLASTIC LEUKEMIA, IN REMISSION (3) COPD (chronic obstructive pulmonary disease) Code(s): J44.9 - CHRONIC OBSTRUCTIVE PULMONARY DISEASE, UNSPECIFIED (4) Shortness of breath Code(s): R06.02 - SHORTNESS OF BREATH (5) HTN (hypertension) Code(s): I10 - ESSENTIAL (PRIMARY) HYPERTENSION Qualifiers: Hypertension type: essential hypertension Qualified Code(s): I10 - Essential (primary) hypertension
--- NOTE | 2017-07-28 16:06 | PN ---
Progress Note, Physician Chief Complaint: Pt A&Ox3; feels weak, but otherwise has no complaints. History of Present Illness: The patient is a 77 year old black male, with a significant past medical history of leukemia, diverticulosis, Afib, CAD s/p PCI, diastolic CHF with mild- moderate AR, HTN, hyperlipidemia, and BPH, who presents to the emergency department with subjective fever, as well as shortness of breath since Tuesday. The patient reports being seated, at rest, when he developed shortness of breath exacerbated by deep inspiration. He denies pleuritic chest pain. He denies recent travels. He denies recent sick contacts. He denies chest pain, headache and dizziness. He denies chills, nausea, vomit, diarrhea and constipation. He denies dysuria, frequency, urgency and hematuria. Allergies: nitroglycerin Past surgical history: colon resection (2009), Stent (2009), Cyst removal Social history: former smoker PCP - Dr. Cassie Alex - Current Medication List Current Medications: Active Medications Acetaminophen (Tylenol -) 650 mg PO Q6H PRN PRN Reason: FEVER OR PAIN Last Admin: 07/28/17 10:22 Dose: 650 mg Albuterol/Ipratropium (Duoneb -) 1 amp NEB Q6H PRN PRN Reason: SHORTNESS OF BREATH Amlodipine Besylate (Norvasc -) 5 mg PO DAILY [facility] Last Admin: 07/28/17 10:16 Dose: 5 mg Atorvastatin Calcium (Lipitor -) 80 mg PO HS [facility] Last Admin: 07/27/17 22:05 Dose: 80 mg Enoxaparin Sodium (Lovenox -) 40 mg SQ DAILY [facility] Last Admin: 07/28/17 10:16 Dose: 40 mg CEFTRIAXONE 1 G/50 ML PREMIX (Ceftriaxone 1 Gm-D5w Bag) 50 mls @ 100 mls/hr IVPB DAILY [facility] Last Admin: 07/28/17 10:17 Dose: 100 mls/hr Methylprednisolone Sodium Succinate (Solu-Medrol -) 40 mg IVPUSH Q12H [facility] Last Admin: 07/28/17 15:48 Dose: 40 mg Metoprolol Succinate (Toprol Xl -) 50 mg PO DAILY [facility] Last Admin: 07/28/17 10:22 Dose: 50 mg Pt's Own (Non- Formulary) ( Dasatinib [Sprycel] 50 Mg) 50 mg PO DAILY [facility] Last Admin: 07/28/17 12:30 Dose: 50 mg Pantoprazole Sodium (Protonix -) 40 mg PO DAILY [facility] Last Admin: 07/28/17 10:16 Dose: 40 mg Tamsulosin HCl (Flomax -) 0.4 mg PO DAILY@0830 [facility] Last Admin: 07/28/17 09:26 Dose: 0.4 mg - Objective Vital Signs: Vital Signs Temperature 98.2 F 07/28/17 15:00 Pulse Rate 81 07/28/17 15:00 Respiratory Rate 18 07/28/17 15:00 Blood Pressure 155/73 07/28/17 15:00 O2 Sat by Pulse Oximetry (%) 100 07/27/17 20:33 Constitutional: Yes: Well Nourished, Calm Eyes: Yes: WNL HENT: Yes: WNL Neck: Yes: WNL Cardiovascular: Yes: Regular Rate and Rhythm, S1, S2, S4 Respiratory: Yes: WNL Gastrointestinal: Yes: Soft ...Rectal Exam: Yes: Deferred Genitourinary: Yes: Anuria Breast(s): Yes: WNL Musculoskeletal: Yes: WNL Extremities: Yes: WNL Edema: No Peripheral Pulses WNL: Yes Integumentary: Yes: WNL Neurological: Yes: WNL Psychiatric: Yes: WNL Labs: CBC, BMP 07/28/17 08:00 07/28/17 08:00 INR, PTT INR 1.12 (0.82-1.09) 07/27/17 04:32 - ....Imaging EKG: Image Reviewed (sinus tachycardia) Problem List - Problems (1) ALL (acute lymphoid leukemia) in remission Assessment/Plan: f/u with oncologist. Code(s): C91.01 - ACUTE LYMPHOBLASTIC LEUKEMIA, IN REMISSION (2) COPD (chronic obstructive pulmonary disease) Code(s): J44.9 - CHRONIC OBSTRUCTIVE PULMONARY DISEASE, UNSPECIFIED (3) Shortness of breath Code(s): R06.02 - SHORTNESS OF BREATH (4) Thrombocytopenia Assessment/Plan: level improving, and now WNL. Code(s): D69.6 - THROMBOCYTOPENIA, UNSPECIFIED (5) ASHD (arteriosclerotic heart disease) Assessment/Plan: 10/14: stress MIBI negative for ischemia. coronary stent 2009. Has not smoked for years. Code(s): I25.10 - ATHSCL HEART DISEASE OF [place] CORONARY ARTERY W/O ANG PCTRS (6) Atrial tachycardia Code(s): I47.1 - SUPRAVENTRICULAR TACHYCARDIA (7) H/O heart artery stent Code(s): Z95.5 - PRESENCE OF CORONARY ANGIOPLASTY IMPLANT AND GRAFT (8) HTN (hypertension) Code(s): I10 - ESSENTIAL (PRIMARY) HYPERTENSION Qualifiers: Hypertension type: essential hypertension Qualified Code(s): I10 - Essential (primary) hypertension (9) S/P left colectomy Code(s): Z90.49 - ACQUIRED ABSENCE OF OTHER SPECIFIED PARTS OF DIGESTIVE TRACT (10) Hyperlipidemia Assessment/Plan: on high-dose atorvastatin; f/u lipids. Code(s): E78.5 - HYPERLIPIDEMIA, UNSPECIFIED
--- NOTE | 2017-07-28 16:44 | PN ---
Progress Note (short form) - Note Progress Note: Patient seen and examined. feels better than yesterday. breathing much improved. O/E: Constitutional: Yes: Well Nourished, No Distress, Calm Eyes: Yes: Conjunctiva Clear HENT: Yes: Atraumatic, Normocephalic Neck: Yes: Supple, Trachea Midline Cardiovascular: Yes: Regular Rate and Rhythm Respiratory: Yes: Regular, CTA Bilaterally Gastrointestinal: Yes: Soft Last Vital Signs Temp Pulse Resp BP Pulse Ox 98.2 F 81 18 155/73 100 07/28/17 15:00 07/28/17 15:00 07/28/17 15:00 07/28/17 15:00 07/28/17 09:00 CBC, BMP 07/28/17 08:00 07/28/17 08:00 Current Medications Generic Name Dose Route Start Last Admin Trade Name Freq PRN Reason Stop Dose Admin Acetaminophen 650 mg 07/27/17 12:55 07/28/17 10:22 Tylenol - PO 650 mg Q6H PRN Administration FEVER OR PAIN Albuterol/Ipratropium 1 amp 07/27/17 09:42 Duoneb - NEB Q6H PRN SHORTNESS OF BREATH Amlodipine Besylate 5 mg 07/27/17 10:00 07/28/17 10:16 Norvasc - PO 5 mg DAILY ELIF Administration Atorvastatin Calcium 80 mg 07/27/17 22:00 07/27/17 22:05 Lipitor - PO 80 mg HS ELIF Administration Enoxaparin Sodium 40 mg 07/28/17 10:00 07/28/17 10:16 Lovenox - SQ 40 mg DAILY ELIF Administration CEFTRIAXONE 1 G/50 ML PREMIX 50 mls @ 100 mls/hr 07/27/17 10:00 07/28/17 10: 17 Ceftriaxone 1 Gm-D5w Bag IVPB 100 mls/hr DAILY ELIF Administration Methylprednisolone Sodium Succinate 40 mg 07/28/17 15:15 07/28/17 15:48 Solu-Medrol - IVPUSH 40 mg Q12H ELIF Administration Metoprolol Succinate 50 mg 07/27/17 10:00 07/28/17 10:22 Toprol Xl - PO 50 mg DAILY ELIF Administration Pt's Own (Non- 50 mg 07/27/17 16:00 07/28/17 12:30 Formulary) ( PO 50 mg Dasatinib [Sprycel] DAILY ELIF Administration 50 Mg) Pantoprazole Sodium 40 mg 07/27/17 10:00 07/28/17 10:16 Protonix - PO 40 mg DAILY ELIF Administration Tamsulosin HCl 0.4 mg 07/27/17 10:00 07/28/17 09:26 Flomax - PO 0.4 mg DAILY@0830 ELIF Administration 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
[2017-07-28] MEDS: ATORVASTATIN CA 80 MG TABLET (FP) PO SCH (21:45)
[2017-07-29] MEDS: ACETAMINOPHEN 325 MG TABLET (FP) PO PRN ×2 (00:01→16:55)
[2017-07-29] MEDS: methylPREDNISolone NA SUCC 40 MG/1 ML VIAL IVPUSH SCH (04:00)
[2017-07-29] MEDS: METOPROLOL SUCCINATE 50 MG TAB.SR.24H (FP) PO SCH (10:09)
[2017-07-29] MEDS: PANTOPRAZOLE 40 MG TABLET (FP) PO SCH (10:09)
[2017-07-29] MEDS: amLODIPine BESYLATE 5 MG TABLET (FP) PO SCH (10:09)
[2017-07-29] MEDS: ENOXAPARIN NA (PORCINE) 40 MG/0.4 ML DISP.SYRIN SQ SCH (10:09)
[2017-07-29] MEDS: TAMSULOSIN HCL 0.4 MG CAP.ER.24H (FP) PO SCH (10:09)
[2017-07-29] MEDS: CEFTRIAXONE 1 G/50 ML PREMIX 50 ML IVPB SCH (11:19)
--- NOTE | 2017-07-29 11:19 | PN ---
Progress Note, Physician Chief Complaint: feels well No SOB or cough - Current Medication List Current Medications: Active Medications Acetaminophen (Tylenol -) 650 mg PO Q6H PRN PRN Reason: FEVER OR PAIN Last Admin: 07/29/17 00:01 Dose: 650 mg Albuterol/Ipratropium (Duoneb -) 1 amp NEB Q6H PRN PRN Reason: SHORTNESS OF BREATH Amlodipine Besylate (Norvasc -) 5 mg PO DAILY [facility] Last Admin: 07/29/17 10:09 Dose: 5 mg Atorvastatin Calcium (Lipitor -) 80 mg PO HS [facility] Last Admin: 07/28/17 21:45 Dose: Not Given Enoxaparin Sodium (Lovenox -) 40 mg SQ DAILY [facility] Last Admin: 07/29/17 10:09 Dose: 40 mg CEFTRIAXONE 1 G/50 ML PREMIX (Ceftriaxone 1 Gm-D5w Bag) 50 mls @ 100 mls/hr IVPB DAILY [facility] Last Admin: 07/29/17 11:19 Dose: 100 mls/hr Methylprednisolone Sodium Succinate (Solu-Medrol -) 40 mg IVPUSH Q12H [facility] Last Admin: 07/29/17 04:00 Dose: 40 mg Metoprolol Succinate (Toprol Xl -) 50 mg PO DAILY [facility] Last Admin: 07/29/17 10:09 Dose: 50 mg Pt's Own (Non- Formulary) ( Dasatinib [Sprycel] 50 Mg) 50 mg PO DAILY [facility] Last Admin: 07/28/17 12:30 Dose: 50 mg Pantoprazole Sodium (Protonix -) 40 mg PO DAILY [facility] Last Admin: 07/29/17 10:09 Dose: 40 mg Tamsulosin HCl (Flomax -) 0.4 mg PO DAILY@0830 [facility] Last Admin: 07/29/17 10:09 Dose: 0.4 mg - Objective Vital Signs: Vital Signs Temperature 98 F 07/29/17 10:11 Pulse Rate 85 07/29/17 10:11 Respiratory Rate 18 07/29/17 10:11 Blood Pressure 144/83 07/29/17 10:11 O2 Sat by Pulse Oximetry (%) 100 07/29/17 10:00 Constitutional: Yes: No Distress, Calm Cardiovascular: Yes: Regular Rate and Rhythm Respiratory: Yes: CTA Bilaterally Gastrointestinal: Yes: Normal Bowel Sounds, Soft. No: Distention, Tenderness Edema: No Neurological: Yes: Alert, Oriented Labs: CBC, BMP 07/28/17 08:00 07/28/17 08:00 INR, PTT INR 1.12 (0.82-1.09) 07/27/17 04:32 Problem List - Problems (1) Community acquired bacterial pneumonia Code(s): J15.9 - UNSPECIFIED BACTERIAL PNEUMONIA (2) ALL (acute lymphoid leukemia) in remission Code(s): C91.01 - ACUTE LYMPHOBLASTIC LEUKEMIA, IN REMISSION (3) COPD (chronic obstructive pulmonary disease) Code(s): J44.9 - CHRONIC OBSTRUCTIVE PULMONARY DISEASE, UNSPECIFIED (4) Shortness of breath Code(s): R06.02 - SHORTNESS OF BREATH (5) HTN (hypertension) Code(s): I10 - ESSENTIAL (PRIMARY) HYPERTENSION Qualifiers: Hypertension type: essential hypertension Qualified Code(s): I10 - Essential (primary) hypertension Assessment/Plan PLAN COPD / Community acquired pneumonia -- Taper steroid -- on ceftriaxone -- clinically improving -- urine antigens, influenza screen negative -- dc plan ALL in remission -- continue with Desatinib HTN/CAD/ASHD -- on meds- Amlodipine and Lipitor -- clinically stable -- echo noted DVT prophylaxis -- Lovenox sc, OOB daily
[2017-07-29] MEDS: DASATINIB 50 MG PO SCH ×2 (11:52→15:10)
--- NOTE | 2017-07-29 18:01 | PN ---
Progress Note (short form) - Note Progress Note: Patient seen and examined Breathing improved Denies chest pains, SOB , significant cough or sputum. Last Vital Signs Temp Pulse Resp BP Pulse Ox 98.4 F 80 18 126/66 100 07/29/17 14:48 07/29/17 14:48 07/29/17 10:11 07/29/17 14:48 07/29/17 10:00 HEENT: MASOOD, EOM Intact Cor: RSR, No murmurs, No gallops Lungs: Clear to P&A Abd: Soft, Normal bowel sounds, No organomegaly Ext:No significant edema Skin: No rashes, Integument intact CBC, BMP 07/28/17 08:00 07/28/17 08:00 Current Medications Generic Name Dose Route Start Last Admin Trade Name Freq PRN Reason Stop Dose Admin Acetaminophen 650 mg 07/27/17 12:55 07/29/17 16:55 Tylenol - PO 650 mg Q6H PRN Administration FEVER OR PAIN Albuterol/Ipratropium 1 amp 07/27/17 09:42 Duoneb - NEB Q6H PRN SHORTNESS OF BREATH Amlodipine Besylate 5 mg 07/27/17 10:00 07/29/17 10:09 Norvasc - PO 5 mg DAILY ELIF Administration Atorvastatin Calcium 80 mg 07/27/17 22:00 07/28/17 21:45 Lipitor - PO Not Given HS ELIF Enoxaparin Sodium 40 mg 07/28/17 10:00 07/29/17 10:09 Lovenox - SQ 40 mg DAILY ELIF Administration CEFTRIAXONE 1 G/50 ML PREMIX 50 mls @ 100 mls/hr 07/27/17 10:00 07/29/17 11: 19 Ceftriaxone 1 Gm-D5w Bag IVPB 100 mls/hr DAILY ELIF Administration Methylprednisolone Sodium Succinate 40 mg 07/30/17 10:00 Solu-Medrol - IVPUSH DAILY ELIF Metoprolol Succinate 50 mg 07/27/17 10:00 07/29/17 10:09 Toprol Xl - PO 50 mg DAILY ELIF Administration Pt's Own (Non- 50 mg 07/29/17 11:51 07/29/17 15:10 Formulary) ( PO 50 mg Dasatinib [Sprycel] DAILY@1500 ELIF Administration 50 Mg) Pantoprazole Sodium 40 mg 07/27/17 10:00 07/29/17 10:09 Protonix - PO 40 mg DAILY ELIF Administration Tamsulosin HCl 0.4 mg 07/27/17 10:00 07/29/17 10:09 Flomax - PO 0.4 mg DAILY@0830 ELIF Administration Impression: 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
[2017-07-29] MEDS: ATORVASTATIN CA 80 MG TABLET (FP) PO SCH ×2 (21:56→21:58)
[2017-07-30] MEDS: ACETAMINOPHEN 325 MG TABLET (FP) PO PRN (03:50)
--- NOTE | 2017-07-30 07:03 | PN ---
Progress Note, Physician Chief Complaint: Pt A&Ox3; no chest pain or dyspnea. History of Present Illness: The patient is a 77 year old black male, with a significant past medical history of leukemia, diverticulosis, Afib, CAD s/p PCI, diastolic CHF with mild- moderate AR, HTN, hyperlipidemia, and BPH, who presents to the emergency department with subjective fever, as well as shortness of breath since Tuesday. The patient reports being seated, at rest, when he developed shortness of breath exacerbated by deep inspiration. He denies pleuritic chest pain. He denies recent travels. He denies recent sick contacts. He denies chest pain, headache and dizziness. He denies chills, nausea, vomit, diarrhea and constipation. He denies dysuria, frequency, urgency and hematuria. Allergies: nitroglycerin Past surgical history: colon resection (2009), Stent (2009); (stress MIBI 2015: no myocardial ischemia); Cyst removal Social history: former smoker PCP - Dr. Cassie Alex - Current Medication List Current Medications: Active Medications Acetaminophen (Tylenol -) 650 mg PO Q6H PRN PRN Reason: FEVER OR PAIN Last Admin: 07/30/17 03:50 Dose: 650 mg Albuterol/Ipratropium (Duoneb -) 1 amp NEB Q6H PRN PRN Reason: SHORTNESS OF BREATH Amlodipine Besylate (Norvasc -) 5 mg PO DAILY [facility] Last Admin: 07/29/17 10:09 Dose: 5 mg Atorvastatin Calcium (Lipitor -) 80 mg PO HS [facility] Last Admin: 07/29/17 21:58 Dose: Not Given Enoxaparin Sodium (Lovenox -) 40 mg SQ DAILY [facility] Last Admin: 07/29/17 10:09 Dose: 40 mg CEFTRIAXONE 1 G/50 ML PREMIX (Ceftriaxone 1 Gm-D5w Bag) 50 mls @ 100 mls/hr IVPB DAILY [facility] Last Admin: 07/29/17 11:19 Dose: 100 mls/hr Methylprednisolone Sodium Succinate (Solu-Medrol -) 40 mg IVPUSH DAILY [facility] Metoprolol Succinate (Toprol Xl -) 50 mg PO DAILY [facility] Last Admin: 07/29/17 10:09 Dose: 50 mg Pt's Own (Non- Formulary) ( Dasatinib [Sprycel] 50 Mg) 50 mg PO DAILY@1500 [facility] Last Admin: 07/29/17 15:10 Dose: 50 mg Pantoprazole Sodium (Protonix -) 40 mg PO DAILY [facility] Last Admin: 07/29/17 10:09 Dose: 40 mg Tamsulosin HCl (Flomax -) 0.4 mg PO DAILY@0830 [facility] Last Admin: 07/29/17 10:09 Dose: 0.4 mg - Objective Vital Signs: Vital Signs Temperature 98.5 F 07/30/17 06:00 Pulse Rate 74 07/30/17 06:00 Respiratory Rate 18 07/30/17 06:00 Blood Pressure 144/75 07/30/17 06:00 O2 Sat by Pulse Oximetry (%) 100 07/29/17 22:00 Constitutional: Yes: Calm Eyes: Yes: WNL HENT: Yes: WNL Neck: Yes: WNL Cardiovascular: Yes: WNL, Murmur (2/4 diastolic murmur, RSB-->base) Respiratory: Yes: WNL Gastrointestinal: Yes: Soft ...Rectal Exam: Yes: Deferred Genitourinary: Yes: Anuria Breast(s): Yes: WNL Musculoskeletal: Yes: WNL Extremities: Yes: WNL Edema: No Peripheral Pulses WNL: Yes Integumentary: Yes: WNL Neurological: Yes: WNL Psychiatric: Yes: WNL Labs: CBC, BMP 07/28/17 08:00 07/28/17 08:00 INR, PTT INR 1.12 (0.82-1.09) 07/27/17 04:32 Problem List - Problems (1) ALL (acute lymphoid leukemia) in remission Assessment/Plan: f/u with oncologist. Code(s): C91.01 - ACUTE LYMPHOBLASTIC LEUKEMIA, IN REMISSION (2) COPD (chronic obstructive pulmonary disease) Assessment/Plan: has not smoked for years. Pulmonary clinic may be of benefit. [place] in RML on chest CT. Code(s): J44.9 - CHRONIC OBSTRUCTIVE PULMONARY DISEASE, UNSPECIFIED (3) Shortness of breath Code(s): R06.02 - SHORTNESS OF BREATH (4) ASHD (arteriosclerotic heart disease) Code(s): I25.10 - ATHSCL HEART DISEASE OF [place] CORONARY ARTERY W/O ANG PCTRS (5) Atrial tachycardia Code(s): I47.1 - SUPRAVENTRICULAR TACHYCARDIA (6) H/O heart artery stent Code(s): Z95.5 - PRESENCE OF CORONARY ANGIOPLASTY IMPLANT AND GRAFT (7) HTN (hypertension) Code(s): I10 - ESSENTIAL (PRIMARY) HYPERTENSION Qualifiers: Hypertension type: essential hypertension Qualified Code(s): I10 - Essential (primary) hypertension (8) S/P left colectomy Code(s): Z90.49 - ACQUIRED ABSENCE OF OTHER SPECIFIED PARTS OF DIGESTIVE TRACT (9) Hyperlipidemia Assessment/Plan: on high-dose atorvastatin; f/u lipids. F/u TSH. Code(s): E78.5 - HYPERLIPIDEMIA, UNSPECIFIED
--- NOTE | 2017-07-30 09:44 | PN ---
Progress Note, Physician History of Present Illness: The patient is a 77 year old male, with a significant past medical history of leukemia, diverticulosis, SVT sd/p ablation, CAD s/p PCI, CHF, HTN, and hyperlipidemia, who presents to the emergency department with subjective fever, as well as, shortness of breath since Tuesday. The patient reports being seated, at rest, when he developed shortness of breath exacerbated by deep inspiration. He denies pleuritic chest pain. He denies recent travels. He denies recent sick contacts. He denies chest pain, headache and dizziness. He denies chills, nausea, vomit, diarrhea and constipation. Hedenies dysuria, frequency, urgency and hematuria. Allergies: nitroglycerin Past surgical history: colon resection (2009), Stent (2009), Cyst removal Social history: former smoker PCP - Dr. Cassie Alex - Current Medication List Current Medications: Active Medications Acetaminophen (Tylenol -) 650 mg PO Q6H PRN PRN Reason: FEVER OR PAIN Last Admin: 07/30/17 03:50 Dose: 650 mg Albuterol/Ipratropium (Duoneb -) 1 amp NEB Q6H PRN PRN Reason: SHORTNESS OF BREATH Amlodipine Besylate (Norvasc -) 5 mg PO DAILY [facility] Last Admin: 07/29/17 10:09 Dose: 5 mg Atorvastatin Calcium (Lipitor -) 80 mg PO HS [facility] Last Admin: 07/29/17 21:58 Dose: Not Given Enoxaparin Sodium (Lovenox -) 40 mg SQ DAILY [facility] Last Admin: 07/29/17 10:09 Dose: 40 mg CEFTRIAXONE 1 G/50 ML PREMIX (Ceftriaxone 1 Gm-D5w Bag) 50 mls @ 100 mls/hr IVPB DAILY [facility] Last Admin: 07/29/17 11:19 Dose: 100 mls/hr Methylprednisolone Sodium Succinate (Solu-Medrol -) 40 mg IVPUSH DAILY [facility] Metoprolol Succinate (Toprol Xl -) 50 mg PO DAILY [facility] Last Admin: 07/29/17 10:09 Dose: 50 mg Pt's Own (Non- Formulary) ( Dasatinib [Sprycel] 50 Mg) 50 mg PO DAILY@1500 [facility] Last Admin: 07/29/17 15:10 Dose: 50 mg Pantoprazole Sodium (Protonix -) 40 mg PO DAILY [facility] Last Admin: 12/01/17 10:09 Dose: 40 mg Tamsulosin HCl (Flomax -) 0.4 mg PO DAILY@0830 [facility] Last Admin: 07/29/17 10:09 Dose: 0.4 mg - Objective Vital Signs: Vital Signs Temperature 98.5 F 07/30/17 06:00 Pulse Rate 74 07/30/17 06:00 Respiratory Rate 18 07/30/17 06:00 Blood Pressure 144/75 07/30/17 06:00 O2 Sat by Pulse Oximetry (%) 100 07/29/17 22:00 Eyes: Yes: WNL, Conjunctiva Clear, EOM Intact HENT: Yes: WNL, Atraumatic, Normocephalic Neck: Yes: WNL, Supple, Trachea Midline Cardiovascular: Yes: WNL, Regular Rate and Rhythm Respiratory: Yes: WNL, Regular, CTA Bilaterally Gastrointestinal: Yes: WNL, Normal Bowel Sounds Genitourinary: Yes: WNL Musculoskeletal: Yes: WNL Extremities: Yes: WNL Edema: No Integumentary: Yes: WNL Neurological: Yes: WNL, Alert, Oriented ...Motor Strength: WNL Psychiatric: Yes: WNL Labs: CBC, BMP 07/28/17 08:00 07/28/17 08:00 INR, PTT INR 1.12 (0.82-1.09) 07/27/17 04:32 Problem List - Problems (1) ALL (acute lymphoid leukemia) in remission Code(s): C91.01 - ACUTE LYMPHOBLASTIC LEUKEMIA, IN REMISSION (2) COPD (chronic obstructive pulmonary disease) Code(s): J44.9 - CHRONIC OBSTRUCTIVE PULMONARY DISEASE, UNSPECIFIED (3) Community acquired bacterial pneumonia Code(s): J15.9 - UNSPECIFIED BACTERIAL PNEUMONIA (4) Shortness of breath Code(s): R06.02 - SHORTNESS OF BREATH (5) ASHD (arteriosclerotic heart disease) Code(s): I25.10 - ATHSCL HEART DISEASE OF [place] CORONARY ARTERY W/O ANG PCTRS (6) Abdominal abscess Code(s): K65.1 - PERITONEAL ABSCESS (7) Abscess of gastrointestinal tract Code(s): K63.0 - ABSCESS OF INTESTINE (8) Acute leukemia Code(s): C95.00 - ACUTE LEUKEMIA OF UNSP CELL TYPE NOT ACHIEVE REMISSION Qualifiers: Leukemia Active/Remission status: without remission Qualified Code(s): C95.00 - Acute leukemia of unspecified cell type not having achieved remission (9) Atrial tachycardia Code(s): I47.1 - SUPRAVENTRICULAR TACHYCARDIA (10) Bilateral pleural effusion Code(s): J90 - PLEURAL EFFUSION, NOT ELSEWHERE CLASSIFIED (11) Chest pain Code(s): R07.9 - CHEST PAIN, UNSPECIFIED Qualifiers: Chest pain type: other chest pain Qualified Code(s): R07.89 - Other chest pain (12) Chronic pain Code(s): G89.29 - OTHER CHRONIC PAIN (13) Dyspnea Code(s): R06.00 - DYSPNEA, UNSPECIFIED Qualifiers: Dyspnea type: dyspnea on exertion Qualified Code(s): R06.09 - Other forms of dyspnea (14) GI bleeding Code(s): K92.2 - GASTROINTESTINAL HEMORRHAGE, UNSPECIFIED (15) H/O heart artery stent Code(s): Z95.5 - PRESENCE OF CORONARY ANGIOPLASTY IMPLANT AND GRAFT (16) HTN (hypertension) Code(s): I10 - ESSENTIAL (PRIMARY) HYPERTENSION Qualifiers: Hypertension type: essential hypertension Qualified Code(s): I10 - Essential (primary) hypertension (17) Hydronephrosis of left kidney Code(s): N13.30 - UNSPECIFIED HYDRONEPHROSIS (18) Hydroureter on left Code(s): N13.4 - HYDROURETER (19) Influenza A Code(s): J10.1 - FLU DUE TO OTH IDENT INFLUENZA VIRUS W OTH RESP MANIFEST (20) Ischemic bowel syndrome Code(s): K55.9 - VASCULAR DISORDER OF INTESTINE, UNSPECIFIED (21) Leukocytosis Code(s): D72.829 - ELEVATED WHITE BLOOD CELL COUNT, UNSPECIFIED Qualifiers: Leukocytosis type: unspecified Qualified Code(s): D72.829 - Elevated white blood cell count, unspecified (22) Pneumonia Code(s): J18.9 - PNEUMONIA, UNSPECIFIED ORGANISM Qualifiers: Pneumonia type: due to unspecified organism Laterality: bilateral Lung location: lower lobe of lung Qualified Code(s): J18.9 - Pneumonia, unspecified organism (23) Postoperative ileus Code(s): K91.3 - POSTPROCEDURAL INTESTINAL OBSTRUCTION * DO NOT USE * (24) Renal calculus or stone Code(s): N20.0 - CALCULUS OF KIDNEY (25) S/P left colectomy Code(s): Z90.49 - ACQUIRED ABSENCE OF OTHER SPECIFIED PARTS OF DIGESTIVE TRACT Assessment/Plan - Problems (1) ALL (acute lymphoid leukemia) in remission Assessment/Plan: f/u with oncologist. Code(s): C91.01 - ACUTE LYMPHOBLASTIC LEUKEMIA, IN REMISSION (2) COPD (chronic obstructive pulmonary disease) Assessment/Plan: has not smoked for years. Pulmonary clinic may be of benefit. [place] in RML on chest CT. Code(s): J44.9 - CHRONIC OBSTRUCTIVE PULMONARY DISEASE, UNSPECIFIED (3) Shortness of breath Code(s): R06.02 - SHORTNESS OF BREATH (4) ASHD (arteriosclerotic heart disease) Code(s): I25.10 - ATHSCL HEART DISEASE OF [place] CORONARY ARTERY W/O ANG PCTRS (5) Atrial tachycardia Code(s): I47.1 - SUPRAVENTRICULAR TACHYCARDIA (6) H/O heart artery stent Code(s): Z95.5 - PRESENCE OF CORONARY ANGIOPLASTY IMPLANT AND GRAFT (7) HTN (hypertension) Code(s): I10 - ESSENTIAL (PRIMARY) HYPERTENSION Qualifiers: Hypertension type: essential hypertension Qualified Code(s): I10 - Essential (primary) hypertension (8) S/P left colectomy Code(s): Z90.49 - ACQUIRED ABSENCE OF OTHER SPECIFIED PARTS OF DIGESTIVE TRACT (9) Hyperlipidemia Assessment/Plan: on high-dose atorvastatin; f/u lipids. F/u TSH. Code(s): E78.5 - HYPERLIPIDEMIA, UNSPECIFIED
[2017-07-30] MEDS ORDERED: methylPREDNISolone NA SUCC 40 MG/1 ML VIAL IVPUSH SCH (10:00)
[2017-07-30 10:32] LABS: CHOLESTEROL 148 mg/dL (50-200)
[2017-07-30 10:44] VITALS: BP 140/60; PULSE 72
[2017-07-30] MEDS: TAMSULOSIN HCL 0.4 MG CAP.ER.24H (FP) PO SCH (10:54)
[2017-07-30] MEDS: PANTOPRAZOLE 40 MG TABLET (FP) PO SCH (10:54)
[2017-07-30] MEDS: amLODIPine BESYLATE 5 MG TABLET (FP) PO SCH (10:54)
[2017-07-30] MEDS: ENOXAPARIN NA (PORCINE) 40 MG/0.4 ML DISP.SYRIN SQ SCH (10:55)
[2017-07-30] MEDS: CEFTRIAXONE 1 G/50 ML PREMIX 50 ML IVPB SCH (10:57)
[2017-07-30] MEDS: METOPROLOL SUCCINATE 50 MG TAB.SR.24H (FP) PO SCH (10:58)
[2017-07-30 12:06] VITALS: TEMP 98.3
--- NOTE | 2017-07-30 13:56 | DS ---
Physical Examination Vital Signs: Vital Signs Temperature 98.3 F 07/30/17 12:00 Pulse Rate 72 07/30/17 10:44 Respiratory Rate 20 07/30/17 10:44 Blood Pressure 140/60 07/30/17 10:44 O2 Sat by Pulse Oximetry (%) 100 07/29/17 22:00 Findings/Remarks: feels well. wants to go home. chart reviewed says much better Constitutional: Yes: No Distress Eyes: Yes: Conjunctiva Clear Neck: Yes: Supple Cardiovascular: Yes: Regular Rate and Rhythm Respiratory: Yes: CTA Bilaterally, Rhonchi (few scatterd) Gastrointestinal: Yes: Normal Bowel Sounds, Soft Edema: No Psychiatric: Yes: Alert Labs: CBC, BMP 07/28/17 08:00 07/28/17 08:00 Discharge Summary Reason For Visit: SHORTNESS OF BREATH Current Active Problems ALL (acute lymphoid leukemia) in remission (Acute) COPD (chronic obstructive pulmonary disease) (Acute) Community acquired bacterial pneumonia (Acute) Hyperlipidemia (Acute) Shortness of breath (Acute) Hospital Course: admitted for sob. found to have copd exac/ pneumonia ct angio- bilateral upper and left lower lobe pneumonia treated with abx much better will discharge today. pt to follow with his pmd next week pt strongly advised that need to have repaet ct chest in 3 months to see clearing of pneumonia pt in agreement. meds reconcilled. prescribed as needed discussed with nursing staff also. time spend 40min in examining/ documenting/ coordating care. Condition: Stable - Instructions Diet, Activity, Other Instructions: needs CT Chest in 3 weeks to ensure resolution of infiltrates Disposition: HOME - Home Medications Comprehensive Discharge Medication List: Ambulatory Orders Amlodipine Besylate [Norvasc -] 5 mg PO DAILY 04/15/16 Atorvastatin Ca [Lipitor] 80 mg PO HS 04/15/16 Tamsulosin HCl 0.4 mg PO DAILY 04/15/16 Metoprolol Succinate [Toprol XL -] 50 mg PO DAILY tab.sr.24h 09/03/16 Dasatinib [Sprycel] 50 mg PO DAILY 05/09/17 Cefuroxime Axetil [Ceftin -] 500 mg PO Q12H #14 tablet 07/29/17 Albuterol 2.5/Ipratropium 0.5 [Duoneb -] 1 amp NEB Q6H PRN #100 amp 07/30/17 Albuterol Sulfate Inhaler - [Ventolin Hfa Inhaler -] 1 - 2 inh PO Q4H PRN #1 inhaler 07/30/17 Budesonide/Formeterol Fumarate [SYMBICORT 160/4.5mcg -] 1 inh PO BID #1 cannister 07/30/17 Nebulizer Accessories [A.i.r.s. Nebulizer] 1 each ASDIR #1 kit 07/30/17 Pantoprazole Sodium [Protonix -] 40 mg PO DAILY #30 tablet.ec 07/30/17 Prednisone 10 mg PO DAILY 14 Days #30 tablet 07/30/17
[2017-07-30] MEDS: DASATINIB 50 MG PO SCH (14:43)
== END 2017-07-30 15:46 | disposition home or self-care (01) | DRG 190 ==
LOC: JER 03:18 → JERBED 08:34 → J5S 21:48
PROVIDERS: ADMIT Internal Medicine; ATTEND Internal Medicine
DX: J44.1 Chronic obstructive pulmonary disease with (acute) exacerbation (principal); J18.9 Pneumonia, unspecified organism; C91.01 Acute lymphoblastic leukemia, in remission; I50.32 Chronic diastolic (congestive) heart failure; I11.0 Hypertensive heart disease with heart failure; I48.91 Unspecified atrial fibrillation; I25.10 Atherosclerotic heart disease of native coronary artery without angina pectoris; D69.6 Thrombocytopenia, unspecified; E78.5 Hyperlipidemia, unspecified; Z95.5 Presence of coronary angioplasty implant and graft; Z90.49 Acquired absence of other specified parts of digestive tract; Z87.891 Personal history of nicotine dependence; I35.1 Nonrheumatic aortic (valve) insufficiency; N40.0 Benign prostatic hyperplasia without lower urinary tract symptoms
CPT/HCPCS: 36415; 71010-TC; 71275-TC; 80053; 80061; 81003; 81015; 82550; 82553; 83605; 83721; 83880; 84484; 85025; 85610; 87040; 87804; 87899; 93005; 93010; 93306-TC; 99285-25

== ENCOUNTER 2017-08-24 10:51 | Observation (INO) | payer OTHER, BC ==
[2017-08-24] MEDS ORDERED: ASPIRIN 325 MG TABLET PO ONE (11:08)
[2017-08-24 11:12] VITALS: BMI 23.6
--- NOTE | 2017-08-24 11:17 | PDOC ---
History of Present Illness - General History Source: Patient, Family - History of Present Illness Presenting Symptoms: Chest Pain Severity/Quality: reports: moderate Location: reports: substernal Chest Pain Radiation: reports: no radiation Beta Marcos taken at Home (Core Measure): Yes <Efra Veloz - Last Filed: 08/24/17 12:23> <To Mo - Last Filed: 08/24/17 16:23> - General Chief Complaint: Chest Pain Stated Complaint: CHEST PAIN Time Seen by Provider: 08/24/17 11:00 Past History - Past Medical History Anemia: No Asthma: No Cancer: Yes (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) Cardiac Disorders: Yes (a-fib, STENTS NC) CVA: No (denies stroke) COPD: No CHF: Yes Dementia: No Diabetes: No GI Disorders: No Disorders: No HTN: Yes Hypercholesterolemia: Yes Liver Disease: No Seizures: No Thyroid Disease: Yes (KIDNEY STONE) - Surgical History Abdominal Surgery: Yes (COLON RESECTION 2013) Cardiac Surgery: Yes (Stent placed 2009 pLA) Neurologic Surgery: Yes (Cyst removed) - Immunization History Immunization Up to Date: Yes - Suicide/Smoking/Psychosocial Hx Smoking Status: No Smoking History: Former smoker Have you smoked in the past 12 months: No Number of Cigarettes Smoked Daily: 5 If you are a former smoker, when did you quit?: 45 YEARS AGO Cigars Per Day: 0 'Breaking Loose' booklet given: 08/24/16 Hx Alcohol Use: No Drug/Substance Use Hx: No Substance Use Type: None Hx Substance Use Treatment: No <Efra Veloz - Last Filed: 08/24/17 12:23> <To Mo - Last Filed: 08/24/17 16:23> - Past Medical History Allergies/Adverse Reactions: Allergies Allergy/AdvReac Type Severity Reaction Status Date / Time nitroglycerin [Nitroglycerin] Allergy Unknown severe Verified 08/24/17 11:09 headache Home Medications: Ambulatory Orders Amlodipine Besylate [Norvasc -] 5 mg PO DAILY 04/15/16 Atorvastatin Ca [Lipitor] 80 mg PO HS 04/15/16 Tamsulosin HCl 0.4 mg PO DAILY 04/15/16 Metoprolol Succinate [Toprol XL -] 50 mg PO DAILY tab.sr.24h 09/03/16 Dasatinib [Sprycel] 50 mg PO DAILY 05/09/17 Albuterol Sulfate Inhaler - [Ventolin Hfa Inhaler -] 1 - 2 inh PO Q4H PRN #1 inhaler 07/30/17 Cardiac Specific PMH - Complaint Specific PMHX Pacemaker: No <PrydeinigEfra - Last Filed: 08/24/17 12:23> Review of Systems - Review of Systems Constitutional: No: Chills, Fever Respiratory: No: Cough, Shortness of Breath, Wheezing Cardiac (ROS): Yes: Chest Pain ABD/GI: No: Nausea, Vomiting <Efra Veloz - Last Filed: 08/24/17 12:23> *Physical Exam - Physical Exam General Appearance: Yes: Appropriately Dressed. No: Apparent Distress HEENT: positive: Normal Voice. negative: Scleral Icterus (R), Scleral Icterus ( L) Neck: positive: Supple Respiratory/Chest: positive: Lungs Clear, Normal Breath Sounds. negative: Chest Tender, Respiratory Distress, Wheezing Gastrointestinal/Abdominal: positive: Soft. negative: Tender Extremity: positive: Normal Inspection. negative: Pedal Edema Integumentary: positive: Dry, Warm Neurologic: positive: Fully Oriented, Alert, Normal Mood/Affect <Efra Veloz - Last Filed: 08/24/17 12:23> - Vital Signs Last Vital Signs Temp Pulse Resp BP Pulse Ox 98.5 F 79 17 125/87 98 08/24/17 13:46 08/24/17 13:46 08/24/17 13:46 08/24/17 13:46 08/24/17 13:46 Heart Score/ECG Review - History History: Moderately suspicious - Electrocardiogram EKG: Normal - Age Age: >/= 65 - Risk Factors Risk Factors Heart Score: Yes Hx Hypercholesterolemia, Yes Hx Hypertension Based on the list above the patient has:: >/=3 risk factors or Hx atherosclerotic disease - Troponin Troponin: </= normal limit - Score Heart Score - Total: 5 <Efra Veloz - Last Filed: 08/24/17 12:23> <To Mo - Last Filed: 08/24/17 16:23> - ECG Intrepretation Comment:: 08/24/17 12:22 Twelve-lead EKG was performed and reviewed by me. There is normal sinus rhythm with a normal rate. The axis is normal. The intervals are normal. There are no ST or T wave abnormalities. Impression: Normal twelve-lead EKG (Efra Veloz) ED Treatment Course - LABORATORY CBC & Chemistry Diagram: 08/24/17 12:14 <Efra Veloz - Last Filed: 08/24/17 12:23> - LABORATORY CBC & Chemistry Diagram: 08/24/17 12:14 08/24/17 13:54 <To Mo - Last Filed: 08/24/17 16:23> - ADDITIONAL ORDERS Additional order review: Laboratory Results 08/24/17 08/24/17 08/24/17 13:54 12:14 12:14 Sodium 143 Potassium 3.7 Chloride 108 H Carbon Dioxide 25 Anion Gap 10 BUN 13 D Creatinine 0.9 Creat Clearance w eGFR > 60 Random Glucose 112 H Calcium 9.1 Total Bilirubin 0.5 D AST 38 H D ALT 70 D Alkaline Phosphatase 78 D Creatine Kinase 153 Creatine Kinase Index 0.8 CK-MB (CK-2) 1.339 Troponin I < 0.02 B-Natriuretic Peptide 414.23 Total Protein 7.5 Albumin 3.5 Urine Color Urine Appearance Urine pH Ur Specific [place] Urine Protein Urine Glucose (UA) Urine Ketones Urine Blood Urine Nitrite Urine Bilirubin Urine Urobilinogen Urine WBC (Auto) Urine RBC (Auto) Urine Mucus 08/24/17 12:14 Sodium Potassium Chloride Carbon Dioxide Anion Gap BUN Creatinine Creat Clearance w eGFR Random Glucose Calcium Total Bilirubin AST ALT Alkaline Phosphatase Creatine Kinase Creatine Kinase Index CK-MB (CK-2) Troponin I B-Natriuretic Peptide Total Protein Albumin Urine Color Yellow Urine Appearance Clear Urine pH 6.0 Ur Specific [place] 1.020 Urine Protein 2+ H Urine Glucose (UA) Negative Urine Ketones Negative Urine Blood 1+ H Urine Nitrite Negative Urine Bilirubin Negative Urine Urobilinogen Negative Urine WBC (Auto) 1 Urine RBC (Auto) 4 Urine Mucus Rare 08/24/17 12:14 RBC 3.41 L MCV 103.6 H MCHC 32.6 RDW 14.8 MPV 8.2 Neutrophils % 68.2 D Lymphocytes % 21.7 D Monocytes % 9.2 Eosinophils % 0.5 D Basophils % 0.4 D - Medications Given in the ED: ED Medications Discontinued Medications Generic Name Dose Route Start Last Admin Trade Name Freq PRN Reason Stop Dose Admin Morphine Sulfate 2 mg 08/24/17 13:17 08/24/17 13:31 Morphine Injection - IVPUSH 08/24/17 13:18 2 mg ONCE ONE Administration Morphine Sulfate 4 mg 08/24/17 14:34 08/24/17 15:42 Morphine Injection - IVPUSH 08/24/17 14:35 4 mg ONCE ONE Administration Medical Decision Making <Efra Veloz - Last Filed: 08/24/17 12:23> <To Mo - Last Filed: 08/24/17 16:23> - Medical Decision Making 08/24/17 11:11 77-year-old male, former smoker, COPD, SVT status post ablation, CAD status post PCI, CHF, hypertension, hyperlipidemia, leukemia, currently in remission, here with chest pain. Patient reports substernal, non-radiating chest pain since yesterday pressure-like in nature with an intensity of 7 out of 10 with no exacerbating or alleviating factors. Does report some shortness of breath and fatigue when walking, but states that is baseline for him, but might have worsened yesterday. Had diaphoresis enroute to ER. No n/v, palpitations, edema , wheezing, cough, f/c. States pain similar to prior to his cardiac stent that he had placed remotely. Stress test done last year, but does not remember results. 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 See exam CP R/o ACS, less likely CHF or COPD flare, has RF for PE given h/o leukemia but no tachycardia or leg pain/swelling -asa given enroute -ekg -labs -cxr -cards c/s -admit (Efra Veloz) *DC/Admit/Observation/Transfer <Efra Veloz - Last Filed: 08/24/17 12:23> - Discharge Dispostion Admit: Yes <To Mo - Last Filed: 08/24/17 16:23> Diagnosis at time of Disposition: Chest pain Qualifiers: Chest pain type: unspecified Qualified Code(s): R07.9 - Chest pain, unspecified - Discharge Dispostion Condition at time of disposition: Stable
[2017-08-24 12:24] LABS: BASO % 0.4 % (0-2.0); EOS % 0.5 % (0-4.5); LYMPH # 1.1; MCH 33.8 pg (25.7-33.7); MCHC 32.6 g/dl (32.0-35.9); MEAN CELL VOLUME 103.6 fl (80-96); MEAN PLT VOLUME 8.2 fl (7.5-11.1); MONO # 0.5 #; NEUT # 3.3 #; NEUT % 68.2 % (42.8-82.8); PLATELET COUNT 104 K/MM3 (134-434); RDW 14.8 % (11.9-15.9); WHITE BLOOD COUNT 4.9 K/mm3 (4.0-10.0)
[2017-08-24 12:25] LABS: URINE APPEARANCE CLEAR; URINE BILIRUBIN NEGATIVE (NEGATIVE); URINE BLOOD 1+ (NEGATIVE); URINE COLOR YELLOW; URINE GLUCOSE (UA) NEGATIVE (NEGATIVE); URINE KETONE NEGATIVE (NEGATIVE); URINE LEUK ESTERASE NEGATIVE (NEGATIVE); URINE NITRITE NEGATIVE (NEGATIVE); URINE UROBILINOGEN NEGATIVE mg/dL (0.2-1.0)
[2017-08-24 12:45] LABS: URINE PROTEIN 2+ (NEGATIVE)
[2017-08-24 13:00] LABS: CPK 153 IU/L (39-308); TROPONIN I < 0.02 ng/ml (0.00-0.05)
--- NOTE | 2017-08-24 13:11 | PDOC ---
*Physical Exam - Vital Signs Last Vital Signs Temp Pulse Resp BP Pulse Ox 98.6 F 86 19 170/71 100 08/24/17 11:09 08/24/17 11:09 08/24/17 11:09 08/24/17 11:09 08/24/17 12:14 <Chepe,To - Last Filed: 08/24/17 16:23> - Vital Signs Last Vital Signs Temp Pulse Resp BP Pulse Ox 98.5 F 79 17 125/87 98 08/24/17 13:46 08/24/17 13:46 08/24/17 13:46 08/24/17 13:46 08/24/17 13:46 <ShethGiomilsy - Last Filed: 08/24/17 16:45> Heart Score/ECG Review - ECG Impressions Comment:: 08/24/17 13:11 Twelve-lead EKG was performed and reviewed by me. There is normal sinus rhythm with a normal rate. rate of 87 axis is normal no st changes suggestive of acute ischemia <Chepe,To - Last Filed: 08/24/17 16:23> ED Treatment Course - LABORATORY CBC & Chemistry Diagram: 08/24/17 12:14 08/24/17 13:54 - ADDITIONAL ORDERS Additional order review: Laboratory Results 08/24/17 08/24/17 08/24/17 12:14 12:14 12:14 Creatine Kinase 153 Troponin I < 0.02 B-Natriuretic Peptide 414.23 Urine Color Yellow Urine Appearance Clear Urine pH 6.0 Ur Specific [place] 1.020 Urine Protein 2+ H Urine Glucose (UA) Negative Urine Ketones Negative Urine Blood 1+ H Urine Nitrite Negative Urine Bilirubin Negative Urine Urobilinogen Negative 08/24/17 12:14 RBC 3.41 L MCV 103.6 H MCHC 32.6 RDW 14.8 MPV 8.2 Neutrophils % 68.2 D Lymphocytes % 21.7 D Monocytes % 9.2 Eosinophils % 0.5 D Basophils % 0.4 D <Chepe,To - Last Filed: 08/24/17 16:23> - LABORATORY CBC & Chemistry Diagram: 08/24/17 12:14 08/24/17 13:54 - ADDITIONAL ORDERS Additional order review: Laboratory Results 08/24/17 08/24/17 08/24/17 13:54 12:14 12:14 Sodium 143 Potassium 3.7 Chloride 108 H Carbon Dioxide 25 Anion Gap 10 BUN 13 D Creatinine 0.9 Creat Clearance w eGFR > 60 Random Glucose 112 H Calcium 9.1 Total Bilirubin 0.5 D AST 38 H D ALT 70 D Alkaline Phosphatase 78 D Creatine Kinase 153 Creatine Kinase Index 0.8 CK-MB (CK-2) 1.339 Troponin I < 0.02 B-Natriuretic Peptide 414.23 Total Protein 7.5 Albumin 3.5 Urine Color Urine Appearance Urine pH Ur Specific [place] Urine Protein Urine Glucose (UA) Urine Ketones Urine Blood Urine Nitrite Urine Bilirubin Urine Urobilinogen Urine WBC (Auto) Urine RBC (Auto) Urine Mucus 08/24/17 12:14 Sodium Potassium Chloride Carbon Dioxide Anion Gap BUN Creatinine Creat Clearance w eGFR Random Glucose Calcium Total Bilirubin AST ALT Alkaline Phosphatase Creatine Kinase Creatine Kinase Index CK-MB (CK-2) Troponin I B-Natriuretic Peptide Total Protein Albumin Urine Color Yellow Urine Appearance Clear Urine pH 6.0 Ur Specific [place] 1.020 Urine Protein 2+ H Urine Glucose (UA) Negative Urine Ketones Negative Urine Blood 1+ H Urine Nitrite Negative Urine Bilirubin Negative Urine Urobilinogen Negative Urine WBC (Auto) 1 Urine RBC (Auto) 4 Urine Mucus Rare 08/24/17 12:14 RBC 3.41 L MCV 103.6 H MCHC 32.6 RDW 14.8 MPV 8.2 Neutrophils % 68.2 D Lymphocytes % 21.7 D Monocytes % 9.2 Eosinophils % 0.5 D Basophils % 0.4 D - RADIOLOGY Radiograph Interpretation: 08/24/17 16:44 EXAM: CXR INTERPRETED BY: Dr. Carroll REVIEWED BY: Dr. Mo IMPRESSION: No acute pathology. - Medications Given in the ED: ED Medications Discontinued Medications Generic Name Dose Route Start Last Admin Trade Name Freq PRN Reason Stop Dose Admin Morphine Sulfate 2 mg 08/24/17 13:17 08/24/17 13:31 Morphine Injection - IVPUSH 08/24/17 13:18 2 mg ONCE ONE Administration Morphine Sulfate 4 mg 08/24/17 14:34 08/24/17 15:42 Morphine Injection - IVPUSH 08/24/17 14:35 4 mg ONCE ONE Administration <Robert Sheth - Last Filed: 08/24/17 16:45> Medical Decision Making - Medical Decision Making 08/24/17 13:10 The patient was seen and evaluated in conjunction with JONA Veloz under my direct supervision, ancillary studies were reviewed. I independently interviewed and evaluated the patient and I agree with the plan as outlined by JONA Veloz . 77ym hx of cad sp stents in 2010, afib, cva, presents with chest pain, exertional SINGLETON exam unremarkable ekg nonischemic s/p ASA by EMS will notify dr. vaca regarding observation 08/24/17 14:34 pt feeling improved will admit for [facility] trop neg ekg unremarkable will page dr. Espinoza regarding observation admission 08/24/17 15:39 case rené espinoza requests observation under hospitalist service 08/24/17 16:23 case rené Villela - agree with observation in tele for further risk stretifcation of cp Case discussed in detail with admitting physician including history, physical exam and ancillary studies. Admitting physician has assumed care for the patient, will follow all pending diagnostics and will complete the evaluation and treatment. <To Mo - Last Filed: 08/24/17 16:23> *DC/Admit/Observation/Transfer - Discharge Dispostion Admit: Yes <To Mo - Last Filed: 08/24/17 16:23> - Attestations Scribe Attestion: 08/24/17 16:45 Documentation prepared by Robert Sheth, acting as medical bill processor for To Mo MD. <Robert Sheth - Last Filed: 08/24/17 16:45> Diagnosis at time of Disposition: Chest pain Qualifiers: Chest pain type: unspecified Qualified Code(s): R07.9 - Chest pain, unspecified - Discharge Dispostion Condition at time of disposition: Stable
[2017-08-24] MEDS ORDERED: morphine CARPU-JECT 2 MG/1 ML DISP.SYRIN IVPUSH ONE (13:17)
[2017-08-24] MEDS ORDERED: morphine CARPU-JECT 10 MG/1 ML DISP.SYRIN ONE ×2 (13:20→15:41)
--- NOTE | 2017-08-24 13:51 | CON.CARD ---
Consult - History of Present Illness History of Present Illness: The patient is a 77 year old male, with a significant past medical history of leukemia, diverticulosis, SVT sd/p ablation, CAD s/p PCI, CHF, HTN, and hyperlipidemia, who presents to the emergency department with chest pain. He denies chest pain, headache and dizziness. He denies chills, nausea, vomit, diarrhea and constipation. Hedenies dysuria, frequency, urgency and hematuria. Allergies: nitroglycerin Past surgical history: colon resection (2009), Stent (2009), Cyst removal Social history: former smoker PCP - Dr. 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 (Arnold Chiari Malformation- s/p craniotomy/repair- 1998) Cardio/Vascular: Yes: CAD, CHF, HTN, Hyperlipdemia, Other (Cardiac arrhythmia- atrial tachycardia) Gastrointestinal: Yes: GI Bleed, Hemorrhoids, Other (s/p partial colectomy for diverticulosis) Renal/: Yes: Renal Calculi - Past Surgical History Past Surgical History: Yes: Colectomy - Alcohol/Substance Use Hx Alcohol Use: No History of Substance Use: reports: None - Smoking History Smoking history: Former smoker Have you smoked in the past 12 months: No Aproximately how many cigarettes per day: 5 If you are a former smoker, when did you quit?: 45 YEARS AGO - Social History Usual Living Arrangement: With Spouse 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 Travel: No Home Medications - Allergies Allergies/Adverse Reactions: Allergies Allergy/AdvReac Type Severity Reaction Status Date / Time nitroglycerin [Nitroglycerin] Allergy Unknown severe Verified 08/24/17 11:09 headache - Home Medications Home Medications: Ambulatory Orders Amlodipine Besylate [Norvasc -] 5 mg PO DAILY 04/15/16 Atorvastatin Ca [Lipitor] 80 mg PO HS 04/15/16 Tamsulosin HCl 0.4 mg PO DAILY 04/15/16 Metoprolol Succinate [Toprol XL -] 50 mg PO DAILY tab.sr.24h 09/03/16 Dasatinib [Sprycel] 50 mg PO DAILY 05/09/17 Albuterol Sulfate Inhaler - [Ventolin Hfa Inhaler -] 1 - 2 inh PO Q4H PRN #1 inhaler 07/30/17 Family Disease History - Family Disease History Family Disease History: Other: Son (CML) Review of Systems - Review of Systems Constitutional: reports: No Symptoms Eyes: reports: No Symptoms HENT: reports: No Symptoms Neck: reports: No Symptoms Cardiovascular: reports: Chest Pain Gastrointestinal: reports: No Symptoms Genitourinary: reports: No Symptoms Breasts: reports: No Symptoms Reported Musculoskeletal: reports: No Symptoms Integumentary: reports: No Symptoms Neurological: reports: No Symptoms Endocrine: reports: No Symptoms Hematology/Lymphatic: reports: No Symptoms Psychiatric: reports: No Symptoms Vital Signs: Vital Signs Temperature 98.5 F 08/24/17 13:46 Pulse Rate 79 08/24/17 13:46 Respiratory Rate 17 08/24/17 13:46 Blood Pressure 125/87 08/24/17 13:46 O2 Sat by Pulse Oximetry (%) 98 08/24/17 13:46 Constitutional: Yes: Well Nourished, No Distress, Calm Eyes: Yes: WNL, Conjunctiva Clear, EOM Intact HENT: Yes: WNL, Atraumatic, Normocephalic Neck: Yes: WNL, Supple, Trachea Midline Respiratory: Yes: WNL, Regular, CTA Bilaterally Gastrointestinal: Yes: WNL, Normal Bowel Sounds Renal/: Yes: WNL Cardiovascular: Yes: WNL, Regular Rate and Rhythm Musculoskeletal: Yes: WNL Extremities: Yes: WNL Integumentary: Yes: WNL Neurological: Yes: WNL, Alert, Oriented ...Motor Strength: WNL Psychiatric: Yes: WNL, Alert, Oriented - Other Data Labs, Other Data: CBC, BMP 08/24/17 12:14 Troponin, BNP 08/24/17 08/24/17 12:14 12:14 Troponin I < 0.02 B-Natriuretic Peptide 414.23 Troponin, BNP 08/24/17 08/24/17 12:14 12:14 Troponin I < 0.02 B-Natriuretic Peptide 414.23 Imaging - Results Chest X-ray: Image Reviewed (no i/e) EKG: Image Reviewed (sr nonspec rep abn) Problem List - Problems (1) ALL (acute lymphoid leukemia) in remission Code(s): C91.01 - ACUTE LYMPHOBLASTIC LEUKEMIA, IN REMISSION (2) ASHD (arteriosclerotic heart disease) Code(s): I25.10 - ATHSCL HEART DISEASE OF [place] CORONARY ARTERY W/O ANG PCTRS (3) Abdominal abscess Code(s): K65.1 - PERITONEAL ABSCESS (4) Abscess of gastrointestinal tract Code(s): K63.0 - ABSCESS OF INTESTINE (5) Acute leukemia Code(s): C95.00 - ACUTE LEUKEMIA OF UNSP CELL TYPE NOT ACHIEVE REMISSION (6) Atrial tachycardia Code(s): I47.1 - SUPRAVENTRICULAR TACHYCARDIA (7) Bilateral pleural effusion Code(s): J90 - PLEURAL EFFUSION, NOT ELSEWHERE CLASSIFIED (8) COPD (chronic obstructive pulmonary disease) Code(s): J44.9 - CHRONIC OBSTRUCTIVE PULMONARY DISEASE, UNSPECIFIED (9) Chest pain Code(s): R07.9 - CHEST PAIN, UNSPECIFIED Qualifiers: Chest pain type: unspecified Qualified Code(s): R07.9 - Chest pain, unspecified (10) Chronic pain Code(s): G89.29 - OTHER CHRONIC PAIN (11) Community acquired bacterial pneumonia Code(s): J15.9 - UNSPECIFIED BACTERIAL PNEUMONIA (12) Dyspnea Code(s): R06.00 - DYSPNEA, UNSPECIFIED (13) GI bleeding Code(s): K92.2 - GASTROINTESTINAL HEMORRHAGE, UNSPECIFIED (14) H/O heart artery stent Code(s): Z95.5 - PRESENCE OF CORONARY ANGIOPLASTY IMPLANT AND GRAFT (15) HTN (hypertension) Code(s): I10 - ESSENTIAL (PRIMARY) HYPERTENSION Qualifiers: (16) Hydronephrosis of left kidney Code(s): N13.30 - UNSPECIFIED HYDRONEPHROSIS (17) Hydroureter on left Code(s): N13.4 - HYDROURETER (18) Hyperlipidemia Code(s): E78.5 - HYPERLIPIDEMIA, UNSPECIFIED (19) Influenza A Code(s): J10.1 - FLU DUE TO OTH IDENT INFLUENZA VIRUS W OTH RESP MANIFEST (20) Ischemic bowel syndrome Code(s): K55.9 - VASCULAR DISORDER OF INTESTINE, UNSPECIFIED (21) Leukocytosis Code(s): D72.829 - ELEVATED WHITE BLOOD CELL COUNT, UNSPECIFIED (22) Pneumonia Code(s): J18.9 - PNEUMONIA, UNSPECIFIED ORGANISM Qualifiers: (23) Postoperative ileus Code(s): K91.3 - POSTPROCEDURAL INTESTINAL OBSTRUCTION * DO NOT USE * (24) Renal calculus or stone Code(s): N20.0 - CALCULUS OF KIDNEY (25) S/P left colectomy Code(s): Z90.49 - ACQUIRED ABSENCE OF OTHER SPECIFIED PARTS OF DIGESTIVE TRACT (26) Shortness of breath Code(s): R06.02 - SHORTNESS OF BREATH Assessment/Plan history of leukemia, diverticulosis, SVT sd/p parahission ablation, CAD s/p PCI , CHF, HTN, and hyperlipidemia, who presents to the emergency department with chest pain. plan ce ekg x 3 to r/o mi telemetry cont medical rx mibi st when stable
[2017-08-24 14:06] LABS: URINE MUCUS RARE; URINE RBC 4 /hpf (0-3); URINE WBC 1 /hpf (3-5)
[2017-08-24 14:14] LABS: ALBUMIN 3.5 g/dl (3.4-5.0); ANION GAP 10 (8-16); BILIRUBIN,TOTAL 0.5 mg/dL (0.2-1.0); CALCIUM 9.1 mg/dL (8.5-10.1); CO2 25 mmol/L (21-32); CREATININE 0.9 mg/dL (0.7-1.3); GLUCOSE,RANDOM 112 mg/dL (74-106); SGOT/AST 38 U/L (15-37); SGPT/ALT 70 U/L (12-78); TOT PROT 7.5 g/dl (6.4-8.2)
[2017-08-24 14:15] LABS: ALK PHOS 78 U/L (45-117)
[2017-08-24] MEDS ORDERED: morphine CARPU-JECT 4 MG/1 ML DISP.SYRIN IVPUSH ONE (14:34)
--- NOTE | 2017-08-24 15:30 | EKG ---
Test Reason : Blood Pressure : / mmHG Vent. Rate : 087 BPM Atrial Rate : 087 BPM P-R Int : 200 ms QRS Dur : 086 ms QT Int : 352 ms P-R-T Axes : 049 049 024 degrees QTc Int : 423 ms NORMAL SINUS RHYTHM WITH SINUS ARRHYTHMIA SEPTAL INFARCT (CITED ON OR BEFORE 27-JUL-2017) ABNORMAL ECG WHEN COMPARED WITH ECG OF 27-JUL-2017 04:57, NO SIGNIFICANT CHANGE WAS FOUND Confirmed by RUBY GARCIA MD ([id number]) on 08/24/2017 3:30:24 PM Referred By: Confirmed By:RUBY GARCIA MD
--- NOTE | 2017-08-24 17:26 | HP ---
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 He states he was lying in bed when the pain started. He rated the pain 7/10 and described as "an uncomfortable feeling." He denied dizziness, SOB, nausea, vomiting, diaphoresis. He states the pain he has is different than his chest pain when he had his stents. ER course was notable for: (1) Troponin (-) (2) EKG- NSR (3) CXR- No active disease Recent Travel: denies PAST MEDICAL HISTORY: see HPI PAST SURGICAL HISTORY: see HPI Social History: Smoking: denies Alcohol: denies Drugs: denies Family History: Allergies nitroglycerin [Nitroglycerin] Allergy (Unknown, Verified 08/24/17 11:09) severe headache pt refuses to take ntg HOME MEDICATIONS: Home Medications Medication Instructions Recorded Amlodipine Besylate [Norvasc -] 5 mg PO DAILY 04/15/16 Atorvastatin Ca [Lipitor] 80 mg PO HS 04/15/16 Tamsulosin HCl 0.4 mg PO DAILY 04/15/16 Metoprolol Succinate [Toprol XL -] 50 mg PO DAILY tab.sr.24h 09/03/16 Dasatinib [Sprycel] 50 mg PO DAILY 05/09/17 Albuterol Sulfate Inhaler - 1 - 2 inh PO Q4H PRN #1 inhaler 07/30/17 [Ventolin Hfa Inhaler -] REVIEW OF SYSTEMS CONSTITUTIONAL: Absent: fever, chills, diaphoresis, generalized weakness, malaise, loss of appetite, weight change HEENT: Absent: rhinorrhea, nasal congestion, throat pain, throat swelling, difficulty swallowing, mouth swelling, ear pain, eye pain, visual changes CARDIOVASCULAR: Present- midsternal chest pain Absent: syncope, palpitations, irregular heart rate, lightheadedness, peripheral edema RESPIRATORY: Absent: cough, shortness of breath, dyspnea with exertion, orthopnea, wheezing, stridor, hemoptysis GASTROINTESTINAL: Absent: abdominal pain, abdominal distension, nausea, vomiting, diarrhea, constipation, melena, hematochezia GENITOURINARY: Absent: dysuria, frequency, urgency, hesitancy, hematuria, flank pain, genital pain MUSCULOSKELETAL: Absent: myalgia, arthralgia, joint swelling, back pain, neck pain SKIN: Absent: rash, itching, pallor HEMATOLOGIC/IMMUNOLOGIC: Absent: easy bleeding, easy bruising, lymphadenopathy, frequent infections ENDOCRINE: Absent: unexplained weight gain, unexplained weight loss, heat intolerance, cold intolerance NEUROLOGIC: Absent: headache, focal weakness or paresthesias, dizziness, unsteady gait, seizure, mental status changes, bladder or bowel incontinence PSYCHIATRIC: Absent: anxiety, depression, suicidal or homicidal ideation, hallucinations. PHYSICAL EXAMINATION Vital Signs - 24 hr 08/24/17 08/24/17 08/24/17 11:09 12:14 13:46 Temperature 98.6 F 98.5 F Pulse Rate 86 Pulse Rate [ 79 Apical] Respiratory 19 17 Rate Blood Pressure 170/71 Blood Pressure 125/87 [Left Arm] O2 Sat by Pulse 100 100 98 Oximetry (%) GENERAL: Awake, alert, and fully oriented, in no acute distress. HEAD: Normal with no signs of trauma. EYES: Pupils equal, round and reactive to light, extraocular movements intact, sclera anicteric, conjunctiva clear. No lid lag. EARS, NOSE, THROAT: Ears normal, nares patent, oropharynx clear without exudates. Moist mucous membranes. NECK: Normal range of motion, supple without lymphadenopathy, JVD, or masses. LUNGS: Breath sounds equal, clear to auscultation bilaterally. No wheezes, and no crackles. No accessory muscle use. HEART: Regular rate and rhythm, normal S1 and S2 without murmur, rub or gallop. ABDOMEN: Soft, nontender, not distended, normoactive bowel sounds, no guarding, no rebound, no masses. No hepatomegaly or splenomegaly. MUSCULOSKELETAL: Normal range of motion at all joints. No bony deformities or tenderness. No CVA tenderness. UPPER EXTREMITIES: 2+ pulses, warm, well-perfused. No cyanosis. No clubbing. No peripheral edema. LOWER EXTREMITIES: 2+ pulses, warm, well-perfused. No calf tenderness. No peripheral edema. NEUROLOGICAL: Cranial nerves II-XII intact. Normal speech. Normal gait. PSYCHIATRIC: Cooperative. Good eye contact. Appropriate mood and affect. SKIN: Warm, dry, normal turgor, no rashes or lesions noted, normal capillary refill. Laboratory Results - last 24 hr 08/24/17 08/24/17 08/24/17 12:14 12:14 12:14 WBC 4.9 D RBC 3.41 L Hgb 11.5 L Hct 35.3 L MCV 103.6 H MCH 33.8 H MCHC 32.6 RDW 14.8 Plt Count 104 L D MPV 8.2 Neutrophils % 68.2 D Lymphocytes % 21.7 D Monocytes % 9.2 Eosinophils % 0.5 D Basophils % 0.4 D Sodium Potassium Chloride Carbon Dioxide Anion Gap BUN Creatinine Creat Clearance w eGFR Random Glucose Calcium Total Bilirubin AST ALT Alkaline Phosphatase Creatine Kinase 153 Creatine Kinase Index 0.8 CK-MB (CK-2) 1.339 Troponin I < 0.02 B-Natriuretic Peptide Total Protein Albumin Urine Color Yellow Urine Appearance Clear Urine pH 6.0 Ur Specific [place] 1.020 Urine Protein 2+ H Urine Glucose (UA) Negative Urine Ketones Negative Urine Blood 1+ H Urine Nitrite Negative Urine Bilirubin Negative Urine Urobilinogen Negative Urine WBC (Auto) 1 Urine RBC (Auto) 4 Urine Mucus Rare 08/24/17 08/24/17 12:14 13:54 WBC RBC Hgb Hct MCV MCH MCHC RDW Plt Count MPV Neutrophils % Lymphocytes % Monocytes % Eosinophils % Basophils % Sodium 143 Potassium 3.7 Chloride 108 H Carbon Dioxide 25 Anion Gap 10 BUN 13 D Creatinine 0.9 Creat Clearance w eGFR > 60 Random Glucose 112 H Calcium 9.1 Total Bilirubin 0.5 D AST 38 H D ALT 70 D Alkaline Phosphatase 78 D Creatine Kinase Creatine Kinase Index CK-MB (CK-2) Troponin I B-Natriuretic Peptide 414.23 Total Protein 7.5 Albumin 3.5 Urine Color Urine Appearance Urine pH Ur Specific [place] Urine Protein Urine Glucose (UA) Urine Ketones Urine Blood Urine Nitrite Urine Bilirubin Urine Urobilinogen Urine WBC (Auto) Urine RBC (Auto) Urine Mucus ECHO 07/27/17- LV normal with normal EF. No MR. Undetectable TR. 10/14: stress MIBI negative for ischemia. CHEST X-RAY PORTABLE* Chest: Chest pain Since the prior study of 07/27/2017, the left base infiltrate is no longer seen. There is a prominent mediastinum, clear lungs and sharp angles. Soft tissues are intact and there are some degenerative changes. Impression: No acute pathology. 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 P: CAD - serial troponin - ASA 81mg daily - metoprolol 50mg daily - O2 to maintain Spo2>94% - morphine prn - stress test - had normal echo 07/27/17 - Cards consult ALL - sprycel- may take his own HTN - norvasc - metoprolol HLD - lipitor - AM lipid panel F/E/N - cardiac diet - replete prn PPX - sqh - OOB Dispo- requires observation for acute medical condition Visit type - Emergency Visit Emergency Visit: Yes ED Registration Date: 08/24/17 Care time: The patient presented to the Emergency Department on the above date and was hospitalized for further evaluation of their emergent condition. - New Patient This patient is new to me today: Yes Date on this admission: 08/24/17 - Critical Care Critical Care patient: No
[2017-08-24] MEDS ORDERED: morphine SULFATE 4 MG/ML VIAL IVPUSH PRN (17:51)
[2017-08-24 19:05] LABS: URINE LEUK ESTERASE Negative (NEGATIVE)
[2017-08-24] MEDS: ATORVASTATIN CA 80 MG TABLET (FP) PO SCH (21:22)
[2017-08-24] MEDS: HEPARIN NA (PORCINE) 5,000 UNITS/ML 1ML VIAL SQ SCH (21:22)
[2017-08-25] MEDS: ACETAMINOPHEN 325 MG TABLET (FP) PO PRN ×2 (01:40→20:08)
[2017-08-25] MEDS: morphine CARPU-JECT 8 MG/1 ML DISP.SYRIN IVPUSH PRN ×2 (05:51→05:56)
[2017-08-25 05:57] LABS: BASO % 0.3 % (0-2.0); EOS # 0.1 #; EOS % 1.3 % (0-4.5); MCH 34.4 pg (25.7-33.7); MCHC 33.1 g/dl (32.0-35.9); MEAN PLT VOLUME 8.3 fl (7.5-11.1); MONO # 0.6 #; NEUT # 2.8 #; NEUT % 51.2 % (42.8-82.8); PLATELET COUNT 96 K/MM3 (134-434); RDW 14.6 % (11.9-15.9); WHITE BLOOD COUNT 5.4 K/mm3 (4.0-10.0)
[2017-08-25 06:34] LABS: ALK PHOS 79 U/L (45-117); ANION GAP 7 (8-16); BILIRUBIN,TOTAL 0.7 mg/dL (0.2-1.0); CALCIUM 8.4 mg/dL (8.5-10.1); CO2 27 mmol/L (21-32); GLUCOSE,RANDOM 102 mg/dL (74-106); SGOT/AST 35 U/L (15-37); SGPT/ALT 62 U/L (12-78); TOT PROT 6.6 g/dl (6.4-8.2)
[2017-08-25] MEDS: ASPIRIN 81 MG CHEWABLE TABLETS PO SCH ×3 (09:51→12:20)
[2017-08-25] MEDS: TAMSULOSIN HCL 0.4 MG CAP.ER.24H (FP) PO SCH ×2 (09:51→12:20)
[2017-08-25] MEDS: HEPARIN NA (PORCINE) 5,000 UNITS/ML 1ML VIAL SQ SCH ×3 (09:51→22:13)
[2017-08-25] MEDS: amLODIPine BESYLATE 5 MG TABLET (FP) PO SCH (09:51)
[2017-08-25] MEDS: METOPROLOL SUCCINATE 50 MG TAB.SR.24H (FP) PO SCH ×2 (09:52→12:19)
[2017-08-25] MEDS ORDERED: REGADENOSON 0.4 MG/5 ML PRE-FILLED SYRINGE IVPUSH ONE (10:58)
[2017-08-25 11:12] LABS: CHOLESTEROL 125 mg/dL (50-200); CPK 125 IU/L (39-308)
[2017-08-25 11:13] LABS: TROPONIN I 0.02 ng/ml (0.00-0.05)
[2017-08-25] MEDS: oxyCODONE HCL 5 MG TABLET PO PRN ×2 (13:07→20:09)
--- NOTE | 2017-08-25 14:50 | EKG ---
Test Reason : Blood Pressure : / mmHG Vent. Rate : 070 BPM Atrial Rate : 070 BPM P-R Int : 212 ms QRS Dur : 082 ms QT Int : 382 ms P-R-T Axes : 062 074 040 degrees QTc Int : 412 ms SINUS RHYTHM WITH 1ST DEGREE A-V BLOCK POSSIBLE LEFT ATRIAL ENLARGEMENT SEPTAL INFARCT (CITED ON OR BEFORE 27-JUL-2017) ABNORMAL ECG WHEN COMPARED WITH ECG OF 24-AUG-2017 11:10, NO SIGNIFICANT CHANGE WAS FOUND Confirmed by KATE CLEMENTS MD ([id number]) on 08/25/2017 2:50:41 PM Referred By: Confirmed By:KATE CLEMENTS MD
[2017-08-25] MEDS ORDERED: DASATINIB 50 MG PO SCH (15:00)
--- NOTE | 2017-08-25 16:11 | PN ---
Physical Exam: SUBJECTIVE: Patient seen and examined at the bedside. States he is still having midsternal chest pressure 5/10 that is relieved with Oxycodone. OBJECTIVE: Vital Signs Period Temp Pulse Resp BP Sys/Quiroz Pulse Ox Last 24 Hr 98 F-99.2 F 62-88 17-20 142-162/72-80 96-99 GENERAL: The patient is awake, alert, and fully oriented, in no acute distress. HEAD: Normal with no signs of trauma. EYES: PERRL, extraocular movements intact, sclera anicteric, conjunctiva clear. No ptosis. ENT: Ears normal, nares patent, oropharynx clear without exudates, moist mucous membranes. NECK: Trachea midline, full range of motion, supple. LUNGS: Breath sounds equal, clear to auscultation bilaterally, no wheezes HEART: Regular rate and rhythm ABDOMEN: Soft, nontender, nondistended, normoactive bowel sounds, no guarding, no rebound, no hepatosplenomegaly, no masses. EXTREMITIES: 2+ pulses, warm, well-perfused, no edema. NEUROLOGICAL: Normal speech, gait not observed. PSYCH: Normal mood, normal affect. SKIN: Warm, dry, normal turgor, no rashes or lesions noted Laboratory Results - last 24 hr 08/24/17 08/24/17 08/25/17 12:14 22:00 05:20 WBC 5.4 RBC 2.98 L Hgb 10.2 L D Hct 31.0 L MCV 104.0 H MCH 34.4 H MCHC 33.1 RDW 14.6 Plt Count 96 L MPV 8.3 Neutrophils % 51.2 D Lymphocytes % 36.2 D Monocytes % 11.0 H Eosinophils % 1.3 D Basophils % 0.3 Sodium Potassium Chloride Carbon Dioxide Anion Gap BUN Creatinine Creat Clearance w eGFR Random Glucose Calcium Total Bilirubin AST ALT Alkaline Phosphatase Creatine Kinase Troponin I 0.02 Total Protein Albumin Triglycerides Cholesterol Total LDL Cholesterol HDL Cholesterol Ur Leukocyte Esterase Negative 08/25/17 08/25/17 08/25/17 05:20 05:20 05:20 WBC RBC Hgb Hct MCV MCH MCHC RDW Plt Count MPV Neutrophils % Lymphocytes % Monocytes % Eosinophils % Basophils % Sodium 143 Potassium 3.8 Chloride 109 H Carbon Dioxide 27 Anion Gap 7 L BUN 18 D Creatinine 1.0 Creat Clearance w eGFR > 60 Random Glucose 102 Calcium 8.4 L Total Bilirubin 0.7 D AST 35 ALT 62 Alkaline Phosphatase 79 Creatine Kinase 125 Cancelled Troponin I 0.02 Cancelled Total Protein 6.6 Albumin 3.0 L Triglycerides 94 Cancelled Cholesterol 125 Cancelled Total LDL Cholesterol 56 Cancelled HDL Cholesterol 58 Cancelled Ur Leukocyte Esterase Active Medications Generic Name Dose Route Start Last Admin Trade Name Freq PRN Reason Stop Dose Admin Acetaminophen 650 mg 08/24/17 16:27 08/25/17 01:40 Tylenol - PO 650 mg Q4H PRN Administration FEVER OR PAIN Amlodipine Besylate 5 mg 08/25/17 10:00 08/25/17 09:51 Norvasc - PO Not Given DAILY [facility] Aspirin 81 mg 08/25/17 10:00 08/25/17 12:20 Asa - PO 81 mg DAILY ELIF Administration Atorvastatin Calcium 80 mg 08/24/17 22:00 08/24/17 21:22 Lipitor - PO 80 mg HS ELIF Administration Heparin Sodium (Porcine) 5,000 unit 08/24/17 22:00 08/25/17 12:21 Heparin - SQ 5,000 unit BID ELIF Administration Metoprolol Succinate 50 mg 08/25/17 10:00 08/25/17 12:19 Toprol Xl - PO 50 mg DAILY ELIF Administration Morphine Sulfate 2 mg 08/24/17 21:17 08/25/17 05:56 Morphine Sulfate IVPUSH 2 mg Q4H PRN Administration PAIN Non-Formulary Medication 50 mg 08/25/17 15:00 Dasatinib [Sprycel] PO DAILY ELIF Oxycodone HCl 5 mg 08/25/17 12:29 08/25/17 13:07 Roxicodone - PO 5 mg Q6H PRN Administration PAIN Tamsulosin HCl 0.4 mg 08/25/17 08:30 08/25/17 12:20 Flomax - PO 0.4 mg DAILY@0830 ELIF Administration ASSESSMENT/PLAN: Patient is a 77 year old male with a significant past medical history of leukemia (on Sprycel/dasatinib), CAD with 1 stent, CAP, chiari Malformation with repair, HTN, HLD and BPH. Patient presented to the ER on 08/24/2017 with complaints of mid-sternal chest pain while at rest starting at approximately 9pm on 08/23/17. He states he was lying in bed when the pain started and described as "an uncomfortable feeling" and was concerned since he has a cardiac history. On exam, he still reports having midsternal intermittent chest pressure that he rates 5/10, chest pressure does not radiate. He denies any jaw pain, diaphoresis or nausea. Cardiology Chest pain/midsternal, acute Patient reports intermittent chest pressure 5/10, continue tele monitoring, EKG in a.m. trops negative x 3 Stress pharmacological myoview perfusion scan, no ischemic changes with lexiscan with occasional isolated PVCs ASA 81mg daily Metoprolol 50mg daily Echo on 07/27/2017 normal Cardiology following Hypertension On Norvasc, Metoprolol Monitor BP Hyperlipidemia Lipid panel reviewed On Lipitor Oncology Leukemia, on home dose of sprycel Outpatient oncology follow up F.E.N. Fluids: tolerating PO Electrolytes: monitor Nutrition: low sodium Prophylaxis: DVT: heparin, ambulation GI; deferred Disposition: full code
--- NOTE | 2017-08-25 18:55 | PN ---
Progress Note, Physician Chief Complaint: Pt A&Ox3; very anxious regarding intermittent chest pain. Reassured regardeing negative stress MIBI today, but remains nervous. History of Present Illness: The patient is a 77 year old male, with a significant past medical history of leukemia, diverticulosis, SVT sd/p ablation, CAD s/p PCI, CHF, HTN, and hyperlipidemia, who presents to the emergency department with chest pain. He denies chest pain, headache and dizziness. He denies chills, nausea, vomit, diarrhea and constipation. Hedenies dysuria, frequency, urgency and hematuria. Allergies: nitroglycerin Past surgical history: colon resection (2009), Stent (2009), Cyst removal Social history: former smoker PCP - Dr. Cassie Alex - Current Medication List Current Medications: Active Medications Acetaminophen (Tylenol -) 650 mg PO Q4H PRN PRN Reason: FEVER OR PAIN Last Admin: 08/25/17 01:40 Dose: 650 mg Amlodipine Besylate (Norvasc -) 5 mg PO DAILY [facility] Last Admin: 08/25/17 09:51 Dose: Not Given Aspirin (Asa -) 81 mg PO DAILY [facility] Last Admin: 08/25/17 12:20 Dose: 81 mg Atorvastatin Calcium (Lipitor -) 80 mg PO HS [facility] Last Admin: 08/24/17 21:22 Dose: 80 mg Heparin Sodium (Porcine) (Heparin -) 5,000 unit SQ BID [facility] Last Admin: 08/25/17 12:21 Dose: 5,000 unit Metoprolol Succinate (Toprol Xl -) 50 mg PO DAILY [facility] Last Admin: 08/25/17 12:19 Dose: 50 mg Morphine Sulfate (Morphine Sulfate) 2 mg IVPUSH Q4H PRN PRN Reason: PAIN Last Admin: 08/25/17 05:56 Dose: 2 mg Non-Formulary Medication (Dasatinib [Sprycel]) 50 mg PO DAILY [facility] Oxycodone HCl (Roxicodone -) 5 mg PO Q6H PRN PRN Reason: PAIN Last Admin: 08/25/17 13:07 Dose: 5 mg Tamsulosin HCl (Flomax -) 0.4 mg PO DAILY@0830 [facility] Last Admin: 08/25/17 12:20 Dose: 0.4 mg - Objective Vital Signs: Vital Signs Temperature 98.6 F 08/25/17 18:00 Pulse Rate 63 08/25/17 18:00 Respiratory Rate 18 08/25/17 18:00 Blood Pressure 145/77 08/25/17 18:00 O2 Sat by Pulse Oximetry (%) 98 08/25/17 08:00 Constitutional: Yes: Anxious Labs: CBC, BMP 08/25/17 05:20 08/25/17 05:20 Problem List - Problems (1) Chest pain Code(s): R07.9 - CHEST PAIN, UNSPECIFIED Qualifiers: Chest pain type: unspecified Qualified Code(s): R07.9 - Chest pain, unspecified (2) ALL (acute lymphoid leukemia) in remission Code(s): C91.01 - ACUTE LYMPHOBLASTIC LEUKEMIA, IN REMISSION (3) ASHD (arteriosclerotic heart disease) Code(s): I25.10 - ATHSCL HEART DISEASE OF COUNCIL CORONARY ARTERY W/O ANG PCTRS (4) Atrial tachycardia Code(s): I47.1 - SUPRAVENTRICULAR TACHYCARDIA (5) COPD (chronic obstructive pulmonary disease) Code(s): J44.9 - CHRONIC OBSTRUCTIVE PULMONARY DISEASE, UNSPECIFIED (6) Community acquired bacterial pneumonia Code(s): J15.9 - UNSPECIFIED BACTERIAL PNEUMONIA (7) H/O heart artery stent Code(s): Z95.5 - PRESENCE OF CORONARY ANGIOPLASTY IMPLANT AND GRAFT (8) HTN (hypertension) Code(s): I10 - ESSENTIAL (PRIMARY) HYPERTENSION Qualifiers: (9) Hyperlipidemia Code(s): E78.5 - HYPERLIPIDEMIA, UNSPECIFIED
[2017-08-25] MEDS: ATORVASTATIN CA 80 MG TABLET (FP) PO SCH (22:13)
[2017-08-26 06:38] LABS: BASO % 0.3 % (0-2.0); EOS # 0.1 #; EOS % 2.4 % (0-4.5); LYMPH # 1.7; MCH 33.8 pg (25.7-33.7); MCHC 32.8 g/dl (32.0-35.9); MEAN CELL VOLUME 103.2 fl (80-96); MONO # 0.6 #; NEUT % 45.3 % (42.8-82.8); PLATELET COUNT 87 K/MM3 (134-434); RDW 14.7 % (11.9-15.9); WHITE BLOOD COUNT 4.5 K/mm3 (4.0-10.0)
[2017-08-26] MEDS: ACETAMINOPHEN 325 MG TABLET (FP) PO PRN (06:39)
[2017-08-26 08:24] LABS: ALBUMIN 3.2 g/dl (3.4-5.0); ALK PHOS 75 U/L (45-117); ANION GAP 12 (8-16); BILIRUBIN,TOTAL 0.7 mg/dL (0.2-1.0); CALCIUM 8.7 mg/dL (8.5-10.1); CO2 23 mmol/L (21-32); CREATININE 0.9 mg/dL (0.7-1.3); GLUCOSE,RANDOM 89 mg/dL (74-106); SGOT/AST 39 U/L (15-37); SGPT/ALT 60 U/L (12-78); TOT PROT 6.7 g/dl (6.4-8.2); TROPONIN I < 0.02 ng/ml (0.00-0.05)
--- NOTE | 2017-08-26 08:28 | DS ---
Physical Exam: SUBJECTIVE: Patient seen and examined, denies any further chest pain. OBJECTIVE: ekg, no change trop negative Vital Signs Period Temp Pulse Resp BP Sys/Quiroz Pulse Ox Last 24 Hr 98 F-98.8 F 63-84 18-18 131-155/58-80 97 PHYSICAL EXAM GENERAL: The patient is awake, alert, and fully oriented, in no acute distress. HEAD: Normal with no signs of trauma. EYES: PERRL, extraocular movements intact, sclera anicteric, conjunctiva clear. No ptosis. ENT: Ears normal, nares patent, oropharynx clear without exudates, moist mucous membranes. NECK: Trachea midline, full range of motion, supple. LUNGS: Breath sounds equal, clear to auscultation bilaterally, no wheezes HEART: Regular rate and rhythm ABDOMEN: Soft, nontender, nondistended, normoactive bowel sounds, no guarding, no rebound, no hepatosplenomegaly, no masses. EXTREMITIES: 2+ pulses, warm, well-perfused, no edema. NEUROLOGICAL: Normal speech, gait not observed. PSYCH: Normal mood, normal affect. SKIN: Warm, dry, normal turgor, no rashes or lesions noted LABS Laboratory Results - last 24 hr 08/25/17 08/25/17 08/25/17 05:20 05:20 05:20 WBC RBC Hgb Hct MCV MCH MCHC RDW Plt Count MPV Neutrophils % Lymphocytes % Monocytes % Eosinophils % Basophils % Sodium 143 Potassium 3.8 Chloride 109 H Carbon Dioxide 27 Anion Gap 7 L BUN 18 D Creatinine 1.0 Creat Clearance w eGFR > 60 Random Glucose 102 Calcium 8.4 L Total Bilirubin 0.7 D AST 35 ALT 62 Alkaline Phosphatase 79 Creatine Kinase 125 Cancelled Troponin I 0.02 Cancelled Total Protein 6.6 Albumin 3.0 L Triglycerides 94 Cancelled Cholesterol 125 Cancelled Total LDL Cholesterol 56 Cancelled HDL Cholesterol 58 Cancelled TSH 08/25/17 08/26/17 08/26/17 06:00 06:20 06:20 WBC 4.5 RBC 2.98 L Hgb 10.1 L Hct 30.8 L MCV 103.2 H MCH 33.8 H MCHC 32.8 RDW 14.7 Plt Count 87 L MPV 8.0 Neutrophils % 45.3 Lymphocytes % 38.8 Monocytes % 13.2 H Eosinophils % 2.4 D Basophils % 0.3 Sodium 142 Potassium 3.9 Chloride 107 Carbon Dioxide 23 Anion Gap 12 BUN 16 Creatinine 0.9 Creat Clearance w eGFR > 60 Random Glucose 89 Calcium 8.7 Total Bilirubin 0.7 AST 39 H ALT 60 Alkaline Phosphatase 75 Creatine Kinase Troponin I < 0.02 Total Protein 6.7 Albumin 3.2 L Triglycerides Cholesterol Total LDL Cholesterol HDL Cholesterol TSH 2.20 HOSPITAL COURSE: Date of Admission:08/24/17 Date of Discharge: 08/26/17 ASSESSMENT/PLAN: Patient is a 77 year old male with a significant past medical history of leukemia (on Sprycel/dasatinib), CAD with 1 stent, CAP, chiari Malformation with repair, HTN, HLD and BPH. Patient presented to the ER on 08/24/2017 with complaints of mid-sternal chest pain while at rest starting at approximately 9pm on 08/23/17. He states he was lying in bed when the pain started and described as "an uncomfortable feeling" and was concerned since he has a cardiac history. Cardiology Chest pain/midsternal, resolved trops negative x 4 Stress pharmacological myoview perfusion scan, no ischemic changes with lexiscan with occasional isolated PVCs ASA 81mg daily Metoprolol 50mg daily Echo on 07/27/2017 normal Cardiology following and cleared for d/c ekg 08/26, no change Trop 08/26 negative Hypertension On Norvasc, Metoprolol Hyperlipidemia Lipid panel reviewed On Lipitor Oncology Leukemia, on home dose of sprycel Outpatient oncology follow up Disposition: full code. discharge with referral to ivf embryologist outpatient. Minutes to complete discharge: 60 Discharge Summary Reason For Visit: CHEST PAIN Current Active Problems Chest pain (Acute) Condition: Stable - Instructions Diet, Activity, Other Instructions: Mr. Alfonso: You were worked up for your chest pain and we are happy to tell you that your blood work and tests were all negative. Please return to the ER if your symptoms worsen or if you experience any symptoms of shortness of breath. Please see your primary care doctor, Cassie Chang within 1 week of discharge for follow up. Please continue your home medications as prescribed: new medication > Aspirin 81mg daily Thank you [facility] [phone] Referrals: Jorge Keller MD [Staff Physician] - Cassie Alex MD [Staff Physician] - STAFF,NOT ON [Primary Care Provider] - Disposition: HOME - Home Medications Comprehensive Discharge Medication List: Ambulatory Orders Amlodipine Besylate [Norvasc -] 5 mg PO DAILY 04/15/16 Atorvastatin Ca [Lipitor] 80 mg PO HS 04/15/16 Tamsulosin HCl 0.4 mg PO DAILY 04/15/16 Metoprolol Succinate [Toprol XL -] 50 mg PO DAILY tab.sr.24h 09/03/16 Dasatinib [Sprycel] 50 mg PO DAILY 05/09/17 Albuterol Sulfate Inhaler - [Ventolin Hfa Inhaler -] 1 - 2 inh PO Q4H PRN #1 inhaler 07/30/17 This patient is new to me today: No Emergency Visit: Yes ED Registration Date: 08/24/17 Care time: The patient presented to the Emergency Department on the above date and was hospitalized for further evaluation of their emergent condition. Critical Care patient: No - Discharge Referral Referred to [facility] No
--- NOTE | 2017-08-26 09:21 | EKG ---
Test Reason : Blood Pressure : / mmHG Vent. Rate : 072 BPM Atrial Rate : 072 BPM P-R Int : 206 ms QRS Dur : 086 ms QT Int : 388 ms P-R-T Axes : 059 064 041 degrees QTc Int : 424 ms NORMAL SINUS RHYTHM SEPTAL INFARCT (CITED ON OR BEFORE 27-JUL-2017) ABNORMAL ECG WHEN COMPARED WITH ECG OF 25-AUG-2017 13:40, NO SIGNIFICANT CHANGE WAS FOUND Confirmed by ESDRAS PIZARRO MD ([id number]) on 08/26/2017 9:20:52 AM Referred By: Confirmed By:ESDRAS PIZARRO MD
[2017-08-26] MEDS: HEPARIN NA (PORCINE) 5,000 UNITS/ML 1ML VIAL SQ SCH (09:29)
[2017-08-26] MEDS: METOPROLOL SUCCINATE 50 MG TAB.SR.24H (FP) PO SCH (09:29)
[2017-08-26] MEDS: amLODIPine BESYLATE 5 MG TABLET (FP) PO SCH (09:29)
[2017-08-26] MEDS: ASPIRIN 81 MG CHEWABLE TABLETS PO SCH (09:29)
[2017-08-26] MEDS: TAMSULOSIN HCL 0.4 MG CAP.ER.24H (FP) PO SCH (09:29)
[2017-08-26 10:12] VITALS: BP 158/74; PULSE 70; TEMP 98
== END 2017-08-26 11:04 | disposition home or self-care (01) ==
LOC: JER 10:51 → JERBED 15:34 → J4W 19:30
PROVIDERS: ADMIT Internal Medicine; ATTEND Nurse Practitioner Family
PROC: 3E033GC Introduction of Other Therapeutic Substance into Peripheral Vein, Percutaneous Approach (ICD-10-PCS; principal; 2017-08-24)
PROC: 3E013GC Introduction of Other Therapeutic Substance into Subcutaneous Tissue, Percutaneous Approach (ICD-10-PCS; 2017-08-24)
DX: R07.9 Chest pain, unspecified (principal); I10 Essential (primary) hypertension; I25.10 Atherosclerotic heart disease of native coronary artery without angina pectoris; I50.9 Heart failure, unspecified; C91.01 Acute lymphoblastic leukemia, in remission; C95.00 Acute leukemia of unspecified cell type not having achieved remission; K63.0 Abscess of intestine; I47.1 Supraventricular tachycardia; J44.9 Chronic obstructive pulmonary disease, unspecified; G89.29 Other chronic pain; R06.00 Dyspnea, unspecified; I25.2 Old myocardial infarction; I48.91 Unspecified atrial fibrillation; E78.5 Hyperlipidemia, unspecified; Z90.49 Acquired absence of other specified parts of digestive tract; Z87.891 Personal history of nicotine dependence; Z95.5 Presence of coronary angioplasty implant and graft; Z88.1 Allergy status to other antibiotic agents; Z80.49 Family history of malignant neoplasm of other genital organs
CPT/HCPCS: 36415; 71010-TC; 78452-TC; 80053; 80061; 81003; 81015; 82550; 82553; 83036; 83721; 83880; 84443; 84484; 85025; 93005; 93010; 93017; 99285-25; A9502; G0378; J1644

== ENCOUNTER 2018-07-30 07:42 | Inpatient (IN) | payer OTHER, BC ==
--- NOTE | 2018-07-30 07:55 | PDOC ---
History of Present Illness - General Chief Complaint: Chest Pain Stated Complaint: SOB, CHEST PAIN Time Seen by Provider: 07/30/18 07:54 - History of Present Illness Initial Comments: 07/30/18 09:02 The patient is a 78 year old male with a history of HTN, HLD, Afib, MS who presents for evaluation of chest pain. The patient notes that he has been experiencing intermittent left sided chest pressure over the past few days. He notes that over the past 1 day, the pain has become more persistent and worsening prompting his presentation to the ED for further evaluation. He notes that his pain worsens with exertion and is associated with some SOB as well. He otherwise denies fevers, chills, nausea, vomiting, abdominal pain, or changes with urination or bowel movements. Past History - Past Medical History Allergies/Adverse Reactions: Allergies Allergy/AdvReac Type Severity Reaction Status Date / Time nitroglycerin [Nitroglycerin] Allergy Unknown severe Verified 07/30/18 07:49 headache Home Medications: Ambulatory Orders Amlodipine Besylate [Norvasc -] 5 mg PO DAILY 04/15/16 Tamsulosin HCl 0.4 mg PO DAILY 04/15/16 Dasatinib [Sprycel] 50 mg PO DAILY 30 Days #30 tab MDD 1 08/26/17 Cyanocobalamin [Vitamin B12 -] 1,000 mcg PO DAILY 11/19/17 Warfarin Sodium [Coumadin] 2 mg PO DAILY 11/19/17 Acetaminophen [Tylenol .Regular Strength -] 650 mg PO Q6H PRN tablet 11/22/17 Amlodipine Besylate [Norvasc -] 10 mg PO DAILY tablet 11/22/17 Aspirin Coated [Ecotrin -] 81 mg PO DAILY tablet.ec 11/22/17 Metoprolol Succinate [Toprol XL -] 25 mg PO DAILY tab.sr.24h 11/22/17 Anemia: No Asthma: No Cancer: Yes (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) Cardiac Disorders: Yes (a-fib, STENTS MS) CVA: No (denies stroke) COPD: No CHF: Yes Dementia: No Diabetes: No GI Disorders: No Disorders: No HTN: Yes Hypercholesterolemia: Yes Liver Disease: No Seizures: No Thyroid Disease: Yes (KIDNEY STONE) - Surgical History Abdominal Surgery: Yes (COLON RESECTION 2013) Appendectomy: No Cardiac Surgery: Yes (Stent placed 2010 pLAD) Cholecystectomy: No Lung Surgery: No Neurologic Surgery: Yes (Cyst removed) Orthopedic Surgery: No - Immunization History Immunization Up to Date: Yes - Suicide/Smoking/Psychosocial Hx Smoking Status: No Smoking History: Never smoked Have you smoked in the past 12 months: No Number of Cigarettes Smoked Daily: 5 If you are a former smoker, when did you quit?: 45 years Cigars Per Day: 0 Information on smoking cessation initiated: No 'Breaking Loose' booklet given: 08/24/16 Hx Alcohol Use: No Drug/Substance Use Hx: No Substance Use Type: None Hx Substance Use Treatment: No Review of Systems - Review of Systems Comments:: 07/30/18 09:04 Constitutional: No fevers, chills, fatigue, malaise HEENT: No Rhinorrhea, nasal congestion, visual changes Cardiovascular: Chest pain. No syncope, palpitations, lightheadedness Respiratory: SOB. No Cough, Hemoptysis, Gastrointestinal: No Abdominal pain, Nausea, Vomiting, Constipation, Diarrhea, Melena Genitourinary: No Dysuria, Frequency, Urgency, Hesitancy, Hematuria, Flank pain Musculoskeletal: No Myalgia, arthralgia Skin: No rashes, itching, bruising, pallor Neurologic: No Headache, Dizziness, Numbness, Weakness, or Tingling Psychiatric: No Hallucinations. No SI or HI *Physical Exam - Vital Signs Last Vital Signs Temp Pulse Resp BP Pulse Ox 98.9 F 88 18 178/71 H 99 07/30/18 07:45 07/30/18 07:45 07/30/18 07:45 07/30/18 07:45 07/30/18 07:45 - Physical Exam Comments: 07/30/18 09:04 General Appearance: Nourished. No Apparent Distress HEENT: No Pharyngeal Erythema, Tonsillar Exudate, Tonsillar Erythema Neck: No Cervical Lymphadenopathy Respiratory/Chest: Lungs Clear, Normal Breath Sounds. No Crackles, Rales, Rhonchi, Wheezing Cardiovascular: Regular Rhythm, Regular Rate. No Murmur, Gallops, Rubs Gastrointestinal/Abdominal: Normal Bowel Sounds, Soft. No Guarding, Rebound, Tenderness Musculoskeletal: No CVA Tenderness Extremity: Normal Capillary Refill Integumentary: Normal Color, Dry, Warm Neurologic: Fully Oriented, Alert, Normal Mood/Affect, Normal Response, Moderate Sedation - Procedure Monitoring Vital Signs: Procedure Monitoring Vital Signs Temperature 98.9 F 07/30/18 07:45 Pulse Rate 88 07/30/18 07:45 Respiratory Rate 18 07/30/18 07:45 Blood Pressure 178/71 H 07/30/18 07:45 O2 Sat by Pulse Oximetry (%) 99 07/30/18 07:45 Heart Score/ECG Review - History History: Moderately suspicious - Electrocardiogram EKG: Normal - Age Age: >/= 65 - Risk Factors Risk Factors Heart Score: Yes Hx Hypercholesterolemia, Yes Hx Hypertension, Yes Hx Diabetes Based on the list above the patient has:: >/=3 risk factors or Hx atherosclerotic disease - Troponin Troponin: </= normal limit - Score Heart Score - Total: 5 #1 ECG reviewed & interpreted by me at: 09:04 General ECG Interpretation: Sinus Rhythm, Normal Rate, Normal Intervals, No acute ischemic changes ED Treatment Course - LABORATORY CBC & Chemistry Diagram: 07/30/18 08:20 07/30/18 08:20 Medical Decision Making - Medical Decision Making 07/30/18 09:05 The patient is a 78 year old male with a history of HTN, HLD, Afib, MS who presents for evaluation of chest pain. Differential includes but is not limited to: ACS, Arrhythmia, Musculoskeletal, Infectious, Metabolic Derangement. Given the patient's history and physical exam, we will obtain a cbc, cmp, troponin, bnp, ekg, chest plain film to evaluate further. We will treat with tylenol and aspirin and continue to monitor and reassess while here in the ED. 07/30/18 09:46 CBC, cmp, troponin, bnp are unremarkable. Chest plain film is unremarkable. Given the patient's significant cardiac risk factors, he will require observation admission for further monitoring. We discussed the case with Dr. Cosby who accepted the patient for admission. *DC/Admit/Observation/Transfer Diagnosis at time of Disposition: Chest pain Qualifiers: Chest pain type: unspecified Qualified Code(s): R07.9 - Chest pain, unspecified - Discharge Dispostion Condition at time of disposition: Stable Decision to Admit order: Yes - Referrals - Patient Instructions - Post Discharge Activity
[2018-07-30] MEDS ORDERED: ASPIRIN 81 MG CHEWABLE TABLETS PO ONE (08:34)
[2018-07-30] MEDS ORDERED: ASPIRIN 81 MG CHEWABLE TABLETS ONE (08:36)
[2018-07-30] MEDS ORDERED: NITROGLYCERIN SUBLINGUAL 1/150 0.4 MG TAB ONE (08:36)
[2018-07-30] MEDS ORDERED: ACETAMINOPHEN 500 MG TABLET (FP) PO ONE (08:37)
[2018-07-30] MEDS ORDERED: ACETAMINOPHEN 325 MG TABLET (FP) ONE (08:40)
[2018-07-30 08:43] LABS: HEMATOCRIT 36.7 % (35.4-49); MCH 33.3 pg (25.7-33.7); MCHC 32.6 g/dl (32.0-35.9); PLATELET COUNT 144 K/MM3 (134-434); RDW 14.4 % (11.9-15.9)
--- NOTE | 2018-07-30 09:04 | PDOC ---
Attending Attestation - Resident Resident Name: Be Reid - ED Attending Attestation I have performed the following: I have examined & evaluated the patient, The case was reviewed & discussed with the resident, I agree w/resident's findings & plan - HPI HPI: 07/30/18 09:18 78 year old male with a history of HTN, HLD, pAfib (no longer on AC), IA s/p PCI on ASA, leukemia? who presents for evaluation of left sided chest pain anginal equivalent Cards Dr. Valenzuela, last admitted in 10/2017 for similar sx, chest pain eval, echo at that time normal, EF 65-70%. 07/30/18 09:42 - Physicial Exam PE: 07/30/18 09:43 NAD, well appearing, PERRL, EOMI, MMM, nl conjunctiva, anicteric; neck supple. lungs clear, RRR, abdomen soft nontender. CRUZ x4, no focal neuro deficits. No peripheral edema. normal color for ethnicity, WWP. - Medical Decision Making 07/30/18 09:45 See HPI for details DDx chest pain: ACS, esophageal spasm, GERD, gastritis, costochondritis, pneumonia, pleurisy, pericarditis/myocarditis. dehydration, electrolyte/ metabolic derangements. considered, but clinically doubt PE/dissection with story Vital signs reviewed, mildly hypertensive, but missed morning meds, so told to take his AM antihypertensives. Otherwise NAD Prior notes reviewed, including admissions, discharges and consultations. laboratory results and imaging reviewed, basic labs and lytes wnl, prior echo wnl, EF 65-70% CXR with cardiomegaly, otherwise unremarkable. Cardiac panel_neg trop initially, kept on tele and continue to trend, serial trops/ekg. EKG normal sinus rhythm, no interval abnormalities, narrow QRS, ST and T wave segments and morphology normal. ED course: ASA, and tylenol analgesia; allergy to nitro, so not given. Told to take his home morning meds (antihypertensives). No longer on coumadin. Dispo: admit for telemetry, r/o ACS and chest pain eval given higher risk with prior PCI. admit to Dr Cosby. inpatient cards cs appropriate. 07/30/18 09:48
[2018-07-30 09:11] LABS: ALBUMIN 3.6 g/dl (3.4-5.0); ALK PHOS 68 U/L (45-117); ANION GAP 10 MMOL/L (8-16); BILIRUBIN,TOTAL 0.3 mg/dL (0.2-1); BLOOD UREA NITROGEN 23 mg/dL (7-18); CALCIUM 8.5 mg/dL (8.5-10.1); CHLORIDE 112 mmol/L (98-107); CO2 20 mmol/L (21-32); CREATININE 1.2 mg/dL (0.55-1.3); GLUCOSE,RANDOM 101 mg/dL (74-106); N-TERMINAL BNP 224.7 pg/ml (5-450); SGOT/AST 24 U/L (15-37); SGPT/ALT 32 U/L (13-61); SODIUM 142 mmol/L (136-145); TOT PROT 8.3 g/dl (6.4-8.2)
[2018-07-30 10:33] LABS: ANISOCYTOSIS 1+; MACROCYTOSIS 1+; PLATELET ESTIMATE DECREASED
[2018-07-30 11:15] VITALS: BMI 35.8
--- NOTE | 2018-07-30 13:12 | CON.CARD ---
Consult Consult Specialty:: Cardiology - History of Present Illness History of Present Illness: The patient is a 78 year old male with a history of HTN, HLD, Afib, [place] who presents for evaluation of chest pain. The patient notes that he has been experiencing intermittent left sided chest pressure over the past few days. He notes that over the past 1 day, the pain has become more persistent and worsening prompting his presentation to the ED for further evaluation. He notes that his pain worsens with exertion and is associated with some SOB as well. He otherwise denies fevers, chills, nausea, vomiting, abdominal pain, or changes with urination or bowel movements. Major events pLAD 2011 Cardiac Cath October 2012 [place] patent LAD stent 50% D1 D2, D3 90% stenosed small caliber vessels mid LCx 40% 50 % [place] small nondominant RCA Negative MIBI Stress 2016 [facility] Ongoing medical problems CAD 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 (Arnold Chiari Malformation- s/p craniotomy/repair- 1998) Cardio/Vascular: Yes: CAD (PCI > 1 year ago), CHF, HTN, Hyperlipdemia, Other ( Cardiac arrhythmia- atrial tachycardia) Gastrointestinal: Yes: GI Bleed, Hemorrhoids, Other (s/p partial colectomy for diverticulosis) Renal/: Yes: Renal Calculi - Past Surgical History Past Surgical History: Yes: Colectomy - Alcohol/Substance Use Hx Alcohol Use: No History of Substance Use: reports: None - Smoking History Smoking history: Never smoked Have you smoked in the past 12 months: No Aproximately how many cigarettes per day: 5 If you are a former smoker, when did you quit?: 45 years - Social History Usual Living Arrangement: With Spouse 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 Travel: No Home Medications - Allergies Allergies/Adverse Reactions: Allergies Allergy/AdvReac Type Severity Reaction Status Date / Time nitroglycerin [Nitroglycerin] Allergy Unknown severe Verified 07/30/18 07:49 headache - Home Medications Home Medications: Ambulatory Orders Amlodipine Besylate [Norvasc -] 5 mg PO DAILY 04/15/16 Tamsulosin HCl 0.4 mg PO DAILY 04/15/16 Dasatinib [Sprycel] 50 mg PO DAILY 30 Days #30 tab MDD 1 08/26/17 Cyanocobalamin [Vitamin B12 -] 1,000 mcg PO DAILY 11/19/17 Warfarin Sodium [Coumadin] 2 mg PO DAILY 11/19/17 Acetaminophen [Tylenol .Regular Strength -] 650 mg PO Q6H PRN tablet 11/22/17 Aspirin Coated [Ecotrin -] 81 mg PO DAILY tablet.ec 11/22/17 Diphenhydramine HCl [Benadryl -] 25 mg PO Q6H PRN 07/30/18 Metoprolol Succinate [Toprol XL -] 25 mg PO BID 07/30/18 Family Disease History - Family Disease History Family Disease History: Other: Son (CML) Review of Systems - Review of Systems Constitutional: reports: No Symptoms Eyes: reports: No Symptoms HENT: reports: No Symptoms Neck: reports: No Symptoms Cardiovascular: reports: Chest Pain Gastrointestinal: reports: No Symptoms Genitourinary: reports: No Symptoms Breasts: reports: No Symptoms Reported Musculoskeletal: reports: No Symptoms Integumentary: reports: No Symptoms Neurological: reports: No Symptoms Endocrine: reports: No Symptoms Hematology/Lymphatic: reports: No Symptoms Psychiatric: reports: No Symptoms Vital Signs: Vital Signs Temperature 98.1 F 07/30/18 10:47 Pulse Rate 78 07/30/18 10:47 Respiratory Rate 18 07/30/18 10:47 Blood Pressure 175/77 H 07/30/18 10:47 O2 Sat by Pulse Oximetry (%) 97 07/30/18 11:49 Constitutional: Yes: Well Nourished, No Distress, Calm Eyes: Yes: WNL, Conjunctiva Clear, EOM Intact HENT: Yes: WNL, Atraumatic, Normocephalic Neck: Yes: WNL, Supple, Trachea Midline Respiratory: Yes: WNL, Regular, CTA Bilaterally Gastrointestinal: Yes: WNL, Normal Bowel Sounds Renal/: Yes: WNL Cardiovascular: Yes: WNL, Regular Rate and Rhythm Musculoskeletal: Yes: WNL Extremities: Yes: WNL Integumentary: Yes: WNL Neurological: Yes: WNL, Alert, Oriented ...Motor Strength: WNL Psychiatric: Yes: WNL, Alert, Oriented - Other Data Labs, Other Data: CBC, BMP 07/30/18 08:20 07/30/18 08:20 Troponin, BNP 07/30/18 08:20 Troponin I < 0.02 B-Natriuretic Peptide 224.7 Troponin, BNP 07/30/18 08:20 Troponin I < 0.02 B-Natriuretic Peptide 224.7 Imaging - Results Chest X-ray: Image Reviewed (no i/e) EKG: Image Reviewed (sr rep abn) Problem List - Problems (1) Chest pain Code(s): R07.9 - CHEST PAIN, UNSPECIFIED Qualifiers: Chest pain type: unspecified Qualified Code(s): R07.9 - Chest pain, unspecified (2) ALL (acute lymphoblastic leukemia) Code(s): C91.00 - ACUTE LYMPHOBLASTIC LEUKEMIA NOT HAVING ACHIEVED REMISSION (3) ALL (acute lymphoid leukemia) in remission Code(s): C91.01 - ACUTE LYMPHOBLASTIC LEUKEMIA, IN REMISSION (4) ASHD (arteriosclerotic heart disease) Code(s): I25.10 - ATHSCL HEART DISEASE OF [place] CORONARY ARTERY W/O ANG PCTRS (5) Abdominal abscess Code(s): K65.1 - PERITONEAL ABSCESS (6) Abscess of gastrointestinal tract Code(s): K63.0 - ABSCESS OF INTESTINE (7) Acute leukemia Code(s): C95.00 - ACUTE LEUKEMIA OF UNSP CELL TYPE NOT ACHIEVE REMISSION (8) Atrial tachycardia Code(s): I47.1 - SUPRAVENTRICULAR TACHYCARDIA (9) Atypical chest pain Code(s): R07.89 - OTHER CHEST PAIN (10) Bilateral pleural effusion Code(s): J90 - PLEURAL EFFUSION, NOT ELSEWHERE CLASSIFIED (11) COPD (chronic obstructive pulmonary disease) Code(s): J44.9 - CHRONIC OBSTRUCTIVE PULMONARY DISEASE, UNSPECIFIED Qualifiers: COPD type: chronic bronchitis (12) Chronic pain Code(s): G89.29 - OTHER CHRONIC PAIN (13) Community acquired bacterial pneumonia Code(s): J15.9 - UNSPECIFIED BACTERIAL PNEUMONIA (14) Dyspnea Code(s): R06.00 - DYSPNEA, UNSPECIFIED (15) GI bleeding Code(s): K92.2 - GASTROINTESTINAL HEMORRHAGE, UNSPECIFIED (16) H/O heart artery stent Code(s): Z95.5 - PRESENCE OF CORONARY ANGIOPLASTY IMPLANT AND GRAFT (17) HTN (hypertension) Code(s): I10 - ESSENTIAL (PRIMARY) HYPERTENSION Qualifiers: Hypertension type: essential hypertension Qualified Code(s): I10 - Essential (primary) hypertension (18) Hydronephrosis of left kidney Code(s): N13.30 - UNSPECIFIED HYDRONEPHROSIS (19) Hydroureter on left Code(s): N13.4 - HYDROURETER (20) Hyperlipidemia Code(s): E78.5 - HYPERLIPIDEMIA, UNSPECIFIED (21) Influenza A Code(s): J10.1 - FLU DUE TO OTH IDENT INFLUENZA VIRUS W OTH RESP MANIFEST (22) Ischemic bowel syndrome Code(s): K55.9 - VASCULAR DISORDER OF INTESTINE, UNSPECIFIED (23) Leukocytosis Code(s): D72.829 - ELEVATED WHITE BLOOD CELL COUNT, UNSPECIFIED (24) Pneumonia Code(s): J18.9 - PNEUMONIA, UNSPECIFIED ORGANISM Qualifiers: (25) Postoperative ileus Code(s): K91.3 - POSTPROCEDURAL INTESTINAL OBSTRUCTION * DO NOT USE * (26) Renal calculus or stone Code(s): N20.0 - CALCULUS OF KIDNEY (27) S/P left colectomy Code(s): Z90.49 - ACQUIRED ABSENCE OF OTHER SPECIFIED PARTS OF DIGESTIVE TRACT (28) Shortness of breath Code(s): R06.02 - SHORTNESS OF BREATH Assessment/Plan CP sx pLAD 2012 Cardiac Cath October 2012 [place] patent LAD stent 50% D1 D2, D3 90% stenosed small caliber vessels mid LCx 40% 50 % [place] small nondominant RCA Negative MIBI Stress 2016 [facility] Ongoing medical problems CAD 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 Gennaro Combs Plan; r/o [place] MIBI ST
--- NOTE | 2018-07-30 13:31 | HP ---
Admitting History and Physical - Primary Care Physician PCP: Alfredo Cameron - Admission Chief Complaint: chest pain History of Present Illness: Pt seen/ examined in tele chart reviewed/ discussed with er resident Per er notes- The patient is a 78 year old male with a history of HTN, HLD, Afib, [place] who presents for evaluation of chest pain. The patient notes that he has been experiencing intermittent left sided chest pressure over the past few days. He notes that over the past 1 day, the pain has become more persistent and worsening prompting his presentation to the ED for further evaluation. He notes that his pain worsens with exertion and is associated with some SOB as well. He otherwise denies fevers, chills, nausea, vomiting, abdominal pain, or changes with urination or bowel movements. EKg/ troponin ok pt kept for observation cardiology consult requested family at bedside-- meds discussed / confirmed-- pt not on a/c - only on asa 81 mg at home. 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 (Arnold Chiari Malformation- s/p craniotomy/repair- 1998) Cardiovascular: Yes: CAD (PCI > 1 year ago), CHF, HTN, Hyperlipdemia, Other ( Cardiac arrhythmia- atrial tachycardia) Gastrointestinal: Yes: GI Bleed, Hemorrhoids, Other (s/p partial colectomy for diverticulosis) Renal/: Yes: Renal Calculi Heme/Onc: Yes: Other (ALL- [place] positive) - Past Surgical History Past Surgical History: Yes: Colectomy - Smoking History Smoking history: Never smoked Have you smoked in the past 12 months: No Aproximately how many cigarettes per day: 5 If you are a former smoker, when did you quit?: 45 years - Alcohol/Substance Use Hx Alcohol Use: No History of Substance Use: reports: None - Social History 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 Travel: No Home Medications - Allergies Allergies/Adverse Reactions: Allergies Allergy/AdvReac Type Severity Reaction Status Date / Time nitroglycerin [Nitroglycerin] Allergy Unknown severe Verified 07/30/18 07:49 headache - Home Medications Home Medications: Ambulatory Orders Amlodipine Besylate [Norvasc -] 5 mg PO DAILY 04/15/16 Tamsulosin HCl 0.4 mg PO DAILY 04/15/16 Dasatinib [Sprycel] 50 mg PO DAILY 30 Days #30 tab MDD 1 08/26/17 Cyanocobalamin [Vitamin B12 -] 1,000 mcg PO DAILY 11/19/17 Warfarin Sodium [Coumadin] 2 mg PO DAILY 11/19/17 Acetaminophen [Tylenol .Regular Strength -] 650 mg PO Q6H PRN tablet 11/22/17 Aspirin Coated [Ecotrin -] 81 mg PO DAILY tablet.ec 11/22/17 Diphenhydramine HCl [Benadryl -] 25 mg PO Q6H PRN 07/30/18 Metoprolol Succinate [Toprol XL -] 25 mg PO BID 07/30/18 Family Disease History - Family Disease History Family Disease History: Other: Son (CML) Review of Systems - Review of Systems Constitutional: reports: No Symptoms Eyes: reports: No Symptoms HENT: reports: No Symptoms, Ocular Prosthesis Cardiovascular: reports: Chest Pain Respiratory: reports: No Symptoms Gastrointestinal: reports: No Symptoms. denies: Dysphagia Genitourinary: reports: No Symptoms Neurological: reports: No Symptoms Psychiatric: reports: No Symptoms Physical Examination Vital Signs: Vital Signs Temperature 98.1 F 07/30/18 10:47 Pulse Rate 78 07/30/18 10:47 Respiratory Rate 18 07/30/18 10:47 Blood Pressure 175/77 H 07/30/18 10:47 O2 Sat by Pulse Oximetry (%) 97 07/30/18 11:49 Constitutional: Yes: No Distress, Calm Eyes: Yes: Conjunctiva Clear Neck: Yes: Supple, Other (no jvd) Cardiovascular: Yes: Regular Rate and Rhythm Respiratory: Yes: CTA Bilaterally Gastrointestinal: Yes: Normal Bowel Sounds, Soft Edema: No Neurological: Yes: Alert Psychiatric: Yes: Alert Labs: CBC, BMP 07/30/18 08:20 07/30/18 08:20 Imaging - Results Chest X-ray: Report Reviewed EKG: Report Reviewed Problem List - Problems (1) Chest pain Code(s): R07.9 - CHEST PAIN, UNSPECIFIED Qualifiers: Chest pain type: unspecified Qualified Code(s): R07.9 - Chest pain, unspecified (2) ASHD (arteriosclerotic heart disease) Code(s): I25.10 - ATHSCL HEART DISEASE OF [place] CORONARY ARTERY W/O ANG PCTRS (3) COPD (chronic obstructive pulmonary disease) Code(s): J44.9 - CHRONIC OBSTRUCTIVE PULMONARY DISEASE, UNSPECIFIED Qualifiers: COPD type: chronic bronchitis (4) HTN (hypertension) Code(s): I10 - ESSENTIAL (PRIMARY) HYPERTENSION Qualifiers: Hypertension type: essential hypertension Qualified Code(s): I10 - Essential (primary) hypertension Assessment/Plan Monitor on tele serial troponins ekg- prn oxygen ntg - pt allergic discussed with nursing staff will follow ordered written discussed with pts private pmd also time spend approx 40 min in examining/ documenting/ coordating care
[2018-07-30] MEDS: ACETAMINOPHEN 325 MG TABLET (FP) PO PRN (14:16)
[2018-07-30] MEDS ORDERED: PT OWN MED DRAWER 7, Y5N ONE (18:35)
[2018-07-30] MEDS: HEPARIN NA (PORCINE) 5,000 UNITS/ML 1ML VIAL SQ SCH (21:59)
[2018-07-30] MEDS: metoPROLOL SUCCINATE 25 MG TAB.SR.24H (FP) PO SCH (22:00)
--- NOTE | 2018-07-31 07:11 | PN ---
Progress Note, Physician Chief Complaint: Pt is still having Chest pain - Current Medication List Current Medications: Active Medications Acetaminophen (Tylenol -) 650 mg PO Q6H PRN PRN Reason: PAIN 5-10 Last Admin: 07/30/18 14:16 Dose: 650 mg Amlodipine Besylate (Norvasc -) 5 mg PO DAILY [facility] Aspirin (Ecotrin -) 81 mg PO DAILY [facility] Cyanocobalamin (Vitamin B12 -) 1,000 mcg PO DAILY [facility] Diphenhydramine HCl (Benadryl -) 25 mg PO Q6H PRN PRN Reason: allergies Heparin Sodium (Porcine) (Heparin -) 5,000 unit SQ BID [facility] Last Admin: 07/30/18 21:59 Dose: 5,000 unit Metoprolol Succinate (Toprol Xl -) 25 mg PO BID [facility] Last Admin: 07/30/18 22:00 Dose: 25 mg Non-Formulary Medication (Dasatinib [Sprycel]) 50 mg PO DAILY [facility] Tamsulosin HCl (Flomax -) 0.4 mg PO DAILY [facility] - Objective Vital Signs: Vital Signs Temperature 98.0 F 07/31/18 06:00 Pulse Rate 78 07/31/18 06:00 Respiratory Rate 18 07/31/18 06:00 Blood Pressure 158/85 07/31/18 06:00 O2 Sat by Pulse Oximetry (%) 100 07/31/18 05:00 Constitutional: Yes: No Distress Eyes: Yes: Conjunctiva Clear, EOM Intact HENT: Yes: Atraumatic, Normocephalic Neck: Yes: Trachea Midline Cardiovascular: Yes: Regular Rate and Rhythm Respiratory: Yes: Regular, CTA Bilaterally Gastrointestinal: Yes: Normal Bowel Sounds, Soft Edema: No Problem List - Problems (1) Chest pain Code(s): R07.9 - CHEST PAIN, UNSPECIFIED Qualifiers: Chest pain type: unspecified Qualified Code(s): R07.9 - Chest pain, unspecified (2) ALL (acute lymphoblastic leukemia) Code(s): C91.00 - ACUTE LYMPHOBLASTIC LEUKEMIA NOT HAVING ACHIEVED REMISSION (3) ALL (acute lymphoid leukemia) in remission Code(s): C91.01 - ACUTE LYMPHOBLASTIC LEUKEMIA, IN REMISSION (4) ASHD (arteriosclerotic heart disease) Code(s): I25.10 - ATHSCL HEART DISEASE OF [place] CORONARY ARTERY W/O ANG PCTRS (5) Abdominal abscess Code(s): K65.1 - PERITONEAL ABSCESS (6) Abscess of gastrointestinal tract Code(s): K63.0 - ABSCESS OF INTESTINE (7) Acute leukemia Code(s): C95.00 - ACUTE LEUKEMIA OF UNSP CELL TYPE NOT ACHIEVE REMISSION (8) Atypical chest pain Code(s): R07.89 - OTHER CHEST PAIN (9) COPD (chronic obstructive pulmonary disease) Code(s): J44.9 - CHRONIC OBSTRUCTIVE PULMONARY DISEASE, UNSPECIFIED Qualifiers: COPD type: chronic bronchitis (10) Renal calculus or stone Code(s): N20.0 - CALCULUS OF KIDNEY Assessment/Plan CP sx pLAD 2011 Cardiac Cath October 2012 [place] patent LAD stent 50% D1 D2, D3 90% stenosed small caliber vessels mid LCx 40% 50 % [place] small nondominant RCA Negative MIBI Stress 2016 [facility] Ongoing medical problems CAD 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 Gennaro Leonardplan Lexiscan MIBI ST mild inferiolateral ischemia nl EF we will discuss with cardiology for optimization of Meds/ Cardiac cath as Pt is still having chest pain. Pt is not tolerating Nitrates.
[2018-07-31 07:17] LABS: ALBUMIN 3.4 g/dl (3.4-5.0); ALK PHOS 64 U/L (45-117); ANION GAP 9 MMOL/L (8-16); BILIRUBIN,TOTAL 0.4 mg/dL (0.2-1); BLOOD UREA NITROGEN 19 mg/dL (7-18); CALCIUM 8.4 mg/dL (8.5-10.1); CHLORIDE 108 mmol/L (98-107); CO2 23 mmol/L (21-32); GLUCOSE,RANDOM 103 mg/dL (74-106); POTASSIUM 3.9 mmol/L (3.5-5.1); SGOT/AST 18 U/L (15-37); SGPT/ALT 30 U/L (13-61); SODIUM 140 mmol/L (136-145)
[2018-07-31 08:23] LABS: BASO % 0.5 % (0-2.0); EOS % 1.6 % (0-4.5); HEMATOCRIT 33.2 % (35.4-49); HEMOGLOBIN 10.8 GM/dL (11.7-16.9); LYMPH % 31.7 % (8-40); MCHC 32.6 g/dl (32.0-35.9); MEAN CELL VOLUME 101.2 fl (80-96); MEAN PLT VOLUME 7.9 fl (7.5-11.1); MONO % 12.7 % (3.8-10.2); NEUT % 53.5 % (42.8-82.8); PLATELET COUNT 169 K/MM3 (134-434); RBC 3.28 M/mm3 (4.00-5.60); RDW 14.6 % (11.9-15.9); WHITE BLOOD COUNT 5.9 K/mm3 (4.0-10.0)
[2018-07-31] MEDS ORDERED: REGADENOSON 0.4 MG/5 ML PRE-FILLED SYRINGE IVPUSH ONE ×2 (09:45→09:46)
[2018-07-31] MEDS: amLODIPine BESYLATE 5 MG TABLET (FP) PO SCH (09:55)
--- NOTE | 2018-07-31 11:19 | EKG ---
Test Reason : Blood Pressure : / mmHG Vent. Rate : 085 BPM Atrial Rate : 085 BPM P-R Int : 192 ms QRS Dur : 084 ms QT Int : 354 ms P-R-T Axes : 061 069 031 degrees QTc Int : 421 ms SINUS RHYTHM WITH PREMATURE ATRIAL COMPLEXES OTHERWISE NORMAL ECG WHEN COMPARED WITH ECG OF 22-NOV-2017 10:14, PREMATURE ATRIAL COMPLEXES ARE NOW PRESENT Confirmed by FLETCHER BRAGA MD ([id number]) on 07/31/2018 11:19:25 AM Referred By: Confirmed By:FLETCHER BRAGA MD
[2018-07-31] MEDS: DASATINIB 50 MG PO SCH (13:03)
[2018-07-31] MEDS: TAMSULOSIN HCL 0.4 MG CAP PO SCH (13:05)
[2018-07-31] MEDS: ASPIRIN COATED 81 MG TABLET.EC PO SCH (13:05)
[2018-07-31] MEDS: CYANOCOBALAMIN 1,000 MCG TABLET (FP) PO SCH (13:05)
[2018-07-31] MEDS: metoPROLOL SUCCINATE 25 MG TAB.SR.24H (FP) PO SCH ×2 (13:06→21:07)
[2018-07-31] MEDS: HEPARIN NA (PORCINE) 5,000 UNITS/ML 1ML VIAL SQ SCH ×2 (13:08→21:07)
[2018-07-31] MEDS: ACETAMINOPHEN 325 MG TABLET (FP) PO PRN ×2 (15:28→22:11)
[2018-07-31] MEDS: diphenhydrAMINE HCL 25 MG CAPSULE (FP) PO PRN (15:31)
--- NOTE | 2018-07-31 17:15 | PN ---
Progress Note, Physician History of Present Illness: The patient is a 78 year old male with a history of HTN, HLD, Afib, [place] who presents for evaluation of chest pain. The patient notes that he has been experiencing intermittent left sided chest pressure over the past few days. He notes that over the past 1 day, the pain has become more persistent and worsening prompting his presentation to the ED for further evaluation. He notes that his pain worsens with exertion and is associated with some SOB as well. He otherwise denies fevers, chills, nausea, vomiting, abdominal pain, or changes with urination or bowel movements. Major events pLAD 2011 Cardiac Cath October 2012 [place] patent LAD stent 50% D1 D2, D3 90% stenosed small caliber vessels mid LCx 40% 50 % oRamus small nondominant RCA Negative MIBI Stress 2016 [facility] Ongoing medical problems CAD 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 Gennaro Combs - Current Medication List Current Medications: Active Medications Acetaminophen (Tylenol -) 650 mg PO Q6H PRN PRN Reason: PAIN 5-10 Last Admin: 07/31/18 15:28 Dose: 650 mg Amlodipine Besylate (Norvasc -) 5 mg PO DAILY [facility] Last Admin: 07/31/18 09:55 Dose: 5 mg Aspirin (Ecotrin -) 81 mg PO DAILY [facility] Last Admin: 07/31/18 13:05 Dose: 81 mg Cyanocobalamin (Vitamin B12 -) 1,000 mcg PO DAILY [facility] Last Admin: 07/31/18 13:05 Dose: 1,000 mcg Diphenhydramine HCl (Benadryl -) 25 mg PO Q6H PRN PRN Reason: allergies Last Admin: 07/31/18 15:31 Dose: 25 mg Heparin Sodium (Porcine) (Heparin -) 5,000 unit SQ BID [facility] Last Admin: 07/31/18 13:08 Dose: 5,000 unit Metoprolol Succinate (Toprol Xl -) 25 mg PO BID [facility] Last Admin: 07/31/18 13:06 Dose: 25 mg Non-Formulary Medication (Dasatinib [Sprycel]) 50 mg PO DAILY [facility] Last Admin: 07/31/18 13:03 Dose: 50 mg Tamsulosin HCl (Flomax -) 0.4 mg PO DAILY [facility] Last Admin: 07/31/18 13:05 Dose: 0.4 mg - Objective Vital Signs: Vital Signs Temperature 98 F 07/31/18 14:00 Pulse Rate 74 07/31/18 14:00 Respiratory Rate 18 07/31/18 14:00 Blood Pressure 149/87 07/31/18 14:00 O2 Sat by Pulse Oximetry (%) 100 07/31/18 10:00 Eyes: Yes: WNL, Conjunctiva Clear, EOM Intact HENT: Yes: WNL, Atraumatic, Normocephalic Neck: Yes: WNL, Supple, Trachea Midline Cardiovascular: Yes: WNL, Regular Rate and Rhythm Respiratory: Yes: WNL, Regular, CTA Bilaterally Gastrointestinal: Yes: WNL, Normal Bowel Sounds Genitourinary: Yes: WNL Musculoskeletal: Yes: WNL Extremities: Yes: WNL Edema: No Integumentary: Yes: WNL Neurological: Yes: WNL, Alert, Oriented ...Motor Strength: WNL Psychiatric: Yes: WNL Labs: CBC, BMP 07/31/18 05:50 07/31/18 05:50 Laboratory Tests 07/30/18 07/30/18 07/30/18 08:20 08:20 14:33 WBC 8.0 RBC 3.60 L Hgb 12.0 Hct 36.7 MCV 102.0 H MCH 33.3 MCHC 32.6 RDW 14.4 Plt Count 144 MPV 8.0 Absolute Neuts (auto) 5.1 Neutrophils % No Result Required. Neutrophils % (Manual) 58.2 Band Neutrophils % 0.0 Lymphocytes % No Result Required. Lymphocytes % (Manual) 25.5 Monocytes % Monocytes % (Manual) 11 H Eosinophils % Eosinophils % (Manual) 1.0 Basophils % Basophils % (Manual) 0.0 Myelocytes % (Man) 0 Promyelocytes % (Man) 0 Blast Cells % (Manual) 0 Nucleated RBC % 0 Metamyelocytes 0 Hypochromia 0 Platelet Estimate Decreased Polychromasia 0 Poikilocytosis 0 Anisocytosis 1+ Microcytosis 0 Macrocytosis 1+ Sodium 142 Potassium 4.0 Chloride 112 H Carbon Dioxide 20 L Anion Gap 10 BUN 23 H Creatinine 1.2 Creat Clearance w eGFR 58.56 Random Glucose 101 Calcium 8.5 Total Bilirubin 0.3 AST 24 ALT 32 Alkaline Phosphatase 68 Creatine Kinase 166 Creatine Kinase Index 1.3 CK-MB (CK-2) 2.3 Troponin I < 0.02 < 0.02 B-Natriuretic Peptide 224.7 Total Protein 8.3 H Albumin 3.6 07/31/18 07/31/18 05:50 05:50 WBC 5.9 RBC 3.28 L Hgb 10.8 L Hct 33.2 L MCV 101.2 H MCH 33.0 MCHC 32.6 RDW 14.6 Plt Count 169 MPV 7.9 Absolute Neuts (auto) 3.2 Neutrophils % 53.5 Neutrophils % (Manual) Band Neutrophils % Lymphocytes % 31.7 Lymphocytes % (Manual) Monocytes % 12.7 H Monocytes % (Manual) Eosinophils % 1.6 Eosinophils % (Manual) Basophils % 0.5 Basophils % (Manual) Myelocytes % (Man) Promyelocytes % (Man) Blast Cells % (Manual) Nucleated RBC % 0 Metamyelocytes Hypochromia Platelet Estimate Polychromasia Poikilocytosis Anisocytosis Microcytosis Macrocytosis Sodium 140 Potassium 3.9 Chloride 108 H Carbon Dioxide 23 Anion Gap 9 BUN 19 H Creatinine 1.0 Creat Clearance w eGFR > 60 Random Glucose 103 Calcium 8.4 L Total Bilirubin 0.4 AST 18 ALT 30 Alkaline Phosphatase 64 Creatine Kinase Creatine Kinase Index CK-MB (CK-2) Troponin I < 0.02 B-Natriuretic Peptide Total Protein 8.0 Albumin 3.4 Problem List - Problems (1) Chest pain Code(s): R07.9 - CHEST PAIN, UNSPECIFIED Qualifiers: Chest pain type: unspecified Qualified Code(s): R07.9 - Chest pain, unspecified (2) ALL (acute lymphoblastic leukemia) Code(s): C91.00 - ACUTE LYMPHOBLASTIC LEUKEMIA NOT HAVING ACHIEVED REMISSION (3) ALL (acute lymphoid leukemia) in remission Code(s): C91.01 - ACUTE LYMPHOBLASTIC LEUKEMIA, IN REMISSION (4) ASHD (arteriosclerotic heart disease) Code(s): I25.10 - ATHSCL HEART DISEASE OF [place] CORONARY ARTERY W/O ANG PCTRS (5) Abdominal abscess Code(s): K65.1 - PERITONEAL ABSCESS (6) Abscess of gastrointestinal tract Code(s): K63.0 - ABSCESS OF INTESTINE (7) Acute leukemia Code(s): C95.00 - ACUTE LEUKEMIA OF UNSP CELL TYPE NOT ACHIEVE REMISSION (8) Atrial tachycardia Code(s): I47.1 - SUPRAVENTRICULAR TACHYCARDIA (9) Atypical chest pain Code(s): R07.89 - OTHER CHEST PAIN (10) Bilateral pleural effusion Code(s): J90 - PLEURAL EFFUSION, NOT ELSEWHERE CLASSIFIED (11) COPD (chronic obstructive pulmonary disease) Code(s): J44.9 - CHRONIC OBSTRUCTIVE PULMONARY DISEASE, UNSPECIFIED Qualifiers: COPD type: chronic bronchitis (12) Chronic pain Code(s): G89.29 - OTHER CHRONIC PAIN (13) Community acquired bacterial pneumonia Code(s): J15.9 - UNSPECIFIED BACTERIAL PNEUMONIA (14) Dyspnea Code(s): R06.00 - DYSPNEA, UNSPECIFIED (15) GI bleeding Code(s): K92.2 - GASTROINTESTINAL HEMORRHAGE, UNSPECIFIED (16) H/O heart artery stent Code(s): Z95.5 - PRESENCE OF CORONARY ANGIOPLASTY IMPLANT AND GRAFT (17) HTN (hypertension) Code(s): I10 - ESSENTIAL (PRIMARY) HYPERTENSION Qualifiers: Hypertension type: essential hypertension Qualified Code(s): I10 - Essential (primary) hypertension (18) Hydronephrosis of left kidney Code(s): N13.30 - UNSPECIFIED HYDRONEPHROSIS (19) Hydroureter on left Code(s): N13.4 - HYDROURETER (20) Hyperlipidemia Code(s): E78.5 - HYPERLIPIDEMIA, UNSPECIFIED (21) Influenza A Code(s): J10.1 - FLU DUE TO OTH IDENT INFLUENZA VIRUS W OTH RESP MANIFEST (22) Ischemic bowel syndrome Code(s): K55.9 - VASCULAR DISORDER OF INTESTINE, UNSPECIFIED (23) Leukocytosis Code(s): D72.829 - ELEVATED WHITE BLOOD CELL COUNT, UNSPECIFIED (24) Pneumonia Code(s): J18.9 - PNEUMONIA, UNSPECIFIED ORGANISM Qualifiers: (25) Postoperative ileus Code(s): K91.3 - POSTPROCEDURAL INTESTINAL OBSTRUCTION * DO NOT USE * (26) Renal calculus or stone Code(s): N20.0 - CALCULUS OF KIDNEY (27) S/P left colectomy Code(s): Z90.49 - ACQUIRED ABSENCE OF OTHER SPECIFIED PARTS OF DIGESTIVE TRACT (28) Shortness of breath Code(s): R06.02 - SHORTNESS OF BREATH Assessment/Plan CP sx pLAD 2011 Cardiac Cath October 2012 D Lo patent LAD stent 50% D1 D2, D3 90% stenosed small caliber vessels mid LCx 40% 50 % o[place]amus small nondominant RCA Negative MIBI Stress 2016 [facility] Ongoing medical problems CAD 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 Gennaro Combs Lexiscan MIBI ST mild inferiolateral ischemia nl EF Plan; restart toprol check lipids ischemia most likely from D-3 stenosis will discuss with the patient in am optimazation of medical rx.
[2018-08-01 07:15] LABS: CHOLESTEROL 197 mg/dL (50-200); HDL CHOLESTEROL 41 mg/dL (40-60); TRIGLYCERIDES 152 mg/dL (0-150)
[2018-08-01] MEDS: HEPARIN NA (PORCINE) 5,000 UNITS/ML 1ML VIAL SQ SCH ×2 (09:02→21:08)
[2018-08-01] MEDS: amLODIPine BESYLATE 5 MG TABLET (FP) PO SCH (09:03)
[2018-08-01] MEDS: metoPROLOL SUCCINATE 25 MG TAB.SR.24H (FP) PO SCH ×2 (09:03→21:08)
[2018-08-01] MEDS: CYANOCOBALAMIN 1,000 MCG TABLET (FP) PO SCH (09:03)
[2018-08-01] MEDS: ASPIRIN COATED 81 MG TABLET.EC PO SCH (09:03)
[2018-08-01] MEDS: TAMSULOSIN HCL 0.4 MG CAP PO SCH (09:03)
[2018-08-01] MEDS: ACETAMINOPHEN 325 MG TABLET (FP) PO PRN ×2 (10:20→19:47)
[2018-08-01] MEDS: DASATINIB 50 MG PO SCH (14:30)
[2018-08-01] MEDS: diphenhydrAMINE HCL 25 MG CAPSULE (FP) PO PRN (14:49)
--- NOTE | 2018-08-01 16:53 | PN ---
Progress Note, Physician Chief Complaint: Pt A&)[id number]; no chest pain or dyspnea. History of Present Illness: The patient is a 78 year old black male with a history of HTN, HLD, Afib, [place] who presents for evaluation of chest pain. The patient notes that he has been experiencing intermittent left sided chest pressure over the past few days. He notes that over the past 1 day, the pain has become more persistent and worsening prompting his presentation to the ED for further evaluation. He notes that his pain worsens with exertion and is associated with some SOB as well. He otherwise denies fevers, chills, nausea, vomiting, abdominal pain, or changes with urination or bowel movements. - Current Medication List Current Medications: Active Medications Acetaminophen (Tylenol -) 650 mg PO Q6H PRN PRN Reason: PAIN 5-10 Last Admin: 08/01/18 10:20 Dose: 650 mg Amlodipine Besylate (Norvasc -) 5 mg PO DAILY [facility] Last Admin: 08/01/18 09:03 Dose: 5 mg Aspirin (Ecotrin -) 81 mg PO DAILY [facility] Last Admin: 08/01/18 09:03 Dose: 81 mg Cyanocobalamin (Vitamin B12 -) 1,000 mcg PO DAILY [facility] Last Admin: 08/01/18 09:03 Dose: 1,000 mcg Diphenhydramine HCl (Benadryl -) 25 mg PO Q6H PRN PRN Reason: allergies Last Admin: 08/01/18 14:49 Dose: 25 mg Heparin Sodium (Porcine) (Heparin -) 5,000 unit SQ BID [facility] Last Admin: 08/01/18 09:02 Dose: 5,000 unit Metoprolol Succinate (Toprol Xl -) 25 mg PO BID [facility] Last Admin: 08/01/18 09:03 Dose: 25 mg Non-Formulary Medication (Dasatinib [Sprycel]) 50 mg PO DAILY [facility] Last Admin: 08/01/18 14:30 Dose: 50 mg Tamsulosin HCl (Flomax -) 0.4 mg PO DAILY [facility] Last Admin: 08/01/18 09:03 Dose: 0.4 mg - Objective Vital Signs: Vital Signs Temperature 98.1 F 08/01/18 14:23 Pulse Rate 72 08/01/18 14:23 Respiratory Rate 18 08/01/18 14:23 Blood Pressure 150/68 08/01/18 14:23 O2 Sat by Pulse Oximetry (%) 95 08/01/18 08:36 Constitutional: Yes: Calm Eyes: Yes: WNL HENT: Yes: WNL Neck: Yes: WNL Cardiovascular: Yes: WNL Respiratory: Yes: WNL Gastrointestinal: Yes: WNL ...Rectal Exam: Yes: Deferred Genitourinary: No: Anuria Breast(s): Yes: WNL Musculoskeletal: Yes: WNL Extremities: Yes: WNL Edema: No Peripheral Pulses WNL: Yes Integumentary: Yes: WNL Neurological: Yes: WNL Psychiatric: Yes: Alert, Oriented Labs: CBC, BMP 07/31/18 05:50 07/31/18 05:50 - ....Imaging Other: Image Reviewed (telemetry: NSR) Problem List - Problems (1) ALL (acute lymphoblastic leukemia) Assessment/Plan: F/u with oncologist Code(s): C91.00 - ACUTE LYMPHOBLASTIC LEUKEMIA NOT HAVING ACHIEVED REMISSION (2) ASHD (arteriosclerotic heart disease) Assessment/Plan: Stress MIBI: mild ischemia. DIscussed findings at length with pt; will arrange cardiac rehabilitation, where pt will be monitored and observed while exercising, as an outpatient. Code(s): I25.10 - ATHSCL HEART DISEASE OF [place] CORONARY ARTERY W/O ANG PCTRS (3) COPD (chronic obstructive pulmonary disease) Code(s): J44.9 - CHRONIC OBSTRUCTIVE PULMONARY DISEASE, UNSPECIFIED Qualifiers: COPD type: chronic bronchitis (4) HTN (hypertension) Code(s): I10 - ESSENTIAL (PRIMARY) HYPERTENSION Qualifiers: Hypertension type: essential hypertension Qualified Code(s): I10 - Essential (primary) hypertension (5) Shortness of breath Code(s): R06.02 - SHORTNESS OF BREATH
--- NOTE | 2018-08-01 22:23 | PN ---
Progress Note, Physician Chief Complaint: Pt is still having chest pain No SOB NO Abd pain - Current Medication List Current Medications: Active Medications Acetaminophen (Tylenol -) 650 mg PO Q6H PRN PRN Reason: PAIN 5-10 Last Admin: 08/01/18 19:47 Dose: 650 mg Amlodipine Besylate (Norvasc -) 5 mg PO DAILY [facility] Last Admin: 08/01/18 09:03 Dose: 5 mg Aspirin (Ecotrin -) 81 mg PO DAILY [facility] Last Admin: 08/01/18 09:03 Dose: 81 mg Cyanocobalamin (Vitamin B12 -) 1,000 mcg PO DAILY [facility] Last Admin: 08/01/18 09:03 Dose: 1,000 mcg Diphenhydramine HCl (Benadryl -) 25 mg PO Q6H PRN PRN Reason: allergies Last Admin: 08/01/18 14:49 Dose: 25 mg Heparin Sodium (Porcine) (Heparin -) 5,000 unit SQ BID [facility] Last Admin: 08/01/18 21:08 Dose: 5,000 unit Metoprolol Succinate (Toprol Xl -) 25 mg PO BID [facility] Last Admin: 08/01/18 21:08 Dose: 25 mg Non-Formulary Medication (Dasatinib [Sprycel]) 50 mg PO DAILY [facility] Last Admin: 08/01/18 14:30 Dose: 50 mg Tamsulosin HCl (Flomax -) 0.4 mg PO DAILY [facility] Last Admin: 08/01/18 09:03 Dose: 0.4 mg - Objective Vital Signs: Vital Signs Temperature 98.0 F 08/01/18 18:00 Pulse Rate 75 08/01/18 18:00 Respiratory Rate 18 08/01/18 18:00 Blood Pressure 154/77 08/01/18 18:00 O2 Sat by Pulse Oximetry (%) 96 08/01/18 18:00 Constitutional: Yes: No Distress HENT: Yes: Atraumatic, Normocephalic Neck: Yes: Supple, Trachea Midline Cardiovascular: Yes: Regular Rate and Rhythm, S1, S2 Respiratory: Yes: Regular, CTA Bilaterally Gastrointestinal: Yes: Normal Bowel Sounds, Soft Edema: No Labs: CBC, BMP 07/31/18 05:50 07/31/18 05:50 Problem List - Problems (1) Chest pain Code(s): R07.9 - CHEST PAIN, UNSPECIFIED Qualifiers: Chest pain type: unspecified Qualified Code(s): R07.9 - Chest pain, unspecified (2) ALL (acute lymphoblastic leukemia) Code(s): C91.00 - ACUTE LYMPHOBLASTIC LEUKEMIA NOT HAVING ACHIEVED REMISSION (3) ALL (acute lymphoid leukemia) in remission Code(s): C91.01 - ACUTE LYMPHOBLASTIC LEUKEMIA, IN REMISSION (4) ASHD (arteriosclerotic heart disease) Code(s): I25.10 - ATHSCL HEART DISEASE OF [place] CORONARY ARTERY W/O ANG PCTRS (5) Abdominal abscess Code(s): K65.1 - PERITONEAL ABSCESS (6) Abscess of gastrointestinal tract Code(s): K63.0 - ABSCESS OF INTESTINE (7) Acute leukemia Code(s): C95.00 - ACUTE LEUKEMIA OF UNSP CELL TYPE NOT ACHIEVE REMISSION (8) Atypical chest pain Code(s): R07.89 - OTHER CHEST PAIN (9) COPD (chronic obstructive pulmonary disease) Code(s): J44.9 - CHRONIC OBSTRUCTIVE PULMONARY DISEASE, UNSPECIFIED Qualifiers: COPD type: chronic bronchitis (10) Renal calculus or stone Code(s): N20.0 - CALCULUS OF KIDNEY Assessment/Plan CP sx pLAD 2012 Cardiac Cath October 2012 [place] patent LAD stent 50% D1 D2, D3 90% stenosed small caliber vessels mid LCx 40% 50 % oRamus small nondominant RCA Negative MIBI Stress 2016 [facility] Ongoing medical problems CAD 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 Gennaro Combs Lexiscan MIBI ST mild inferiolateral ischemia nl EF we will discuss with cardiology for optimization of Meds/ Cardiac cath as Pt is still having chest pain. Pt is not tolerating Nitrates.
[2018-08-02] MEDS: ACETAMINOPHEN 325 MG TABLET (FP) PO PRN ×3 (05:30→21:48)
--- NOTE | 2018-08-02 08:01 | PN ---
Progress Note, Physician - Current Medication List Current Medications: Active Medications Acetaminophen (Tylenol -) 650 mg PO Q6H PRN PRN Reason: PAIN 5-10 Last Admin: 08/02/18 05:30 Dose: 650 mg Amlodipine Besylate (Norvasc -) 5 mg PO DAILY [facility] Last Admin: 08/01/18 09:03 Dose: 5 mg Aspirin (Ecotrin -) 81 mg PO DAILY [facility] Last Admin: 08/01/18 09:03 Dose: 81 mg Cyanocobalamin (Vitamin B12 -) 1,000 mcg PO DAILY [facility] Last Admin: 08/01/18 09:03 Dose: 1,000 mcg Diphenhydramine HCl (Benadryl -) 25 mg PO Q6H PRN PRN Reason: allergies Last Admin: 08/01/18 14:49 Dose: 25 mg Heparin Sodium (Porcine) (Heparin -) 5,000 unit SQ BID [facility] Last Admin: 08/01/18 21:08 Dose: 5,000 unit Metoprolol Succinate (Toprol Xl -) 25 mg PO BID [facility] Last Admin: 08/01/18 21:08 Dose: 25 mg Non-Formulary Medication (Dasatinib [Sprycel]) 50 mg PO DAILY [facility] Last Admin: 08/01/18 14:30 Dose: 50 mg Tamsulosin HCl (Flomax -) 0.4 mg PO DAILY [facility] Last Admin: 08/01/18 09:03 Dose: 0.4 mg - Objective Vital Signs: Vital Signs Temperature 98.1 F 08/02/18 06:53 Pulse Rate 70 08/02/18 06:53 Respiratory Rate 20 08/02/18 06:53 Blood Pressure 149/71 08/02/18 06:53 O2 Sat by Pulse Oximetry (%) 97 08/01/18 20:30 Labs: CBC, BMP 07/31/18 05:50 07/31/18 05:50 Problem List - Problems (1) Chest pain Code(s): R07.9 - CHEST PAIN, UNSPECIFIED Qualifiers: Chest pain type: unspecified Qualified Code(s): R07.9 - Chest pain, unspecified (2) ALL (acute lymphoblastic leukemia) Code(s): C91.00 - ACUTE LYMPHOBLASTIC LEUKEMIA NOT HAVING ACHIEVED REMISSION (3) ALL (acute lymphoid leukemia) in remission Code(s): C91.01 - ACUTE LYMPHOBLASTIC LEUKEMIA, IN REMISSION (4) ASHD (arteriosclerotic heart disease) Code(s): I25.10 - ATHSCL HEART DISEASE OF [place] CORONARY ARTERY W/O ANG PCTRS (5) Abdominal abscess Code(s): K65.1 - PERITONEAL ABSCESS (6) Abscess of gastrointestinal tract Code(s): K63.0 - ABSCESS OF INTESTINE (7) Acute leukemia Code(s): C95.00 - ACUTE LEUKEMIA OF UNSP CELL TYPE NOT ACHIEVE REMISSION (8) Atypical chest pain Code(s): R07.89 - OTHER CHEST PAIN (9) COPD (chronic obstructive pulmonary disease) Code(s): J44.9 - CHRONIC OBSTRUCTIVE PULMONARY DISEASE, UNSPECIFIED Qualifiers: COPD type: chronic bronchitis (10) Renal calculus or stone Code(s): N20.0 - CALCULUS OF KIDNEY
[2018-08-02] MEDS ORDERED: PT OWN MED DRAWER 7, Y5N ONE (08:48)
[2018-08-02] MEDS: HEPARIN NA (PORCINE) 5,000 UNITS/ML 1ML VIAL SQ SCH ×2 (09:00→21:43)
[2018-08-02] MEDS: CYANOCOBALAMIN 1,000 MCG TABLET (FP) PO SCH (09:01)
[2018-08-02] MEDS: amLODIPine BESYLATE 5 MG TABLET (FP) PO SCH (09:01)
[2018-08-02] MEDS: metoPROLOL SUCCINATE 25 MG TAB.SR.24H (FP) PO SCH ×2 (09:01→21:43)
[2018-08-02] MEDS: ASPIRIN COATED 81 MG TABLET.EC PO SCH (09:01)
[2018-08-02] MEDS: TAMSULOSIN HCL 0.4 MG CAP PO SCH (09:02)
--- NOTE | 2018-08-02 11:31 | PN ---
Progress Note, Physician History of Present Illness: The patient is a 78 year old male with a history of HTN, HLD, Afib, [place] who presents for evaluation of chest pain. The patient notes that he has been experiencing intermittent left sided chest pressure over the past few days. He notes that over the past 1 day, the pain has become more persistent and worsening prompting his presentation to the ED for further evaluation. He notes that his pain worsens with exertion and is associated with some SOB as well. He otherwise denies fevers, chills, nausea, vomiting, abdominal pain, or changes with urination or bowel movements. 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 Gennaro Combs - Current Medication List Current Medications: Active Medications Acetaminophen (Tylenol -) 650 mg PO Q6H PRN PRN Reason: PAIN 5-10 Last Admin: 08/02/18 05:30 Dose: 650 mg Amlodipine Besylate (Norvasc -) 5 mg PO DAILY [facility] Last Admin: 08/02/18 09:01 Dose: 5 mg Aspirin (Ecotrin -) 81 mg PO DAILY [facility] Last Admin: 08/02/18 09:01 Dose: 81 mg Cyanocobalamin (Vitamin B12 -) 1,000 mcg PO DAILY [facility] Last Admin: 08/02/18 09:01 Dose: 1,000 mcg Diphenhydramine HCl (Benadryl -) 25 mg PO Q6H PRN PRN Reason: allergies Last Admin: 08/01/18 14:49 Dose: 25 mg Heparin Sodium (Porcine) (Heparin -) 5,000 unit SQ BID [facility] Last Admin: 08/02/18 09:00 Dose: 5,000 unit Metoprolol Succinate (Toprol Xl -) 25 mg PO BID [facility] Last Admin: 08/02/18 09:01 Dose: 25 mg Non-Formulary Medication (Dasatinib [Sprycel]) 50 mg PO DAILY [facility] Last Admin: 08/01/18 14:30 Dose: 50 mg Tamsulosin HCl (Flomax -) 0.4 mg PO DAILY [facility] Last Admin: 08/02/18 09:02 Dose: 0.4 mg - Objective Vital Signs: Vital Signs Temperature 98.1 F 08/02/18 06:53 Pulse Rate 70 08/02/18 06:53 Respiratory Rate 20 08/02/18 06:53 Blood Pressure 149/71 08/02/18 06:53 O2 Sat by Pulse Oximetry (%) 97 08/01/18 20:30 Eyes: Yes: WNL, Conjunctiva Clear, EOM Intact HENT: Yes: WNL, Atraumatic, Normocephalic Neck: Yes: WNL, Supple, Trachea Midline Cardiovascular: Yes: WNL, Regular Rate and Rhythm Respiratory: Yes: WNL, Regular, CTA Bilaterally Gastrointestinal: Yes: WNL, Normal Bowel Sounds Genitourinary: Yes: WNL Musculoskeletal: Yes: WNL Extremities: Yes: WNL Edema: No Integumentary: Yes: WNL Neurological: Yes: WNL, Alert, Oriented ...Motor Strength: WNL Psychiatric: Yes: WNL Labs: CBC, BMP 07/31/18 05:50 07/31/18 05:50 Problem List - Problems (1) Chest pain Code(s): R07.9 - CHEST PAIN, UNSPECIFIED Qualifiers: Chest pain type: unspecified Qualified Code(s): R07.9 - Chest pain, unspecified (2) ALL (acute lymphoblastic leukemia) Code(s): C91.00 - ACUTE LYMPHOBLASTIC LEUKEMIA NOT HAVING ACHIEVED REMISSION (3) ALL (acute lymphoid leukemia) in remission Code(s): C91.01 - ACUTE LYMPHOBLASTIC LEUKEMIA, IN REMISSION (4) ASHD (arteriosclerotic heart disease) Code(s): I25.10 - ATHSCL HEART DISEASE OF [place] CORONARY ARTERY W/O ANG PCTRS (5) Abdominal abscess Code(s): K65.1 - PERITONEAL ABSCESS (6) Abscess of gastrointestinal tract Code(s): K63.0 - ABSCESS OF INTESTINE (7) Acute leukemia Code(s): C95.00 - ACUTE LEUKEMIA OF UNSP CELL TYPE NOT ACHIEVE REMISSION (8) Atrial tachycardia Code(s): I47.1 - SUPRAVENTRICULAR TACHYCARDIA (9) Atypical chest pain Code(s): R07.89 - OTHER CHEST PAIN (10) Bilateral pleural effusion Code(s): J90 - PLEURAL EFFUSION, NOT ELSEWHERE CLASSIFIED (11) COPD (chronic obstructive pulmonary disease) Code(s): J44.9 - CHRONIC OBSTRUCTIVE PULMONARY DISEASE, UNSPECIFIED Qualifiers: COPD type: chronic bronchitis (12) Chronic pain Code(s): G89.29 - OTHER CHRONIC PAIN (13) Community acquired bacterial pneumonia Code(s): J15.9 - UNSPECIFIED BACTERIAL PNEUMONIA (14) Dyspnea Code(s): R06.00 - DYSPNEA, UNSPECIFIED (15) GI bleeding Code(s): K92.2 - GASTROINTESTINAL HEMORRHAGE, UNSPECIFIED (16) H/O heart artery stent Code(s): Z95.5 - PRESENCE OF CORONARY ANGIOPLASTY IMPLANT AND GRAFT (17) HTN (hypertension) Code(s): I10 - ESSENTIAL (PRIMARY) HYPERTENSION Qualifiers: Hypertension type: essential hypertension Qualified Code(s): I10 - Essential (primary) hypertension (18) Hydronephrosis of left kidney Code(s): N13.30 - UNSPECIFIED HYDRONEPHROSIS (19) Hydroureter on left Code(s): N13.4 - HYDROURETER (20) Hyperlipidemia Code(s): E78.5 - HYPERLIPIDEMIA, UNSPECIFIED (21) Influenza A Code(s): J10.1 - FLU DUE TO OTH IDENT INFLUENZA VIRUS W OTH RESP MANIFEST (22) Ischemic bowel syndrome Code(s): K55.9 - VASCULAR DISORDER OF INTESTINE, UNSPECIFIED (23) Leukocytosis Code(s): D72.829 - ELEVATED WHITE BLOOD CELL COUNT, UNSPECIFIED (24) Pneumonia Code(s): J18.9 - PNEUMONIA, UNSPECIFIED ORGANISM Qualifiers: (25) Postoperative ileus Code(s): K91.3 - POSTPROCEDURAL INTESTINAL OBSTRUCTION * DO NOT USE * (26) Renal calculus or stone Code(s): N20.0 - CALCULUS OF KIDNEY (27) S/P left colectomy Code(s): Z90.49 - ACQUIRED ABSENCE OF OTHER SPECIFIED PARTS OF DIGESTIVE TRACT (28) Shortness of breath Code(s): R06.02 - SHORTNESS OF BREATH Assessment/Plan CP sx pLAD 2012 Cardiac Cath October 2012 [place] patent LAD stent 50% D1 D2, D3 90% stenosed small caliber vessels mid LCx 40% 50 % o[place]amus small nondominant RCA Negative MIBI Stress 2016 [facility] Ongoing medical problems CAD 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 Gennaro Mckeon MIBI ST mild inferiolateral ischemia nl EF Plan; restart toprol check lipids ischemia most likely from D-3 stenosis Patient agrees with medical rx and cardiac rehab. Reluctant to have c. cath or take nitro will d/c home and f/u as outp
[2018-08-02] MEDS: diphenhydrAMINE HCL 25 MG CAPSULE (FP) PO PRN (14:37)
[2018-08-02] MEDS: DASATINIB 50 MG PO SCH (14:40)
[2018-08-03] MEDS: ACETAMINOPHEN 325 MG TABLET (FP) PO PRN (05:59)
[2018-08-03 08:35] VITALS: BP 164/73; PULSE 66; TEMP 97.8
[2018-08-03] MEDS: CYANOCOBALAMIN 1,000 MCG TABLET (FP) PO SCH (09:08)
[2018-08-03] MEDS: metoPROLOL SUCCINATE 25 MG TAB.SR.24H (FP) PO SCH (09:08)
[2018-08-03] MEDS: TAMSULOSIN HCL 0.4 MG CAP PO SCH (09:08)
[2018-08-03] MEDS: ASPIRIN COATED 81 MG TABLET.EC PO SCH (09:08)
[2018-08-03] MEDS: amLODIPine BESYLATE 5 MG TABLET (FP) PO SCH (09:08)
[2018-08-03] MEDS: HEPARIN NA (PORCINE) 5,000 UNITS/ML 1ML VIAL SQ SCH (09:08)
[2018-08-03] MEDS: DASATINIB 50 MG PO SCH (09:09)
--- NOTE | 2018-08-03 09:14 | DS ---
Physical Examination Vital Signs: Vital Signs Temperature 97.8 F 08/03/18 08:31 Pulse Rate 66 08/03/18 08:31 Respiratory Rate 18 08/03/18 08:31 Blood Pressure 164/73 08/03/18 08:31 O2 Sat by Pulse Oximetry (%) 97 08/02/18 22:00 Constitutional: Yes: No Distress Eyes: Yes: WNL, Conjunctiva Clear HENT: Yes: Atraumatic, Normocephalic Cardiovascular: Yes: Regular Rate and Rhythm Respiratory: Yes: Regular, CTA Bilaterally Gastrointestinal: Yes: Normal Bowel Sounds, Soft Edema: No Labs: CBC, BMP 07/31/18 05:50 07/31/18 05:50 Discharge Summary Reason For Visit: CHEST PAIN Current Active Problems Chest pain (Acute) Procedures: Principal: Nuclear stress test Hospital Course: CP sx pLAD 2011 Cardiac Cath October 2012 [place] patent LAD stent 50% D1 D2, D3 90% stenosed small caliber vessels mid LCx 40% 50 % [place] small nondominant RCA Negative MIBI Stress 2016 [facility] Ongoing medical problems CAD 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 Gennaro Mckeon MIBI ST mild inferiolateral ischemia nl EF Plan; restart toprol check lipids ischemia most likely from D-3 stenosis Patient agrees with medical rx and cardiac rehab. case discussed with Dr Encarnacion regarding cardiac rehab Pt also need cardiac cath if symptoms does not Improve Condition: Stable - Instructions - Home Medications Comprehensive Discharge Medication List: Ambulatory Orders Amlodipine Besylate [Norvasc -] 5 mg PO DAILY 04/15/16 Tamsulosin HCl 0.4 mg PO DAILY 04/15/16 Dasatinib [Sprycel] 50 mg PO DAILY 30 Days #30 tab MDD 1 08/26/17 Cyanocobalamin [Vitamin B12 -] 1,000 mcg PO DAILY 11/19/17 Warfarin Sodium [Coumadin] 2 mg PO DAILY 11/19/17 Acetaminophen [Tylenol .Regular Strength -] 650 mg PO Q6H PRN tablet 11/22/17 Aspirin Coated [Ecotrin -] 81 mg PO DAILY tablet.ec 11/22/17 Diphenhydramine HCl [Benadryl -] 25 mg PO Q6H PRN 07/30/18 Metoprolol Succinate [Toprol XL -] 25 mg PO BID 07/30/18
== END 2018-08-03 10:09 | disposition home or self-care (01) | DRG 313 ==
LOC: JER 07:42 → JERBED 09:34 → J4S 10:30 → OBSVTOIN 17:50
PROVIDERS: ADMIT Internal Medicine; ATTEND Internal Medicine
DX: R07.89 Other chest pain (principal); C91.01 Acute lymphoblastic leukemia, in remission; I25.10 Atherosclerotic heart disease of native coronary artery without angina pectoris; J44.9 Chronic obstructive pulmonary disease, unspecified; I10 Essential (primary) hypertension; E78.5 Hyperlipidemia, unspecified; I48.91 Unspecified atrial fibrillation
CPT/HCPCS: 36415; 71045-TC-FY; 78452-TC; 80053; 80061; 82550; 82553; 83721; 83880; 84484; 85025; 93005; 93010; 93017; 99285-25; A9502; G0378; J1644; J2785

== ENCOUNTER 2019-06-21 15:41 | Emergency (ER) | payer OTHER, BC ==
[2019-06-21] MEDS ORDERED: morphine CARPU-JECT 4 MG/1 ML DISP.SYRIN IVPUSH ONE (15:51)
[2019-06-21] MEDS ORDERED: ONDANSETRON 4 MG/2 ML VIAL IVPUSH ONE (15:51)
--- NOTE | 2019-06-21 15:51 | PDOC ---
Rapid Medical Evaluation Time Seen by Provider: 06/21/19 15:48 Medical Evaluation: Allergies Allergy/AdvReac Type Severity Reaction Status Date / Time nitroglycerin [Nitroglycerin] Allergy Unknown severe Verified 07/30/18 07:49 headache 06/21/19 15:49 CC: sent by PMD for abd colic PE: Left CVAT. Orders: urine, morphine, labs Patient will proceed to ED for further evaluation. Discharge Disposition - Diagnosis Left sided abdominal pain - Referrals - Patient Instructions - Post Discharge Activity
[2019-06-21 15:53] VITALS: BP 116/77; PULSE 78; TEMP 98.2; BMI 24.8
[2019-06-21 16:44] LABS: BASO % 0.6 % (0-2.0); EOS % 1.9 % (0-4.5); HEMATOCRIT 35.5 % (35.4-49); HEMOGLOBIN 11.7 GM/dL (11.7-16.9); LYMPH % 33.3 % (8-40); MCH 33.7 pg (25.7-33.7); MCHC 32.9 g/dl (32.0-35.9); MEAN CELL VOLUME 102.5 fl (80-96); MEAN PLT VOLUME 7.8 fl (7.5-11.1); MONO % 10.8 % (3.8-10.2); NEUT % 53.4 % (42.8-82.8); PLATELET COUNT 290 K/MM3 (134-434); RBC 3.46 M/mm3 (4.00-5.60); WHITE BLOOD COUNT 6.7 K/mm3 (4.0-10.0)
[2019-06-21] MEDS ORDERED: morphine SULFATE 4 MG/ML VIAL ONE (16:44)
[2019-06-21] MEDS ORDERED: ONDANSETRON 4 MG/2 ML VIAL ONE (16:44)
--- NOTE | 2019-06-21 16:56 | PDOC ---
History of Present Illness <Kaleigh Lynne - Last Filed: 06/21/19 18:10> - History of Present Illness Initial Comments: 06/21/19 16:58 CHIEF COMPLAINT: LUQ pain HISTORY OF PRESENT ILLNESS: 79 yo M 78 year old male with a history of HTN, HLD , pAfib (no longer on AC), [place] s/p PCI on ASA, leukemia (last radiation/ chemotherapy 3 years ago) pain sent from PCP Dr. Cassidy Peters for LLQ pain x 1 week. Patient reports he had a surgery in that region 5 years ago. He reports hx of multiples surgeries. No recent travel or sick contacts. PAST MEDICAL HISTORY: Denies past medical history FAMILY HISTORY: Denies SOCIAL HISTORY: Denies tobacco, alcohol, illicit drug use. SURGICAL HISTORY: hemicolectomy, craniotomy, PCI ALLERGIES: No known drug allergies REVIEW OF SYSTEMS General/Constitutional: Denies fever or chills. Denies weakness, weight change. HEENT: Denies change in vision. Denies ear pain or discharge. Denies sore throat. Cardiovascular: Denies chest pain or shortness of breath. Respiratory: Denies cough, wheezing, or hemoptysis. Gastrointestinal: LUQ pain x 1 week. Denies nausea, vomiting, diarrhea or constipation. Denies rectal bleeding. Genitourinary: Denies dysuria, frequency, or change in urination. Musculoskeletal: Denies joint or muscle swelling or pain. Denies neck or back pain. Skin and breasts: Denies rash or easy bruising. Neurologic: Denies headache, vertigo, loss of consciousness, or loss of sensation. Psychiatric: Denies depression or anxiety. Endocrine: Denies increased thirst. Denies abnormal weight change. Hematologic/Lymphatic: Denies anemia, easy bleeding, or history of blood clots. Allergic/Immunologic: Denies hives or skin allergy. Denies latex allergy. PHYSICAL EXAM General Appearance: Well-appearing, appropriately dressed. No apparent distress , no intoxication. HEENT: EOMI, PERRLA, normal ENT inspection, normal voice, TMs normal, pharynx normal. No conjunctival pallor. No photophobia, scleral icterus. Neck: Supple. Trachea midline. No tenderness, rigidity, carotid bruit, stridor , lymphadenopathy, or thyromegaly. Respiratory/Chest: Lungs CTAB. No shortness of breath, chest tenderness, respiratory distress, accessory muscle use. No crackles, rales, rhonchi, stridor , wheezing, dullness Cardiovascular: RRR. S1, S2. No JVD, murmur, bradycardia, tachycardia. Vascular Pulses: Dorsalis-Pedis (R): 2+, Dorsalis-Pedis (L): 2+ Gastrointestinal/Abdominal: Tenderness to LUQ and LLQ on palpation over healed post op incision. Normal bowel sounds. Abdomen soft, non-distended. No tenderness or rebound tenderness. No organomegaly, pulsatile mass, guarding, hernia, hepatomegaly, splenomegaly. Lymphatic: No adenopathy, tenderness. Musculoskeletal/Extremities: Normal inspection. FROM of all extremities, normal capillary refill. Pelvis Stable. No CVA tenderness. No tenderness to extremities, pedal edema, swelling, erythema or deformity. Integumentary: Appropriate color, dry, warm. No cyanosis, erythema, jaundice or rash Neurologic: controller mechanic II-XII intact. Fully oriented, alert. Appropriate mood/affect. Motor strength 5/5. No appreciable EOM palsy, facial droop or sensory deficit. \ <Vernell Sylvester - Last Filed: 06/21/19 22:15> - General Chief Complaint: Pain Stated Complaint: ABDOMINAL PAIN Time Seen by Provider: 06/21/19 15:48 Past History <Kaleigh Lynne - Last Filed: 06/21/19 18:10> - Past Medical History Anemia: No Asthma: No Cancer: Yes (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) Cardiac Disorders: Yes (a-fib, [place]) CVA: No (denies stroke) COPD: No CHF: Yes Dementia: No Diabetes: No GI Disorders: No Disorders: No HTN: Yes Hypercholesterolemia: Yes Liver Disease: No Seizures: No Thyroid Disease: Yes (KIDNEY STONE) - Surgical History Abdominal Surgery: Yes (COLON RESECTION 2013) Appendectomy: No Cardiac Surgery: Yes (Stent placed 2009 pLA) Cholecystectomy: No Lung Surgery: No Neurologic Surgery: Yes (Cyst removed) Orthopedic Surgery: No - Immunization History Immunization Up to Date: Yes - Psycho Social/Smoking Cessation Hx Smoking Status: No Smoking History: Never smoked Have you smoked in the past 12 months: No Number of Cigarettes Smoked Daily: 5 If you are a former smoker, when did you quit?: 45 years Cigars Per Day: 0 'Breaking Loose' booklet given: 08/24/16 Hx Alcohol Use: No Drug/Substance Use Hx: No Substance Use Type: None Hx Substance Use Treatment: No <Vernell Sylvester - Last Filed: 06/21/19 22:15> - Past Medical History Allergies/Adverse Reactions: Allergies Allergy/AdvReac Type Severity Reaction Status Date / Time nitroglycerin [Nitroglycerin] Allergy Unknown severe Verified 07/30/18 07:49 headache Home Medications: Ambulatory Orders Amlodipine Besylate [Norvasc -] 5 mg PO DAILY 04/15/16 Tamsulosin HCl 0.4 mg PO DAILY 04/15/16 Dasatinib [Sprycel] 50 mg PO DAILY 30 Days #30 tab MDD 1 08/26/17 Cyanocobalamin [Vitamin B12 -] 1,000 mcg PO DAILY 11/19/17 Warfarin Sodium [Coumadin] 2 mg PO DAILY 11/19/17 Acetaminophen [Tylenol .Regular Strength -] 650 mg PO Q6H PRN tablet 11/22/17 Aspirin Coated [Ecotrin -] 81 mg PO DAILY tablet.ec 11/22/17 Diphenhydramine HCl [Benadryl -] 25 mg PO Q6H PRN 07/30/18 Metoprolol Succinate [Toprol XL -] 25 mg PO BID 07/30/18 Lactulose (Oral Use) [Cephulac -] 20 gm PO DAILY #1 bottle 06/21/19 *Physical Exam - Vital Signs Last Vital Signs Temp Pulse Resp BP Pulse Ox 98.2 F 78 16 116/77 100 06/21/19 15:50 06/21/19 15:50 06/21/19 15:50 06/21/19 15:50 06/21/19 15:50 <Kaleigh Lynne - Last Filed: 06/21/19 18:10> - Vital Signs Last Vital Signs Temp Pulse Resp BP Pulse Ox 98.2 F 78 16 116/77 100 06/21/19 15:50 06/21/19 15:50 06/21/19 15:50 06/21/19 15:50 06/21/19 15:50 <Vernell Sylvester - Last Filed: 06/21/19 22:15> ED Treatment Course - LABORATORY CBC & Chemistry Diagram: 06/21/19 16:10 06/21/19 16:10 - ADDITIONAL ORDERS Additional order review: Laboratory Results 06/21/19 06/21/19 16:10 15:16 Sodium 142 Potassium 3.9 Chloride 108 H Carbon Dioxide 25 Anion Gap 9 BUN 19.8 H Creatinine 1.2 Est GFR (CKD-EPI)AfAm 66.26 Est GFR (CKD-EPI)NonAf 57.17 Random Glucose 90 Calcium 9.2 Total Bilirubin 0.4 AST 13 L ALT 24 Alkaline Phosphatase 73 Total Protein 8.2 Albumin 4.0 Lipase 163 Urine Color Yellow Urine Appearance Clear Urine pH 5.0 Ur Specific [place] 1.032 Urine Protein 3+ H Urine Glucose (UA) Negative Urine Ketones Trace H Urine Blood Negative Urine Nitrite Negative Urine Bilirubin Negative Urine Urobilinogen 0.2 Ur Leukocyte Esterase Negative Urine WBC (Auto) 1 Urine RBC (Auto) 1 Urine Casts (Auto) 7 U Epithel Cells (Auto) 1.0 Urine Bacteria (Auto) 1.7 06/21/19 16:10 RBC 3.46 L MCV 102.5 H MCHC 32.9 RDW 15.0 MPV 7.8 Neutrophils % 53.4 Lymphocytes % 33.3 Monocytes % 10.8 H Eosinophils % 1.9 Basophils % 0.6 - Medications Given in the ED: ED Medications Discontinued Medications Generic Name Dose Route Start Last Admin Trade Name Edna PRN Reason Stop Dose Admin Morphine Sulfate 4 mg 06/21/19 15:51 06/21/19 18:02 Morphine Injection - IVPUSH 06/21/19 15:52 Not Given ONCE ONE Morphine Sulfate 2 mg 06/21/19 16:57 06/21/19 18:01 Morphine Injection - IVPUSH 06/21/19 16:58 2 mg ONCE ONE Administration Ondansetron HCl 4 mg 06/21/19 15:51 06/21/19 18:01 Zofran Injection IVPUSH 06/21/19 15:52 4 mg ONCE ONE Administration <Kaleigh Lynne - Last Filed: 06/21/19 18:10> - LABORATORY CBC & Chemistry Diagram: 06/21/19 16:10 06/21/19 16:10 - ADDITIONAL ORDERS Additional order review: 06/21/19 16:10 RBC 3.46 L MCV 102.5 H MCHC 32.9 RDW 15.0 MPV 7.8 Neutrophils % 53.4 Lymphocytes % 33.3 Monocytes % 10.8 H Eosinophils % 1.9 Basophils % 0.6 <Vernell Sylvester - Last Filed: 06/21/19 22:15> Medical Decision Making - Medical Decision Making 06/21/19 18:10 The patient was seen and evaluated in conjunction with midlevel provider under my direct supervision, ancillary studies were reviewed. I agree with the plan as outlined with BALTAZAR Sylvester. HPI, workup/dispo as outlined. VS reviewed, wnl. labs and lytes unremarkable CT pending. <Kaleigh Lynne - Last Filed: 06/21/19 18:10> - Medical Decision Making 06/21/19 19:27 79 yo M 78 year old male with a history of HTN, HLD, pAfib (no longer on AC), [place] s/[place] on ASA, leukemia (last radiation/chemotherapy 3 years ago) pain sent from PCP Dr. Benjamin for LLQ pain x 1 week. 06/21/19 21:51 CT indicative of cholelithiasis, b/l adrenal nodules most likely representing benign adenomata, and moderate amount of retained stool in colon. -colace rx sent to pharm Discussed case in detail with Dr. Ray, who agrees patient's pain likely secondary to constipation given pain directly over post op site and agrees that can be sent home and f/u in outpatient setting. Advised patient to take medication as prescribed and follow up with Dr. Ray this week. Advised patient of signs and symptoms for return to ED. Patient verbalized understanding and agrees to plan. <Vernell Sylvester - Last Filed: 06/21/19 22:15> Discharge <Kaleigh Lynne - Last Filed: 06/21/19 18:10> - Discharge Information Problems reviewed: Yes - Admission No <Vernell Sylvester - Last Filed: 06/21/19 22:15> - Discharge Information Clinical Impression/Diagnosis: Adrenal nodule Gallstone Qualifiers: Cholecystitis presence: without cholecystitis Biliary obstruction: without biliary obstruction Qualified Code(s): K80.20 - Calculus of gallbladder without cholecystitis without obstruction Constipation Qualifiers: Constipation type: unspecified constipation type Qualified Code(s): K59.00 - Constipation, unspecified Condition: Stable Disposition: HOME - Additional Discharge Information Prescriptions: Lactulose (Oral Use) [Cephulac -] 20 gm PO DAILY #1 bottle - Follow up/Referral Referrals: Alfredo Cameron MD [Primary Care Provider] - - Patient Discharge Instructions Patient Printed Discharge Instructions: DI for Gallstones, DI for Constipation Additional Instructions: Please take medications as prescribed. Follow up with Dr. Reyna this week for continued evaluation and monitoring of your symptoms. If you develop any chest pain, shortness of breath, fever, chills, vomiting, diarrhea, or any new or worsening symptoms, please return to the ER. - Post Discharge Activity
[2019-06-21] MEDS ORDERED: morphine CARPU-JECT 2 MG/1 ML DISP.SYRIN IVPUSH ONE (16:57)
[2019-06-21 17:27] LABS: HYALINE CASTS 7 /lpf (0-8); URINE APPEARANCE CLEAR; URINE BACTERIA 1.7 /hpf (NEGATIVE); URINE BILIRUBIN NEGATIVE (NEGATIVE); URINE COLOR YELLOW; URINE GLUCOSE (UA) NEGATIVE (NEGATIVE); URINE KETONE TRACE (NEGATIVE); URINE LEUK ESTERASE NEGATIVE (NEGATIVE); URINE NITRITE NEGATIVE (NEGATIVE); URINE PROTEIN 3+ (NEGATIVE); URINE RBC 1 /hpf (0-4); URINE UROBILINOGEN 0.2 mg/dL (0.2-1.0); URINE WBC 1 /hpf (0-5)
[2019-06-21 17:39] LABS: BILIRUBIN,TOTAL 0.4 mg/dL (0.2-1); BLOOD UREA NITROGEN 19.8 mg/dL (7-18); CALCIUM 9.2 mg/dL (8.5-10.1); CREATININE 1.2 mg/dL (0.55-1.3); POTASSIUM 3.9 mmol/L (3.5-5.1); TOT PROT 8.2 g/dl (6.4-8.2)
[2019-06-21] MEDS ORDERED: SODIUM CHLORIDE 0.9% 500 ML INFUS.BAG IV ONE (21:45)
[2019-06-21] MEDS ORDERED: DOCUSATE NA 100 MG/10 ML UNIT-DOSE CUPS PO PRN (21:47)
--- NOTE | 2019-06-22 13:30 | EKG ---
Test Reason : Blood Pressure : / mmHG Vent. Rate : 064 BPM Atrial Rate : 064 BPM P-R Int : 208 ms QRS Dur : 090 ms QT Int : 398 ms P-R-T Axes : 056 059 013 degrees QTc Int : 410 ms SINUS RHYTHM WITH OCCASIONAL PREMATURE VENTRICULAR COMPLEXES AND PREMATURE ATRIAL COMPLEXES SEPTAL INFARCT , AGE UNDETERMINED ABNORMAL ECG WHEN COMPARED WITH ECG OF 30-JUL-2018 07:51, PREMATURE VENTRICULAR COMPLEXES ARE NOW PRESENT Confirmed by ESDRAS PIZARRO MD ([id number]) on 06/22/2019 1:30:13 PM Referred By: Confirmed By:ESDRAS PIZARRO MD
== END 2019-06-21 22:51 | disposition home or self-care (01) ==
LOC: JER 15:41
PROC: 3E033NZ Introduction of Analgesics, Hypnotics, Sedatives into Peripheral Vein, Percutaneous Approach (ICD-10-PCS; principal; 2019-06-21)
PROC: 3E033GC Introduction of Other Therapeutic Substance into Peripheral Vein, Percutaneous Approach (ICD-10-PCS; 2019-06-21)
DX: K80.20 Calculus of gallbladder without cholecystitis without obstruction (principal); D35.02 Benign neoplasm of left adrenal gland; D35.01 Benign neoplasm of right adrenal gland; K59.00 Constipation, unspecified; Z88.8 Allergy status to other drugs, medicaments and biological substances; I25.10 Atherosclerotic heart disease of native coronary artery without angina pectoris; I11.0 Hypertensive heart disease with heart failure; Z95.5 Presence of coronary angioplasty implant and graft; I50.9 Heart failure, unspecified; I48.0 Paroxysmal atrial fibrillation; I25.2 Old myocardial infarction; E78.00 Pure hypercholesterolemia, unspecified; Z87.442 Personal history of urinary calculi; Z85.6 Personal history of leukemia
CPT/HCPCS: 36415; 74176-TC; 80053; 81003; 83690; 85025; 87086; 93005; 93010; 99284-25; Q9967

== ENCOUNTER 2019-07-06 18:13 | Inpatient (IN) | payer OTHER, BC ==
--- NOTE | 2019-07-06 18:29 | PDOC ---
Rapid Medical Evaluation Medical Evaluation: Allergies Allergy/AdvReac Type Severity Reaction Status Date / Time nitroglycerin [Nitroglycerin] Allergy Unknown severe Verified 07/30/18 07:49 headache I have performed a brief in-person evaluation of this patient. The patient presents with a chief complaint of: Hx HTN, HLD, pAfib (no longer on AC), [place] s/p PCI on ASA, leukemia (last radiation/chemotherapy 3 years ago) sent for hematuria x 4-5 days, initially urine was orange in color, but today there was blood; denies fever, vomiting, dysuria; is not on blood thinners; was here 2 weeks ago for LLQ abd pain (had CT A/P done which showed gallstones) Pertinent physical exam findings: In NAD I have ordered the following: Labs The patient will proceed to the ED for further evaluation. 07/06/19 18:28
[2019-07-06 19:00] LABS: BASO % 0.5 % (0-2.0); EOS % 0.1 % (0-4.5); HEMATOCRIT 34.5 % (35.4-49); HEMOGLOBIN 11.3 GM/dL (11.7-16.9); LYMPH % 8.6 % (8-40); MCH 33.5 pg (25.7-33.7); MCHC 32.8 g/dl (32.0-35.9); MEAN CELL VOLUME 101.9 fl (80-96); MEAN PLT VOLUME 7.4 fl (7.5-11.1); MONO % 8.7 % (3.8-10.2); NEUT % 82.1 % (42.8-82.8); PLATELET COUNT 275 K/MM3 (134-434); RBC 3.39 M/mm3 (4.00-5.60); RDW 14.3 % (11.9-15.9); WHITE BLOOD COUNT 12.3 K/mm3 (4.0-10.0)
[2019-07-06 19:33] LABS: ALBUMIN 3.8 g/dl (3.4-5.0); BLOOD UREA NITROGEN 18.6 mg/dL (7-18); CALCIUM 9.1 mg/dL (8.5-10.1); CREATININE 1.4 mg/dL (0.55-1.3); POTASSIUM 3.6 mmol/L (3.5-5.1); TOT PROT 7.6 g/dl (6.4-8.2)
[2019-07-06] MEDS ORDERED: LACTATED RINGERS SOLUTION 1000 ML INFUS.BAG IV ONE (19:57)
[2019-07-06] MEDS ORDERED: ACETAMINOPHEN 500 MG TABLET (FP) PO ONE (19:57)
[2019-07-06 20:19] LABS: URINE APPEARANCE CLOUDY; URINE BILIRUBIN 3+ (NEGATIVE); URINE COLOR DK YELLOW; URINE GLUCOSE (UA) NEGATIVE (NEGATIVE)
[2019-07-06 20:20] LABS: PH,URINE 5.5 (5.0-8.0); URINE KETONE TRACE (NEGATIVE); URINE LEUK ESTERASE TRACE (NEGATIVE); URINE NITRITE POSITIVE (NEGATIVE); URINE PROTEIN 3+ (NEGATIVE)
[2019-07-06 20:21] LABS: EPI CELLS 4.7 /HPF (0-5/HPF); HYALINE CASTS 43.21 /lpf (0-8); URINE BACTERIA 1.5 /hpf (NEGATIVE); URINE RBC 4.4 /hpf (0-4); URINE WBC 3.5 /hpf (0-5)
--- NOTE | 2019-07-06 20:32 | PDOC ---
History of Present Illness - General Chief Complaint: Hematuria Stated Complaint: PASSING BLOOD Time Seen by Provider: 07/06/19 18:25 History Source: Patient, Family (Daughter present at bedside.), Old Records Exam Limitations: No Limitations - History of Present Illness Initial Comments: HPI: 79 y/o male presenting to [facility] ER complaining of light pink urine with increased frequency for the past several days. Discoloration started as orange on Tuesday of this week. Pt further endorses LUQ abdominal pain that has progressively worsened since yesterday. Pain is described as sharp in nature. No change with PO intake. Denies fevers, chills, nausea, or vomiting. Of note, the pt was evaluated at this department two weeks ago for LLQ abdominal pain. Cholelithiasis was noted on CT scan. LFTs were within normal limits. Medical Hx: - HTN - HLD - Paroxysmal Afib (no longer on AC) - [place] s/p PCI on ASA - H/o leukemia (last radiation/chemotherapy 3 years ago) - H/o ischemic bowel s/p left colectomy - H/o nephrolithiasis - COPD - Adrenal Nodule Review of Systems: In addition to that documented in the HPI above, the additional ROS was obtained : Constitutional- Denies fevers or chills Head- Denies vision changes ENMT- Denies sore throat CV- Denies chest pain Resp- Denies acute SOB, coughing, sneezing GI- Denies vomiting or diarrhea - Denies painful urination MSK- Denies recent trauma Skin- Denies new rashes Neuro- Denies new numbness or tingling or weakness Endocrine- Denies polyuria Heme- Denies bleeding or bruising Physical Examination: Constitutional- Well-developed, well-nourished adult male in no acute distress but mild obvious discomfort. Found semi-fowlers on hospital bed. Answered all questions appropriately and completely. Head- Normocephalic. No obvious external signs of trauma. Neck- Supple, trachea is midline. Cardiovascular / Chest- Regular rate and regular rhythm. No murmur, rubs, clicks , or gallops. Peripheral pulses- radial pulses full. No pretibial edema. Respiratory- Breathing unlabored. Equal chest rise and fall. Clear to auscultation bilaterally. No stridor, no wheezing, no rhonchi. Gastrointestinal- abdomen is tender in RUQ with positive Clare sign. Also tender in LLQ without grimace, rebound, or guarding. Large old appearing post sugical scar to midline near umbilicus. No pulsatile masses. No overlying skin lesions or obvious signs of trauma. Neuro- Alert and oriented x4. Moving all four extremities spontaneously. Skin- Warm, dry, and intact. - No R or L CVA tenderness. Psych- Affect- appropriate. Mood- normal. Speech was non-labored, non- pressured. MDM: *Reviewed vital signs, nursing notes, and prior visit documentation (if available). 79 y/o male presenting with hematuria and urinary frequency, as well as RUQ abd pain. Afebrile. Vitals unremarkable for hypotension or tachycardia. Physical exam as described above. LFTs elevated above measurement two weeks ago. Cholelithiasis noted on U/S. Suspect possible early cholecystitis versus choledocolethiasis. Will admit for GI and/or surgery evaluation. UA remarkable for nitrites. Given reported hematuria and urinary frequency, will treat as acute cystitis with ceftriaxone. Spiral CT unremarkable for nephrolithiasis. Known renal cysts and adrenal nodules. Mildly elevated Cr. Suspect CLEMENTE. Ordered IVFB. 07 Jul 2019 01:54 AM Telephone discussion with BALTAZAR Andrew. Verbally appraised of the pts HPI, ED course, and current plan of management. Will admit pt to med /surg for attending Dr. Pérez. Ritesh Diaz M.D., PGY2 Emergency Medicine Resident Past History - Past Medical History Allergies/Adverse Reactions: Allergies Allergy/AdvReac Type Severity Reaction Status Date / Time nitroglycerin [Nitroglycerin] Allergy Unknown severe Verified 07/06/19 18:29 headache Home Medications: Ambulatory Orders Amlodipine Besylate [Norvasc -] 5 mg PO DAILY 04/15/16 Tamsulosin HCl 0.4 mg PO DAILY 04/15/16 Dasatinib [Sprycel] 50 mg PO DAILY 30 Days #30 tab MDD 1 08/26/17 Cyanocobalamin [Vitamin B12 -] 1,000 mcg PO DAILY 11/19/17 Warfarin Sodium [Coumadin] 2 mg PO DAILY 11/19/17 Acetaminophen [Tylenol .Regular Strength -] 650 mg PO Q6H PRN tablet 11/22/17 Aspirin Coated [Ecotrin -] 81 mg PO DAILY tablet.ec 11/22/17 Diphenhydramine HCl [Benadryl -] 25 mg PO Q6H PRN 07/30/18 Metoprolol Succinate [Toprol XL -] 25 mg PO BID 07/30/18 Lactulose (Oral Use) [Cephulac -] 20 gm PO DAILY #1 bottle 06/21/19 Anemia: No Asthma: No Cancer: Yes (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) Cardiac Disorders: Yes (a-fib, ST[place]) CVA: No (denies stroke) COPD: No CHF: Yes Dementia: No Diabetes: No GI Disorders: No Disorders: No HTN: Yes Hypercholesterolemia: Yes Liver Disease: No Seizures: No Thyroid Disease: Yes (KIDNEY STONE) - Surgical History Abdominal Surgery: Yes (COLON RESECTION 2013) Appendectomy: No Cardiac Surgery: Yes (Stent placed 2009 pLA) Cholecystectomy: No Lung Surgery: No Neurologic Surgery: Yes (Cyst removed) Orthopedic Surgery: No - Immunization History Immunization Up to Date: Yes - Psycho Social/Smoking Cessation Hx Smoking Status: No Smoking History: Never smoked Have you smoked in the past 12 months: No Number of Cigarettes Smoked Daily: 5 If you are a former smoker, when did you quit?: 45 years Cigars Per Day: 0 'Breaking Loose' booklet given: 08/24/16 Hx Alcohol Use: No Drug/Substance Use Hx: No Substance Use Type: None Hx Substance Use Treatment: No *Physical Exam - Vital Signs Last Vital Signs Temp Pulse Resp BP Pulse Ox 98.2 F 98 H 18 148/61 99 07/06/19 18:22 07/06/19 18:22 07/06/19 18:22 07/06/19 18:22 07/06/19 18:22 Procedures - Additional Procedures Progress: Ultrasound Guided Peripheral IV Placement PROCEDURE NOTE: IV Placement under Ultrasound Guidance PROCEDURE PUSH CONNECTOR ASSEMBLER: Ritesh Diaz M.D., PGY2 Indication: IV access required. Multiple attempts at peripheral IV placement were made by the nursing/house staff without success. Procedure: The area was prepped in the usual fashion. The L basilic vein was cannulated with a 20 gauge angiocath with use of dynamic ultrasound to identify the vein. The patient tolerated the procedure well. Complications: none ED Treatment Course - LABORATORY CBC & Chemistry Diagram: 07/06/19 18:45 07/06/19 18:45 - ADDITIONAL ORDERS Additional order review: Laboratory Results 07/06/19 07/06/19 18:45 18:45 Sodium 141 Potassium 3.6 Chloride 110 H Carbon Dioxide 25 Anion Gap 6 L BUN 18.6 H Creatinine 1.4 H Est GFR (CKD-EPI)AfAm 54.99 Est GFR (CKD-EPI)NonAf 47.45 Random Glucose 138 H Calcium 9.1 Total Bilirubin 3.0 H D AST 489 H ALT 456 H Alkaline Phosphatase 175 H Total Protein 7.6 Albumin 3.8 Urine Color Dk yellow Urine Appearance Cloudy Urine pH 5.5 Ur Specific [place] 1.046 H Urine Protein 3+ H Urine Glucose (UA) Negative Urine Ketones Trace H Urine Blood Trace Urine Nitrite Positive H Urine Bilirubin 3+ H Urine Urobilinogen 1.0 Ur Leukocyte Esterase Trace Urine WBC (Auto) 3.5 Urine RBC (Auto) 4.4 Urine Casts (Auto) 43.21 U Epithel Cells (Auto) 4.7 Urine Bacteria (Auto) 1.5 07/06/19 18:45 RBC 3.39 L MCV 101.9 H MCHC 32.8 RDW 14.3 MPV 7.4 L Neutrophils % 82.1 D Lymphocytes % 8.6 D Monocytes % 8.7 Eosinophils % 0.1 D Basophils % 0.5 - RADIOLOGY Radiology Studies Ordered: Category Date Time Status CHEST X-RAY PORTABLE* [RAD] Stat Radiology 07/06/19 19:59 Ordered ABDOMEN US -LIMITED [US] Stat Ultrasound 07/06/19 19:41 Ordered Radiograph Interpretation: Spiral CT: THIS IS A PRELIMINARY REPORT FROM [facility] EXAM: CT abdomen and pelvis without contrast IMAGES:[id number] DATE OF EXAM: 2019-07-06 23:46:23 REASON FOR EXAM: Hematuria COMPARISON: None Findings: Atelectasis and scarring in lung bases with mild bronchiectasis. No pleural effusions. Cholelithiasis. The liver, pancreas, and spleen are grossly unremarkable. Small bilateral adrenal nodules. Bilateral perinephric edema and indeterminate bilateral renal cysts. Tiny right intrarenal calcification. No ureteral calculi or hydronephrosis. No AAA. Small periumbilical hernia containing nonobstructed small bowel. Prior distal colon surgery. No evidence for diverticulitis, appendicitis, small bowel obstruction, free fluid, or free air. One or more of the following dose reduction techniques were used: automated exposure control, adjustment of the mA and/or kV according to patient size, use of iterative reconstructive technique. THIS DOCUMENT HAS BEEN ELECTRONICALLY SIGNED Rashad Wiggins MD 07/07/2019 00:55 EST Discharge - Discharge Information Problems reviewed: Yes Clinical Impression/Diagnosis: Common bile duct dilation, Transaminitis, RUQ abdominal pain Cholelithiasis Qualifiers: Cholelithiasis location: gallbladder Cholecystitis presence: without cholecystitis Biliary obstruction: with biliary obstruction Qualified Code(s): K80.21 - Calculus of gallbladder without cholecystitis with obstruction UTI (urinary tract infection) Qualifiers: Urinary tract infection type: acute cystitis Hematuria presence: with hematuria Qualified Code(s): N30.01 - Acute cystitis with hematuria Condition: Stable Disposition: HOME - Admission Yes - Follow up/Referral Referrals: Alfredo Cameron MD [Primary Care Provider] - - Patient Discharge Instructions - Post Discharge Activity
[2019-07-06] MEDS ORDERED: CEFTRIAXONE 1 GM in DEXTROSE 5%-WATER - 100 ML IVPB ONE (21:21)
--- NOTE | 2019-07-06 21:23 | PDOC ---
Attending Attestation - Resident Resident Name: Ritesh Diaz - ED Attending Attestation I have performed the following: I have examined & evaluated the patient, The case was reviewed & discussed with the resident, I agree w/resident's findings & plan - HPI HPI: 07/06/19 21:47 Pt comes with lower abd pain and history of blood tinge in the bottom of toilet bowl after urinating. Pt is afebrile. He ate some iggy-puff cereal today. Abd pain is not related to diet and eating. Pt has no flank pain. Pt has minimal dysuria. No other complaints. - Physicial Exam PE: 07/06/19 21:48 Afebrile VSS RUQ/right middle abd pain with palpation Pt has some Left sided pain with rebound. No flank pain. Pt has no pitting edema of extremities; FROM of extremities Nerurologically intact. - Medical Decision Making 07/06/19 21:49 Labs demonstrate elevated LFTs;pt has a hx of GB stones. Labs also show nitrite positive urine. 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 No pleural effusions. Cholelithiasis. The liver, pancreas, and spleen are grossly unremarkable. Small bilateral adrenal nodules. Bilateral perinephric edema and indeterminate bilateral renal cysts. Tiny right intrarenal calcification. No ureteral calculi or hydronephrosis. No AAA. Small periumbilical hernia containing nonobstructed small bowel. Prior distal colon surgery. No evidence for diverticulitis, appendicitis, small bowel obstruction, free fluid, or free air. 07/07/19 19:33 Pt will be admitted
[2019-07-06] MEDS ORDERED: ACETAMINOPHEN 325 MG TABLET (FP) ONE (23:12)
[2019-07-06] MEDS ORDERED: CEFTRIAXONE 1 GM/50 ML BAG ONE (23:12)
[2019-07-06 23:24] LABS: INR 1.11 (0.83-1.09); PROTHROMBIN TIME (PATIENT) 13.1 SEC (9.7-13.0)
[2019-07-06 23:26] LABS: ACTIVATED PTT 32.1 SECONDS (25.2-36.5)
[2019-07-07] MEDS ORDERED: CEFTRIAXONE 1 GM/50 ML BAG ONE (00:27)
--- NOTE | 2019-07-07 02:04 | HP ---
Admitting History and Physical - Primary Care Physician PCP: Alfredo Cameron - Admission Chief Complaint: Abdominal Pain, Hematuria History of Present Illness: This is a 79 y/o man with a PMHx of HTN, HLD, pAfib (no AC), ID s/p PCI ([place], 2009), COPD, Ischemic Bowel s/p L- Colectomy (2013), Leukemia (RT, Chemo, in remission), Nephrolithiasis, Adrenal Nodule. Who presents to the ED with his daughter for hematuria, RUQ pain x 2 days. Patient reports voiding orange colored urine on Tuesday, then today the urine was bright red, with dysuria. Patient denies fever, chills, cough, SOb, CP, palpitations, N/V/D, constipation , melena, hematochezia. 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 (Arnold Chiari Malformation- s/p craniotomy/repair- 1998) Cardiovascular: Yes: AFIB, CAD (PCI > 1 year ago), CHF, HTN, Hyperlipdemia, Other (Cardiac arrhythmia- atrial tachycardia) Pulmonary: Yes: COPD Gastrointestinal: Yes: GI Bleed, Hemorrhoids, Other (s/p partial colectomy for diverticulosis) Renal/: Yes: Renal Calculi Heme/Onc: Yes: Other (ALL- [place] positive) - Past Surgical History Past Surgical History: Yes: Colectomy - Smoking History Smoking history: Former smoker Have you smoked in the past 12 months: No Aproximately how many cigarettes per day: 5 If you are a former smoker, when did you quit?: 45 years - Alcohol/Substance Use Hx Alcohol Use: No History of Substance Use: reports: None - Social History Usual Living Arrangement: Yes: With Child 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 Travel: No Home Medications - Allergies Allergies/Adverse Reactions: Allergies Allergy/AdvReac Type Severity Reaction Status Date / Time nitroglycerin [Nitroglycerin] Allergy Unknown severe Verified 07/06/19 18:29 headache - Home Medications Home Medications: Ambulatory Orders Amlodipine Besylate [Norvasc -] 5 mg PO DAILY 04/15/16 Tamsulosin HCl 0.4 mg PO DAILY 04/15/16 Dasatinib [Sprycel] 50 mg PO DAILY 30 Days #30 tab MDD 1 08/26/17 Cyanocobalamin [Vitamin B12 -] 1,000 mcg PO DAILY 11/19/17 Acetaminophen [Tylenol .Regular Strength -] 650 mg PO Q6H PRN tablet 11/22/17 Aspirin Coated [Ecotrin -] 81 mg PO DAILY tablet.ec 11/22/17 Diphenhydramine HCl [Benadryl -] 25 mg PO Q6H PRN 07/30/18 Metoprolol Succinate [Toprol XL -] 50 mg PO BID 07/30/18 Albuterol Sulfate Inhaler - [Ventolin HFA Inhaler -] 1 inhaler PO PRN 07/07/19 Budesonide/Formeterol Fumarate [SYMBICORT 80/4.5mcg -] 1 inhaler PO BID Cyclosporine [Restasis] 1 drop OU DAILY 07/07/19 Loperamide HCl [Loperamide] 2 mg PO PRN 07/07/19 Family Medical History Family History: Unable to Obtain Review of Systems - Review of Systems Constitutional: reports: No Symptoms Eyes: reports: No Symptoms HENT: reports: No Symptoms Neck: reports: No Symptoms Cardiovascular: reports: No Symptoms Respiratory: reports: No Symptoms Gastrointestinal: reports: Abdominal Pain. denies: Diarrhea, Melena, Rectal Bleeding, Vomiting Blood Genitourinary: reports: Dysuria, Hematuria. denies: Flank Pain, Testicular Pain Breasts: reports: No Symptoms Reported Musculoskeletal: reports: No Symptoms Integumentary: reports: No Symptoms Neurological: reports: No Symptoms Endocrine: reports: No Symptoms Hematology/Lymphatic: reports: No Symptoms Psychiatric: reports: No Symptoms Pain Intensity: 6 Physical Examination Vital Signs: Vital Signs Temperature 98.2 F 07/06/19 18:22 Pulse Rate 98 H 07/06/19 18:22 Respiratory Rate 18 07/06/19 18:22 Blood Pressure 148/61 07/06/19 18:22 O2 Sat by Pulse Oximetry (%) 99 07/06/19 18:22 Constitutional: Yes: Well Nourished, No Distress, Calm Eyes: Yes: WNL, Conjunctiva Clear, EOM Intact, PERRL HENT: Yes: WNL, Atraumatic, Normocephalic Neck: Yes: WNL, Supple, Trachea Midline Cardiovascular: Yes: WNL, Regular Rate and Rhythm, S1, S2 Respiratory: Yes: Regular, CTA Bilaterally. No: Cough, SOB, SOB on Exertion Gastrointestinal: Yes: Hypoactive Bowel Sounds, Tenderness (RUQ), Tenderness, Epigastrium. No: Tenderness, Rebound Breast(s): Yes: WNL Musculoskeletal: Yes: WNL Extremities: Yes: WNL Edema: No Peripheral Pulses WNL: Yes Neurological: Yes: WNL, Alert, Oriented, Cran Nerves II-XII Intact ...Motor Strength: WNL Psychiatric: Yes: WNL, Alert, Oriented Labs: CBC, BMP 07/06/19 18:45 07/06/19 18:45 Laboratory Results - last 24 hr 07/06/19 07/06/19 07/06/19 18:45 18:45 18:45 WBC 12.3 H RBC 3.39 L Hgb 11.3 L Hct 34.5 L MCV 101.9 H MCH 33.5 MCHC 32.8 RDW 14.3 Plt Count 275 MPV 7.4 L Absolute Neuts (auto) 10.1 H Neutrophils % 82.1 D Lymphocytes % 8.6 D Monocytes % 8.7 Eosinophils % 0.1 D Basophils % 0.5 Nucleated RBC % 0 PT with INR INR PTT (Actin FS) Sodium 141 Potassium 3.6 Chloride 110 H Carbon Dioxide 25 Anion Gap 6 L BUN 18.6 H Creatinine 1.4 H Est GFR (CKD-EPI)AfAm 54.99 Est GFR (CKD-EPI)NonAf 47.45 Random Glucose 138 H Lactic Acid Calcium 9.1 Total Bilirubin 3.0 H D AST 489 H ALT 456 H Alkaline Phosphatase 175 H Total Protein 7.6 Albumin 3.8 Lipase Urine Color Dk yellow Urine Appearance Cloudy Urine pH 5.5 Ur Specific [place] 1.046 H Urine Protein 3+ H Urine Glucose (UA) Negative Urine Ketones Trace H Urine Blood Trace Urine Nitrite Positive H Urine Bilirubin 3+ H Urine Urobilinogen 1.0 Ur Leukocyte Esterase Trace Urine WBC (Auto) 3.5 Urine RBC (Auto) 4.4 Urine Casts (Auto) 43.21 U Pathogenic Cast Auto Few U Epithel Cells (Auto) 4.7 Urine Bacteria (Auto) 1.5 Blood Type Antibody Screen 07/06/19 07/06/19 07/06/19 23:00 23:00 23:00 WBC RBC Hgb Hct MCV MCH MCHC RDW Plt Count MPV Absolute Neuts (auto) Neutrophils % Lymphocytes % Monocytes % Eosinophils % Basophils % Nucleated RBC % PT with INR 13.10 H INR 1.11 H PTT (Actin FS) 32.1 Sodium Potassium Chloride Carbon Dioxide Anion Gap BUN Creatinine Est GFR (CKD-EPI)AfAm Est GFR (CKD-EPI)NonAf Random Glucose Lactic Acid 1.0 Calcium Total Bilirubin AST ALT Alkaline Phosphatase Total Protein Albumin Lipase Urine Color Urine Appearance Urine pH Ur Specific [place] Urine Protein Urine Glucose (UA) Urine Ketones Urine Blood Urine Nitrite Urine Bilirubin Urine Urobilinogen Ur Leukocyte Esterase Urine WBC (Auto) Urine RBC (Auto) Urine Casts (Auto) U Pathogenic Cast Auto U Epithel Cells (Auto) Urine Bacteria (Auto) Blood Type O POSITIVE Antibody Screen Negative 07/06/19 23:04 WBC RBC Hgb Hct MCV MCH MCHC RDW Plt Count MPV Absolute Neuts (auto) Neutrophils % Lymphocytes % Monocytes % Eosinophils % Basophils % Nucleated RBC % PT with INR INR PTT (Actin FS) Sodium Potassium Chloride Carbon Dioxide Anion Gap BUN Creatinine Est GFR (CKD-EPI)AfAm Est GFR (CKD-EPI)NonAf Random Glucose Lactic Acid Calcium Total Bilirubin AST ALT Alkaline Phosphatase Total Protein Albumin Lipase 141 Urine Color Urine Appearance Urine pH Ur Specific [place] Urine Protein Urine Glucose (UA) Urine Ketones Urine Blood Urine Nitrite Urine Bilirubin Urine Urobilinogen Ur Leukocyte Esterase Urine WBC (Auto) Urine RBC (Auto) Urine Casts (Auto) U Pathogenic Cast Auto U Epithel Cells (Auto) Urine Bacteria (Auto) Blood Type Antibody Screen Intake & Output 07/04/19 07/05/19 07/06/19 07/07/19 23:59 23:59 23:59 23:59 Intake Total 240 Balance 240 Weight 82.554 kg 79.379 kg Imaging - Results Chest X-ray: Image Reviewed Cat Scan: Report Reviewed, Image Reviewed Ultrasound: Report Reviewed, Image Reviewed EKG: Image Reviewed Problem List - Problems (1) RUQ abdominal pain Assessment/Plan: Likely secondary to ?early cholecystitis vs choledocholithasis CTAP report- cholethiasis, small periumbilical hernia containing, nonobstructed small bowel. prior distal colon surgery, no evidence for diverticulitis, appendicitis, SBO, free fluid or free air. RUQ ultrasound report- cholelithiasis, ? early acute cholecystiits. mild common bile duct dilatation Appreciate Surgical consult Appreciate GI consult Monitor CBC, BMP NPO Gentle IVF Code(s): R10.11 - RIGHT UPPER QUADRANT PAIN (2) Cholelithiasis Assessment/Plan: See above Code(s): K80.20 - CALCULUS OF GALLBLADDER W/O CHOLECYSTITIS W/O OBSTRUCTION Qualifiers: Cholelithiasis location: gallbladder Cholecystitis presence: without cholecystitis Biliary obstruction: with biliary obstruction Qualified Code(s ): K80.21 - Calculus of gallbladder without cholecystitis with obstruction (3) Transaminitis Assessment/Plan: Likely secondary to possible stone in CBD Trend LFTs Appreciate GI consult Code(s): R74.0 - NONSPEC ELEV OF LEVELS OF TRANSAMNS & LACTIC ACID DEHYDRGNSE (4) Common bile duct dilation Assessment/Plan: Would consider MRCP Code(s): K83.8 - OTHER SPECIFIED DISEASES OF BILIARY TRACT (5) UTI (urinary tract infection) Assessment/Plan: UA- +nitrate, +3 protein, trace ketone/blood Urine Culture-pending Ceftriaxone initiated in ED, will continue +Leukocytosis Monitor CBC, BMP Monitor vitals Code(s): N39.0 - URINARY TRACT INFECTION, SITE NOT SPECIFIED Qualifiers: Urinary tract infection type: acute cystitis Hematuria presence: with hematuria Qualified Code(s): N30.01 - Acute cystitis with hematuria (6) Proteinuria Assessment/Plan: Likely due to UTI UA- +3, baseline Consider Nephrology consult if condition worsens Code(s): R80.9 - PROTEINURIA, UNSPECIFIED (7) HTN (hypertension) Assessment/Plan: stable Monitor BP Continue home meds Monitor renal function Code(s): I10 - ESSENTIAL (PRIMARY) HYPERTENSION Qualifiers: Hypertension type: essential hypertension Qualified Code(s): I10 - Essential (primary) hypertension (8) COPD (chronic obstructive pulmonary disease) Assessment/Plan: stable Chest Xray image reviewed- cardiomegaly, no infitrate or effusions appreciated Continue home med O2 Code(s): J44.9 - CHRONIC OBSTRUCTIVE PULMONARY DISEASE, UNSPECIFIED Qualifiers: COPD type: chronic bronchitis (9) ALL (acute lymphoid leukemia) in remission Assessment/Plan: s/p RT, chemo Continue Sprycel Code(s): C91.01 - ACUTE LYMPHOBLASTIC LEUKEMIA, IN REMISSION Assessment/Plan This is a 79 y/o man with a PMHx of HTN, HLD, pAfib (no AC), ID s/p PCI (2009), COPD, Ischemic Bowel (s/p L- Colectomy, 2013), Leukemia (RT, Chemo, 3 yrs ago), Nephrolithiasis, Adrenal Nodule. Admitted for Abdominal Pain, Choledocholithasis , UTI for further evaluation of their emergent condition. Plan: See Problem List FEN D51/2NS@42ml/hr Replete lytes prn DVT ppx OOB SCDs Hold AC secondary to Hematuria Dispo: Requires Inpatient Care Visit type - Emergency Visit Emergency Visit: Yes ED Registration Date: 07/06/19 Care time: The patient presented to the Emergency Department on the above date and was hospitalized for further evaluation of their emergent condition. - New Patient This patient is new to me today: Yes Date on this admission: 07/07/19 - Critical Care Critical Care patient: No
[2019-07-07] MEDS: DEXTROSE 5%-0.45% SALINE 1,000 ML IV SCH (04:12)
[2019-07-07] MEDS ORDERED: ALBUTEROL SO4 0.083% IH SOL 2.5 MG/3 ML VIAL.NEB. NEB PRN (08:10)
[2019-07-07] MEDS ORDERED: cefTRIAXone SODIUM 1 GM VIAL ONE (09:03)
[2019-07-07] MEDS ORDERED: DEXTROSE 5%-WATER - 50 ML IVPB ONE ×3 (09:03→23:56)
[2019-07-07] MEDS: TAMSULOSIN HCL 0.4 MG CAP PO SCH (09:24)
[2019-07-07] MEDS: ASPIRIN COATED 81 MG TABLET.EC PO SCH (09:24)
[2019-07-07] MEDS ORDERED: PT OWN MED DRAWER 7, Y5N ONE (09:26)
[2019-07-07] MEDS: BUDESONIDE/FORMETEROL FUMARATE 80/4.5 mcg INHALER IH SCH ×2 (09:34→21:23)
[2019-07-07] MEDS ORDERED: amLODIPine BESYLATE 5 MG TABLET (FP) PO SCH (10:00)
[2019-07-07] MEDS ORDERED: CEFTRIAXONE 1 GM in DEXTROSE 5%-WATER - 50 ML IVPB SCH (10:00)
[2019-07-07 10:05] LABS: BASO % 0.2 % (0-2.0); EOS % 0.6 % (0-4.5); HEMATOCRIT 31.3 % (35.4-49); HEMOGLOBIN 10.5 GM/dL (11.7-16.9); LYMPH % 14.1 % (8-40); MCH 34.4 pg (25.7-33.7); MCHC 33.6 g/dl (32.0-35.9); MEAN CELL VOLUME 102.2 fl (80-96); MEAN PLT VOLUME 7.9 fl (7.5-11.1); MONO % 7.1 % (3.8-10.2); PLATELET COUNT 255 K/MM3 (134-434); RBC 3.06 M/mm3 (4.00-5.60); RDW 14.5 % (11.9-15.9); WHITE BLOOD COUNT 7.8 K/mm3 (4.0-10.0)
[2019-07-07 10:14] LABS: BLOOD UREA NITROGEN 14.6 mg/dL (7-18); CREATININE 1.1 mg/dL (0.55-1.3); POTASSIUM 3.4 mmol/L (3.5-5.1)
[2019-07-07 11:20] LABS: ALBUMIN 3.3 g/dl (3.4-5.0); BILIRUBIN,DIRECT 0.8 mg/dL (0.0-0.2); BILIRUBIN,TOTAL 1.5 mg/dL (0.2-1); TOT PROT 7.1 g/dl (6.4-8.2)
--- NOTE | 2019-07-07 11:31 | EKG ---
Test Reason : Blood Pressure : / mmHG Vent. Rate : 081 BPM Atrial Rate : 081 BPM P-R Int : 204 ms QRS Dur : 078 ms QT Int : 354 ms P-R-T Axes : 052 040 016 degrees QTc Int : 411 ms SINUS RHYTHM WITH OCCASIONAL PREMATURE VENTRICULAR COMPLEXES POSSIBLE LEFT ATRIAL ENLARGEMENT SEPTAL INFARCT (CITED ON OR BEFORE 21-JUN-2019) ABNORMAL ECG WHEN COMPARED WITH ECG OF 21-JUN-2019 18:13, PREMATURE ATRIAL COMPLEXES ARE NO LONGER PRESENT Confirmed by KATE CLEMENTS MD (2013) on 07/07/2019 11:30:55 AM Referred By: Confirmed By:KATE CLEMENTS MD
--- NOTE | 2019-07-07 11:44 | PN ---
Progress Note (short form) - Note Progress Note: surgery pt seen and examined. full consult dicated. abd pain, elevated lfts, dilated cbd, no inflammation on u/s or gb. abd- mild epigastric tenderness plan- gi eval for ercp. possible surgery pending results and patients ability to tolerate anesthesia at [facility] with underlying cardiac issues.
--- NOTE | 2019-07-07 12:04 | CON.GI ---
Consult Consult Specialty:: GI: For Dr. Ayala/Elmer who resume care 07/09 Referred by:: Dr. Sandrita Cosby Reason for Consultation:: Abnormal LFTs - History of Present Illness Chief Complaint: Blood in urine and right sided abdominal pain History of Present Illness: 79M admitted for primarily what he felt was hematuria. He also describes intermittent pain of the abdomen over the last week. It became progressively more intense on -tuesday. At around that time he also noted darker urine and then said that he saw gross blood. WBC's, Transaminases, ALP and Bili were elevated (normal 06/16). CT scan of the A/P revealed cholelithiasis, bilateral adrenal nodules, low attenuation kidney lesions (possible cysts per radiologist), S/P left colon surgery and a peroiumbilical fat/bowel containing hernia. Abd US revealed gallstones and CBD of 9mm (dilatation of the CBD noted in 2017 as well). He denies recent antibiotic use or change in medication regimen. He denies recent travel. Uranalysis revealed protein and bilirubin with trace blood and RBC's. 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 Place of : [facility] History of Recent Travel: No Home Medications - Allergies Allergies/Adverse Reactions: Allergies Allergy/AdvReac Type Severity Reaction Status Date / Time nitroglycerin [Nitroglycerin] Allergy Unknown severe Verified 07/06/19 18:29 headache - Home Medications Home Medications: Ambulatory Orders Amlodipine Besylate [Norvasc -] 5 mg PO DAILY 04/15/16 Tamsulosin HCl 0.4 mg PO DAILY 04/15/16 Dasatinib [Sprycel] 50 mg PO DAILY 30 Days #30 tab MDD 1 08/26/17 Cyanocobalamin [Vitamin B12 -] 1,000 mcg PO DAILY 11/19/17 Acetaminophen [Tylenol .Regular Strength -] 650 mg PO Q6H PRN tablet 11/22/17 Aspirin Coated [Ecotrin -] 81 mg PO DAILY tablet.ec 11/22/17 Diphenhydramine HCl [Benadryl -] 25 mg PO Q6H PRN 07/30/18 Metoprolol Succinate [Toprol XL -] 50 mg PO BID 07/30/18 Albuterol Sulfate Inhaler - [Ventolin HFA Inhaler -] 1 inhaler PO PRN 07/07/19 Budesonide/Formeterol Fumarate [SYMBICORT 80/4.5mcg -] 1 inhaler PO BID Cyclosporine [Restasis] 1 drop OU DAILY 07/07/19 Loperamide HCl [Loperamide] 2 mg PO PRN 07/07/19 Family Medical History Other Family History: Father: committed suicide. Sibling: CVA. Mother lived to , of old age. Son had a cancer that was treated Review of Systems - Review of Systems Constitutional: denies: Chills, Fever Cardiovascular: denies: Chest Pain Respiratory: denies: SOB Gastrointestinal: reports: Abdominal Pain. denies: Constipation, Diarrhea, Nausea, Rectal Bleeding, Vomiting Genitourinary: reports: Hematuria Physical Exam-GI Vital Signs: Vital Signs Temperature 98.1 F 07/07/19 06:26 Pulse Rate 83 07/07/19 06:26 Respiratory Rate 17 07/07/19 10:00 Blood Pressure 167/72 07/07/19 06:26 O2 Sat by Pulse Oximetry (%) 100 07/07/19 10:00 Constitutional: Yes: Calm Eyes: No: Sclera Icterus Cardiovascular: Yes: Regular Rate and Rhythm Respiratory: Yes: CTA Bilaterally Gastrointestinal Inspection: Yes: Scars (Long midline vertcial abdominopelvic surgical scar). No: Distention ...Palpate: Yes: Tenderness (TTP Mid / upper right abdomen) ...Percussion: No: Tympanitic Edema: No (No LE edema) Neurological: Yes: Alert Labs: CBC, BMP 07/07/19 09:15 07/07/19 09:15 INR, PTT INR 1.11 (0.83-1.09) H 07/06/19 23:00 Hepatic Panel Total Bilirubin 1.5 mg/dL (0.2-1) H 07/07/19 09:15 Direct Bilirubin 0.8 mg/dL (0.0-0.2) H 07/07/19 09:15 AST 278 U/L (15-37) H 07/07/19 09:15 ALT 428 U/L (13-61) H 07/07/19 09:15 Alkaline Phosphatase 198 U/L (45-117) H 07/07/19 09:15 Albumin 3.3 g/dl (3.4-5.0) L 07/07/19 09:15 Problem List - Problems (1) RUQ abdominal pain Assessment/Plan: With elevated liver chemistries. Although his main complaint of hemmaturia, UA not suggestive of significant gross hematuria, at least on admission. It did show elevated bilurubin. In the setting of elevated liver chemistries, leukocytosis, persistent RUQ pain along with cholelithiasis and dilated ( chronically per prior imaging), biliary tract pathology such as cholecystitis, retained or passed CBD stone (as LFTs are heading in a downward trend) would need to be considered higher in the differential. I explained this to Mr. Alfonso. Clinically without evidence of onngoing cholangitis. I explained that further testing will be needed. I have ordered an MRCP to further evaluate his biliry tract. We also discussed the possibility of need for ERCP for therapeutic / diagnostic purposes. We discussed potential risks of the procedure like but not limited to bleeding, perforation requiring surgery to repair, infection, sedation medication effects, pancreatitis, all of which could be potenntially life threatening. He has agreed to the procedure if it was felt to be clinically indicated. For now: NPO IV hydration Monitor LFTs Cardiology consultation given significant cardiac history IV Abx (Changed to zosyn and ID consult placed) At Mr. Grimes's request I called his daughter Lucila to discuss the above. I left a mesage for her to call my office number on her provided contact number Will discuss case with biliary endoscopist Dr. Vida Payne. Code(s): R10.11 - RIGHT UPPER QUADRANT PAIN
--- NOTE | 2019-07-07 12:29 | PN ---
Progress Note, Physician Chief Complaint: 79 y/o man with a PMHx of HTN, HLD, pAfib (no AC), [place] s/p PCI ([place], 2009), COPD , Ischemic Bowel s/p L- Colectomy (2013), Leukemia (RT, Chemo, in remission), Nephrolithiasis, Adrenal Nodule. Who presents to the ED with his daughter for hematuria, RUQ pain x 2 days. Patient reports voiding orange colored urine on Tuesday, then today the urine was bright red, with dysuria. Patient denies fever, chills, cough, SOb, CP, palpitations, N/V/D, constipation, melena, hematochezia. - Current Medication List Current Medications: Active Medications Albuterol Sulfate (Ventolin 0.083% Nebulizer Soln -) 1 amp NEB Q6H PRN PRN Reason: SHORT OF BREATH/WHEEZING Amlodipine Besylate (Norvasc -) 5 mg PO DAILY [facility] Last Admin: 07/07/19 09:24 Dose: 5 mg Aspirin (Ecotrin -) 81 mg PO DAILY [facility] Last Admin: 07/07/19 09:24 Dose: 81 mg Budesonide/Formoterol Fumarate (Symbicort 80/4.5mcg -) 2 puff IH BID [facility] Last Admin: 07/07/19 09:34 Dose: 2 puff Dextrose/Sodium Chloride (D5-1/2ns -) 1,000 mls @ 60 mls/hr IV ASDIR [facility] Last Admin: 07/07/19 04:12 Dose: 60 mls/hr Piperacillin Sod/Tazobactam (Sod 3.375 gm/ Dextrose) 50 mls @ 100 mls/hr IVPB Q8H-IV [facility]; Protocol Piperacillin Sod/Tazobactam (Sod 3.375 gm/ Dextrose) 50 mls @ 100 mls/hr IVPB Q8H-IV [facility] Stop: 07/08/19 10:29 Metoprolol Succinate (Toprol Xl -) 50 mg PO BID [facility] Last Admin: 07/07/19 09:24 Dose: 50 mg Non-Formulary Medication (Cyclosporine [Restasis]) 1 drop OU DAILY [facility] Non-Formulary Medication (Dasatinib [Sprycel]) 50 mg PO DAILY [facility] Tamsulosin HCl (Flomax -) 0.4 mg PO DAILY@0830 [facility] Last Admin: 07/07/19 09:24 Dose: 0.4 mg - Objective Vital Signs: Vital Signs Temperature 98.1 F 07/07/19 06:26 Pulse Rate 83 07/07/19 06:26 Respiratory Rate 17 07/07/19 10:00 Blood Pressure 167/72 07/07/19 06:26 O2 Sat by Pulse Oximetry (%) 100 07/07/19 10:00 Constitutional: Yes: No Distress Eyes: Yes: Conjunctiva Clear, EOM Intact HENT: Yes: Atraumatic, Normocephalic Neck: Yes: Supple, Trachea Midline Cardiovascular: Yes: Regular Rate and Rhythm, S1, S2 Respiratory: Yes: Regular, CTA Bilaterally Gastrointestinal: Yes: Normal Bowel Sounds, Soft Musculoskeletal: Yes: Joint Stiffness Edema: No Neurological: Yes: Alert, Oriented, Cran Nerves II-XII Intact Labs: CBC, BMP 07/07/19 09:15 07/07/19 09:15 INR, PTT INR 1.11 (0.83-1.09) H 07/06/19 23:00 Problem List - Problems (1) Umbilical hernia Code(s): K42.9 - UMBILICAL HERNIA WITHOUT OBSTRUCTION OR GANGRENE (2) Cholelithiasis Code(s): K80.20 - CALCULUS OF GALLBLADDER W/O CHOLECYSTITIS W/O OBSTRUCTION Qualifiers: Cholelithiasis location: gallbladder Cholecystitis presence: without cholecystitis Biliary obstruction: with biliary obstruction Qualified Code(s ): K80.21 - Calculus of gallbladder without cholecystitis with obstruction (3) Common bile duct dilation Code(s): K83.8 - OTHER SPECIFIED DISEASES OF BILIARY TRACT (4) Proteinuria Code(s): R80.9 - PROTEINURIA, UNSPECIFIED (5) RUQ abdominal pain Code(s): R10.11 - RIGHT UPPER QUADRANT PAIN (6) Transaminitis Code(s): R74.0 - NONSPEC ELEV OF LEVELS OF TRANSAMNS & LACTIC ACID DEHYDRGNSE (7) UTI (urinary tract infection) Code(s): N39.0 - URINARY TRACT INFECTION, SITE NOT SPECIFIED Qualifiers: Urinary tract infection type: acute cystitis Hematuria presence: with hematuria Qualified Code(s): N30.01 - Acute cystitis with hematuria (8) ALL (acute lymphoblastic leukemia) Code(s): C91.00 - ACUTE LYMPHOBLASTIC LEUKEMIA NOT HAVING ACHIEVED REMISSION (9) ASHD (arteriosclerotic heart disease) Code(s): I25.10 - ATHSCL HEART DISEASE OF [place] CORONARY ARTERY W/O ANG PCTRS (10) COPD (chronic obstructive pulmonary disease) Code(s): J44.9 - CHRONIC OBSTRUCTIVE PULMONARY DISEASE, UNSPECIFIED Qualifiers: COPD type: chronic bronchitis (11) H/O heart artery stent Code(s): Z95.5 - PRESENCE OF CORONARY ANGIOPLASTY IMPLANT AND GRAFT (12) HTN (hypertension) Code(s): I10 - ESSENTIAL (PRIMARY) HYPERTENSION Qualifiers: Hypertension type: essential hypertension Qualified Code(s): I10 - Essential (primary) hypertension Assessment/Plan (1) Umbilical hernia Code(s): K42.9 - UMBILICAL HERNIA WITHOUT OBSTRUCTION OR GANGRENE (2) Cholelithiasis Code(s): K80.20 - CALCULUS OF GALLBLADDER W/O CHOLECYSTITIS W/O OBSTRUCTION Qualifiers: Cholelithiasis location: gallbladder Cholecystitis presence: without cholecystitis Biliary obstruction: with biliary obstruction Qualified Code(s ): K80.21 - Calculus of gallbladder without cholecystitis with obstruction (3) Common bile duct dilation Code(s): K83.8 - OTHER SPECIFIED DISEASES OF BILIARY TRACT (4) Proteinuria Code(s): R80.9 - PROTEINURIA, UNSPECIFIED (5) RUQ abdominal pain Code(s): R10.11 - RIGHT UPPER QUADRANT PAIN (6) Transaminitis Code(s): R74.0 - NONSPEC ELEV OF LEVELS OF TRANSAMNS & LACTIC ACID DEHYDRGNSE (7) UTI (urinary tract infection) Code(s): N39.0 - URINARY TRACT INFECTION, SITE NOT SPECIFIED Qualifiers: Urinary tract infection type: acute cystitis Hematuria presence: with hematuria Qualified Code(s): N30.01 - Acute cystitis with hematuria (8) ALL (acute lymphoblastic leukemia) Code(s): C91.00 - ACUTE LYMPHOBLASTIC LEUKEMIA NOT HAVING ACHIEVED REMISSION (9) ASHD (arteriosclerotic heart disease) Code(s): I25.10 - ATHSCL HEART DISEASE OF [place] CORONARY ARTERY W/O ANG PCTRS (10) COPD (chronic obstructive pulmonary disease) Code(s): J44.9 - CHRONIC OBSTRUCTIVE PULMONARY DISEASE, UNSPECIFIED Qualifiers: COPD type: chronic bronchitis (11) H/O heart artery stent Code(s): Z95.5 - PRESENCE OF CORONARY ANGIOPLASTY IMPLANT AND GRAFT (12) HTN (hypertension) Code(s): I10 - ESSENTIAL (PRIMARY) HYPERTENSION Qualifiers: Hypertension type: essential hypertension Qualified Code(s): I10 - Essential (primary) hypertension
--- NOTE | 2019-07-07 12:35 | CONS ---
DATE OF CONSULTATION: 07/07/2019 REASON FOR CONSULTATION: Early cholecystitis. This is an inpatient request of the medical team. BRIEF HISTORY: This is a 79-year-old male with multiple medical problems including ischemic colitis, myocardial infarction, leukemia, atrial fibrillation, hypertension, hyperlipidemia with known cholelithiasis with previous left colectomy for ischemic colitis with coronary artery stent more than 10 years ago with known cholelithiasis who presents complaining of dysuria and right upper quadrant pain. He was noted to have elevated liver function tests and an elevated white blood cell count. He had a CAT scan of his abdomen and pelvis, which showed cholelithiasis and a periumbilical hernia. He had an ultrasound done of his gallbladder, which showed no evidence of acute cholecystitis but cholelithiasis. The sectionizer opined that early acute cholecystitis may not be demonstrated on sonography, but of course, not having cholecystitis as well could also not be demonstrated on sonography. The common bile duct was noted to be 9 mm in size, which is more than 1 mm than the expected of his age group. Patient was admitted to the hospital. He was placed on Rocephin antibiotic. Request was made for surgical evaluation. PAST MEDICAL HISTORY: As stated in HPI. PAST SURGICAL HISTORY: As stated in HPI. HOME MEDICATIONS: Include albuterol, Norvasc, cyclosporine eye drops, loperamide, metoprolol, Flomax, aspirin, and Sprycel. REVIEW OF SYSTEMS: General: Denies fatigue or malaise. Cardiac: Denies chest pain or palpitations. Respiratory: Denies shortness of breath or wheeze. Gastrointestinal: Currently feels well. Has minimal epigastric abdominal pain. Genitourinary: Denies dysuria. Musculoskeletal: Denies joint pain. Psychiatric: Denies anxiety, depression, or hearing voices. PHYSICAL EXAMINATION: General: This is a well-developed, well-nourished 79-year-old male in no distress. He is more interested in his television program than my evaluation currently. HEENT: His head is normocephalic. His sclerae anicteric. Neck: Supple. Chest: Clear. Abdomen: Soft. It is mildly distended. There is a large midline scar. He has mild epigastric tenderness and no right upper quadrant tenderness. Extremities: Trace edema. On review of his laboratories, white blood cell count is normal at 7.8. It was 12.3 on admission. There is currently no shift. His chemistries show an elevated total bilirubin of 1.5, which was down from 3.0. His AST is 278, which is down from 49, his ALT is 428, and his alkaline phosphatase is 198. His lipase is normal. His imaging as I stated in HPI. ASSESSMENT: A 79-year-old male who presents with abdominal pain with a dilated common bile duct and elevated liver function tests. PLAN: Patient should be evaluated by the GI service for ERCP. Perhaps he has choledocholithiasis, perhaps a biliary stricture as this was also noted on previous imaging. Patient also may have a mild urinary tract infection as well. At this point, the patient has multiple medical problems. If he is shown to have choledocholithiasis, he should consider elective cholecystectomy perhaps at a tertiary care center depending on his ability to tolerate anesthesia with his underlying cardiac and vascular conditions. At this point, the patient is nontoxic and recommends GI evaluation. DO MIKE YOUNG/[id number]
[2019-07-07] MEDS: KCL 10 MEQ IVPB 10 MEQ/100 ML INFUS.BAG IVPB SCH ×3 (13:19→15:45)
[2019-07-07] MEDS: ACETAMINOPHEN 325 MG TABLET (FP) PO PRN ×2 (14:45→20:30)
[2019-07-07] MEDS ORDERED: ACETAMINOPHEN 325 MG TABLET (FP) ONE (14:53)
[2019-07-07] MEDS ORDERED: amLODIPine BESYLATE 5 MG TABLET (FP) PO ONE (15:00)
--- NOTE | 2019-07-07 15:21 | PN ---
Progress Note (short form) - Note Progress Note: ID CONSULT DICTATED CHOLELITHIASIS R/O CHOLEDOCHOLITHIASIS LEUKOCYTOSIS R/O BILIARY SEPSIS S/P HEMATURIA AWAIT CULTURES, MRCP CONTINUE EMPIRIC ZOSYN
[2019-07-07] MEDS: DASATINIB 50 MG PO SCH (15:37)
--- NOTE | 2019-07-07 16:01 | CONS ---
INFECTIOUS DISEASE CONSULTATION DATE OF CONSULTATION: 07/07/2019 The patient is a 79-year-old male who is evaluated for possible biliary sepsis. He was admitted to the hospital on July 07, 2019, with a several-day history of worsening right upper quadrant abdominal pain and gross hematuria. He was evaluated in the emergency room where he was noted to have an elevated white blood cell count and elevated liver enzymes. He also was noted to have right upper quadrant tenderness. A CAT scan of the abdomen and pelvis was performed and showed cholelithiasis and a 7-mm common bile duct. He was seen in consultation by GI. An MRCP was ordered, and the results are pending. Cultures were obtained, and he was empirically treated with Zosyn for possible biliary sepsis. At the present time, he complains of right upper quadrant abdominal pain and nausea. He denies any vomiting. He reports moving his bowels prior to admission. Denies fever or chills. He denies dysuria. Hematuria has now resolved. 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 PAST SURGICAL HISTORY: Colectomy. ALLERGIES: NITROGLYCERINE. MEDICATIONS AT THE PRESENT TIME: Include Tylenol, albuterol, Norvasc, aspirin, Zosyn, metoprolol. SOCIAL HISTORY: He resides in the community. He is a former smoker, nondrinker. SYSTEMS REVIEW: Neurologic: No loss of consciousness, seizure activity, focal weakness. Cardiac: Negative chest pain or palpitations. Respiratory: Negative cough or sputum production. Gastrointestinal: As per HPI. Genitourinary: Positive for gross hematuria. LABORATORY DATA: White count on admission 12.3, presently 7.8; hematocrit 31.3; platelets 258. Creatinine 1.1. Urinalysis: White cells 3. Total bilirubin 1.5, alkaline phosphatase 198, AST 238, ALT is 428. Cultures are pending. PHYSICAL EXAMINATION: General: He is awake and alert, in no acute distress, supine in bed. Vital Signs: Temperature 98.1; blood pressure 167/72; pulse 83, regular; respirations 18 per minute. HEENT: Sclerae anicteric. Heart: Sounds S1, S2. Lungs: Clear. Abdomen: Soft. There is right upper quadrant tenderness to palpation. No mass, rebound, or rigidity. Extremities: Negative for edema. IMPRESSION: 1. Cholelithiasis, rule out choledocholithiasis. 2. Rule out acute cholecystitis. 3. Leukocytosis, possible sepsis secondary to biliary source. 4. Gross hematuria. Await culture results and MRCP. Empiric antibiotic coverage for biliary tract pathogens and urinary tract pathogens with Zosyn. Will follow. Thank you for the kind referral. ESDRAS NESBITT M.D. [facility]/[id number]
[2019-07-07] MEDS ORDERED: ENALAPRIL MALEATE 10 MG TABLET (FP) PO ONE (16:50)
[2019-07-07] MEDS ORDERED: PIPERACILLIN/TAZOBACTAM 3.375 GM VIAL IVPB ONE ×2 (16:55→23:55)
[2019-07-07] MEDS: PIPERACILLIN/TAZOB 3.375 GM 3.375 GM in DEXTROSE 5%-WATER - 50 ML IVPB SCH (17:12)
[2019-07-07] MEDS ORDERED: PIPERACILLIN/TAZOB 3.375 GM 3.375 GM in DEXTROSE 5%-WATER - 50 ML IVPB SCH (18:00)
[2019-07-08] MEDS: PIPERACILLIN/TAZOB 3.375 GM 3.375 GM in DEXTROSE 5%-WATER - 50 ML IVPB SCH ×3 (01:12→18:14)
[2019-07-08 07:08] LABS: BASO % 0.6 % (0-2.0); EOS % 1.1 % (0-4.5); HEMATOCRIT 31.5 % (35.4-49); HEMOGLOBIN 10.8 GM/dL (11.7-16.9); LYMPH % 16.7 % (8-40); MCH 34.6 pg (25.7-33.7); MCHC 34.2 g/dl (32.0-35.9); MEAN CELL VOLUME 101.4 fl (80-96); MONO % 7.8 % (3.8-10.2); NEUT % 73.8 % (42.8-82.8); PLATELET COUNT 259 K/MM3 (134-434); RBC 3.11 M/mm3 (4.00-5.60); RDW 14.7 % (11.9-15.9)
[2019-07-08 07:35] LABS: ALBUMIN 3.3 g/dl (3.4-5.0); BILIRUBIN,DIRECT 0.3 mg/dL (0.0-0.2); BILIRUBIN,TOTAL 0.9 mg/dL (0.2-1); BLOOD UREA NITROGEN 10.8 mg/dL (7-18); CALCIUM 8.7 mg/dL (8.5-10.1); CREATININE 1.1 mg/dL (0.55-1.3); POTASSIUM 3.8 mmol/L (3.5-5.1); TOT PROT 7.1 g/dl (6.4-8.2)
[2019-07-08] MEDS: DEXTROSE 5%-0.45% SALINE 1,000 ML IV SCH ×2 (07:48→23:05)
[2019-07-08] MEDS: TAMSULOSIN HCL 0.4 MG CAP PO SCH (08:46)
[2019-07-08] MEDS ORDERED: PT OWN MED DRAWER 7, Y5N ONE ×2 (08:52→09:17)
[2019-07-08] MEDS ORDERED: PIPERACILLIN/TAZOBACTAM 3.375 GM VIAL IVPB ONE ×2 (09:03→18:06)
[2019-07-08] MEDS ORDERED: DEXTROSE 5%-WATER - 50 ML IVPB ONE ×2 (09:03→18:06)
[2019-07-08] MEDS: DASATINIB 50 MG PO SCH (09:33)
[2019-07-08] MEDS: BUDESONIDE/FORMETEROL FUMARATE 80/4.5 mcg INHALER IH SCH ×2 (09:34→23:00)
[2019-07-08] MEDS: amLODIPine BESYLATE 5 MG TABLET (FP) PO SCH (09:34)
[2019-07-08] MEDS: ASPIRIN COATED 81 MG TABLET.EC PO SCH (09:34)
--- NOTE | 2019-07-08 09:57 | PN.GI ---
GI Progress Note Subjective: States had episode of RUQ pain again this morning No acute events MRCP performed revealed distended GB with stones, mild proximal CBD dilatation of 7mm, 5-6mm more distally - Objective Vital Signs: Vital Signs Temperature 98.4 F 07/08/19 09:00 Pulse Rate 68 07/08/19 09:00 Respiratory Rate 18 07/08/19 09:00 Blood Pressure 157/74 07/08/19 09:00 O2 Sat by Pulse Oximetry (%) 100 07/07/19 21:00 Constitutional: Calm Eyes: No: Sclera Icterus Cardiovascular: Yes: Regular Rate and Rhythm Respiratory: Yes: CTA Bilaterally ...Auscultate: Yes: Normoactive Bowel Sounds ...Palpate: Yes: Soft, Tenderness (TTP RUQ with Lechuga's sign). No: Hepatomegaly, Splenomegaly ...Percussion: No: Tympanitic Edema: No (No LE edema) Neurological: Yes: Alert Labs: CBC, BMP 07/08/19 06:30 07/08/19 06:30 INR, PTT INR 1.11 (0.83-1.09) H 07/06/19 23:00 Problem List - Problems (1) RUQ abdominal pain Assessment/Plan: MRCP without gross CBD stone with normalizing trend in LFT's ? passed CBD stone, ? Cholcecysitis Discussed findings with Dr. Pace. Will follow patient Left message to d/w Dr. Payne Continue Abx for now Cardiology consult Clear liquids Monitor LFTs Dr. Ramsey resumes care 07/09 Code(s): R10.11 - RIGHT UPPER QUADRANT PAIN
--- NOTE | 2019-07-08 11:28 | PN ---
Progress Note, Physician - Current Medication List Current Medications: Active Medications Albuterol Sulfate (Ventolin 0.083% Nebulizer Soln -) 1 amp NEB Q6H PRN PRN Reason: SHORT OF BREATH/WHEEZING Amlodipine Besylate (Norvasc -) 10 mg PO DAILY [facility] Last Admin: 07/08/19 09:34 Dose: 10 mg Aspirin (Ecotrin -) 81 mg PO DAILY [facility] Last Admin: 07/08/19 09:34 Dose: 81 mg Budesonide/Formoterol Fumarate (Symbicort 80/4.5mcg -) 2 puff IH BID [facility] Last Admin: 07/08/19 09:34 Dose: 2 puff Dextrose/Sodium Chloride (D5-1/2ns -) 1,000 mls @ 60 mls/hr IV ASDIR [facility] Last Admin: 07/08/19 07:48 Dose: Not Given Piperacillin Sod/Tazobactam (Sod 3.375 gm/ Dextrose) 50 mls @ 100 mls/hr IVPB Q8H-IV [facility]; Protocol Last Admin: 07/08/19 09:33 Dose: 100 mls/hr Metoprolol Succinate (Toprol Xl -) 50 mg PO BID [facility] Last Admin: 07/08/19 09:35 Dose: 50 mg Non-Formulary Medication (Cyclosporine [Restasis]) 1 drop OU DAILY [facility] Non-Formulary Medication (Dasatinib [Sprycel]) 50 mg PO DAILY [facility] Last Admin: 07/08/19 09:33 Dose: 50 mg Tamsulosin HCl (Flomax -) 0.4 mg PO DAILY@0830 [facility] Last Admin: 07/08/19 08:46 Dose: 0.4 mg - Objective Vital Signs: Vital Signs Temperature 98.4 F 07/08/19 09:00 Pulse Rate 68 07/08/19 09:00 Respiratory Rate 18 07/08/19 09:00 Blood Pressure 157/74 07/08/19 09:00 O2 Sat by Pulse Oximetry (%) 100 07/07/19 21:00 Constitutional: Yes: No Distress Eyes: Yes: Conjunctiva Clear, EOM Intact HENT: Yes: Atraumatic, Normocephalic Neck: Yes: Supple, Trachea Midline Cardiovascular: Yes: Regular Rate and Rhythm, S1, S2, S3 Respiratory: Yes: Regular, CTA Bilaterally Musculoskeletal: Yes: Joint Stiffness Labs: CBC, BMP 07/08/19 06:30 07/08/19 06:30 INR, PTT INR 1.11 (0.83-1.09) H 07/06/19 23:00 Problem List - Problems (1) Umbilical hernia Code(s): K42.9 - UMBILICAL HERNIA WITHOUT OBSTRUCTION OR GANGRENE (2) Cholelithiasis Code(s): K80.20 - CALCULUS OF GALLBLADDER W/O CHOLECYSTITIS W/O OBSTRUCTION Qualifiers: Cholelithiasis location: gallbladder Cholecystitis presence: without cholecystitis Biliary obstruction: with biliary obstruction Qualified Code(s ): K80.21 - Calculus of gallbladder without cholecystitis with obstruction (3) Common bile duct dilation Code(s): K83.8 - OTHER SPECIFIED DISEASES OF BILIARY TRACT (4) Proteinuria Code(s): R80.9 - PROTEINURIA, UNSPECIFIED (5) RUQ abdominal pain Code(s): R10.11 - RIGHT UPPER QUADRANT PAIN (6) Transaminitis Code(s): R74.0 - NONSPEC ELEV OF LEVELS OF TRANSAMNS & LACTIC ACID DEHYDRGNSE (7) UTI (urinary tract infection) Code(s): N39.0 - URINARY TRACT INFECTION, SITE NOT SPECIFIED Qualifiers: Urinary tract infection type: acute cystitis Hematuria presence: with hematuria Qualified Code(s): N30.01 - Acute cystitis with hematuria (8) ALL (acute lymphoblastic leukemia) Code(s): C91.00 - ACUTE LYMPHOBLASTIC LEUKEMIA NOT HAVING ACHIEVED REMISSION (9) ASHD (arteriosclerotic heart disease) Code(s): I25.10 - ATHSCL HEART DISEASE OF [place] CORONARY ARTERY W/O ANG PCTRS (10) COPD (chronic obstructive pulmonary disease) Code(s): J44.9 - CHRONIC OBSTRUCTIVE PULMONARY DISEASE, UNSPECIFIED Qualifiers: COPD type: chronic bronchitis (11) H/O heart artery stent Code(s): Z95.5 - PRESENCE OF CORONARY ANGIOPLASTY IMPLANT AND GRAFT (12) HTN (hypertension) Code(s): I10 - ESSENTIAL (PRIMARY) HYPERTENSION Qualifiers: Hypertension type: essential hypertension Qualified Code(s): I10 - Essential (primary) hypertension Assessment/Plan (1) Umbilical hernia Code(s): K42.9 - UMBILICAL HERNIA WITHOUT OBSTRUCTION OR GANGRENE (2) Cholelithiasis Code(s): K80.20 - CALCULUS OF GALLBLADDER W/O CHOLECYSTITIS W/O OBSTRUCTION Qualifiers: Cholelithiasis location: gallbladder Cholecystitis presence: without cholecystitis Biliary obstruction: with biliary obstruction Qualified Code(s ): K80.21 - Calculus of gallbladder without cholecystitis with obstruction (3) Common bile duct dilation Code(s): K83.8 - OTHER SPECIFIED DISEASES OF BILIARY TRACT (4) Proteinuria Code(s): R80.9 - PROTEINURIA, UNSPECIFIED (5) RUQ abdominal pain Code(s): R10.11 - RIGHT UPPER QUADRANT PAIN (6) Transaminitis Code(s): R74.0 - NONSPEC ELEV OF LEVELS OF TRANSAMNS & LACTIC ACID DEHYDRGNSE (7) UTI (urinary tract infection) Code(s): N39.0 - URINARY TRACT INFECTION, SITE NOT SPECIFIED Qualifiers: Urinary tract infection type: acute cystitis Hematuria presence: with hematuria Qualified Code(s): N30.01 - Acute cystitis with hematuria (8) ALL (acute lymphoblastic leukemia) Code(s): C91.00 - ACUTE LYMPHOBLASTIC LEUKEMIA NOT HAVING ACHIEVED REMISSION (9) ASHD (arteriosclerotic heart disease) Code(s): I25.10 - ATHSCL HEART DISEASE OF [place] CORONARY ARTERY W/O ANG PCTRS (10) COPD (chronic obstructive pulmonary disease) Code(s): J44.9 - CHRONIC OBSTRUCTIVE PULMONARY DISEASE, UNSPECIFIED Qualifiers: COPD type: chronic bronchitis (11) H/O heart artery stent Code(s): Z95.5 - PRESENCE OF CORONARY ANGIOPLASTY IMPLANT AND GRAFT (12) HTN (hypertension) Code(s): I10 - ESSENTIAL (PRIMARY) HYPERTENSION Qualifiers: Hypertension type: essential hypertension Qualified Code(s): I10 - Essential (primary) hypertension MRCP findings noted Pt still has Mild symptoms yesterday had discussed with daughter If Pt needs surgery Pt need to have at [facility] we will discuss with GI ,cardilogy, Surgery
[2019-07-08] MEDS: ENALAPRIL MALEATE 10 MG TABLET (FP) PO SCH (11:59)
[2019-07-08] MEDS: PATIENT'S OWN MEDICATION (NON-FORMULARY) (Cyclosporine [Restasis] 1 DROP) OU SCH ×2 (14:28→23:00)
[2019-07-08] MEDS: ACETAMINOPHEN 325 MG TABLET (FP) PO PRN (19:08)
--- NOTE | 2019-07-08 20:15 | PN ---
Progress Note, Physician History of Present Illness: SUPINE IN BED REPORTS LESS ABDO PAIN NO C/O N/V NO F/C MRCP NO CHOLEDOCHOLITHIASIS BC NO GROWTH - Current Medication List Current Medications: Active Medications Acetaminophen (Tylenol -) 650 mg PO Q6H PRN PRN Reason: FEVER OR PAIN 6-10 Last Admin: 07/08/19 19:08 Dose: 650 mg Albuterol Sulfate (Ventolin 0.083% Nebulizer Soln -) 1 amp NEB Q6H PRN PRN Reason: SHORT OF BREATH/WHEEZING Amlodipine Besylate (Norvasc -) 10 mg PO DAILY [facility] Last Admin: 07/08/19 09:34 Dose: 10 mg Aspirin (Ecotrin -) 81 mg PO DAILY [facility] Last Admin: 07/08/19 09:34 Dose: 81 mg Budesonide/Formoterol Fumarate (Symbicort 80/4.5mcg -) 2 puff IH BID [facility] Last Admin: 07/08/19 09:34 Dose: 2 puff Enalapril Maleate (Vasotec -) 10 mg PO DAILY [facility] Last Admin: 07/08/19 11:59 Dose: 10 mg Dextrose/Sodium Chloride (D5-1/2ns -) 1,000 mls @ 60 mls/hr IV ASDIR [facility] Last Admin: 07/08/19 07:48 Dose: Not Given Piperacillin Sod/Tazobactam (Sod 3.375 gm/ Dextrose) 50 mls @ 100 mls/hr IVPB Q8H-IV [facility]; Protocol Last Admin: 07/08/19 18:14 Dose: 100 mls/hr Metoprolol Succinate (Toprol Xl -) 50 mg PO BID [facility] Last Admin: 07/08/19 09:35 Dose: 50 mg Non-Formulary Medication (Cyclosporine [Restasis]) 1 drop OU BID [facility] Last Admin: 07/08/19 14:28 Dose: 1 drop Non-Formulary Medication (Dasatinib [Sprycel]) 50 mg PO DAILY [facility] Last Admin: 07/08/19 09:33 Dose: 50 mg Tamsulosin HCl (Flomax -) 0.4 mg PO DAILY@0830 [facility] Last Admin: 07/08/19 08:46 Dose: 0.4 mg - Objective Vital Signs: Vital Signs Temperature 98.1 F 07/08/19 17:13 Pulse Rate 75 07/08/19 17:13 Respiratory Rate 18 07/08/19 17:13 Blood Pressure 139/64 07/08/19 17:13 O2 Sat by Pulse Oximetry (%) 100 07/08/19 09:00 Constitutional: Yes: No Distress Cardiovascular: Yes: Regular Rate and Rhythm, S1, S2 Respiratory: Yes: CTA Bilaterally Gastrointestinal: Yes: Normal Bowel Sounds, Soft, Other (+ RUQ TENDERNESS TO PAIN) Labs: CBC, BMP 07/08/19 06:30 07/08/19 06:30 INR, PTT INR 1.11 (0.83-1.09) H 07/06/19 23:00 Assessment/Plan CHOLELITHIASIS R/O CHOLECYSTITIS/ BILIARY SEPSIS AWAIT C/S CONTINUE EMPIRIC ZOSYN
[2019-07-09] MEDS: DEXTROSE 5%-0.45% SALINE 1,000 ML IV SCH (02:39)
[2019-07-09] MEDS ORDERED: DEXTROSE 5%-WATER - 50 ML IVPB ONE ×3 (02:45→16:30)
[2019-07-09] MEDS ORDERED: PIPERACILLIN/TAZOBACTAM 3.375 GM VIAL IVPB ONE ×3 (02:45→16:30)
[2019-07-09] MEDS: PIPERACILLIN/TAZOB 3.375 GM 3.375 GM in DEXTROSE 5%-WATER - 50 ML IVPB SCH ×3 (02:50→17:33)
[2019-07-09] MEDS: ACETAMINOPHEN 325 MG TABLET (FP) PO PRN (03:07)
[2019-07-09 07:11] LABS: BASO % 0.4 % (0-2.0); EOS % 0.9 % (0-4.5); HEMATOCRIT 30.7 % (35.4-49); HEMOGLOBIN 10.4 GM/dL (11.7-16.9); LYMPH % 21.3 % (8-40); MCH 34.4 pg (25.7-33.7); MEAN CELL VOLUME 101.3 fl (80-96); MEAN PLT VOLUME 7.9 fl (7.5-11.1); MONO % 8.6 % (3.8-10.2); NEUT % 68.8 % (42.8-82.8); PLATELET COUNT 242 K/MM3 (134-434); RBC 3.03 M/mm3 (4.00-5.60); RDW 14.8 % (11.9-15.9); WHITE BLOOD COUNT 6.4 K/mm3 (4.0-10.0)
[2019-07-09 07:33] LABS: BLOOD UREA NITROGEN 7.9 mg/dL (7-18); CALCIUM 8.6 mg/dL (8.5-10.1); POTASSIUM 3.6 mmol/L (3.5-5.1)
[2019-07-09] MEDS: TAMSULOSIN HCL 0.4 MG CAP PO SCH (09:03)
[2019-07-09] MEDS: amLODIPine BESYLATE 5 MG TABLET (FP) PO SCH (09:03)
[2019-07-09] MEDS: ASPIRIN COATED 81 MG TABLET.EC PO SCH (09:03)
[2019-07-09] MEDS: ENALAPRIL MALEATE 10 MG TABLET (FP) PO SCH (09:03)
[2019-07-09] MEDS: DASATINIB 50 MG PO SCH (09:04)
[2019-07-09] MEDS: PATIENT'S OWN MEDICATION (NON-FORMULARY) (Cyclosporine [Restasis] 1 DROP) OU SCH ×2 (09:05→21:47)
[2019-07-09] MEDS: BUDESONIDE/FORMETEROL FUMARATE 80/4.5 mcg INHALER IH SCH ×2 (09:05→21:47)
--- NOTE | 2019-07-09 11:09 | PN ---
Progress Note (short form) - Note Progress Note: surgery pt seen and examined. still with pain. lfts improved but not normal. u/s and MRI show dilated cbd and also noted per dental laboratory supervisor on 2017 u/s. abd- soft, epigastric and ruq tenderness. wbc normal. u/s, ct, and MRI without signs of cholecystitis. Plan- recommend eval of cbd. if concern for acute cholecysititis can do HIDA +/ - perc drainage. pt not a candidate for surgery at [facility] [place] per medical note. will be available.
--- NOTE | 2019-07-09 12:31 | PN ---
Progress Note, Physician History of Present Illness: Coverage pt seen/ examined . chart is reviewed awake + ve pain afebrile Lfts trending down. - Current Medication List Current Medications: Active Medications Acetaminophen (Tylenol -) 650 mg PO Q6H PRN PRN Reason: FEVER OR PAIN 6-10 Last Admin: 07/09/19 03:07 Dose: 650 mg Albuterol Sulfate (Ventolin 0.083% Nebulizer Soln -) 1 amp NEB Q6H PRN PRN Reason: SHORT OF BREATH/WHEEZING Amlodipine Besylate (Norvasc -) 10 mg PO DAILY [facility] Last Admin: 07/09/19 09:03 Dose: 10 mg Aspirin (Ecotrin -) 81 mg PO DAILY [facility] Last Admin: 07/09/19 09:03 Dose: 81 mg Budesonide/Formoterol Fumarate (Symbicort 80/4.5mcg -) 2 puff IH BID [facility] Last Admin: 07/09/19 09:05 Dose: Not Given Enalapril Maleate (Vasotec -) 10 mg PO DAILY [facility] Last Admin: 07/09/19 09:03 Dose: 10 mg Dextrose/Sodium Chloride (D5-1/2ns -) 1,000 mls @ 60 mls/hr IV ASDIR [facility] Last Admin: 07/09/19 02:39 Dose: Not Given Piperacillin Sod/Tazobactam (Sod 3.375 gm/ Dextrose) 50 mls @ 100 mls/hr IVPB Q8H-IV ELIF; Protocol Last Admin: 07/09/19 09:02 Dose: 100 mls/hr Metoprolol Succinate (Toprol Xl -) 50 mg PO BID [facility] Last Admin: 07/09/19 09:03 Dose: 50 mg Non-Formulary Medication (Cyclosporine [Restasis]) 1 drop OU BID [facility] Last Admin: 07/09/19 09:05 Dose: 1 drop Non-Formulary Medication (Dasatinib [Sprycel]) 50 mg PO DAILY [facility] Last Admin: 07/09/19 09:04 Dose: 50 mg Tamsulosin HCl (Flomax -) 0.4 mg PO DAILY@0830 [facility] Last Admin: 07/09/19 09:03 Dose: 0.4 mg - Objective Vital Signs: Vital Signs Temperature 98 F 07/09/19 09:25 Pulse Rate 74 07/09/19 09:25 Respiratory Rate 18 11/11/19 09:25 Blood Pressure 152/77 07/09/19 09:25 O2 Sat by Pulse Oximetry (%) 99 07/08/19 21:00 Constitutional: Yes: Mild Distress. No: No Distress Eyes: Yes: Conjunctiva Clear Neck: Yes: Supple Cardiovascular: Yes: Regular Rate and Rhythm Respiratory: Yes: CTA Bilaterally Gastrointestinal: Yes: Soft, Tenderness (Roq Tenderness +) Edema: No Psychiatric: Yes: Alert Labs: CBC, BMP 07/09/19 06:15 07/09/19 06:15 INR, PTT INR 1.11 (0.83-1.09) H 07/06/19 23:00 Problem List - Problems (1) RUQ abdominal pain Code(s): R10.11 - RIGHT UPPER QUADRANT PAIN (2) Transaminitis Code(s): R74.0 - NONSPEC ELEV OF LEVELS OF TRANSAMNS & LACTIC ACID DEHYDRGNSE (3) ALL (acute lymphoid leukemia) in remission Code(s): C91.01 - ACUTE LYMPHOBLASTIC LEUKEMIA, IN REMISSION (4) ASHD (arteriosclerotic heart disease) Code(s): I25.10 - ATHSCL HEART DISEASE OF [place] CORONARY ARTERY W/O ANG PCTRS Assessment/Plan Pt reports significant pain pain control clear liquid hida scan will consult cardiology also monitor labs Coverage Dr. Ray Will follow
[2019-07-09 14:52] VITALS: BMI 24.4
[2019-07-09] MEDS: MORPHINE SULFATE 2 MG/ML VIAL IVPUSH PRN ×2 (15:13→20:48)
--- NOTE | 2019-07-09 18:48 | CON.CARD ---
Consult Consult Specialty:: Cardiology - History of Present Illness History of Present Illness: 79M admitted for primarily what he felt was hematuria. He also describes intermittent pain of the abdomen over the last week. It became progressively more intense on -tuesday. At around that time he also noted darker urine and then said that he saw gross blood. WBC's, Transaminases, ALP and Bili were elevated (normal 1019). CT scan of the A/P revealed cholelithiasis, bilateral adrenal nodules, low attenuation kidney lesions (possible cysts per radiologist), S/P left colon surgery and a peroiumbilical fat/bowel containing hernia. Abd US revealed gallstones and CBD of 9mm (dilatation of the CBD noted in 2017 as well). He denies recent antibiotic use or change in medication regimen. He denies recent travel. Uranalysis revealed protein and bilirubin with trace blood and RBC's. PMH Past medical history Major events pLAD 2011 Cardiac Cath October 2012 [place] patent LAD stent 50% D1 D2, D3 90% stenosed small caliber vessels mid LCx 40% 50 % [place] small nondominant RCA Negative MIBI Stress 2016 [facility] Ongoing medical problems CAD 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 Gennaro Combs - Past Medical History [employer]: Yes: Other (Arnold Chiari Malformation- s/p craniotomy/repair- 1998) Cardio/Vascular: Yes: AFIB, CAD (PCI > 1 year ago), CHF, HTN, Hyperlipdemia, [place] , Other (Cardiac arrhythmia- atrial tachycardia) Pulmonary: Yes: COPD Gastrointestinal: Yes: Diverticulosis, GI Bleed (Left sided diverticular bleed in 2013...embolized with subsequesnt left sided ischemic colitis with resection. 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 Travel: No Home Medications - Allergies Allergies/Adverse Reactions: Allergies Allergy/AdvReac Type Severity Reaction Status Date / Time nitroglycerin [Nitroglycerin] Allergy Unknown severe Verified 07/06/19 18:29 headache - Home Medications Home Medications: Ambulatory Orders Amlodipine Besylate [Norvasc -] 5 mg PO DAILY 04/15/16 Tamsulosin HCl 0.4 mg PO DAILY 04/15/16 Dasatinib [Sprycel] 50 mg PO DAILY 30 Days #30 tab MDD 1 08/26/17 Cyanocobalamin [Vitamin B12 -] 1,000 mcg PO DAILY 11/19/17 Acetaminophen [Tylenol .Regular Strength -] 650 mg PO Q6H PRN tablet 11/22/17 Aspirin Coated [Ecotrin -] 81 mg PO DAILY tablet.ec 11/22/17 Diphenhydramine HCl [Benadryl -] 25 mg PO Q6H PRN 07/30/18 Metoprolol Succinate [Toprol XL -] 50 mg PO BID 07/30/18 Albuterol Sulfate Inhaler - [Ventolin HFA Inhaler -] 1 inhaler PO PRN 07/07/19 Budesonide/Formeterol Fumarate [SYMBICORT 80/4.5mcg -] 1 inhaler PO BID Cyclosporine [Restasis] 1 drop OU DAILY 07/07/19 Loperamide HCl [Loperamide] 2 mg PO PRN 07/07/19 Review of Systems - Review of Systems Constitutional: reports: No Symptoms Eyes: reports: No Symptoms HENT: reports: No Symptoms Neck: reports: No Symptoms Cardiovascular: reports: No Symptoms Gastrointestinal: reports: No Symptoms Genitourinary: reports: No Symptoms Breasts: reports: No Symptoms Reported Musculoskeletal: reports: No Symptoms Integumentary: reports: No Symptoms Neurological: reports: No Symptoms Endocrine: reports: No Symptoms Hematology/Lymphatic: reports: No Symptoms Psychiatric: reports: No Symptoms Vital Signs: Vital Signs Temperature 98.3 F 07/09/19 17:39 Pulse Rate 72 07/09/19 17:39 Respiratory Rate 20 07/09/19 17:39 Blood Pressure 159/99 07/09/19 17:39 O2 Sat by Pulse Oximetry (%) 99 07/08/19 21:00 Constitutional: Yes: Well Nourished, No Distress, Calm Eyes: Yes: WNL, Conjunctiva Clear, EOM Intact HENT: Yes: WNL, Atraumatic, Normocephalic Neck: Yes: WNL, Supple, Trachea Midline Respiratory: Yes: WNL, Regular, CTA Bilaterally Gastrointestinal: Yes: WNL, Normal Bowel Sounds Renal/: Yes: WNL Cardiovascular: Yes: WNL, Regular Rate and Rhythm Musculoskeletal: Yes: WNL Extremities: Yes: WNL Integumentary: Yes: WNL Neurological: Yes: WNL, Alert, Oriented ...Motor Strength: WNL Psychiatric: Yes: WNL, Alert, Oriented - Other Data Labs, Other Data: CBC, BMP 07/09/19 06:15 07/09/19 06:15 INR, PTT INR 1.11 (0.83-1.09) H 07/06/19 23:00 Problem List - Problems (1) Cholelithiasis Code(s): K80.20 - CALCULUS OF GALLBLADDER W/O CHOLECYSTITIS W/O OBSTRUCTION Qualifiers: Cholelithiasis location: gallbladder Cholecystitis presence: without cholecystitis Biliary obstruction: with biliary obstruction Qualified Code(s ): K80.21 - Calculus of gallbladder without cholecystitis with obstruction (2) Common bile duct dilation Code(s): K83.8 - OTHER SPECIFIED DISEASES OF BILIARY TRACT (3) Proteinuria Code(s): R80.9 - PROTEINURIA, UNSPECIFIED (4) RUQ abdominal pain Code(s): R10.11 - RIGHT UPPER QUADRANT PAIN (5) Transaminitis Code(s): R74.0 - NONSPEC ELEV OF LEVELS OF TRANSAMNS & LACTIC ACID DEHYDRGNSE (6) UTI (urinary tract infection) Code(s): N39.0 - URINARY TRACT INFECTION, SITE NOT SPECIFIED Qualifiers: Urinary tract infection type: acute cystitis Hematuria presence: with hematuria Qualified Code(s): N30.01 - Acute cystitis with hematuria (7) Umbilical hernia Code(s): K42.9 - UMBILICAL HERNIA WITHOUT OBSTRUCTION OR GANGRENE (8) ALL (acute lymphoblastic leukemia) Code(s): C91.00 - ACUTE LYMPHOBLASTIC LEUKEMIA NOT HAVING ACHIEVED REMISSION (9) ALL (acute lymphoid leukemia) in remission Code(s): C91.01 - ACUTE LYMPHOBLASTIC LEUKEMIA, IN REMISSION (10) ASHD (arteriosclerotic heart disease) Code(s): I25.10 - ATHSCL HEART DISEASE OF [place] CORONARY ARTERY W/O ANG PCTRS (11) Abdominal abscess Code(s): K65.1 - PERITONEAL ABSCESS (12) Abscess of gastrointestinal tract Code(s): K63.0 - ABSCESS OF INTESTINE (13) Acute leukemia Code(s): C95.00 - ACUTE LEUKEMIA OF [place] CELL TYPE NOT ACHIEVE REMISSION (14) Adrenal nodule Code(s): E27.9 - DISORDER OF ADRENAL GLAND, UNSPECIFIED (15) Atrial tachycardia Code(s): I47.1 - SUPRAVENTRICULAR TACHYCARDIA (16) Bilateral pleural effusion Code(s): J90 - PLEURAL EFFUSION, NOT ELSEWHERE CLASSIFIED (17) COPD (chronic obstructive pulmonary disease) Code(s): J44.9 - CHRONIC OBSTRUCTIVE PULMONARY DISEASE, UNSPECIFIED Qualifiers: COPD type: chronic bronchitis (18) Chest pain Code(s): R07.9 - CHEST PAIN, UNSPECIFIED Qualifiers: Chest pain type: unspecified Qualified Code(s): R07.9 - Chest pain, unspecified (19) Chronic pain Code(s): G89.29 - OTHER CHRONIC PAIN (20) Community acquired bacterial pneumonia Code(s): J15.9 - UNSPECIFIED BACTERIAL PNEUMONIA (21) Constipation Code(s): K59.00 - CONSTIPATION, UNSPECIFIED Qualifiers: Constipation type: unspecified constipation type Qualified Code(s): K59.00 - Constipation, unspecified (22) Dyspnea Code(s): R06.00 - DYSPNEA, UNSPECIFIED (23) GI bleeding Code(s): K92.2 - GASTROINTESTINAL HEMORRHAGE, UNSPECIFIED (24) Gallstone Code(s): K80.20 - CALCULUS OF GALLBLADDER W/O CHOLECYSTITIS W/O OBSTRUCTION Qualifiers: Cholecystitis presence: without cholecystitis Biliary obstruction: without biliary obstruction Qualified Code(s): K80.20 - Calculus of gallbladder without cholecystitis without obstruction (25) H/O heart artery stent Code(s): Z95.5 - PRESENCE OF CORONARY ANGIOPLASTY IMPLANT AND GRAFT (26) HTN (hypertension) Code(s): I10 - ESSENTIAL (PRIMARY) HYPERTENSION Qualifiers: Hypertension type: essential hypertension Qualified Code(s): I10 - Essential (primary) hypertension (27) Hydronephrosis of left kidney Code(s): N13.30 - UNSPECIFIED HYDRONEPHROSIS (28) Hydroureter on left Code(s): N13.4 - HYDROURETER (29) Hyperlipidemia Code(s): E78.5 - HYPERLIPIDEMIA, UNSPECIFIED (30) Influenza A Code(s): J10.1 - FLU DUE TO OTH IDENT INFLUENZA VIRUS W OTH RESP MANIFEST (31) Ischemic bowel syndrome Code(s): K55.9 - VASCULAR DISORDER OF INTESTINE, UNSPECIFIED (32) Leukocytosis Code(s): D72.829 - ELEVATED WHITE BLOOD CELL COUNT, UNSPECIFIED (33) Pneumonia Code(s): J18.9 - PNEUMONIA, UNSPECIFIED ORGANISM Qualifiers: (34) Postoperative ileus Code(s): K91.3 - POSTPROCEDURAL INTESTINAL OBSTRUCTION * DO NOT USE * (35) Renal calculus or stone Code(s): N20.0 - CALCULUS OF KIDNEY (36) S/P left colectomy Code(s): Z90.49 - ACQUIRED ABSENCE OF OTHER SPECIFIED PARTS OF DIGESTIVE TRACT (37) Shortness of breath Code(s): R06.02 - SHORTNESS OF BREATH Assessment/Plan - Problems (1) Diastolic CHF Code(s): I50.30 - UNSPECIFIED DIASTOLIC (CONGESTIVE) HEART FAILURE (2) Choledocholithiasis Assessment/Plan: Awaits transfer for surgery. Code(s): K80.50 - CALCULUS OF BILE DUCT W/O CHOLANGITIS OR CHOLECYST W/O OBST (3) ALL (acute lymphoblastic leukemia) Code(s): C91.00 - ACUTE LYMPHOBLASTIC LEUKEMIA NOT HAVING ACHIEVED REMISSION (4) ASHD (arteriosclerotic heart disease) Code(s): I25.10 - ATHSCL HEART DISEASE OF [place] CORONARY ARTERY W/O ANG PCTRS (5) COPD (chronic obstructive pulmonary disease) Code(s): J44.9 - CHRONIC OBSTRUCTIVE PULMONARY DISEASE, UNSPECIFIED Qualifiers: COPD type: chronic bronchitis
--- NOTE | 2019-07-09 21:23 | PN.GI ---
GI Progress Note Subjective: GI Note: Dr. Mas's consult is appreciated. Continues to have abdominal pain. NO vomiting. 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 He tells me that he is known at [facility] where he is followed for his leukemia and would prefers to be transferred. - Objective Vital Signs: Vital Signs Temperature 98.1 F 07/09/19 20:59 Pulse Rate 65 07/09/19 20:59 Respiratory Rate 18 07/09/19 20:59 Blood Pressure 140/69 07/09/19 20:59 O2 Sat by Pulse Oximetry (%) 99 07/08/19 21:00 Laboratory Tests 07/06/19 07/06/19 07/06/19 18:45 18:45 23:04 WBC 12.3 H Total Bilirubin 3.0 H D AST 489 H ALT 456 H Alkaline Phosphatase 175 H Lipase 141 07/08/19 07/09/19 06:30 06:15 WBC 6.4 Total Bilirubin 0.9 AST 125 H ALT 306 H Alkaline Phosphatase 171 H Lipase Constitutional: Calm Eyes: Yes: Conjunctiva Clear ...Auscultate: Yes: Hypoactive Bowel Sounds ...Palpate: Yes: Tenderness (epigastrium and RUQ, no peritoneal signs) Labs: CBC, BMP 07/09/19 06:15 07/09/19 06:15 INR, PTT INR 1.11 (0.83-1.09) H 07/06/19 23:00 Assessment/Plan Assessment: - Given the rapid normalization of LFTs and CBD dilation passage of a CBD stone is suspected. The MRCP and LFTs suggest that the stone or stones have passed. Need to determine whether he has cholecystitis and is in need of a cholecystectomy - H/O left colon resection due to ischemic colitis following embolization of diverticular bleed - The leukemia appears to be in remission Plan: --Hida scan, repeat LFTs, CRP -- If this confirms cholecystitis then I will contact a surgeon at [facility] for transfer. Will discuss with daughter once Hida result is known -- Cardiology has been consulted to give opinion Problem List - Problems (1) RUQ abdominal pain Code(s): R10.11 - RIGHT UPPER QUADRANT PAIN (2) Cholelithiasis Code(s): K80.20 - CALCULUS OF GALLBLADDER W/O CHOLECYSTITIS W/O OBSTRUCTION Qualifiers: Cholelithiasis location: gallbladder Cholecystitis presence: without cholecystitis Biliary obstruction: with biliary obstruction Qualified Code(s ): K80.21 - Calculus of gallbladder without cholecystitis with obstruction (3) Common bile duct dilation Code(s): K83.8 - OTHER SPECIFIED DISEASES OF BILIARY TRACT (4) History of GI diverticular bleed Code(s): Z87.19 - PERSONAL HISTORY OF OTHER DISEASES OF THE DIGESTIVE SYSTEM (5) Dilated bile duct Code(s): K83.8 - OTHER SPECIFIED DISEASES OF BILIARY TRACT (6) Transaminitis Code(s): R74.0 - NONSPEC ELEV OF LEVELS OF TRANSAMNS & LACTIC ACID DEHYDRGNSE (7) ASHD (arteriosclerotic heart disease) Code(s): I25.10 - ATHSCL HEART DISEASE OF [place] CORONARY ARTERY W/O ANG PCTRS (8) Renal calculus or stone Code(s): N20.0 - CALCULUS OF KIDNEY (9) S/P left colectomy Code(s): Z90.49 - ACQUIRED ABSENCE OF OTHER SPECIFIED PARTS OF DIGESTIVE TRACT (10) Choledocholithiasis Code(s): K80.50 - CALCULUS OF BILE DUCT W/O CHOLANGITIS OR CHOLECYST W/O OBST (11) ALL (acute lymphoid leukemia) in remission Code(s): C91.01 - ACUTE LYMPHOBLASTIC LEUKEMIA, IN REMISSION (12) Atrial tachycardia Code(s): I47.1 - SUPRAVENTRICULAR TACHYCARDIA (13) COPD (chronic obstructive pulmonary disease) Code(s): J44.9 - CHRONIC OBSTRUCTIVE PULMONARY DISEASE, UNSPECIFIED Qualifiers: COPD type: chronic bronchitis (14) H/O heart artery stent Code(s): Z95.5 - PRESENCE OF CORONARY ANGIOPLASTY IMPLANT AND GRAFT
[2019-07-10] MEDS: ACETAMINOPHEN 325 MG TABLET (FP) PO PRN ×3 (01:08→22:47)
[2019-07-10] MEDS ORDERED: PIPERACILLIN/TAZOBACTAM 3.375 GM VIAL IVPB ONE ×3 (01:11→17:15)
[2019-07-10] MEDS ORDERED: DEXTROSE 5%-WATER - 50 ML IVPB ONE ×3 (01:11→17:15)
[2019-07-10] MEDS: DEXTROSE 5%-0.45% SALINE 1,000 ML IV SCH ×2 (01:15→22:54)
[2019-07-10] MEDS: PIPERACILLIN/TAZOB 3.375 GM 3.375 GM in DEXTROSE 5%-WATER - 50 ML IVPB SCH ×3 (01:16→18:03)
[2019-07-10 07:21] LABS: BASO % 0.8 % (0-2.0); EOS % 1.1 % (0-4.5); HEMATOCRIT 33.6 % (35.4-49); HEMOGLOBIN 11.1 GM/dL (11.7-16.9); LYMPH % 26.6 % (8-40); MCH 33.6 pg (25.7-33.7); MEAN CELL VOLUME 101.8 fl (80-96); MEAN PLT VOLUME 8.2 fl (7.5-11.1); MONO % 9.4 % (3.8-10.2); NEUT % 62.1 % (42.8-82.8); PLATELET COUNT 250 K/MM3 (134-434); RDW 14.9 % (11.9-15.9); WHITE BLOOD COUNT 6.3 K/mm3 (4.0-10.0)
[2019-07-10 08:25] LABS: ALBUMIN 3.1 g/dl (3.4-5.0); BLOOD UREA NITROGEN 6.3 mg/dL (7-18); CALCIUM 8.3 mg/dL (8.5-10.1); POTASSIUM 3.5 mmol/L (3.5-5.1); TOT PROT 7.1 g/dl (6.4-8.2)
[2019-07-10] MEDS: TAMSULOSIN HCL 0.4 MG CAP PO SCH (11:38)
[2019-07-10] MEDS: ENALAPRIL MALEATE 10 MG TABLET (FP) PO SCH (11:39)
[2019-07-10] MEDS: amLODIPine BESYLATE 5 MG TABLET (FP) PO SCH (11:39)
[2019-07-10] MEDS: DASATINIB 50 MG PO SCH (11:39)
[2019-07-10] MEDS: ASPIRIN COATED 81 MG TABLET.EC PO SCH (11:39)
[2019-07-10] MEDS: BUDESONIDE/FORMETEROL FUMARATE 80/4.5 mcg INHALER IH SCH ×2 (11:40→21:09)
[2019-07-10] MEDS: PATIENT'S OWN MEDICATION (NON-FORMULARY) (Cyclosporine [Restasis] 1 DROP) OU SCH ×2 (11:40→21:13)
[2019-07-10] MEDS: MORPHINE SULFATE 2 MG/ML VIAL IVPUSH PRN (13:04)
--- NOTE | 2019-07-10 16:37 | PN ---
Progress Note, Physician Chief Complaint: Pt A&Ox3; no complaints. History of Present Illness: This is a 79 y/o black man with a PMHx of HTN, HLD, pAfib (no AC), [place] s/p PCI ( [place], 2009), COPD, Ischemic Bowel s/p L- Colectomy (2013), Leukemia (RT, Chemo, in remission), Nephrolithiasis, Adrenal Nodule, who presents to the ED with his daughter for hematuria, RUQ pain x 2 days. Patient reports voiding orange colored urine on Tuesday, then today the urine was bright red, with dysuria. Patient denies fever, chills, cough, SOb, CP, palpitations, N/V/D, constipation , melena, hematochezia. 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 (Arnold Chiari Malformation- s/p craniotomy/repair- 1998) Cardiovascular: Yes: AFIB, CAD (PCI > 1 year ago), CHF, HTN, Hyperlipdemia, Other (Cardiac arrhythmia- atrial tachycardia) Pulmonary: Yes: COPD Gastrointestinal: Yes: GI Bleed, Hemorrhoids, Other (s/p partial colectomy for diverticulosis) Renal/: Yes: Renal Calculi Heme/Onc: Yes: Other (ALL- [place] positive) - Past Surgical History Past Surgical History: Yes: Colectomy - Smoking History Smoking history: Former smoker - Current Medication List Current Medications: Active Medications Acetaminophen (Tylenol -) 650 mg PO Q6H PRN PRN Reason: FEVER OR PAIN 6-10 Last Admin: 07/10/19 11:42 Dose: 650 mg Albuterol Sulfate (Ventolin 0.083% Nebulizer Soln -) 1 amp NEB Q6H PRN PRN Reason: SHORT OF BREATH/WHEEZING Amlodipine Besylate (Norvasc -) 10 mg PO DAILY [facility] Last Admin: 07/10/19 11:39 Dose: 10 mg Aspirin (Ecotrin -) 81 mg PO DAILY [facility] Last Admin: 07/10/19 11:39 Dose: 81 mg Budesonide/Formoterol Fumarate (Symbicort 80/4.5mcg -) 2 puff IH BID [facility] Last Admin: 07/10/19 11:40 Dose: 2 puff Enalapril Maleate (Vasotec -) 10 mg PO DAILY [facility] Last Admin: 07/10/19 11:39 Dose: 10 mg Dextrose/Sodium Chloride (D5-1/2ns -) 1,000 mls @ 60 mls/hr IV ASDIR [facility] Last Admin: 07/10/19 01:15 Dose: 60 mls/hr Piperacillin Sod/Tazobactam (Sod 3.375 gm/ Dextrose) 50 mls @ 100 mls/hr IVPB Q8H-IV [facility]; Protocol Last Admin: 07/10/19 13:04 Dose: 100 mls/hr Metoprolol Succinate (Toprol Xl -) 50 mg PO BID [facility] Last Admin: 07/10/19 11:39 Dose: 50 mg Non-Formulary Medication (Cyclosporine [Restasis]) 1 drop OU BID [facility] Last Admin: 07/10/19 11:40 Dose: 1 drop Non-Formulary Medication (Dasatinib [Sprycel]) 50 mg PO DAILY [facility] Last Admin: 07/10/19 11:39 Dose: 50 mg Tamsulosin HCl (Flomax -) 0.4 mg PO DAILY@0830 [facility] Last Admin: 07/10/19 11:38 Dose: 0.4 mg - Objective Vital Signs: Vital Signs Temperature 98.4 F 07/10/19 15:10 Pulse Rate 68 07/10/19 15:10 Respiratory Rate 18 07/10/19 15:10 Blood Pressure 137/67 07/10/19 15:10 O2 Sat by Pulse Oximetry (%) 99 07/09/19 21:00 Constitutional: Yes: Calm Eyes: Yes: WNL HENT: Yes: WNL Neck: Yes: WNL Cardiovascular: Yes: S1, S2, S4 Respiratory: Yes: WNL Gastrointestinal: Yes: Soft. No: Tenderness ...Rectal Exam: Yes: Deferred Genitourinary: No: Anuria Breast(s): Yes: WNL Musculoskeletal: Yes: Muscle Weakness Extremities: Yes: WNL Edema: No Peripheral Pulses WNL: Yes Integumentary: Yes: WNL Neurological: Yes: WNL Psychiatric: Yes: WNL Labs: CBC, BMP 07/10/19 06:35 07/10/19 06:35 INR, PTT INR 1.11 (0.83-1.09) H 07/06/19 23:00 - ....Imaging Chest X-ray: Image Reviewed Problem List - Problems (1) Diastolic CHF Code(s): I50.30 - UNSPECIFIED DIASTOLIC (CONGESTIVE) HEART FAILURE (2) Choledocholithiasis Assessment/Plan: Awaits transfer for surgery. Code(s): K80.50 - CALCULUS OF BILE DUCT W/O CHOLANGITIS OR CHOLECYST W/O OBST (3) ALL (acute lymphoblastic leukemia) Code(s): C91.00 - ACUTE LYMPHOBLASTIC LEUKEMIA NOT HAVING ACHIEVED REMISSION (4) ASHD (arteriosclerotic heart disease) Code(s): I25.10 - ATHSCL HEART DISEASE OF [place] CORONARY ARTERY W/O ANG PCTRS (5) COPD (chronic obstructive pulmonary disease) Code(s): J44.9 - CHRONIC OBSTRUCTIVE PULMONARY DISEASE, UNSPECIFIED Qualifiers: COPD type: chronic bronchitis (6) H/O heart artery stent Assessment/Plan: hx pLAD coronary stent 2011; 2nd LAD stent 2012. 07/2017 stress MIBI: negative for ischemia. Pt has been on ASA 81 mg daily; held due to dysuria and impending CBD surgery. Code(s): Z95.5 - PRESENCE OF CORONARY ANGIOPLASTY IMPLANT AND GRAFT (7) Elevated LFTs Code(s): R94.5 - ABNORMAL RESULTS OF LIVER FUNCTION STUDIES (8) Anemia Code(s): D64.9 - ANEMIA, UNSPECIFIED (9) Hyperlipidemia Assessment/Plan: F?u lipid profile; keep LDL < 50 mg/dl though following LFTs, elevated this admission, if using statin). Code(s): E78.5 - HYPERLIPIDEMIA, UNSPECIFIED
--- NOTE | 2019-07-10 16:41 | PN.GI ---
GI Progress Note Subjective: GI NOte: Continues to have RUQ pain. Hida reveals chronic cholecystitis. LFTs continue to normalize. I discussed transfer to [facility] with Nikhil, his daughter Lucila and with Dr Cosby. After all agreed I contacted Dr North at [facility] who accepted him. - Objective Vital Signs: Vital Signs Temperature 98.4 F 07/10/19 15:10 Pulse Rate 68 07/10/19 15:10 Respiratory Rate 18 07/10/19 15:10 Blood Pressure 137/67 07/10/19 15:10 O2 Sat by Pulse Oximetry (%) 99 07/09/19 21:00 Laboratory Tests 07/06/19 07/07/19 07/10/19 18:45 09:15 06:35 WBC 12.3 H Total Bilirubin 1.5 H 1.0 AST 278 H 32 ALT 428 H 148 H Alkaline Phosphatase 198 H 130 H C-Reactive Protein Total Amylase Lipase 07/10/19 06:35 WBC Total Bilirubin AST ALT Alkaline Phosphatase C-Reactive Protein 2.4 H Total Amylase 30 Lipase 95 Constitutional: Calm ...Auscultate: Yes: Hypoactive Bowel Sounds ...Palpate: Yes: Soft, Tenderness (mild RUQ tenderness, no peritoneal signs) Labs: CBC, BMP 07/10/19 06:35 07/10/19 06:35 INR, PTT INR 1.11 (0.83-1.09) H 07/06/19 23:00 Assessment/Plan Assessment: - Chronic cholecystitis with persistent pain despite passage of a CBD stone - H/O left colon resection due to ischemic colitis following embolization of diverticular bleed - The leukemia appears to be in remission Plan: -- I discussed the case with Dr. North who accepted Nikhil and will place him on the transfer list. -- I will stop the morphine and attempt a soft diet. Problem List - Problems (1) RUQ abdominal pain Code(s): R10.11 - RIGHT UPPER QUADRANT PAIN (2) Cholelithiasis Code(s): K80.20 - CALCULUS OF GALLBLADDER W/O CHOLECYSTITIS W/O OBSTRUCTION Qualifiers: Cholelithiasis location: gallbladder Cholecystitis presence: without cholecystitis Biliary obstruction: with biliary obstruction Qualified Code(s ): K80.21 - Calculus of gallbladder without cholecystitis with obstruction (3) Common bile duct dilation Code(s): K83.8 - OTHER SPECIFIED DISEASES OF BILIARY TRACT (4) History of GI diverticular bleed Code(s): Z87.19 - PERSONAL HISTORY OF OTHER DISEASES OF THE DIGESTIVE SYSTEM (5) Dilated bile duct Code(s): K83.8 - OTHER SPECIFIED DISEASES OF BILIARY TRACT (6) Transaminitis Code(s): R74.0 - NONSPEC ELEV OF LEVELS OF TRANSAMNS & LACTIC ACID DEHYDRGNSE (7) ASHD (arteriosclerotic heart disease) Code(s): I25.10 - ATHSCL HEART DISEASE OF [place] CORONARY ARTERY W/O ANG PCTRS (8) Renal calculus or stone Code(s): N20.0 - CALCULUS OF KIDNEY (9) S/P left colectomy Code(s): Z90.49 - ACQUIRED ABSENCE OF OTHER SPECIFIED PARTS OF DIGESTIVE TRACT (10) Choledocholithiasis Code(s): K80.50 - CALCULUS OF BILE DUCT W/O CHOLANGITIS OR CHOLECYST W/O OBST (11) ALL (acute lymphoid leukemia) in remission Code(s): C91.01 - ACUTE LYMPHOBLASTIC LEUKEMIA, IN REMISSION (12) Atrial tachycardia Code(s): I47.1 - SUPRAVENTRICULAR TACHYCARDIA (13) COPD (chronic obstructive pulmonary disease) Code(s): J44.9 - CHRONIC OBSTRUCTIVE PULMONARY DISEASE, UNSPECIFIED Qualifiers: COPD type: chronic bronchitis (14) H/O heart artery stent Code(s): Z95.5 - PRESENCE OF CORONARY ANGIOPLASTY IMPLANT AND GRAFT
--- NOTE | 2019-07-10 16:50 | PN ---
Progress Note (short form) - Note Progress Note: Events noted Pt had HIDA done cholecystitis on HIDA he has pain in abdomen Vital Signs - 24 hr 07/09/19 07/09/19 07/09/19 17:39 20:59 21:00 Temperature 98.3 F 98.1 F Pulse Rate 72 65 Respiratory 20 18 18 Rate Blood Pressure 159/99 140/69 O2 Sat by Pulse 99 Oximetry (%) 07/10/19 07/10/19 07/10/19 02:00 06:00 10:40 Temperature 98.5 F 98.2 F 98.4 F Pulse Rate 73 63 75 Respiratory 20 20 17 Rate Blood Pressure 150/88 149/61 150/81 O2 Sat by Pulse Oximetry (%) 07/10/19 15:10 Temperature 98.4 F Pulse Rate 68 Respiratory 18 Rate Blood Pressure 137/67 O2 Sat by Pulse Oximetry (%) Current Medications Generic Name Dose Route Start Last Admin Trade Name Freq PRN Reason Stop Dose Admin Acetaminophen 650 mg 07/08/19 18:51 07/10/19 11:42 Tylenol - PO 650 mg Q6H PRN Administration FEVER OR PAIN 6-10 Albuterol Sulfate 1 amp 07/07/19 08:10 Ventolin 0.083% Nebulizer Soln - NEB Q6H PRN SHORT OF BREATH/WHEEZING Amlodipine Besylate 10 mg 07/08/19 10:00 07/10/19 11:39 Norvasc - PO 10 mg DAILY ELIF Administration Aspirin 81 mg 07/07/19 10:00 07/10/19 11:39 Ecotrin - PO 81 mg DAILY ELIF Administration Budesonide/Formoterol Fumarate 2 puff 07/07/19 10:00 07/10/19 11:40 Symbicort 80/4.5mcg - IH 2 puff BID ELIF Administration Enalapril Maleate 10 mg 07/08/19 11:30 07/10/19 11:39 Vasotec - PO 10 mg DAILY LEIF Administration Dextrose/Sodium Chloride 1,000 mls @ 60 mls/hr 07/07/19 02:00 07/10/19 01:15 D5-1/2ns - IV 60 mls/hr ASDIR ELIF Administration Piperacillin Sod/Tazobactam 50 mls @ 100 mls/hr 07/07/19 18:00 07/10/19 13:04 Sod 3.375 gm/ Dextrose IVPB 100 mls/hr Q8H-IV ELIF Administration Protocol Metoprolol Succinate 50 mg 07/07/19 10:00 07/10/19 11:39 Toprol Xl - PO 50 mg BID ELIF Administration Non-Formulary Medication 1 drop 07/08/19 14:15 07/10/19 11:40 Cyclosporine [Restasis] OU 1 drop BID ELIF Administration Non-Formulary Medication 50 mg 07/07/19 15:00 07/10/19 11:39 Dasatinib [Sprycel] PO 50 mg DAILY ELIF Administration Tamsulosin HCl 0.4 mg 07/07/19 08:30 07/10/19 11:38 Flomax - PO 0.4 mg DAILY@0830 ELIF Administration Laboratory Results - last 24 hr 07/10/19 07/10/19 07/10/19 06:35 06:35 06:35 WBC 6.3 RBC 3.30 L Hgb 11.1 L Hct 33.6 L MCV 101.8 H MCH 33.6 MCHC 33.0 RDW 14.9 Plt Count 250 MPV 8.2 Absolute Neuts (auto) 3.9 Neutrophils % 62.1 Lymphocytes % 26.6 D Monocytes % 9.4 Eosinophils % 1.1 Basophils % 0.8 Nucleated RBC % 0 Sodium 140 Potassium 3.5 Chloride 108 H Carbon Dioxide 25 Anion Gap 7 L BUN 6.3 L Creatinine 1.0 Est GFR (CKD-EPI)AfAm 82.60 Est GFR (CKD-EPI)NonAf 71.27 Random Glucose 97 Calcium 8.3 L Total Bilirubin 1.0 AST 32 ALT 148 H Alkaline Phosphatase 130 H C-Reactive Protein 2.4 H Total Protein 7.1 Albumin 3.1 L Total Amylase 30 Lipase 95 S1 s2 RRR Lungs clear Abd-soft, tender RUQ, distended Ext- no edema PLAN GI follow up noted will be transferring pt to [facility] for further management LFT trending down-- likely to have passed a stone ASHD-- cardiology eval noted Leukemia-- in remission Problem List - Problems (1) Cholelithiasis Code(s): K80.20 - CALCULUS OF GALLBLADDER W/O CHOLECYSTITIS W/O OBSTRUCTION Qualifiers: Cholelithiasis location: gallbladder Cholecystitis presence: without cholecystitis Biliary obstruction: with biliary obstruction Qualified Code(s ): K80.21 - Calculus of gallbladder without cholecystitis with obstruction (2) Common bile duct dilation Code(s): K83.8 - OTHER SPECIFIED DISEASES OF BILIARY TRACT (3) Transaminitis Code(s): R74.0 - NONSPEC ELEV OF LEVELS OF TRANSAMNS & LACTIC ACID DEHYDRGNSE (4) ALL (acute lymphoid leukemia) in remission Code(s): C91.01 - ACUTE LYMPHOBLASTIC LEUKEMIA, IN REMISSION (5) ASHD (arteriosclerotic heart disease) Code(s): I25.10 - ATHSCL HEART DISEASE OF [place] CORONARY ARTERY W/O ANG PCTRS
[2019-07-10] MEDS ORDERED: PT OWN MED DRAWER 7, Y5N ONE (21:53)
[2019-07-11] MEDS ORDERED: DEXTROSE 5%-WATER - 50 ML IVPB ONE ×3 (01:06→17:08)
[2019-07-11] MEDS ORDERED: PIPERACILLIN/TAZOBACTAM 3.375 GM VIAL IVPB ONE ×3 (01:06→17:07)
[2019-07-11] MEDS: PIPERACILLIN/TAZOB 3.375 GM 3.375 GM in DEXTROSE 5%-WATER - 50 ML IVPB SCH ×3 (01:15→18:48)
[2019-07-11] MEDS: DEXTROSE 5%-0.45% SALINE 1,000 ML IV SCH (04:14)
[2019-07-11 07:39] LABS: BASO % 0.8 % (0-2.0); EOS % 0.8 % (0-4.5); HEMATOCRIT 32.6 % (35.4-49); LYMPH % 25.5 % (8-40); MCH 34.4 pg (25.7-33.7); MCHC 33.9 g/dl (32.0-35.9); MEAN CELL VOLUME 101.5 fl (80-96); MEAN PLT VOLUME 7.8 fl (7.5-11.1); MONO % 8.7 % (3.8-10.2); NEUT % 64.2 % (42.8-82.8); PLATELET COUNT 273 K/MM3 (134-434); RBC 3.21 M/mm3 (4.00-5.60); RDW 14.6 % (11.9-15.9); WHITE BLOOD COUNT 6.3 K/mm3 (4.0-10.0)
[2019-07-11 07:50] LABS: ALBUMIN 3.2 g/dl (3.4-5.0); BILIRUBIN,TOTAL 0.6 mg/dL (0.2-1); BLOOD UREA NITROGEN 8.4 mg/dL (7-18); CALCIUM 8.9 mg/dL (8.5-10.1); CREATININE 1.1 mg/dL (0.55-1.3); POTASSIUM 3.5 mmol/L (3.5-5.1); TOT PROT 7.2 g/dl (6.4-8.2)
[2019-07-11] MEDS: amLODIPine BESYLATE 5 MG TABLET (FP) PO SCH ×2 (08:56→11:46)
[2019-07-11] MEDS: ASPIRIN COATED 81 MG TABLET.EC PO SCH ×2 (08:56→11:46)
[2019-07-11] MEDS: TAMSULOSIN HCL 0.4 MG CAP PO SCH (08:56)
[2019-07-11] MEDS: ENALAPRIL MALEATE 10 MG TABLET (FP) PO SCH ×2 (08:57→11:44)
[2019-07-11] MEDS: DASATINIB 50 MG PO SCH (08:59)
[2019-07-11] MEDS: ACETAMINOPHEN 325 MG TABLET (FP) PO PRN (11:37)
--- NOTE | 2019-07-11 11:42 | PN ---
Progress Note, Physician History of Present Illness: 79M admitted for primarily what he felt was hematuria. He also describes intermittent pain of the abdomen over the last week. It became progressively more intense on -tuesday. At around that time he also noted darker urine and then said that he saw gross blood. WBC's, Transaminases, ALP and Bili were elevated (normal 06/16). CT scan of the A/P revealed cholelithiasis, bilateral adrenal nodules, low attenuation kidney lesions (possible cysts per radiologist), S/P left colon surgery and a peroiumbilical fat/bowel containing hernia. Abd US revealed gallstones and CBD of 9mm (dilatation of the CBD noted in 2017 as well). He denies recent antibiotic use or change in medication regimen. He denies recent travel. Uranalysis revealed protein and bilirubin with trace blood and RBC's. PMH Past medical history Major events pLAD 2011 Cardiac Cath October 2012 [place] patent LAD stent 50% D1 D2, D3 90% stenosed small caliber vessels mid LCx 40% 50 % [place] small nondominant RCA Negative MIBI Stress 2016 [facility] Ongoing medical problems CAD 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 Gennaro Combs - Current Medication List Current Medications: Active Medications Acetaminophen (Tylenol -) 650 mg PO Q6H PRN PRN Reason: FEVER OR PAIN 6-10 Last Admin: 07/10/19 22:47 Dose: 650 mg Albuterol Sulfate (Ventolin 0.083% Nebulizer Soln -) 1 amp NEB Q6H PRN PRN Reason: SHORT OF BREATH/WHEEZING Last Admin: 07/11/19 04:14 Dose: 1 amp Amlodipine Besylate (Norvasc -) 10 mg PO DAILY [facility] Last Admin: 07/11/19 08:56 Dose: 10 mg Aspirin (Ecotrin -) 81 mg PO DAILY [facility] Last Admin: 07/11/19 08:56 Dose: 81 mg Budesonide/Formoterol Fumarate (Symbicort 80/4.5mcg -) 2 puff IH BID [facility] Last Admin: 07/10/19 21:09 Dose: Not Given Enalapril Maleate (Vasotec -) 10 mg PO DAILY [facility] Last Admin: 07/11/19 08:57 Dose: 10 mg Dextrose/Sodium Chloride (D5-1/2ns -) 1,000 mls @ 60 mls/hr IV ASDIR [facility] Last Admin: 07/11/19 04:14 Dose: Not Given Piperacillin Sod/Tazobactam (Sod 3.375 gm/ Dextrose) 50 mls @ 100 mls/hr IVPB Q8H-IV ELIF; Protocol Last Admin: 07/11/19 01:15 Dose: 100 mls/hr Metoprolol Succinate (Toprol Xl -) 50 mg PO BID [facility] Last Admin: 07/11/19 08:54 Dose: 50 mg Non-Formulary Medication (Cyclosporine [Restasis]) 1 drop OU BID [facility] Last Admin: 07/10/19 21:13 Dose: 1 drop Non-Formulary Medication (Dasatinib [Sprycel]) 50 mg PO DAILY [facility] Last Admin: 07/11/19 08:59 Dose: 50 mg Tamsulosin HCl (Flomax -) 0.4 mg PO DAILY@0830 [facility] Last Admin: 07/11/19 08:56 Dose: 0.4 mg - Objective Vital Signs: Vital Signs Temperature 98.2 F 07/11/19 06:00 Pulse Rate 96 H 07/11/19 06:00 Respiratory Rate 18 07/11/19 08:55 Blood Pressure 123/76 07/11/19 06:00 O2 Sat by Pulse Oximetry (%) 99 07/11/19 08:55 Eyes: Yes: WNL, Conjunctiva Clear, EOM Intact HENT: Yes: WNL, Atraumatic, Normocephalic Neck: Yes: WNL, Supple, Trachea Midline Cardiovascular: Yes: WNL, Regular Rate and Rhythm Respiratory: Yes: WNL, Regular, CTA Bilaterally Gastrointestinal: Yes: WNL, Normal Bowel Sounds Genitourinary: Yes: WNL Musculoskeletal: Yes: WNL Extremities: Yes: WNL Edema: No Integumentary: Yes: WNL Neurological: Yes: WNL, Alert, Oriented ...Motor Strength: WNL Psychiatric: Yes: WNL Labs: CBC, BMP 07/11/19 06:35 07/11/19 06:35 INR, PTT INR 1.11 (0.83-1.09) H 07/06/19 23:00 Problem List - Problems (1) Cholelithiasis Code(s): K80.20 - CALCULUS OF GALLBLADDER W/O CHOLECYSTITIS W/O OBSTRUCTION Qualifiers: Cholelithiasis location: gallbladder Cholecystitis presence: without cholecystitis Biliary obstruction: with biliary obstruction Qualified Code(s ): K80.21 - Calculus of gallbladder without cholecystitis with obstruction (2) Common bile duct dilation Code(s): K83.8 - OTHER SPECIFIED DISEASES OF BILIARY TRACT (3) Proteinuria Code(s): R80.9 - PROTEINURIA, UNSPECIFIED (4) RUQ abdominal pain Code(s): R10.11 - RIGHT UPPER QUADRANT PAIN (5) Transaminitis Code(s): R74.0 - NONSPEC ELEV OF LEVELS OF TRANSAMNS & LACTIC ACID DEHYDRGNSE (6) UTI (urinary tract infection) Code(s): N39.0 - URINARY TRACT INFECTION, SITE NOT SPECIFIED Qualifiers: Urinary tract infection type: acute cystitis Hematuria presence: with hematuria Qualified Code(s): N30.01 - Acute cystitis with hematuria (7) Umbilical hernia Code(s): K42.9 - UMBILICAL HERNIA WITHOUT OBSTRUCTION OR GANGRENE (8) ALL (acute lymphoblastic leukemia) Code(s): C91.00 - ACUTE LYMPHOBLASTIC LEUKEMIA NOT HAVING ACHIEVED REMISSION (9) ALL (acute lymphoid leukemia) in remission Code(s): C91.01 - ACUTE LYMPHOBLASTIC LEUKEMIA, IN REMISSION (10) ASHD (arteriosclerotic heart disease) Code(s): I25.10 - ATHSCL HEART DISEASE OF [place] CORONARY ARTERY W/O ANG PCTRS (11) Abdominal abscess Code(s): K65.1 - PERITONEAL ABSCESS (12) Abscess of gastrointestinal tract Code(s): K63.0 - ABSCESS OF INTESTINE (13) Acute leukemia Code(s): C95.00 - ACUTE LEUKEMIA OF [place] CELL TYPE NOT ACHIEVE REMISSION (14) Adrenal nodule Code(s): E27.9 - DISORDER OF ADRENAL GLAND, UNSPECIFIED (15) Atrial tachycardia Code(s): I47.1 - SUPRAVENTRICULAR TACHYCARDIA (16) Bilateral pleural effusion Code(s): J90 - PLEURAL EFFUSION, NOT ELSEWHERE CLASSIFIED (17) COPD (chronic obstructive pulmonary disease) Code(s): J44.9 - CHRONIC OBSTRUCTIVE PULMONARY DISEASE, UNSPECIFIED Qualifiers: COPD type: chronic bronchitis (18) Chest pain Code(s): R07.9 - CHEST PAIN, UNSPECIFIED Qualifiers: Chest pain type: unspecified Qualified Code(s): R07.9 - Chest pain, unspecified (19) Chronic pain Code(s): G89.29 - OTHER CHRONIC PAIN (20) Community acquired bacterial pneumonia Code(s): J15.9 - UNSPECIFIED BACTERIAL PNEUMONIA (21) Constipation Code(s): K59.00 - CONSTIPATION, UNSPECIFIED Qualifiers: Constipation type: unspecified constipation type Qualified Code(s): K59.00 - Constipation, unspecified (22) Dyspnea Code(s): R06.00 - DYSPNEA, UNSPECIFIED (23) GI bleeding Code(s): K92.2 - GASTROINTESTINAL HEMORRHAGE, UNSPECIFIED (24) Gallstone Code(s): K80.20 - CALCULUS OF GALLBLADDER W/O CHOLECYSTITIS W/O OBSTRUCTION Qualifiers: Cholecystitis presence: without cholecystitis Biliary obstruction: without biliary obstruction Qualified Code(s): K80.20 - Calculus of gallbladder without cholecystitis without obstruction (25) H/O heart artery stent Code(s): Z95.5 - PRESENCE OF CORONARY ANGIOPLASTY IMPLANT AND GRAFT (26) HTN (hypertension) Code(s): I10 - ESSENTIAL (PRIMARY) HYPERTENSION Qualifiers: Hypertension type: essential hypertension Qualified Code(s): I10 - Essential (primary) hypertension (27) Hydronephrosis of left kidney Code(s): N13.30 - UNSPECIFIED HYDRONEPHROSIS (28) Hydroureter on left Code(s): N13.4 - HYDROURETER (29) Hyperlipidemia Code(s): E78.5 - HYPERLIPIDEMIA, UNSPECIFIED (30) Influenza A Code(s): J10.1 - FLU DUE TO OTH IDENT INFLUENZA VIRUS W OTH RESP MANIFEST (31) Ischemic bowel syndrome Code(s): K55.9 - VASCULAR DISORDER OF INTESTINE, UNSPECIFIED (32) Leukocytosis Code(s): D72.829 - ELEVATED WHITE BLOOD CELL COUNT, UNSPECIFIED (33) Pneumonia Code(s): J18.9 - PNEUMONIA, UNSPECIFIED ORGANISM Qualifiers: (34) Postoperative ileus Code(s): K91.3 - POSTPROCEDURAL INTESTINAL OBSTRUCTION * DO NOT USE * (35) Renal calculus or stone Code(s): N20.0 - CALCULUS OF KIDNEY (36) S/P left colectomy Code(s): Z90.49 - ACQUIRED ABSENCE OF OTHER SPECIFIED PARTS OF DIGESTIVE TRACT (37) Shortness of breath Code(s): R06.02 - SHORTNESS OF BREATH Assessment/Plan - Problems (1) Diastolic CHF Code(s): I50.30 - UNSPECIFIED DIASTOLIC (CONGESTIVE) HEART FAILURE (2) Choledocholithiasis Assessment/Plan: Awaits transfer for surgery. Code(s): K80.50 - CALCULUS OF BILE DUCT W/O CHOLANGITIS OR CHOLECYST W/O OBST (3) ALL (acute lymphoblastic leukemia) Code(s): C91.00 - ACUTE LYMPHOBLASTIC LEUKEMIA NOT HAVING ACHIEVED REMISSION (4) ASHD (arteriosclerotic heart disease) Code(s): I25.10 - ATHSCL HEART DISEASE OF [place] CORONARY ARTERY W/O ANG PCTRS (5) COPD (chronic obstructive pulmonary disease) Code(s): J44.9 - CHRONIC OBSTRUCTIVE PULMONARY DISEASE, UNSPECIFIED Qualifiers: COPD type: chronic bronchitis
--- NOTE | 2019-07-11 11:45 | PN ---
Progress Note (short form) - Note Progress Note: Events noted Pt had HIDA done cholecystitis on HIDA he has pain in abdomen vitals noted S1 s2 RRR Lungs clear Abd-soft, tender RUQ, distended Ext- no edema PLAN GI follow up noted will be transferring pt to [facility] for further management LFT trending down-- likely to have passed a stone ASHD-- cardiology eval noted Leukemia-- in remission dc planning in progress Problem List - Problems (1) Cholelithiasis Code(s): K80.20 - CALCULUS OF GALLBLADDER W/O CHOLECYSTITIS W/O OBSTRUCTION Qualifiers: Cholelithiasis location: gallbladder Cholecystitis presence: without cholecystitis Biliary obstruction: with biliary obstruction Qualified Code(s ): K80.21 - Calculus of gallbladder without cholecystitis with obstruction (2) Common bile duct dilation Code(s): K83.8 - OTHER SPECIFIED DISEASES OF BILIARY TRACT (3) Transaminitis Code(s): R74.0 - NONSPEC ELEV OF LEVELS OF TRANSAMNS & LACTIC ACID DEHYDRGNSE (4) ALL (acute lymphoid leukemia) in remission Code(s): C91.01 - ACUTE LYMPHOBLASTIC LEUKEMIA, IN REMISSION (5) ASHD (arteriosclerotic heart disease) Code(s): I25.10 - ATHSCL HEART DISEASE OF [place] CORONARY ARTERY W/O ANG PCTRS
[2019-07-11] MEDS: BUDESONIDE/FORMETEROL FUMARATE 80/4.5 mcg INHALER IH SCH ×2 (11:46→21:06)
[2019-07-11] MEDS: PATIENT'S OWN MEDICATION (NON-FORMULARY) (Cyclosporine [Restasis] 1 DROP) OU SCH ×2 (11:47→21:06)
--- NOTE | 2019-07-11 13:03 | ECHO ---
Name: AGATHA KING Exam:Adult Echocardiogram Study Date: 07/11/2019 09:25 AM Age: 79 yrs Reason For Study: aortic root dilation Height: 71 in Weight: 175 lb BSA: 2.0 m2 MMode/2D Measurements & Calculations IVSd: 0.92 cm Ao root diam: 3.5 cm LVIDd: 4.7 cm LA dimension: 3.7 cm LVIDs: 3.3 cm LVPWd: 1.1 cm LVPWs: 1.5 cm EDV(Teich): 100.6 ml ESV(Teich): 43.6 ml LVOT diam: 2.1 cm Doppler Measurements & Calculations MV E max abhi: 74.5 cm/sec Ao V2 max: 140.8 cm/sec MV A max abhi: 106.1 cm/sec Ao max P.9 mmHg MV E/A: 0.70 Ao V2 mean: 89.8 cm/sec MV dec time: 0.21 sec Ao mean P.9 mmHg Ao V2 VTI: 28.8 cm EMILIO(I,D): 2.8 cm2 EMILIO(V,D): 2.6 cm2 LV V1 max P.6 mmHg SV(LVOT): 80.4 ml LV V1 mean P.3 mmHg LV V1 max: 107.1 cm/sec LV V1 mean: 68.5 cm/sec LV V1 VTI: 23.6 cm TR max abhi: 228.0 cm/sec PA V2 max: 112.0 cm/sec TR max P.8 mmHg PA max P.0 mmHg Med Peak E' Abhi: 5.4 cm/sec Med E/e': 13.9 Lat Peak E' Abhi: 6.1 cm/sec Lat E/e': 12.1 Procedure A two-dimensional transthoracic echocardiogram with color flow and Doppler was performed. Left Ventricle The left ventricular size, thickness and function are normal. The left ventricular ejection fraction is normal. The left ventricular wall motion is normal. Right Ventricle The right ventricle is normal in size and function. Atria Normal left and right atrial size and function. Mitral Valve There is mild mitral valve thickening. There is no mitral valve stenosis. There is trace to mild mitr al regurgitation. Tricuspid Valve The tricuspid valve is normal in structure and function. There is no tricuspid stenosis. There is mil d tricuspid regurgitation. Right ventricular systolic pressure is normal. Aortic Valve The aortic valve is normal in structure and function. No hemodynamically significant valvular aortic stenosis. Mild aortic regurgitation. Pulmonic Valve The pulmonic valve is not well visualized. Great Vessels The aortic root is normal size. Pericardium/Pleura There is no pericardial effusion. Interpretation Summary The left ventricular size, thickness and function are normal The left ventricular ejection fraction is normal. The left ventricular wall motion is normal. There is trace to mild mitral regurgitation. There is mild tricuspid regurgitation. Right ventricular systolic pressure is normal. Mild aortic regurgitation. MD Ralph Valenzuela 07/11/2019 01:03 PM
[2019-07-11 23:13] VITALS: BP 144/77; PULSE 79; TEMP 98.3
--- NOTE | 2019-09-01 12:52 | DS ---
Physical Examination Vital Signs: Vital Signs Temperature 98.3 F 07/11/19 22:00 Pulse Rate 79 07/11/19 22:00 Respiratory Rate 18 07/11/19 22:00 Blood Pressure 144/77 07/11/19 22:00 O2 Sat by Pulse Oximetry (%) 99 07/11/19 21:00 Labs: CBC, BMP 07/11/19 06:35 07/11/19 06:35 Discharge Summary Problems reviewed: Yes Reason For Visit: URINARY TRACT INFECTION, ELEVATED TRANSAMINASE, Health Concerns: please see progress note for 07/11/19 pt transferred to [facility] for further management Condition: Stable - Instructions Referrals: Alfredo Cameron MD [Primary Care Provider] - Disposition: TRANSFER ACUTE CARE/OTHER HOSP - Home Medications Comprehensive Discharge Medication List: Ambulatory Orders Amlodipine Besylate [Norvasc -] 5 mg PO DAILY 04/15/16 Tamsulosin HCl 0.4 mg PO DAILY 04/15/16 Dasatinib [Sprycel] 50 mg PO DAILY 30 Days #30 tab MDD 1 08/26/17 Cyanocobalamin [Vitamin B12 -] 1,000 mcg PO DAILY 11/19/17 Acetaminophen [Tylenol .Regular Strength -] 650 mg PO Q6H PRN tablet 11/22/17 Aspirin Coated [Ecotrin -] 81 mg PO DAILY tablet.ec 11/22/17 Diphenhydramine HCl [Benadryl -] 25 mg PO Q6H PRN 07/30/18 Metoprolol Succinate [Toprol XL -] 50 mg PO BID 07/30/18 Albuterol Sulfate Inhaler - [Ventolin HFA Inhaler -] 2 inhaler PO PRN 07/07/19 Budesonide/Formeterol Fumarate [SYMBICORT 80/4.5mcg -] 1 inhaler PO BID Cyclosporine [Restasis] 1 drop OU BID 07/07/19 Loperamide HCl [Loperamide] 2 mg PO PRN 07/07/19
== END 2019-07-11 23:35 | disposition short-term general hospital (02) | DRG 445 ==
LOC: JER 18:13 → JERBED 07-07 01:18 → J7W 07-07 02:39
PROVIDERS: ADMIT Internal Medicine; ATTEND Internal Medicine
DX: K80.64 Calculus of gallbladder and bile duct with chronic cholecystitis without obstruction (principal); N30.01 Acute cystitis with hematuria; J98.11 Atelectasis; C91.01 Acute lymphoblastic leukemia, in remission; E78.5 Hyperlipidemia, unspecified; I11.0 Hypertensive heart disease with heart failure; I50.9 Heart failure, unspecified; I48.0 Paroxysmal atrial fibrillation; I25.2 Old myocardial infarction; R10.11 Right upper quadrant pain; R74.0 Nonspecific elevation of levels of transaminase and lactic acid dehydrogenase [LDH]; J44.9 Chronic obstructive pulmonary disease, unspecified; N28.1 Cyst of kidney, acquired; K42.9 Umbilical hernia without obstruction or gangrene; I25.10 Atherosclerotic heart disease of native coronary artery without angina pectoris; K64.8 Other hemorrhoids; N20.0 Calculus of kidney; K83.8 Other specified diseases of biliary tract; I27.20 Pulmonary hypertension, unspecified; K57.90 Diverticulosis of intestine, part unspecified, without perforation or abscess without bleeding; Z87.891 Personal history of nicotine dependence; D64.9 Anemia, unspecified
CPT/HCPCS: 36415; 71045-TC-FY; 74176-TC; 74181-TC; 76705-TC; 78226-TC; 80048; 80053; 80061; 80076; 81003; 82150; 83605; 83690; 83721; 83735; 84443; 85025; 85610; 85730; 86140; 86850; 86900; 86901; 87040; 87086; 93005; 93010; 93306-TC; 94640; 99284-25; A9537

== ENCOUNTER 2019-08-18 17:16 | Inpatient (IN) | payer OTHER, BC ==
--- NOTE | 2019-08-18 18:23 | PDOC ---
History of Present Illness - General Chief Complaint: Altered Mental Status Stated Complaint: NOT HIMSELF Time Seen by Provider: 08/18/19 18:22 History Source: Patient, Family - History of Present Illness Initial Comments: 08/18/19 20:55 Mr. Alfonso is a 79 y/o man with hx HTN, HLD, afib, ischemic bowel, ALL, p/w one week of worsening attentiveness and diminished verbal responsiveness, and one day of headache. At baseline he is fully alert, and his daughter became concerned as he had become minimally interactive over the last week. Today she reports that she found him sitting up in bed staring at the ceiling, and was slow to respond to verbal stimulus. He is unable to describe his symptoms and cannot contribute to history. His daughter reports that this is a drastic change that occurred progressively over the last week. Past History - Past Medical History Allergies/Adverse Reactions: Allergies Allergy/AdvReac Type Severity Reaction Status Date / Time nitroglycerin [Nitroglycerin] Allergy Unknown severe Verified 08/18/19 17:34 headache Home Medications: Ambulatory Orders Amlodipine Besylate [Norvasc -] 5 mg PO DAILY 04/15/16 Tamsulosin HCl 0.4 mg PO DAILY 04/15/16 Dasatinib [Sprycel] 50 mg PO DAILY 30 Days #30 tab MDD 1 08/26/17 Cyanocobalamin [Vitamin B12 -] 1,000 mcg PO DAILY 11/19/17 Acetaminophen [Tylenol .Regular Strength -] 650 mg PO Q6H PRN tablet 11/22/17 Aspirin Coated [Ecotrin -] 81 mg PO DAILY tablet.ec 11/22/17 Diphenhydramine HCl [Benadryl -] 25 mg PO Q6H PRN 07/30/18 Metoprolol Succinate [Toprol XL -] 50 mg PO BID 07/30/18 Albuterol Sulfate Inhaler - [Ventolin HFA Inhaler -] 1 inhaler PO PRN 07/07/19 Budesonide/Formeterol Fumarate [SYMBICORT 80/4.5mcg -] 1 inhaler PO BID Cyclosporine [Restasis] 1 drop OU DAILY 07/07/19 Loperamide HCl [Loperamide] 2 mg PO PRN 07/07/19 Anemia: Yes Asthma: No Cancer: Yes (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) Cardiac Disorders: Yes (a-fib, STENTS [place]) CVA: No (denies stroke) COPD: Yes CHF: Yes Dementia: No Diabetes: No GI Disorders: No Disorders: No HTN: Yes Hypercholesterolemia: Yes Liver Disease: No Seizures: No Thyroid Disease: Yes (KIDNEY STONE) - Surgical History Abdominal Surgery: Yes (COLON RESECTION 2013) Appendectomy: No Cardiac Surgery: Yes (Stent placed 2009 pLAD) Cholecystectomy: No Lung Surgery: No Neurologic Surgery: Yes (Cyst removed) Orthopedic Surgery: No - Immunization History Immunization Up to Date: Yes - Psycho Social/Smoking Cessation Hx Smoking Status: No Smoking History: Never smoked Have you smoked in the past 12 months: No Number of Cigarettes Smoked Daily: 5 If you are a former smoker, when did you quit?: 45 years Cigars Per Day: 0 Information on smoking cessation initiated: No 'Breaking Loose' booklet given: 08/24/16 Hx Alcohol Use: No Drug/Substance Use Hx: No Substance Use Type: None Hx Substance Use Treatment: No Review of Systems - Review of Systems Able to Perform ROS?: No (AMS) *Physical Exam - Vital Signs Last Vital Signs Temp Pulse Resp BP Pulse Ox 98.7 F 107 H 20 167/84 98 08/18/19 17:34 08/18/19 17:34 08/18/19 17:34 08/18/19 17:34 08/18/19 17:34 - Physical Exam 08/19/19 02:21 PE: GENERAL: Awake, alert, and fully oriented, in no acute distress HEAD: No signs of trauma, normocephalic, atraumatic EYES: PERRLA, EOMI, sclera anicteric, conjunctiva clear ENT: Auricles normal inspection, hearing grossly normal, nares patent, oropharynx clear without exudates. Moist mucosa NECK: Normal ROM, supple, no lymphadenopathy, JVD, or masses LUNGS: No distress, speaks full sentences, clear to auscultation bilaterally HEART: Regular rate and rhythm, normal S1 and S2, no murmurs, rubs or gallops, peripheral pulses normal and equal bilaterally. ABDOMEN: Soft, nontender, normoactive bowel sounds. No guarding, no rebound. No masses EXTREMITIES : Normal inspection, Normal range of motion, no edema. No clubbing or cyanosis NEUROLOGICAL: Inattentive. Speech fluid when he speaks. NIHSS as detailed in MDM. Cranial nerves II through XII grossly intact. Sensation and strength intact and equal bilaterally. SKIN: Warm, Dry, normal turgor, no rashes or lesions noted ED Treatment Course - LABORATORY CBC & Chemistry Diagram: 08/18/19 19:20 08/18/19 18:55 Medical Decision Making - Medical Decision Making 79M w/hx afib not on AC, prior episode bowel ischemia, HTN, HLD p/w one week of worsening AMS with diminished speech, concerning for infectious source vs stroke. Plan: CBC CMP PT/INR PTT Cardiac profile EKG CXR CT Head Neurology consult Dispo: Admit 08/18/19 20:36 NIHSS: 4 R arm drift +1 Severe aphasia +2 Inattention +1 08/18/19 21:[address] Sánchez, plan for admission for inpatient MRI, stroke workup. Discharge - Discharge Information Problems reviewed: Yes Clinical Impression/Diagnosis: CVA (cerebral vascular accident) Qualifiers: CVA mechanism: unspecified Qualified Code(s): I63.9 - Cerebral infarction, unspecified Condition: Stable - Admission Yes - Follow up/Referral - Patient Discharge Instructions - Post Discharge Activity
[2019-08-18 19:39] LABS: BASO % 0.3 % (0-2.0); EOS % 0.9 % (0-4.5); HEMATOCRIT 32.4 % (35.4-49); HEMOGLOBIN 10.8 GM/dL (11.7-16.9); LYMPH % 20.6 % (8-40); MCH 34.1 pg (25.7-33.7); MCHC 33.5 g/dl (32.0-35.9); MEAN CELL VOLUME 101.8 fl (80-96); MEAN PLT VOLUME 8.1 fl (7.5-11.1); MONO % 9.1 % (3.8-10.2); NEUT % 69.1 % (42.8-82.8); PLATELET COUNT 313 K/MM3 (134-434); RBC 3.18 M/mm3 (4.00-5.60); RDW 14.3 % (11.9-15.9)
[2019-08-18 20:02] LABS: INR 1.02 (0.83-1.09)
[2019-08-18 20:04] LABS: ALBUMIN 3.5 g/dl (3.4-5.0); BILIRUBIN,TOTAL 0.4 mg/dL (0.2-1); BLOOD UREA NITROGEN 15.4 mg/dL (7-18); CALCIUM 9.1 mg/dL (8.5-10.1); POTASSIUM 3.7 mmol/L (3.5-5.1); TOT PROT 7.3 g/dl (6.4-8.2)
[2019-08-18 20:05] LABS: ACTIVATED PTT 31.7 SECONDS (25.2-36.5)
--- NOTE | 2019-08-18 20:36 | PDOC ---
Documentation entered by Lillian Lozoya SCRIBE, acting as scribe for Edgardo Villagomez MD. Edgardo Villagomez MD: This documentation has been prepared by the Darell méndez Xhesika, SCRIBE, under my direction and personally reviewed by me in its entirety. I confirm that the documentation accurately reflects all work, treatment, procedures, and medical decision making performed by me. Attending Attestation - Resident Resident Name: Hay Voss - ED Attending Attestation I have performed the following: I have examined & evaluated the patient, The case was reviewed & discussed with the resident, I agree w/resident's findings & plan, Exceptions are as noted - HPI HPI: 08/18/19 19:04 The patient is a 79 year old male, with a significant PMH of [place], HLD, pAfib (no longer on AC), PR s/p PCI on ASA, leukemia (last radiation/chemotherapy 3 years ago) who presents to the ED for confusion and decreased PO intake. Daughter notes the patient has been lethargic, less verbal and less active since . He is typically very conversant, but he has recently only been nodding his head and giving short answers. She denies any slurred speech or facial droop. No fevers noted at home. Pt also complained of a headache yesterday and today, but this has since resolved. No neck stiffness. The patient denies chest pain, shortness of breath, and dizziness. Denies fever , chills, cough, nausea, vomiting, diarrhea and constipation. Denies dysuria, frequency, urgency and hematuria. Allergies: nitroglycerin - Physicial Exam PE: 08/18/19 19:05 See resident exam - Medical Decision Making 08/18/19 20:37 79 M with confusion x 1 week. Suspect CVA given h/o afib not on AC. Will also evaluate for infectious process, though no h/o fevers. Will r/o metabolic derangement. - Labs - CT head - CXR, UA - Neuro c/s NIH Stroke Scale - Last Known Well Date/Time & Onset Date Last Known Well: 08/10/19 - Initial Evaluation Level of consciousness: Alert Ask patient the month and their age: Answers both correctly Ask patient to open & close eyes; make fist and let go: Obeys both correctly Best gaze (horizontal eye movement): Normal Visual field testing: No visual field loss Facial paresis (Show teeth/raise eyebrows/close eyes tight): Normal symmetrical movement Motor Function: Left Arm: Normal Motor Function: Right Arm: Drift Motor Function: Left Leg: Normal (extends leg 30 degrees for 5 seconds without drift) Motor Function: Right Leg: Normal (extends leg 30 degrees for 5 seconds without drift) Limb Ataxia: No ataxia Sensory(Use pinprick test arms,legs,trunk,face/side to side): Normal Best language (Describe picture, name items, read sentences): No Aphasia Dysarthria (read several words): Near unintelligible or unable to speak Extinction and Inattention: Inattention or extinction bilaterally to one of the sensory modalities - Total Score NIH Stroke Scale Score: 4
[2019-08-18 22:05] LABS: EPI CELLS 1.8 /HPF (0-5/HPF); HYALINE CASTS 6 /lpf (0-8); PH,URINE 5.5 (5.0-8.0); URINE APPEARANCE CLEAR; URINE BACTERIA 3.8 /hpf (NEGATIVE); URINE BILIRUBIN NEGATIVE (NEGATIVE); URINE COLOR YELLOW; URINE GLUCOSE (UA) NEGATIVE (NEGATIVE); URINE KETONE NEGATIVE (NEGATIVE); URINE LEUK ESTERASE NEGATIVE (NEGATIVE); URINE NITRITE NEGATIVE (NEGATIVE); URINE PROTEIN 3+ (NEGATIVE); URINE RBC 1 /hpf (0-4); URINE UROBILINOGEN 0.2 mg/dL (0.2-1.0); URINE WBC 1 /hpf (0-5)
--- NOTE | 2019-08-18 22:05 | PN ---
Teaching Attending Note Name of Resident: Michaela Cosby ATTENDING PHYSICIAN STATEMENT I saw and evaluated the patient. I reviewed the resident's note and discussed the case with the resident. I agree with the resident's findings and plan as documented. SUBJECTIVE: Patient is a 79 year old man with a PMH of HTN, HLD, Paroxysmal Afib (no longer on AC), UT s/p PCI on ASA, Colon resection, Kidney stone and Leukemia (last radiation/chemotherapy 3 years ago) who presents to the ER for confusion and decreased oral intake. Daughter notes the patient has been lethargic, less verbal and less active since . He is typically very conversant, but he has recently only been nodding his head and giving short answers. She denies any slurred speech or facial droop. No fevers noted at home. Patient also complained of a headache yesterday and today, but this has since resolved. No neck stiffness. Patient denies chest pain, shortness of breath, dizziness, fever , chills, cough, nausea, vomiting, diarrhea, constipation, dysuria, frequency, urgency or hematuria. No recent travels or sick contacts. Denies alcohol, tobacco or illicit drug use. OBJECTIVE: Alert Vital Signs Period Temp Pulse Resp BP Sys/Quiroz Pulse Ox Last 24 Hr 98.7 F 107 20 167/84 98 HEENT: No Jaundice, eye redness or discharge, PERRLA, EOMI. Normocephalic, atraumatic. External ears are normal and hearing is grossly intact. No nasal discharge. Neck: Supple, nontender. No palpable adenopathy or thyromegaly. No JVD Chest: Good effort. Clear to auscultation and percussion. Heart: Regular. No S3, rub or murmur Abdomen: Not distended, soft, nontender and no HSM. No rebound or guarding. Normal bowel sounds. Ext: Peripheral pulses intact. No leg edema. Skin: Warm and dry. No petechiae, rash or ecchymosis. Neuro: Alert. Oriented x3. CN 2-12 grossly intact. Sensation grossly intact in all four extremities and DTR are symmetric. Psych: Appropriate mood and affect. Good insight. Home Medications Medication Instructions Recorded Amlodipine Besylate [Norvasc -] 5 mg PO DAILY 04/15/16 Tamsulosin HCl 0.4 mg PO DAILY 04/15/16 Dasatinib [Sprycel] 50 mg PO DAILY 30 Days #30 tab MDD 08/26/17 1 Cyanocobalamin [Vitamin B12 -] 1,000 mcg PO DAILY 11/19/17 Acetaminophen [Tylenol .Regular 650 mg PO Q6H PRN tablet 11/22/17 Strength -] Aspirin Coated [Ecotrin -] 81 mg PO DAILY tablet.ec 11/22/17 Diphenhydramine HCl [Benadryl -] 25 mg PO Q6H PRN 07/30/18 Metoprolol Succinate [Toprol XL -] 50 mg PO BID 07/30/18 Albuterol Sulfate Inhaler - 1 inhaler PO PRN 07/07/19 [Ventolin HFA Inhaler -] Budesonide/Formeterol Fumarate 1 inhaler PO BID 07/07/19 [SYMBICORT 80/4.5mcg -] Cyclosporine [Restasis] 1 drop OU DAILY 07/07/19 Loperamide HCl [Loperamide] 2 mg PO PRN 07/07/19 Abnormal Lab Results 08/18/19 08/18/19 18:55 19:20 RBC 3.18 L Hgb 10.8 L Hct 32.4 L MCV 101.8 H MCH 34.1 H Chloride 109 H Anion Gap 6 L ASSESSMENT AND PLAN: 1. AMS/Rule out CVA - No acute abnormality on CXR or Head CT. Initial NIHSS score was 4. Will get urine toxicology. Admit to telemetry, get ECHO, speech/ swallow evaluation, gerard MRI, carotid doppler, optimize statin therapy, daily ASA and consult PT/Neurology/Cardiology. EKG is pending. Implement fall/seizure precautions. Has proteinuria - will get urine albumin/creatinine ratio and consult nephrology. During the day will contact his PCP to get information about paroxysmal Afib. Will continue comprehensive care for all of patients comorbid conditions. 2. Anemia with macrocytosis - Cause unclear. Will do basic anemia work up including Vitamin B12/folate levels, serial stool guaiacs, reticulocyte count and iron studies. 3. Uncontolled Hypertension - Will practice permissive hypertension. Restart suitable outpatient antihypertensive drugs when clinically appropriate. 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 Nonpharmacologic measures to control hypertension like weight loss, salt restriction and exercise discussed. Importance of adherence to treatment regimen and attainment of normotension emphasized. 4. DVT prophylaxis - Lovenox 40 mg SQ q 24 hours. 5. Advance directives - Full code
[2019-08-18 23:09] LABS: URINE CRYSTALS MODERATE /hpf
[2019-08-18] MEDS ORDERED: ATORVASTATIN CA 80 MG TABLET (FP) PO ONE (23:50)
[2019-08-18] MEDS ORDERED: ASPIRIN 325 MG ENTERIC COATED TABLET (FP) PO ONE (23:50)
--- NOTE | 2019-08-19 00:07 | HP ---
CHIEF COMPLAINT: Stroke PCP: Dr. Ray HISTORY OF PRESENT ILLNESS: 79 y/o M with PMHx of HTN, HLD, ?AFib, ALL (S/P Chemotherapy), CAD (s/p stenting ) presents to [facility] for Decreased Attentiveness and diminished verbal response. Patient was accompanied by daughter who aided in providing hx. Daughter says patient was in his usual state approx. 1 week ago; For the last week the family has noticed he has been communicating less, been less engaged and does not speak as often as he did previously. They have also notice he has had difficulty performing ADLs. Family mentions that patient previously only required a cane when ambulating up steps however now he even requires it on flat surfaces. During the day today, patient was noted to have sudden onset 8/ 10 headache over the central, most superior portion of his head--Family became concerned of possible CVA prompting a visit to the ED. Denies any Medication changes, Sick contacts. Denies any fevers, chills, chest pain, SOB, nausea, vomiting, diarrhea, constipation, dysuria. 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 Residence: With daughter Allergies nitroglycerin [Nitroglycerin] Allergy (Unknown, Verified 08/18/19 17:34) severe headache pt refuses to take ntg HOME MEDICATIONS: Home Medications Medication Instructions Recorded Amlodipine Besylate [Norvasc -] 5 mg PO DAILY 04/15/16 Tamsulosin HCl 0.4 mg PO DAILY 04/15/16 Dasatinib [Sprycel] 50 mg PO DAILY 30 Days #30 tab MDD 08/26/17 1 Cyanocobalamin [Vitamin B12 -] 1,000 mcg PO DAILY 11/19/17 Acetaminophen [Tylenol .Regular 650 mg PO Q6H PRN tablet 11/22/17 Strength -] Aspirin Coated [Ecotrin -] 81 mg PO DAILY tablet.ec 11/22/17 Diphenhydramine HCl [Benadryl -] 25 mg PO Q6H PRN 07/30/18 Metoprolol Succinate [Toprol XL -] 50 mg PO BID 07/30/18 Albuterol Sulfate Inhaler - 1 inhaler PO PRN 07/07/19 [Ventolin HFA Inhaler -] Budesonide/Formeterol Fumarate 1 inhaler PO BID 07/07/19 [SYMBICORT 80/4.5mcg -] Cyclosporine [Restasis] 1 drop OU DAILY 07/07/19 Loperamide HCl [Loperamide] 2 mg PO PRN 07/07/19 REVIEW OF SYSTEMS As per HPI PHYSICAL EXAMINATION Vital Signs - 24 hr 08/18/19 17:34 Temperature 98.7 F Pulse Rate 107 H Respiratory 20 Rate Blood Pressure 167/84 O2 Sat by Pulse 98 Oximetry (%) GENERAL: A&Ox3, NAD, speaking slowly however in complete sentences HEAD: NCAT EYES: PERRL, EOMI EARS, NOSE, THROAT: Uvula midline, Moist mucous membranes NECK: No JVD LUNGS: Diminished breath sounds at the bases, no wheezes, no crackles HEART: Regular rate and rhythm, normal S1 and S2 without murmur ABDOMEN: Soft, nontender, not distended, + bowel sounds, no guarding MUSCULOSKELETAL: No CVA tenderness EXTREMITIES: No peripheral edema. NEUROLOGICAL: Cranial nerves II-XII intact. Normal speech. Gross sensation intact globally. 5/5 muscle strength throughout. NIHSS 0. SKIN: Warm, dry Laboratory Results - last 24 hr 08/18/19 08/18/19 08/18/19 18:55 18:55 19:20 WBC RBC Hgb Hct MCV MCH MCHC RDW Plt Count MPV Absolute Neuts (auto) Neutrophils % Lymphocytes % Monocytes % Eosinophils % Basophils % Nucleated RBC % PT with INR 12.00 INR 1.02 PTT (Actin FS) 31.7 Sodium 142 Potassium 3.7 Chloride 109 H Carbon Dioxide 26 Anion Gap 6 L BUN 15.4 Creatinine 1.0 Est GFR (CKD-EPI)AfAm 82.60 Est GFR (CKD-EPI)NonAf 71.27 Random Glucose 105 Lactic Acid Calcium 9.1 Total Bilirubin 0.4 AST 16 ALT 19 Alkaline Phosphatase 59 Creatine Kinase 85 Troponin I < 0.02 Total Protein 7.3 Albumin 3.5 Urine Color Urine Appearance Urine pH Ur Specific Corning Urine Protein Urine Glucose (UA) Urine Ketones Urine Blood Urine Nitrite Urine Bilirubin Urine Urobilinogen Ur Leukocyte Esterase Urine WBC (Auto) Urine RBC (Auto) Urine Casts (Auto) U Epithel Cells (Auto) Urine Crystals (Auto) Urine Bacteria (Auto) 08/18/19 08/18/19 08/18/19 19:20 19:20 19:20 WBC 7.0 RBC 3.18 L Hgb 10.8 L Hct 32.4 L MCV 101.8 H MCH 34.1 H MCHC 33.5 RDW 14.3 Plt Count 313 MPV 8.1 Absolute Neuts (auto) 4.8 Neutrophils % 69.1 Lymphocytes % 20.6 Monocytes % 9.1 Eosinophils % 0.9 Basophils % 0.3 Nucleated RBC % 0 PT with INR Cancelled INR Cancelled PTT (Actin FS) Sodium Potassium Chloride Carbon Dioxide Anion Gap BUN Creatinine Est GFR (CKD-EPI)AfAm Est GFR (CKD-EPI)NonAf Random Glucose Lactic Acid 1.2 Calcium Total Bilirubin AST ALT Alkaline Phosphatase Creatine Kinase Troponin I Total Protein Albumin Urine Color Urine Appearance Urine pH Ur Specific Corning Urine Protein Urine Glucose (UA) Urine Ketones Urine Blood Urine Nitrite Urine Bilirubin Urine Urobilinogen Ur Leukocyte Esterase Urine WBC (Auto) Urine RBC (Auto) Urine Casts (Auto) U Epithel Cells (Auto) Urine Crystals (Auto) Urine Bacteria (Auto) 08/18/19 21:29 WBC RBC Hgb Hct MCV MCH MCHC RDW Plt Count MPV Absolute Neuts (auto) Neutrophils % Lymphocytes % Monocytes % Eosinophils % Basophils % Nucleated RBC % PT with INR INR PTT (Actin FS) Sodium Potassium Chloride Carbon Dioxide Anion Gap BUN Creatinine Est GFR (CKD-EPI)AfAm Est GFR (CKD-EPI)NonAf Random Glucose Lactic Acid Calcium Total Bilirubin AST ALT Alkaline Phosphatase Creatine Kinase Troponin I Total Protein Albumin Urine Color Yellow Urine Appearance Clear Urine pH 5.5 Ur Specific Cor[place] 1.028 Urine Protein 3+ H Urine Glucose (UA) Negative Urine Ketones Negative Urine Blood Negative Urine Nitrite Negative Urine Bilirubin Negative Urine Urobilinogen 0.2 Ur Leukocyte Esterase Negative Urine WBC (Auto) 1 Urine RBC (Auto) 1 Urine Casts (Auto) 6 U Epithel Cells (Auto) 1.8 Urine Crystals (Auto) Moderate Urine Bacteria (Auto) 3.8 ASSESSMENT/PLAN: 79 y/o M with PMHx of HTN, HLD, ?AFib, ALL (S/P Chemotherapy), CAD (s/p stenting ) presents to [facility] for Decreased Attentiveness and diminished verbal response. #Decreased Attentiveness and diminished verbal response. -Unclear etiology; Still consider Infectious sources, Metabolic derraingements and Acute neurological event, must r/o CVA -AFebrile, without leukocytosis, without acute pathology on CXR or UA, NIHSS 0 -Head CT reveals No acute territorial infarct, hemorrhage, or space-occupying mass. -EKG--Sinus rhythm with occasional PVC's, Possible LAE, VR 100. QTc 433 -Follow Urine cx -Check Urine toxicology, Echo, Carotid Dopplers, Brain MRI/MRA, B12, TSH -Monitor on Tele -ASA 81mg daily, Lipitor 80mg daily -Neuro (Dr. Sánchez) consulted -Bedrest, Seizure/Dysphagia/fall precautions, Keep HOB Elevated, Neurochecks -Physical Therapy -Keep NPO until Speech and swallow eval #?AFib -AFib documented however family denies. -Will contact PCP to Determine if PAF is infact present and will discuss the need for AC #Macrocytic Anemia -Unclear etiology -Check Iron studies, FOBT, B12, Folate #HTN -Will allow permissive HTN given concerns for CVA #FEN -No standing fluids -Replet lytes PRN -NPO until s&S eval #PPx -DVT: SCDs Dispo: Admit to Stroke unit Visit type - Emergency Visit Emergency Visit: Yes ED Registration Date: 08/18/19 Care time: The patient presented to the Emergency Department on the above date and was hospitalized for further evaluation of their emergent condition. - New Patient This patient is new to me today: Yes Date on this admission: 08/22/19 - Critical Care Critical Care patient: No ATTENDING PHYSICIAN STATEMENT I saw and evaluated the patient. I reviewed the resident's note and discussed the case with the resident. I agree with the resident's findings and plan as documented. SUBJECTIVE: OBJECTIVE: ASSESSMENT AND PLAN:
[2019-08-19] MEDS ORDERED: ASPIRIN 325 MG ENTERIC COATED TABLET (FP) ONE (00:57)
[2019-08-19] MEDS ORDERED: ATORVASTATIN CA 80 MG TABLET (FP) ONE (00:58)
[2019-08-19 04:03] VITALS: BMI 23.0
[2019-08-19 08:35] LABS: ALBUMIN 3.4 g/dl (3.4-5.0); BILIRUBIN,TOTAL 0.7 mg/dL (0.2-1); BLOOD UREA NITROGEN 13.5 mg/dL (7-18); CREATININE 0.8 mg/dL (0.55-1.3); MAGNESIUM 2.1 mg/dL (1.8-2.4); PHOSPHOROUS 3.2 mg/dL (2.5-4.9); POTASSIUM 3.5 mmol/L (3.5-5.1)
[2019-08-19] MEDS: ASPIRIN 81 MG CHEWABLE TABLETS PO SCH (10:16)
--- NOTE | 2019-08-19 10:17 | HP ---
Admitting History and Physical - Primary Care Physician PCP: Alfredo Cameron - Admission History of Present Illness: 79 y/o M with PMHx of HTN, HLD, ?AFib, ALL (S/P Chemotherapy), CAD (s/p stenting ) presents to [facility] for Decreased Attentiveness and diminished verbal response. Patient was accompanied by daughter who aided in providing hx. Daughter says patient was in his usual state approx. 1 week ago; For the last week the family has noticed he has been communicating less, been less engaged and does not speak as often as he did previously. They have also notice he has had difficulty performing ADLs. Family mentions that patient previously only required a cane when ambulating up steps however now he even requires it on flat surfaces. During the day today, patient was noted to have sudden onset 8/ 10 headache over the central, most superior portion of his head--Family became concerned of possible CVA prompting a visit to the ED. 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 Travel: No Home Medications - Allergies Allergies/Adverse Reactions: Allergies Allergy/AdvReac Type Severity Reaction Status Date / Time nitroglycerin [Nitroglycerin] Allergy Unknown severe Verified 08/18/19 17:34 headache - Home Medications Home Medications: Ambulatory Orders Amlodipine Besylate [Norvasc -] 5 mg PO DAILY 04/15/16 Tamsulosin HCl 0.4 mg PO DAILY 04/15/16 Dasatinib [Sprycel] 50 mg PO DAILY 30 Days #30 tab MDD 1 08/26/17 Cyanocobalamin [Vitamin B12 -] 1,000 mcg PO DAILY 11/19/17 Acetaminophen [Tylenol .Regular Strength -] 650 mg PO Q6H PRN tablet 11/22/17 Aspirin Coated [Ecotrin -] 81 mg PO DAILY tablet.ec 11/22/17 Diphenhydramine HCl [Benadryl -] 25 mg PO Q6H PRN 07/30/18 Metoprolol Succinate [Toprol XL -] 50 mg PO BID 07/30/18 Albuterol Sulfate Inhaler - [Ventolin HFA Inhaler -] 2 inhaler PO PRN 07/07/19 Budesonide/Formeterol Fumarate [SYMBICORT 80/4.5mcg -] 1 inhaler PO BID Cyclosporine [Restasis] 1 drop OU BID 07/07/19 Loperamide HCl [Loperamide] 2 mg PO PRN 07/07/19 Physical Examination Vital Signs: Vital Signs Temperature 98.3 F 08/19/19 09:00 Pulse Rate 84 08/19/19 09:00 Respiratory Rate 18 08/19/19 09:00 Blood Pressure 167/97 08/19/19 09:00 O2 Sat by Pulse Oximetry (%) 100 08/19/19 04:03 Eyes: Yes: Conjunctiva Clear, EOM Intact HENT: Yes: Atraumatic, Normocephalic Neck: Yes: Supple, Trachea Midline Cardiovascular: Yes: Regular Rate and Rhythm, S1, S2 Respiratory: Yes: Regular, CTA Bilaterally Gastrointestinal: Yes: Normal Bowel Sounds, Soft Musculoskeletal: Yes: Muscle Weakness Edema: No Peripheral Pulses WNL: Yes Labs: CBC, BMP 08/18/19 19:20 08/19/19 05:50 Problem List - Problems (1) CVA (cerebral vascular accident) Code(s): I63.9 - CEREBRAL INFARCTION, UNSPECIFIED Qualifiers: CVA mechanism: unspecified Qualified Code(s): I63.9 - Cerebral infarction, unspecified (2) ALL (acute lymphoid leukemia) in remission Code(s): C91.01 - ACUTE LYMPHOBLASTIC LEUKEMIA, IN REMISSION (3) ASHD (arteriosclerotic heart disease) Code(s): I25.10 - ATHSCL HEART DISEASE OF AUGUST[place] CORONARY ARTERY W/O ANG PCTRS (4) COPD (chronic obstructive pulmonary disease) Code(s): J44.9 - CHRONIC OBSTRUCTIVE PULMONARY DISEASE, UNSPECIFIED Qualifiers: COPD type: chronic bronchitis (5) Choledocholithiasis Code(s): K80.50 - CALCULUS OF BILE DUCT W/O CHOLANGITIS OR CHOLECYST W/O OBST (6) Diastolic CHF Code(s): I50.30 - UNSPECIFIED DIASTOLIC (CONGESTIVE) HEART FAILURE (7) H/O heart artery stent Code(s): Z95.5 - PRESENCE OF CORONARY ANGIOPLASTY IMPLANT AND GRAFT (8) HTN (hypertension) Code(s): I10 - ESSENTIAL (PRIMARY) HYPERTENSION Qualifiers: Hypertension type: essential hypertension Qualified Code(s): I10 - Essential (primary) hypertension (9) History of GI diverticular bleed Code(s): Z87.19 - PERSONAL HISTORY OF OTHER DISEASES OF THE DIGESTIVE SYSTEM (10) Renal calculus or stone Code(s): N20.0 - CALCULUS OF KIDNEY (11) S/P left colectomy Code(s): Z90.49 - ACQUIRED ABSENCE OF OTHER SPECIFIED PARTS OF DIGESTIVE TRACT (12) Transaminitis Code(s): R74.0 - NONSPEC ELEV OF LEVELS OF TRANSAMNS & LACTIC ACID DEHYDRGNSE (13) Umbilical hernia Code(s): K42.9 - UMBILICAL HERNIA WITHOUT OBSTRUCTION OR GANGRENE Assessment/Plan (1) CVA (cerebral vascular accident) Code(s): I63.9 - CEREBRAL INFARCTION, UNSPECIFIED Qualifiers: CVA mechanism: unspecified Qualified Code(s): I63.9 - Cerebral infarction, unspecified (2) ALL (acute lymphoid leukemia) in remission Code(s): C91.01 - ACUTE LYMPHOBLASTIC LEUKEMIA, IN REMISSION (3) ASHD (arteriosclerotic heart disease) Code(s): I25.10 - ATHSCL HEART DISEASE OF [place]UST[place] CORONARY ARTERY W/O ANG PCTRS (4) COPD (chronic obstructive pulmonary disease) Code(s): J44.9 - CHRONIC OBSTRUCTIVE PULMONARY DISEASE, UNSPECIFIED Qualifiers: COPD type: chronic bronchitis (5) Choledocholithiasis S/P Intervention at [facility] Code(s): K80.50 - CALCULUS OF BILE DUCT W/O CHOLANGITIS OR CHOLECYST W/O OBST (6) Diastolic CHF Code(s): I50.30 - UNSPECIFIED DIASTOLIC (CONGESTIVE) HEART FAILURE (7) H/O heart artery stent Code(s): Z95.5 - PRESENCE OF CORONARY ANGIOPLASTY IMPLANT AND GRAFT (8) HTN (hypertension) Code(s): I10 - ESSENTIAL (PRIMARY) HYPERTENSION Qualifiers: Hypertension type: essential hypertension Qualified Code(s): I10 - Essential (primary) hypertension (9) History of GI diverticular bleed Code(s): Z87.19 - PERSONAL HISTORY OF OTHER DISEASES OF THE DIGESTIVE SYSTEM (10) Renal calculus or stone Code(s): N20.0 - CALCULUS OF KIDNEY (11) S/P left colectomy Code(s): Z90.49 - ACQUIRED ABSENCE OF OTHER SPECIFIED PARTS OF DIGESTIVE TRACT (12) H/OTransaminitis Last Visit Resolved Code(s): R74.0 - NONSPEC ELEV OF LEVELS OF TRANSAMNS & LACTIC ACID DEHYDRGNSE (13) Umbilical hernia Code(s): K42.9 - UMBILICAL HERNIA WITHOUT OBSTRUCTION OR GANGRENE
[2019-08-19] MEDS ORDERED: ALBUTEROL SO4 8 GM HFA INHALER IH PRN (10:36)
[2019-08-19] MEDS: amLODIPine BESYLATE 5 MG TABLET (FP) PO SCH (11:32)
[2019-08-19] MEDS: FAMOTIDINE 20 MG TABLET PO SCH ×2 (11:32→21:14)
--- NOTE | 2019-08-19 12:04 | CON.NEURO ---
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 Travel: No Home Medications - Allergies Allergies/Adverse Reactions: Allergies Allergy/AdvReac Type Severity Reaction Status Date / Time nitroglycerin [Nitroglycerin] Allergy Unknown severe Verified 08/18/19 17:34 headache - Home Medications Home Medications: Ambulatory Orders Amlodipine Besylate [Norvasc -] 5 mg PO DAILY 04/15/16 Tamsulosin HCl 0.4 mg PO DAILY 04/15/16 Dasatinib [Sprycel] 50 mg PO DAILY 30 Days #30 tab MDD 1 08/26/17 Cyanocobalamin [Vitamin B12 -] 1,000 mcg PO DAILY 11/19/17 Acetaminophen [Tylenol .Regular Strength -] 650 mg PO Q6H PRN tablet 11/22/17 Aspirin Coated [Ecotrin -] 81 mg PO DAILY tablet.ec 11/22/17 Diphenhydramine HCl [Benadryl -] 25 mg PO Q6H PRN 07/30/18 Metoprolol Succinate [Toprol XL -] 50 mg PO BID 07/30/18 Albuterol Sulfate Inhaler - [Ventolin HFA Inhaler -] 2 inhaler PO PRN 07/07/19 Budesonide/Formeterol Fumarate [SYMBICORT 80/4.5mcg -] 1 inhaler PO BID Cyclosporine [Restasis] 1 drop OU BID 07/07/19 Loperamide HCl [Loperamide] 2 mg PO PRN 07/07/19 Physical Exam-Neuro Vital Signs: Vital Signs Temperature 98.3 F 08/19/19 09:00 Pulse Rate 84 08/19/19 09:00 Respiratory Rate 18 08/19/19 09:00 Blood Pressure 167/97 08/19/19 09:00 O2 Sat by Pulse Oximetry (%) 100 08/19/19 09:00 Labs: CBC, BMP 08/18/19 19:20 08/19/19 05:50 INR, PTT INR 1.02 (0.83-1.09) 08/18/19 19:20 Assessment/Plan cc worsening of cognitive function HPI 79 year old male history of HLD,HTN,Atrial fibrillation ( not on anticoagulation), ALL(s/p chemo) , cad. Patient lives with his daughter and in [place]. Patient has been been communicating less and less attentive lately. Patient has difficulty hearing , and he denies headache, dysphagia , dysarthria, diplopi. THere is no high grade fever, he had high blood pressure. Patient has history of atrial fibrillation and had not been on anticoagulation. Family member noticed that he has been having difficulty performing day today task and amblating. 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 Residence: With daughter Allergies nitroglycerin [Nitroglycerin] Allergy (Unknown, Verified 08/18/19 17:34) severe headache pt refuses to take ntg HOME MEDICATIONS: Home Medications Medication Instructions Recorded Amlodipine Besylate [Norvasc -] 5 mg PO DAILY 04/15/16 Tamsulosin HCl 0.4 mg PO DAILY 04/15/16 Dasatinib [Sprycel] 50 mg PO DAILY 30 Days #30 tab MDD 08/26/17 1 Cyanocobalamin [Vitamin B12 -] 1,000 mcg PO DAILY 11/19/17 Acetaminophen [Tylenol .Regular 650 mg PO Q6H PRN tablet 11/22/17 Strength -] Aspirin Coated [Ecotrin -] 81 mg PO DAILY tablet.ec 11/22/17 Diphenhydramine HCl [Benadryl -] 25 mg PO Q6H PRN 07/30/18 Metoprolol Succinate [Toprol XL -] 50 mg PO BID 07/30/18 Albuterol Sulfate Inhaler - 1 inhaler PO PRN 07/07/19 [Ventolin HFA Inhaler -] Budesonide/Formeterol Fumarate 1 inhaler PO BID 07/07/19 [SYMBICORT 80/4.5mcg -] Cyclosporine [Restasis] 1 drop OU DAILY 07/07/19 Loperamide HCl [Loperamide] 2 mg PO PRN 07/07/19 ROS,FH,SH reviwed in chart NEUROLOGICAL EXAMINATION Alert oriented x 2 ( he has difficulty telling me about date), neck is supple there is action tremor, no rigidity or bradykinesia noticed moving all extremity eomi, pupils reactive no face symmetry sensation i snormal ct head is normal. Carotid ultrasound is normal mri of brain with contrast is pending. Assessment/Plan 79 year old male history of HLD,HTN,Atrial fibrillation ( not on anticoagulation), ALL(s/p chemo) , cad , has bene admitted for cognitive decline and difficulty ambulating. Patient has no evidence of meningitis, status . Stroke and carinomatous meningitis cant be rule out plan: suggest to do mri of brain with contrast swallow pt supportive care Thanking you so much Faizan Sánchez MD
--- NOTE | 2019-08-19 18:37 | EKG ---
Test Reason : Blood Pressure : / mmHG Vent. Rate : 100 BPM Atrial Rate : 100 BPM P-R Int : 180 ms QRS Dur : 082 ms QT Int : 336 ms P-R-T Axes : 057 061 027 degrees QTc Int : 433 ms POOR DATA QUALITY, INTERPRETATION MAY BE ADVERSELY AFFECTED SINUS RHYTHM WITH OCCASIONAL PREMATURE VENTRICULAR COMPLEXES POSSIBLE LEFT ATRIAL ENLARGEMENT SEPTAL INFARCT (CITED ON OR BEFORE 21-JUN-2019) NONSPECIFIC ST AND T WAVE ABNORMALITY ABNORMAL ECG WHEN COMPARED WITH ECG OF 06-JUL-2019 21:50, NO SIGNIFICANT CHANGE WAS FOUND Confirmed by LESLEY CARMONA MD ([id number]) on 08/19/2019 6:37:15 PM Referred By: Confirmed By:LESLEY CARMONA MD
[2019-08-19] MEDS: ATORVASTATIN CA 40 MG TABLET (FP) PO SCH (21:14)
[2019-08-19] MEDS ORDERED: ALPRAZolam 0.25 MG TABLET PO PRN (21:57)
[2019-08-20 08:16] LABS: BASO % 0.7 % (0-2.0); EOS % 0.6 % (0-4.5); HEMATOCRIT 36.4 % (35.4-49); HEMOGLOBIN 11.9 GM/dL (11.7-16.9); LYMPH % 24.1 % (8-40); MCH 33.2 pg (25.7-33.7); MCHC 32.8 g/dl (32.0-35.9); MEAN CELL VOLUME 101.4 fl (80-96); MEAN PLT VOLUME 7.5 fl (7.5-11.1); MONO % 8.4 % (3.8-10.2); NEUT % 66.2 % (42.8-82.8); PLATELET COUNT 303 K/MM3 (134-434); RDW 14.2 % (11.9-15.9); WHITE BLOOD COUNT 10.6 K/mm3 (4.0-10.0)
--- NOTE | 2019-08-20 09:36 | PN ---
Progress Note (short form) - Note Progress Note: 79 year old male history of HLD,HTN,Atrial fibrillation ( not on anticoagulation ), ALL(s/p chemo) , cad. Patient lives with his daughter and in [place]. Patient has been been communicating less and less attentive lately. Patient has difficulty hearing , and he denies headache, dysphagia , dysarthria, diplopi. THere is no high grade fever, he had high blood pressure. Patient has history of atrial fibrillation and had not been on anticoagulation. Family member noticed that he has been having difficulty performing day today task and amblating. Patient is comfortable, and waiting for mri ofbrain NEUROLOGICAL EXAMINATION Alert oriented x1 ( he is very hard of hearing and able to tell me his name, do blinking and moving arm ane leg , neck is supple there is action tremor, no rigidity or bradykinesia noticed moving all extremity eomi, pupils reactive no face symmetry sensation i snormal ct head is normal. Carotid ultrasound is normal mri of brain with contrast is pending. Assessment/Plan 79 year old male history of HLD,HTN,Atrial fibrillation ( not on anticoagulation), ALL(s/p chemo) , cad , has bene admitted for cognitive decline and difficulty ambulating. Patient has no evidence of meningitis, status . Stroke and carinomatous meningitis cant be rule out nurses thought he looks worse, he is very had of hearing , I was able to elicit respose from him. Would wait for mri of brain . plan: suggest to do mri of brain with contrast swallow eval pt supportive care Thanking you so much Faizan Sánchez MD
[2019-08-20 09:39] LABS: BLOOD UREA NITROGEN 14.3 mg/dL (7-18); CALCIUM 9.7 mg/dL (8.5-10.1); POTASSIUM 3.5 mmol/L (3.5-5.1)
--- NOTE | 2019-08-20 09:53 | CONSULT ---
Admitting History and Physical - Primary Care Physician PCP: Alfredo Cameron - Admission History of Present Illness: Per EMR- 79 year old male history of HLD,HTN,Atrial fibrillation , cad , admitted for cognitive decline and difficulty ambulating. Followed by Neurology-Pending mri of brain Selected Entries 08/19/19 08/19/19 08/19/19 04:03 06:00 09:00 Breakfast Diet Tolerated Lunch Supper Temperature 97.9 F 98.1 F 98.3 F 08/19/19 08/19/19 08/19/19 14:00 18:00 19:00 Breakfast 50% Diet Tolerated Well Lunch 75% Supper 50% Temperature 97.9 F 97.9 F 08/19/19 08/20/19 08/20/19 21:00 02:00 05:22 Breakfast Diet Tolerated Lunch Supper Temperature 98.1 F 98.0 F 98.2 F Laboratory Tests 08/18/19 08/20/19 19:20 08:05 WBC 7.0 10.6 H On puree/thin liquids This is my first consult with this pt Pt less verbal today than yesterday. (+) UTI . WBC 10.6 Dr. Ray reports that he his been declining cognitively, was forgetful but verbal. 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 Pt tapped pt's food and pt inirtiated "I'm gonna get you!" laughing.), Able to Follow Commands ( intermittent-suspect limb apraxia as well.) Attention: Intact Ability to Follow Directions: Fair (intermittent) Head/Neck Control: Good - Hearing Hearing: Impaired (but seems functional) Hearing: Impaired Hearing Aide: Yes (RIGHT / LEFT) With Patient: Yes Speech Evaluation - Communication Primary Language: NIGERIAN Communication: Yes: Aphasia (Apraxia with severe impairment in motor initiation. Rare speech response but spoke normally when initiated (only a few successful responses. Unable to sing in unison. Said name. Read HELLO. Said I'm gonna get you!) - Speech Production Apraxia: Yes Intelligibility: Yes: WNL - Speech Characteristics Voice Loudness: Mildly Soft/Quiet Voice Pitch: Yes: Normal Voice Phonatory-based Quality: Yes: Dysphonia Speech Pattern: Impaired Speech Clarity: < 100% Nasal Resonance: Normal Articulation: Yes: Precise - Language/Auditory Comprehension Follows: Yes: 1 Stage Simple Commands (intermittent) Observation: Able to respond to yes/no queries: No (no response, verbal or headshake), Comprehends Conversational Speech: Yes (simple), Benefits from Slow Speech: Yes, Benefits from Repetiton: Yes, Benefits from Increased Volume of Speech: Yes - Language/Verbal Expression Aphasia: Yes: Impaired Repetition, Apraxia Able to Respond to Simple Queries: Yes: Severely Impaired Able to Communicate Wants and Needs: Yes: Severely Impaired Functional Communication Status: Yes: Severely Impaired - Swallow Evaluation/Bedside Assessment Current Nutritional Intake: Dysphagia Pureed, Thin Liquids Oral Secretions: Yes: WFL Dentition: Yes: Adequate Facial Symmetry on Retraction: Facial Droop Left (when smiling-slight?) Smile: Droops Left (reflexive smile. No volitional retraction.) Lingual Movement: Unable to Perform Velopharyngeal Movement: Normal Laryngeal Movement: Labored,delay initiation Rate of Intake: Slow/Holding (swishes water around intraorally, with impaired oral transfer and tight lip seal. Once bilabial seal broken, swallows well.) Bolus Size: WFL Labial Seal: WFL Oral Prep Time: Increased A-P Transit: Impaired Pocketing: Present Bilaterally Timing of Swallow: Delayed Coughing/Throat Clear: No Change in Voice: No Recommendations - Speech Evaluation, Impression/Plan Impression: Oral/verbal, possibly limb Apraxia. (+) UTI. Pending MRI. Impaired speech initiation but intelligible once elicited (rare). Oral holding but brisk swallow - Dysphagia Impressions/Plan Swallowing Skills: Impaired Dysphagia Impressions: Moderate Impairment (oral holding), Risk of Aspiration *Silent aspiration: cannot be R/O at bedside Dysphagia Treatment Plan: Clear Pocket Food, Safe Rate, 1/2 tsp. at a time, Other (wait for reflex. Alternate hot/cold/puree/liquid to facilitate initiation. Gentle depression of spoon to tongue to trigger swallow.) - Recommendations Diet Consistency: Dysphagia Pureed (continue) Medication Administration: Crushed with applesauce Liquids: Thin Liquids
[2019-08-20] MEDS: TAMSULOSIN HCL 0.4 MG CAP PO SCH (10:40)
[2019-08-20] MEDS: FAMOTIDINE 20 MG TABLET PO SCH ×2 (10:41→21:17)
[2019-08-20] MEDS: ASPIRIN 81 MG CHEWABLE TABLETS PO SCH (10:41)
[2019-08-20] MEDS: DASATINIB 50 MG PO SCH (10:41)
[2019-08-20] MEDS: amLODIPine BESYLATE 5 MG TABLET (FP) PO SCH (10:41)
[2019-08-20] MEDS: CYCLOSPORINE 0.05% OU SCH ×2 (10:44→21:18)
[2019-08-20] MEDS: EYE OU SCH ×2 (10:44→21:18)
[2019-08-20] MEDS ORDERED: PT OWN MED DRAWER 7, Y5N ONE (10:48)
--- NOTE | 2019-08-20 14:45 | ECHO ---
Name: AGATHA KING Exam:Adult Echocardiogram Study Date: 08/20/2019 08:55 AM Age: 79 yrs MMode/2D Measurements & Calculations IVSd: 0.75 cm Ao root diam: 4.0 cm LVIDd: 4.7 cm LA dimension: 2.7 cm LVIDs: 2.6 cm ACS: 1.8 cm LVPWd: 0.99 cm IVSs: 1.7 cm LVPWs: 1.2 cm EDV(Teich): 102.5 ml ESV(Teich): 25.5 ml EPSS: 1.2 cm Doppler Measurements & Calculations MV E max abhi: 64.4 cm/sec Ao V2 max: 135.7 cm/sec MV A max abhi: 109.6 cm/sec Ao max P.4 mmHg MV E/A: 0.59 Ao V2 mean: 96.0 cm/sec Ao mean P.2 mmHg Ao V2 VTI: 22.0 cm TR max abhi: 265.8 cm/sec Med Peak E' Abhi: 3.8 cm/sec TR max P.8 mmHg Med E/e': 16.9 Lat Peak E' Abhi: 6.8 cm/sec Lat E/e': 9.4 Procedure A complete two-dimensional transthoracic echocardiogram was performed (2D, M-mode, Doppler and color flow Doppler). Left Ventricle The left ventricle is normal in size. Left ventricular systolic function is normal. Ejection Fraction = 65- 70%. LV diastology reveals impaired relaxation with normal filling pressure. No regional wall motion abnormalities noted. Right Ventricle The right ventricle is normal size. The right ventricular systolic function is normal. Atria The left atrial size is normal. Right atrial size is normal. Mitral Valve There is mild mitral valve thickening. There is mild mitral annular calcification. There is mild mitr al regurgitation. Tricuspid Valve The tricuspid valve is normal in structure and function. There is mild tricuspid regurgitation. Pulmo nary artery systolic pressure is at least 41 mmHg if RA pressure is assumed 3 mmHg. Aortic Valve There is mild aortic sclerosis.;. Moderate aortic regurgitation. Pulmonic Valve The pulmonic valve is not well visualized. Great Vessels Mild aortic root dilatation. Pericardium/Pleura Small pericardial effusion (<1cm). Interpretation Summary The left ventricle is normal in size. Left ventricular systolic function is normal. No regional wall motion abnormalities noted. Ejection Fraction = 65-70%. LV diastology reveals impaired relaxation with normal filling pressure The right ventricular systolic function is normal. The left atrial size is normal. Right atrial size is normal. There is mild mitral valve thickening. There is mild mitral annular calcification. There is mild mitral regurgitation. There is mild tricuspid regurgitation. Pulmonary artery systolic pressure is at least 41 mmHg if RA pressure is assumed 3 mmHg There is mild aortic sclerosis. Moderate aortic regurgitation. Mild aortic root dilatation. Small pericardial effusion (<1cm) Rudi Tejada MD 08/20/2019 02:45 PM
[2019-08-20] MEDS: ATORVASTATIN CA 40 MG TABLET (FP) PO SCH (21:18)
--- NOTE | 2019-08-20 22:35 | PN ---
Progress Note, Physician Chief Complaint: Pt seen along with Kelsi Simon Pt is [place] at times for long period Pt is hard of hearing cognitive decline - Current Medication List Current Medications: Active Medications Albuterol Sulfate (Ventolin Hfa Inhaler -) 2 puff IH Q4H PRN PRN Reason: SHORT OF BREATH/WHEEZING Alprazolam (Xanax -) 0.5 mg PO ONCE ONE Stop: 08/19/19 23:01 Amlodipine Besylate (Norvasc -) 5 mg PO DAILY [facility] Last Admin: 08/20/19 10:41 Dose: 5 mg Aspirin (Asa -) 81 mg PO DAILY [facility] [place] Last Admin: 08/20/19 10:41 Dose: 81 mg Atorvastatin Calcium (Lipitor -) 40 mg PO HS [facility] [place] Last Admin: 08/20/19 21:18 Dose: 40 mg Famotidine (Pepcid -) 20 mg PO BID [facility] [place] Last Admin: 08/20/19 21:17 Dose: 20 mg Dasatinib [Sprycel] (50mg Tablet) 1 each PO DAILY [facility] [place] Last Admin: 08/20/19 10:41 Dose: 1 each Cyclosporine [ Restasis] 0.05% Eye Drops 1 each OU BID [facility] [place] Last Admin: 08/20/19 21:18 Dose: 1 each Tamsulosin HCl (Flomax -) 0.4 mg PO DAILY@0830 [facility] [place] Last Admin: 08/20/19 10:40 Dose: 0.4 mg - Objective Vital Signs: Vital Signs Temperature 98.3 F 08/20/19 21:11 Pulse Rate 91 H 08/20/19 21:11 Respiratory Rate 20 08/20/19 21:11 Blood Pressure 171/78 H 08/20/19 21:11 O2 Sat by Pulse Oximetry (%) 99 08/20/19 20:27 Constitutional: Yes: Anxious Eyes: Yes: Conjunctiva Clear, EOM Intact HENT: Yes: [place] Neck: Yes: Supple, Trachea Midline Cardiovascular: Yes: Regular Rate and Rhythm, S1, S2 Respiratory: Yes: Regular, CTA Bilaterally Gastrointestinal: Yes: Normal Bowel Sounds Musculoskeletal: Yes: Joint Stiffness Edema: No Peripheral Pulses WNL: Yes Labs: CBC, BMP 08/20/19 08:05 08/20/19 08:05 INR, PTT INR 1.02 (0.83-1.09) 08/18/19 19:20 Problem List - Problems (1) CVA (cerebral vascular accident) Code(s): I63.9 - CEREBRAL INFARCTION, UNSPECIFIED Qualifiers: CVA mechanism: unspecified Qualified Code(s): I63.9 - Cerebral infarction, unspecified (2) ALL (acute lymphoid leukemia) in remission Code(s): C91.01 - ACUTE LYMPHOBLASTIC LEUKEMIA, IN REMISSION (3) ASHD (arteriosclerotic heart disease) Code(s): I25.10 - ATHSCL HEART DISEASE OF [place] CORONARY ARTERY W/O ANG PCTRS (4) COPD (chronic obstructive pulmonary disease) Code(s): J44.9 - CHRONIC OBSTRUCTIVE PULMONARY DISEASE, UNSPECIFIED Qualifiers: COPD type: chronic bronchitis (5) Choledocholithiasis Code(s): K80.50 - CALCULUS OF BILE DUCT W/O CHOLANGITIS OR CHOLECYST W/O OBST (6) Diastolic CHF Code(s): I50.30 - UNSPECIFIED DIASTOLIC (CONGESTIVE) HEART FAILURE (7) H/O heart artery stent Code(s): Z95.5 - PRESENCE OF CORONARY ANGIOPLASTY IMPLANT AND GRAFT (8) HTN (hypertension) Code(s): I10 - ESSENTIAL (PRIMARY) HYPERTENSION Qualifiers: Hypertension type: essential hypertension Qualified Code(s): I10 - Essential (primary) hypertension (9) History of GI diverticular bleed Code(s): Z87.19 - PERSONAL HISTORY OF OTHER DISEASES OF THE DIGESTIVE SYSTEM (10) Renal calculus or stone Code(s): N20.0 - CALCULUS OF KIDNEY (11) S/P left colectomy Code(s): Z90.49 - ACQUIRED ABSENCE OF OTHER SPECIFIED PARTS OF DIGESTIVE TRACT (12) Transaminitis Code(s): R74.0 - NONSPEC ELEV OF LEVELS OF TRANSAMNS & LACTIC ACID DEHYDRGNSE (13) Umbilical hernia Code(s): K42.9 - UMBILICAL HERNIA WITHOUT OBSTRUCTION OR GANGRENE Assessment/Plan (1) CVA (cerebral vascular accident) Code(s): I63.9 - CEREBRAL INFARCTION, UNSPECIFIED Qualifiers: CVA mechanism: unspecified Qualified Code(s): I63.9 - Cerebral infarction, unspecified (2) ALL (acute lymphoid leukemia) in remission Code(s): C91.01 - ACUTE LYMPHOBLASTIC LEUKEMIA, IN REMISSION (3) ASHD (arteriosclerotic heart disease) Code(s): I25.10 - ATHSCL HEART DISEASE OF [place] CORONARY ARTERY W/O ANG PCTRS (4) COPD (chronic obstructive pulmonary disease) Code(s): J44.9 - CHRONIC OBSTRUCTIVE PULMONARY DISEASE, UNSPECIFIED Qualifiers: COPD type: chronic bronchitis (5) Choledocholithiasis S/P Intervention at [facility] Code(s): K80.50 - CALCULUS OF BILE DUCT W/O CHOLANGITIS OR CHOLECYST W/O OBST (6) Diastolic CHF Code(s): I50.30 - UNSPECIFIED DIASTOLIC (CONGESTIVE) HEART FAILURE (7) H/O heart artery stent Code(s): Z95.5 - PRESENCE OF CORONARY ANGIOPLASTY IMPLANT AND GRAFT (8) HTN (hypertension) Code(s): I10 - ESSENTIAL (PRIMARY) HYPERTENSION Qualifiers: Hypertension type: essential hypertension Qualified Code(s): I10 - Essential (primary) hypertension (9) History of GI diverticular bleed Code(s): Z87.19 - PERSONAL HISTORY OF OTHER DISEASES OF THE DIGESTIVE SYSTEM (10) Renal calculus or stone Code(s): N20.0 - CALCULUS OF KIDNEY (11) S/P left colectomy Code(s): Z90.49 - ACQUIRED ABSENCE OF OTHER SPECIFIED PARTS OF DIGESTIVE TRACT (12) H/OTransaminitis Last Visit Resolved Code(s): R74.0 - NONSPEC ELEV OF LEVELS OF TRANSAMNS & LACTIC ACID DEHYDRGNSE (13) Umbilical hernia Code(s): K42.9 - UMBILICAL HERNIA WITHOUT OBSTRUCTION OR GANGRENE Pt for MRI today Pt is very anxious advised to give yon spoke with Eliseo on floor with patient
--- NOTE | 2019-08-21 07:33 | PN ---
Progress Note (short form) - Note Progress Note: 79 year old male history of HLD,HTN,Atrial fibrillation ( not on anticoagulation ), ALL(s/p chemo) , cad. Patient lives with his daughter and in [place]. Patient has been been communicating less and less attentive lately. Patient has difficulty hearing , and he denies headache, dysphagia , dysarthria, diplopia. THere is no high grade fever, he had high blood pressure. Family member noticed that he has been having difficulty performing day today task and amblating. no new complain, speech therapy consult appreciated. NEUROLOGICAL EXAMINATION Alert oriented x1 ( he is very hard of hearing and able to tell me his name, do blinking and moving arm ane leg , neck is supple able to tell me his name and age, and follow simple command there is action tremor, no rigidity or bradykinesia noticed moving all extremity eomi, pupils reactive no face symmetry sensation i snormal ct head is normal. Carotid ultrasound is normal mri of brain with contrast is pending. Assessment/Plan 79 year old male history of HLD,HTN,Atrial fibrillation ( not on anticoagulation), ALL(s/p chemo) , cad , has bene admitted for cognitive decline and difficulty ambulating. Patient has no evidence of meningitis, status epilepticus . Stroke and carinomatous meningitis cant be rule out waiting for mri of brain plan: suggest to do mri of brain with contrast swallow eval appreciated. pt supportive care Thanking you so much Faizan Sánchez MD
[2019-08-21 08:04] LABS: BASO % 0.5 % (0-2.0); EOS % 1.4 % (0-4.5); HEMATOCRIT 33.5 % (35.4-49); HEMOGLOBIN 11.3 GM/dL (11.7-16.9); LYMPH % 28.9 % (8-40); MCH 33.7 pg (25.7-33.7); MCHC 33.7 g/dl (32.0-35.9); MEAN CELL VOLUME 100.1 fl (80-96); MEAN PLT VOLUME 7.7 fl (7.5-11.1); MONO % 9.3 % (3.8-10.2); NEUT % 59.9 % (42.8-82.8); PLATELET COUNT 296 K/MM3 (134-434); RBC 3.35 M/mm3 (4.00-5.60); RDW 13.9 % (11.9-15.9); WHITE BLOOD COUNT 7.3 K/mm3 (4.0-10.0)
[2019-08-21 08:17] LABS: BLOOD UREA NITROGEN 14.9 mg/dL (7-18); CALCIUM 9.5 mg/dL (8.5-10.1); CREATININE 0.9 mg/dL (0.55-1.3); POTASSIUM 3.8 mmol/L (3.5-5.1)
[2019-08-21] MEDS ORDERED: PT OWN MED DRAWER 7, Y5N ONE (09:40)
--- NOTE | 2019-08-21 09:57 | PN ---
Progress Note, ACUTE SPECIALIST - Note Progress Note: Selected Entries 08/20/19 08/20/19 08/21/19 12:53 18:00 02:00 Breakfast 50% Lunch 50% Supper 50% Temperature 98.1 F 08/21/19 06:00 Breakfast Lunch Supper Temperature 98.3 F Laboratory Tests 08/20/19 08/21/19 08:05 06:50 WBC 10.6 H 7.3 Tolerating diet. Verbal today for me but limited to a few sentences, perseverative.Smiling, friendly. Speech production -normal intelligibilty. Not responding to questions. Pending MRI
[2019-08-21] MEDS: ASPIRIN 81 MG CHEWABLE TABLETS PO SCH (10:13)
[2019-08-21] MEDS: amLODIPine BESYLATE 5 MG TABLET (FP) PO SCH (10:13)
[2019-08-21] MEDS: FAMOTIDINE 20 MG TABLET PO SCH ×2 (10:13→22:22)
[2019-08-21] MEDS: TAMSULOSIN HCL 0.4 MG CAP PO SCH (10:13)
[2019-08-21] MEDS: EYE OU SCH ×2 (10:15→22:24)
[2019-08-21] MEDS ORDERED: ALPRAZolam 0.25 MG TABLET PO ONE (10:15)
[2019-08-21] MEDS: CYCLOSPORINE 0.05% OU SCH ×2 (10:15→22:24)
[2019-08-21] MEDS: DASATINIB 50 MG PO SCH (10:17)
--- NOTE | 2019-08-21 21:24 | PN ---
Progress Note, Physician History of Present Illness: Pt had MRI Discussed with radiology No Fever No SOB - Current Medication List Current Medications: Active Medications Albuterol Sulfate (Ventolin Hfa Inhaler -) 2 puff IH Q4H PRN PRN Reason: SHORT OF BREATH/WHEEZING Amlodipine Besylate (Norvasc -) 5 mg PO DAILY [facility] Last Admin: 08/21/19 10:13 Dose: 5 mg Aspirin (Asa -) 81 mg PO DAILY [facility] Last Admin: 08/21/19 10:13 Dose: 81 mg Atorvastatin Calcium (Lipitor -) 40 mg PO HS [facility] Last Admin: 08/20/19 21:18 Dose: 40 mg Famotidine (Pepcid -) 20 mg PO BID [facility] Last Admin: 08/21/19 10:13 Dose: 20 mg Dasatinib [Sprycel] (50mg Tablet) 1 each PO DAILY [facility] Last Admin: 08/21/19 10:17 Dose: 1 each Cyclosporine [ Restasis] 0.05% Eye Drops 1 each OU BID [facility] Last Admin: 08/21/19 10:15 Dose: 1 each Tamsulosin HCl (Flomax -) 0.4 mg PO DAILY@0830 [facility] Last Admin: 08/21/19 10:13 Dose: 0.4 mg - Objective Vital Signs: Vital Signs Temperature 99.5 F 08/21/19 20:46 Pulse Rate 102 H 08/21/19 20:46 Respiratory Rate 20 08/21/19 20:46 Blood Pressure 141/71 08/21/19 20:46 O2 Sat by Pulse Oximetry (%) 100 08/21/19 20:46 Constitutional: Yes: Anxious Eyes: Yes: Conjunctiva Clear, EOM Intact HENT: Yes: Atraumatic, Normocephalic Neck: Yes: Supple, Trachea Midline Cardiovascular: Yes: Regular Rate and Rhythm, S1, S2 Respiratory: Yes: Regular, CTA Bilaterally Gastrointestinal: Yes: Normal Bowel Sounds, Soft Musculoskeletal: Yes: Joint Stiffness Edema: No Peripheral Pulses WNL: Yes Neurological: Yes: Alert, Oriented, Cran Nerves II-XII Intact Labs: CBC, BMP 08/21/19 06:50 08/21/19 06:50 INR, PTT INR 1.02 (0.83-1.09) 08/18/19 19:20 Problem List - Problems (1) CVA (cerebral vascular accident) Code(s): I63.9 - CEREBRAL INFARCTION, UNSPECIFIED Qualifiers: CVA mechanism: unspecified Qualified Code(s): I63.9 - Cerebral infarction, unspecified (2) ALL (acute lymphoid leukemia) in remission Code(s): C91.01 - ACUTE LYMPHOBLASTIC LEUKEMIA, IN REMISSION (3) ASHD (arteriosclerotic heart disease) Code(s): I25.10 - ATHSCL HEART DISEASE OF [place] CORONARY ARTERY W/O ANG PCTRS (4) COPD (chronic obstructive pulmonary disease) Code(s): J44.9 - CHRONIC OBSTRUCTIVE PULMONARY DISEASE, UNSPECIFIED Qualifiers: COPD type: chronic bronchitis (5) Choledocholithiasis Code(s): K80.50 - CALCULUS OF BILE DUCT W/O CHOLANGITIS OR CHOLECYST W/O OBST (6) Diastolic CHF Code(s): I50.30 - UNSPECIFIED DIASTOLIC (CONGESTIVE) HEART FAILURE (7) H/O heart artery stent Code(s): Z95.5 - PRESENCE OF CORONARY ANGIOPLASTY IMPLANT AND GRAFT (8) HTN (hypertension) Code(s): I10 - ESSENTIAL (PRIMARY) HYPERTENSION Qualifiers: Hypertension type: essential hypertension Qualified Code(s): I10 - Essential (primary) hypertension (9) History of GI diverticular bleed Code(s): Z87.19 - PERSONAL HISTORY OF OTHER DISEASES OF THE DIGESTIVE SYSTEM (10) Renal calculus or stone Code(s): N20.0 - CALCULUS OF KIDNEY (11) S/P left colectomy Code(s): Z90.49 - ACQUIRED ABSENCE OF OTHER SPECIFIED PARTS OF DIGESTIVE TRACT (12) Transaminitis Code(s): R74.0 - NONSPEC ELEV OF LEVELS OF TRANSAMNS & LACTIC ACID DEHYDRGNSE (13) Umbilical hernia Code(s): K42.9 - UMBILICAL HERNIA WITHOUT OBSTRUCTION OR GANGRENE Assessment/Plan (1) CVA (cerebral vascular accident) Code(s): I63.9 - CEREBRAL INFARCTION, UNSPECIFIED Qualifiers: CVA mechanism: unspecified Qualified Code(s): I63.9 - Cerebral infarction, unspecified (2) ALL (acute lymphoid leukemia) in remission Code(s): C91.01 - ACUTE LYMPHOBLASTIC LEUKEMIA, IN REMISSION (3) ASHD (arteriosclerotic heart disease) Code(s): I25.10 - ATHSCL HEART DISEASE OF [place] CORONARY ARTERY W/O ANG PCTRS (4) COPD (chronic obstructive pulmonary disease) Code(s): J44.9 - CHRONIC OBSTRUCTIVE PULMONARY DISEASE, UNSPECIFIED Qualifiers: COPD type: chronic bronchitis (5) Choledocholithiasis S/P Intervention at [facility] Code(s): K80.50 - CALCULUS OF BILE DUCT W/O CHOLANGITIS OR CHOLECYST W/O OBST (6) Diastolic CHF Code(s): I50.30 - UNSPECIFIED DIASTOLIC (CONGESTIVE) HEART FAILURE (7) H/O heart artery stent Code(s): Z95.5 - PRESENCE OF CORONARY ANGIOPLASTY IMPLANT AND GRAFT (8) HTN (hypertension) Code(s): I10 - ESSENTIAL (PRIMARY) HYPERTENSION Qualifiers: Hypertension type: essential hypertension Qualified Code(s): I10 - Essential (primary) hypertension (9) History of GI diverticular bleed Code(s): Z87.19 - PERSONAL HISTORY OF OTHER DISEASES OF THE DIGESTIVE SYSTEM (10) Renal calculus or stone Code(s): N20.0 - CALCULUS OF KIDNEY (11) S/P left colectomy Code(s): Z90.49 - ACQUIRED ABSENCE OF OTHER SPECIFIED PARTS OF DIGESTIVE TRACT (12) H/OTransaminitis Last Visit Resolved Code(s): R74.0 - NONSPEC ELEV OF LEVELS OF TRANSAMNS & LACTIC ACID DEHYDRGNSE (13) Umbilical hernia Code(s): K42.9 - UMBILICAL HERNIA WITHOUT OBSTRUCTION OR GANGRENE Pt had MRI done Discussed with radiology and Neurology also
[2019-08-21] MEDS: ATORVASTATIN CA 40 MG TABLET (FP) PO SCH (22:21)
[2019-08-22 07:22] LABS: BASO % 0.5 % (0-2.0); EOS % 1.4 % (0-4.5); HEMATOCRIT 32.7 % (35.4-49); HEMOGLOBIN 10.9 GM/dL (11.7-16.9); LYMPH % 22.5 % (8-40); MCH 33.4 pg (25.7-33.7); MCHC 33.3 g/dl (32.0-35.9); MEAN CELL VOLUME 100.4 fl (80-96); MEAN PLT VOLUME 7.6 fl (7.5-11.1); MONO % 8.5 % (3.8-10.2); NEUT % 67.1 % (42.8-82.8); PLATELET COUNT 304 K/MM3 (134-434); RBC 3.26 M/mm3 (4.00-5.60); RDW 13.9 % (11.9-15.9); WHITE BLOOD COUNT 7.4 K/mm3 (4.0-10.0)
[2019-08-22 07:23] LABS: BLOOD UREA NITROGEN 15.4 mg/dL (7-18); CALCIUM 8.9 mg/dL (8.5-10.1); CREATININE 0.9 mg/dL (0.55-1.3); POTASSIUM 3.6 mmol/L (3.5-5.1)
[2019-08-22] MEDS: TAMSULOSIN HCL 0.4 MG CAP PO SCH (10:15)
[2019-08-22] MEDS: CYCLOSPORINE 0.05% OU SCH (10:15)
[2019-08-22] MEDS: ASPIRIN 81 MG CHEWABLE TABLETS PO SCH (10:15)
[2019-08-22] MEDS: EYE OU SCH (10:15)
[2019-08-22] MEDS: FAMOTIDINE 20 MG TABLET PO SCH (10:16)
[2019-08-22] MEDS: DASATINIB 50 MG PO SCH (10:16)
[2019-08-22] MEDS: amLODIPine BESYLATE 5 MG TABLET (FP) PO SCH (10:16)
--- NOTE | 2019-08-22 10:48 | PN ---
Progress Note (short form) - Note Progress Note: 79 year old male history of HLD,HTN,Atrial fibrillation ( not on anticoagulation ), ALL(s/p chemo) , cad. Patient lives with his daughter and in [place]. Patient has been been communicating less and less attentive lately. Patient has difficulty hearing , and he denies headache, dysphagia , dysarthria, diplopia. THere is no high grade fever, he had high blood pressure. Family member noticed that he has been having difficulty performing day today task and amblating. Patient has afebrile and see by speech pathologist. NEUROLOGICAL EXAMINATION Alert oriented x1 ( he is very hard of hearing and able to tell me his name, do blinking and moving arm ane leg , neck is supple able to tell me his name and age, and follow simple command there is action tremor, no rigidity or bradykinesia noticed moving all extremity eomi, pupils reactive no face symmetry sensation i snormal ct head is normal. Carotid ultrasound is normal mri of brain with contrast showed there is meningial enhacement Assessment/Plan 79 year old male history of HLD,HTN,Atrial fibrillation ( not on anticoagulation), ALL(s/p chemo) , cad , has bene admitted for cognitive decline and difficulty ambulating. Patient has no evidence of meningitis, status epilepticus . 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 plan: oncologist consult , depending upon overall plan , steroid can be considered swallow eval appreciated. pt supportive care Thanking you so much Faizan Sánchez MD
--- NOTE | 2019-08-22 11:33 | CONSULT ---
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 Sen and transfer center
[2019-08-22] MEDS ORDERED: SODIUM CHLORIDE 1,000 ML IV SCH (11:45)
[2019-08-22] MEDS ORDERED: ALLOPURINOL 300 MG TABLET (FP) PO SCH (11:45)
--- NOTE | 2019-08-22 12:55 | PN ---
Progress Note, Physician - Current Medication List Current Medications: Active Medications Albuterol Sulfate (Ventolin Hfa Inhaler -) 2 puff IH Q4H PRN PRN Reason: SHORT OF BREATH/WHEEZING Amlodipine Besylate (Norvasc -) 5 mg PO DAILY [facility] Last Admin: 08/22/19 10:16 Dose: 5 mg Aspirin (Asa -) 81 mg PO DAILY [facility] Last Admin: 08/22/19 10:15 Dose: 81 mg Atorvastatin Calcium (Lipitor -) 40 mg PO HS [facility] Last Admin: 08/21/19 22:21 Dose: 40 mg Famotidine (Pepcid -) 20 mg PO BID [facility] Last Admin: 08/22/19 10:16 Dose: 20 mg Sodium Chloride (Normal Saline -) 1,000 mls @ 60 mls/hr IV ASDIR [facility] Dasatinib [Sprycel] (50mg Tablet) 1 each PO DAILY [facility] Last Admin: 08/22/19 10:16 Dose: 1 each Cyclosporine [ Restasis] 0.05% Eye Drops 1 each OU BID [facility] Last Admin: 08/22/19 10:15 Dose: 1 each Tamsulosin HCl (Flomax -) 0.4 mg PO DAILY@0830 [facility] Last Admin: 08/22/19 10:15 Dose: 0.4 mg - Objective Vital Signs: Vital Signs Temperature 97.9 F 08/22/19 08:36 Pulse Rate 101 H 08/22/19 08:36 Respiratory Rate 20 08/22/19 08:36 Blood Pressure 156/85 08/22/19 08:36 O2 Sat by Pulse Oximetry (%) 100 08/21/19 20:46 Labs: CBC, BMP 08/22/19 06:00 08/22/19 06:00 INR, PTT INR 1.02 (0.83-1.09) 08/18/19 19:20 Problem List - Problems (1) CVA (cerebral vascular accident) Code(s): I63.9 - CEREBRAL INFARCTION, UNSPECIFIED Qualifiers: CVA mechanism: unspecified Qualified Code(s): I63.9 - Cerebral infarction, unspecified (2) ALL (acute lymphoid leukemia) in remission Code(s): C91.01 - ACUTE LYMPHOBLASTIC LEUKEMIA, IN REMISSION (3) ASHD (arteriosclerotic heart disease) Code(s): I25.10 - ATHSCL HEART DISEASE OF [place] CORONARY ARTERY W/O ANG PCTRS (4) COPD (chronic obstructive pulmonary disease) Code(s): J44.9 - CHRONIC OBSTRUCTIVE PULMONARY DISEASE, UNSPECIFIED Qualifiers: COPD type: chronic bronchitis (5) Choledocholithiasis Code(s): K80.50 - CALCULUS OF BILE DUCT W/O CHOLANGITIS OR CHOLECYST W/O OBST (6) Diastolic CHF Code(s): I50.30 - UNSPECIFIED DIASTOLIC (CONGESTIVE) HEART FAILURE (7) H/O heart artery stent Code(s): Z95.5 - PRESENCE OF CORONARY ANGIOPLASTY IMPLANT AND GRAFT (8) HTN (hypertension) Code(s): I10 - ESSENTIAL (PRIMARY) HYPERTENSION Qualifiers: Hypertension type: essential hypertension Qualified Code(s): I10 - Essential (primary) hypertension (9) History of GI diverticular bleed Code(s): Z87.19 - PERSONAL HISTORY OF OTHER DISEASES OF THE DIGESTIVE SYSTEM (10) Renal calculus or stone Code(s): N20.0 - CALCULUS OF KIDNEY (11) S/P left colectomy Code(s): Z90.49 - ACQUIRED ABSENCE OF OTHER SPECIFIED PARTS OF DIGESTIVE TRACT (12) Transaminitis Code(s): R74.0 - NONSPEC ELEV OF LEVELS OF TRANSAMNS & LACTIC ACID DEHYDRGNSE (13) Umbilical hernia Code(s): K42.9 - UMBILICAL HERNIA WITHOUT OBSTRUCTION OR GANGRENE
[2019-08-22 20:48] VITALS: BP 136/71; PULSE 105; TEMP 97.8
== END 2019-08-22 21:04 | disposition short-term general hospital (02) | DRG 98 ==
LOC: JER 17:16 → JERBED 21:32 → J4W 08-19 03:41
PROVIDERS: ADMIT Internal Medicine; ATTEND Internal Medicine
DX: G03.8 Meningitis due to other specified causes (principal); C91.00 Acute lymphoblastic leukemia not having achieved remission; I50.30 Unspecified diastolic (congestive) heart failure; I11.0 Hypertensive heart disease with heart failure; E78.5 Hyperlipidemia, unspecified; I25.10 Atherosclerotic heart disease of native coronary artery without angina pectoris; Z98.61 Coronary angioplasty status
CPT/HCPCS: 36415; 70450-TC; 70553-TC; 71045-TC-FY; 80048; 80053; 81003; 82550; 82607; 82728; 82746; 82962; 83036; 83540; 83550; 83605; 83735; 84100; 84443; 84466; 84484; 85025; 85044; 85610; 85730; 86593; 87086; 93005; 93010; 93306-TC; 93880-TC; 97162-GP; 99283-25; A9579; J7030

== ENCOUNTER 2019-10-13 12:18 | Emergency (ER) | payer OTHER, BC ==
--- NOTE | 2019-10-13 12:26 | PDOC ---
Attending Attestation - Resident Resident Name: Rashad Altamirano - ED Attending Attestation I have performed the following: I have examined & evaluated the patient, The case was reviewed & discussed with the resident, I agree w/resident's findings & plan, Exceptions are as noted - HPI HPI: 10/13/19 13:34 Patient complains of a rash on his scrotum and the shaft of the penis. Present for 1 to 2 weeks, not resolving. Complains of mild irritation but no alana pain or itching. He is being treated for leukemia with chemotherapy, primarily methotrexate intrathecally and intravenously. He is wearing a diaper for dribbling, although he is continent most of the time. No fever/chills, dysuria, frequency, urgency, hesitancy, or hematuria. No back or abdominal pain. - Physicial Exam PE: 10/13/19 13:35 Alert and oriented no acute distress cheerful and cooperative Afebrile, vital signs normal Lungs heart and abdomen normal Excoriations are present on the scrotum, less so on the shaft of the penis, with a fine white exudate. Testes without mass or tenderness. Scrotum without induration, tenderness, or other sign of cellulitis. - Medical Decision Making 10/13/19 13:36 Assessment: Yeast infection, present for 1 to 2 weeks, possibly superinfected with skin organisms. No significant pain or other sign of developing Anabell's Plan: Topical antifungal and Bactroban. Keep clean and dry. Dispense with the diapers and urinate regularly to prevent tripping. Follow-up with primary physician 2 to 3 days. Return to the hospital immediately if there is fever, increased pain or swelling, redness or heat in the area. No distress at discharge with daughter to follow-up as directed
[2019-10-13 12:45] VITALS: BP 144/64; PULSE 80; TEMP 98.9; BMI 23.7
--- NOTE | 2019-10-13 13:26 | PDOC ---
History of Present Illness - General Chief Complaint: Rash Stated Complaint: RASH GROIN Time Seen by Provider: 10/13/19 12:21 History Source: Patient Exam Limitations: No Limitations - History of Present Illness Initial Comments: 79M PMH ALL (MTX q2wks), HTN, HLD, dCHF, COPD, prior CVA presenting with 2 weeks of increasingly painful groin rash that started after patient started wearing diapers. Pt was recently discharged from [facility] and endorses infrequent diaper changes. Endorses urinating more frequently secondary to fluid boluses received post chemo. Pt is not incontinent at baseline but endorses recently he has not been able to make it to the bathroom after IV fluids. Denies penile pain or swelling. Denies f/c, n/v, abd pain, cp/sob. Pt put decitin ointment on affected area recently. Past History - Past Medical History Allergies/Adverse Reactions: Allergies Allergy/AdvReac Type Severity Reaction Status Date / Time nitroglycerin [Nitroglycerin] Allergy Unknown severe Verified 10/13/19 12:33 headache Home Medications: Ambulatory Orders Amlodipine Besylate 10 mg PO DAILY 10/13/19 Atorvastatin Ca [Lipitor] 80 mg PO DAILY 10/13/19 Clotrimazole/Betamet Diprop [Lotrisone Cream (Small Tube)] 1 applic TP TID #1 tube 10/13/19 Dasatinib [Sprycel] 50 mg PO DAILY 10/13/19 Metoprolol Succinate [Toprol Xl] 50 mg PO DAILY 10/13/19 Mupirocin Cream [Bactroban 2% Cream -] 1 applic TP TID #1 tube 10/13/19 Tamsulosin HCl [Flomax] 0.4 mg PO HS 10/13/19 Valacyclovir HCl [Valtrex] 500 mg PO DAILY 10/13/19 Anemia: Yes Asthma: No Cancer: Yes (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) Cardiac Disorders: Yes (a-fib, STENTS [place]) CVA: (denies stroke) COPD: Yes CHF: Yes Dementia: No Diabetes: No GI Disorders: No Disorders: Yes (BPH) HTN: Yes Hypercholesterolemia: Yes Liver Disease: No Seizures: No Thyroid Disease: Yes (KIDNEY STONE) - Surgical History Abdominal Surgery: Yes (COLON RESECTION 2013) Appendectomy: No Cardiac Surgery: Yes (Stent placed 2009 pLA) Cholecystectomy: Yes Lung Surgery: No Neurologic Surgery: Yes (Cyst removed) Orthopedic Surgery: No - Immunization History Immunization Up to Date: Yes - Psycho Social/Smoking Cessation Hx Smoking Status: No Smoking History: Never smoked Have you smoked in the past 12 months: No Number of Cigarettes Smoked Daily: 5 If you are a former smoker, when did you quit?: 45 years Cigars Per Day: 0 Information on smoking cessation initiated: No 'Breaking Loose' booklet given: 08/24/16 Hx Alcohol Use: No Drug/Substance Use Hx: No Substance Use Type: None Hx Substance Use Treatment: No Review of Systems - Review of Systems Able to Perform ROS?: Yes Comments:: CONSTITUTIONAL: Denies F / C HEENT: Denies sore throat, rhinorrhea RESP: Denies SOB, cough CARD: Denies chest pain, palpitations GI: Denies N / V / D, abdominal pain, bloody stool, inability to tolerate PO : Endorses groin rash. Denies dysuria, hematuria, frequency SKIN: endorses groin rashes NEURO: Denies numbness, tingling, weakness MSK: Denies back pain *Physical Exam - Vital Signs Last Vital Signs Temp Pulse Resp BP Pulse Ox 98.9 F 80 16 144/64 100 10/13/19 12:18 10/13/19 12:18 10/13/19 12:18 10/13/19 12:18 10/13/19 12:18 - Physical Exam GEN: NAD, comfortable. AAOx3. HEENT: NC/AT. No facial asymmetry. Moist mucous membranes. Normal voice. Supple neck w/ FROM. CV: S1/S2, RRR, no m/r/g LUNG: CTAB, no wheezes, crackles, rales, rhonchi. GI: Soft, ndnt, +BS, no guarding, no rebound. No masses. : There is an approx 2x0.5cm superficial lesion on the anteromedial aspect of the scrotum with mild superficial TTP of the area. No edema. No induration or fluctuance. Penis and scotum appears normal in anatomy. No inguinal crease or medial thigh rash. MSK: No obvious deformities of all extremities. SKIN: Warm, dry, no rashes appreciated. PSYCH: Normal mood and affect. NEURO: Moving all extremities well. Ambulates w/ normal gait. Medical Decision Making - Medical Decision Making 10/13/19 13:21 79M PMH ALL (MTX q2wks) c/o 2 weeks of right groin pain and rash. superficial rash on the anteromedial aspect of the scrotum with superficial level pain. No induration or fluctuance. Unlikely fourniers. Likely fungal rash in origin, consider overlying bacterial superinfection. dc home w/ Rx and PCP f/u Discharge - Discharge Information Problems reviewed: Yes Clinical Impression/Diagnosis: Superficial fungal infection of skin Condition: Stable Disposition: HOME - Admission No - Additional Discharge Information Prescriptions: Clotrimazole/Betamet Diprop [Lotrisone Cream (Small Tube)] 1 applic TP TID #1 tube Mupirocin Cream [Bactroban 2% Cream -] 1 applic TP TID #1 tube - Follow up/Referral - Patient Discharge Instructions Additional Instructions: We sent prescriptions to your pharmacy, please pick them up and take as prescribed. Keep the affected area dry, well ventilated, and apply the medication as directed. Try to stay off the diapers and instead use the bathroom every few hours. Follow up with your primary care doctor in the next 2-3 days. Continue your home medications as prescribed. Return to the Emergency Department if you experience: - worsening pain - fevers, chills - anything that concerns you - Post Discharge Activity
== END 2019-10-13 13:30 | disposition home or self-care (01) ==
LOC: FER 12:18
DX: B36.8 Other specified superficial mycoses (principal); Z88.8 Allergy status to other drugs, medicaments and biological substances; C95.90 Leukemia, unspecified not having achieved remission; J44.9 Chronic obstructive pulmonary disease, unspecified; N40.0 Benign prostatic hyperplasia without lower urinary tract symptoms; E78.00 Pure hypercholesterolemia, unspecified; E07.9 Disorder of thyroid, unspecified; Z95.5 Presence of coronary angioplasty implant and graft; I48.91 Unspecified atrial fibrillation; I50.9 Heart failure, unspecified; I25.2 Old myocardial infarction
CPT/HCPCS: 99283-25

== ENCOUNTER 2020-08-18 17:29 | Inpatient (IN) | payer OTHER, BC ==
[2020-08-18 18:00] VITALS: BMI 20.3
[2020-08-18] MEDS ORDERED: SODIUM CHLORIDE 2,041 ML IV ONE (20:41)
[2020-08-18] MEDS ORDERED: PIPERACILLIN/TAZOB 3.375 GM 3.375 GM in DEXTROSE 5%-WATER - 50 ML IVPB ONE (20:46)
[2020-08-18] MEDS ORDERED: VANCOMYCIN 1 GM in D5W (PRE-DOCKED) 1,000 MG/250 ML IVPB ONE (20:46)
[2020-08-18] MEDS ORDERED: PIPERACILLIN/TAZOB 3.375 GM 3.375 GM/50 ML BAG IVPB ONE (20:49)
[2020-08-18] MEDS ORDERED: VANCOMYCIN 1 GRAM (PRE-DOCKED) 1,000 MG/250 ML BAG IVPB ONE (21:17)
[2020-08-18 21:18] LABS: BASO % 0.2 % (0-2.0); EOS % 0.5 % (0-4.5); LYMPH % 14.6 % (8-40); MCH 30.5 pg (25.7-33.7); MCHC 30.6 g/dl (32.0-35.9); MEAN CELL VOLUME 99.8 fl (80-96); MEAN PLT VOLUME 8.1 fl (7.5-11.1); MONO % 4.5 % (3.8-10.2); NEUT % 80.2 % (42.8-82.8); PLATELET COUNT 378 K/MM3 (134-434); RBC 2.31 M/mm3 (4.00-5.60); RDW 15.6 % (11.9-15.9)
[2020-08-18 21:26] LABS: INR 1.07 (0.83-1.09); PROTHROMBIN TIME (PATIENT) 13.1 SEC (9.7-13.0)
[2020-08-18 21:28] LABS: ACTIVATED PTT 20.2 SECONDS (25.2-36.5)
[2020-08-18 21:55] LABS: ALBUMIN 2.2 g/dl (3.4-5.0); ALK PHOS 55 U/L (45-117); ANION GAP 6 MMOL/L (8-16); BILIRUBIN,TOTAL 0.3 mg/dL (0.2-1); BLOOD UREA NITROGEN 13.9 mg/dL (7-18); CALCIUM 7.8 mg/dL (8.5-10.1); CHLORIDE 117 mmol/L (98-107); CO2 26 mmol/L (21-32); CREATININE 0.6 mg/dL (0.55-1.3); GLUCOSE,RANDOM 96 mg/dL (74-106); SGOT/AST 17 U/L (15-37); SGPT/ALT 21 U/L (13-61); SODIUM 149 mmol/L (136-145); TOT PROT 6.6 g/dl (6.4-8.2)
[2020-08-18 22:33] LABS: VENOUS BASE EXCESS 0.8 mmol/L (-2-2); VENOUS O2 SATURATION 35.5 % (70-80); VENOUS PH 7.412 (7.310-7.410)
[2020-08-19 00:47] LABS: URINE APPEARANCE TURBID; URINE BILIRUBIN MODERATE (NEGATIVE); URINE COLOR RED; URINE GLUCOSE (UA) NEGATIVE (NEGATIVE); URINE KETONE NEGATIVE (NEGATIVE)
[2020-08-19 00:48] LABS: URINE LEUK ESTERASE 3+ (NEGATIVE); URINE NITRITE Positive (NEGATIVE); URINE PROTEIN 300 (NEGATIVE); URINE UROBILINOGEN 0.2 mg/dL (0.2-1.0)
[2020-08-19 00:49] LABS: EPI CELLS 11 /uL (0-25.1); HYALINE CASTS 359 /uL (0-3.1); URINE BACTERIA 178 /uL (0-1359); URINE RBC 8593 /uL (0-23.9); URINE WBC 231 /uL (0-25.8)
[2020-08-19 02:43] LABS: IRON SERUM 22 ug/dL (50-175)
[2020-08-19 02:44] LABS: TOTAL IRON BINDING CAPACITY 158 ug/dL (250-450)
[2020-08-19] MEDS: LACTATED RINGERS SOLUTION 1,000 ML/1,000 ML INFUS.BAG IV SCH (03:15)
[2020-08-19 15:01] LABS: BASO % 0.2 % (0-2.0); EOS % 0.5 % (0-4.5); HEMATOCRIT 23.6 % (35.4-49); HEMOGLOBIN 7.1 GM/dL (11.7-16.9); MCH 30.3 pg (25.7-33.7); MCHC 30.3 g/dl (32.0-35.9); MEAN CELL VOLUME 100.1 fl (80-96); MEAN PLT VOLUME 7.3 fl (7.5-11.1); MONO % 3.9 % (3.8-10.2); NEUT % 87.4 % (42.8-82.8); PLATELET COUNT 401 K/MM3 (134-434); RBC 2.35 M/mm3 (4.00-5.60); RDW 15.5 % (11.9-15.9); RETICULOCYTES 3.84 % (0.5-1.5)
[2020-08-19 15:25] LABS: CALCIUM 8.3 mg/dL (8.5-10.1)
[2020-08-19 15:26] LABS: ALBUMIN 2.3 g/dl (3.4-5.0); BLOOD UREA NITROGEN 12.6 mg/dL (7-18); MAGNESIUM 2.3 mg/dL (1.8-2.4)
[2020-08-19 15:28] LABS: INR 1.12 (0.83-1.09); PROTHROMBIN TIME (PATIENT) 13.5 SEC (9.7-13.0)
[2020-08-19 15:29] LABS: CREATININE 0.6 mg/dL (0.55-1.3); PHOSPHOROUS 3.3 mg/dL (2.5-4.9)
[2020-08-19 15:30] LABS: BILIRUBIN,TOTAL 0.4 mg/dL (0.2-1); TOT PROT 6.7 g/dl (6.4-8.2)
[2020-08-19 15:31] LABS: ACTIVATED PTT 28.4 SECONDS (25.2-36.5)
[2020-08-19] MEDS: PIPERACILLIN/TAZOB 3.375 GM 3.375 GM in DEXTROSE 5%-WATER - 50 ML IVPB SCH (23:26)
[2020-08-20] MEDS ORDERED: PIPERACILLIN/TAZOBACTAM 3.375 GM VIAL IVPB ONE ×3 (01:38→16:30)
[2020-08-20] MEDS ORDERED: DEXTROSE 5%-WATER - 50 ML IVPB ONE ×3 (01:38→16:30)
[2020-08-20] MEDS: PIPERACILLIN/TAZOB 3.375 GM 3.375 GM in DEXTROSE 5%-WATER - 50 ML IVPB SCH ×4 (02:36→17:54)
[2020-08-20] MEDS: LACTATED RINGERS SOLUTION 1,000 ML/1,000 ML INFUS.BAG IV SCH (02:45)
[2020-08-20 09:18] LABS: BASO % 0.4 % (0-2.0); EOS % 0.6 % (0-4.5); HEMATOCRIT 27.9 % (35.4-49); HEMOGLOBIN 8.7 GM/dL (11.7-16.9); LYMPH % 9.9 % (8-40); MCH 29.9 pg (25.7-33.7); MCHC 31.3 g/dl (32.0-35.9); MEAN CELL VOLUME 95.6 fl (80-96); MEAN PLT VOLUME 7.5 fl (7.5-11.1); MONO % 3.8 % (3.8-10.2); NEUT % 85.3 % (42.8-82.8); PLATELET COUNT 447 K/MM3 (134-434); RBC 2.92 M/mm3 (4.00-5.60); RDW 18.7 % (11.9-15.9); WHITE BLOOD COUNT 15.3 K/mm3 (4.0-10.0)
[2020-08-20 09:28] LABS: CALCIUM 8.1 mg/dL (8.5-10.1)
[2020-08-20 09:29] LABS: BLOOD UREA NITROGEN 13.1 mg/dL (7-18)
[2020-08-20 09:32] LABS: CREATININE 0.5 mg/dL (0.55-1.3)
[2020-08-20] MEDS: amLODIPine BESYLATE 5 MG TABLET (FP) PO SCH (10:06)
[2020-08-20] MEDS: PANTOPRAZOLE SODIUM 40 MG VIAL IVPUSH SCH (10:06)
[2020-08-20 10:07] LABS: ANISOCYTOSIS 1+; MACROCYTOSIS 1+; PLATELET ESTIMATE NORMAL
[2020-08-20] MEDS: TAMSULOSIN HCL 0.4 MG CAP PO SCH (15:38)
[2020-08-20] MEDS ORDERED: FUROSEMIDE 40 MG/4 ML INJECTABLE VIAL IVPUSH SCH (17:00)
[2020-08-21] MEDS ORDERED: FUROSEMIDE 40 MG/4 ML INJECTABLE VIAL IVPUSH ONE (00:30)
[2020-08-21] MEDS ORDERED: DEXTROSE 5%-WATER - 50 ML IVPB ONE ×3 (03:00→16:44)
[2020-08-21] MEDS ORDERED: PIPERACILLIN/TAZOBACTAM 3.375 GM VIAL IVPB ONE ×3 (03:00→16:44)
[2020-08-21] MEDS: LACTATED RINGERS SOLUTION 1,000 ML/1,000 ML INFUS.BAG IV SCH ×2 (03:07→18:00)
[2020-08-21] MEDS: PIPERACILLIN/TAZOB 3.375 GM 3.375 GM in DEXTROSE 5%-WATER - 50 ML IVPB SCH ×3 (03:08→16:59)
[2020-08-21 08:59] LABS: BASO % 0.2 % (0-2.0); EOS % 0.2 % (0-4.5); HEMATOCRIT 33.3 % (35.4-49); HEMOGLOBIN 10.6 GM/dL (11.7-16.9); LYMPH % 7.3 % (8-40); MCH 29.5 pg (25.7-33.7); MCHC 31.9 g/dl (32.0-35.9); MEAN CELL VOLUME 92.5 fl (80-96); MEAN PLT VOLUME 7.2 fl (7.5-11.1); MONO % 2.8 % (3.8-10.2); NEUT % 89.5 % (42.8-82.8); PLATELET COUNT 399 K/MM3 (134-434); RDW 19.1 % (11.9-15.9); WHITE BLOOD COUNT 16.9 K/mm3 (4.0-10.0)
[2020-08-21] MEDS: PANTOPRAZOLE SODIUM 40 MG VIAL IVPUSH SCH (09:12)
[2020-08-21 09:23] LABS: CALCIUM 8.5 mg/dL (8.5-10.1)
[2020-08-21 09:24] LABS: BLOOD UREA NITROGEN 13.5 mg/dL (7-18)
[2020-08-21 09:27] LABS: CREATININE 0.7 mg/dL (0.55-1.3)
[2020-08-21] MEDS: TAMSULOSIN HCL 0.4 MG CAP PO SCH (11:42)
[2020-08-21] MEDS ORDERED: DOXAZOSIN MESYLATE 2 MG TABLET PO SCH (11:45)
[2020-08-21] MEDS: amLODIPine BESYLATE 5 MG TABLET (FP) PO SCH (11:57)
[2020-08-21] MEDS ORDERED: METOPROLOL TARTRATE 25 MG TABLET (FP) PO ONE (12:15)
[2020-08-21] MEDS ORDERED: METOPROLOL TARTRATE 25 MG TABLET (FP) PO SCH (14:00)
[2020-08-21 18:41] VITALS: BP 160/75; PULSE 65; TEMP 97.6
== END 2020-08-21 21:25 | disposition short-term general hospital (02) | DRG 872 ==
LOC: JER 17:29 → JERBED 08-19 00:56 → J5S 08-19 15:39
PROVIDERS: ADMIT Internal Medicine; ATTEND Internal Medicine
PROC: 30233N1 Transfusion of Nonautologous Red Blood Cells into Peripheral Vein, Percutaneous Approach (ICD-10-PCS; principal; 2020-08-19)
DX: A41.9 Sepsis, unspecified organism (principal); I50.32 Chronic diastolic (congestive) heart failure; C79.31 Secondary malignant neoplasm of brain; E87.0 Hyperosmolality and hypernatremia; C95.90 Leukemia, unspecified not having achieved remission; N39.0 Urinary tract infection, site not specified; L89.220 Pressure ulcer of left hip, unstageable; I10 Essential (primary) hypertension; E78.5 Hyperlipidemia, unspecified; J44.9 Chronic obstructive pulmonary disease, unspecified; I48.0 Paroxysmal atrial fibrillation; R33.9 Retention of urine, unspecified; D64.9 Anemia, unspecified; L89.210 Pressure ulcer of right hip, unstageable; L89.152 Pressure ulcer of sacral region, stage 2; R31.9 Hematuria, unspecified; N40.1 Benign prostatic hyperplasia with lower urinary tract symptoms
CPT/HCPCS: 36415; 36430; 71045-TC-FY; 71250-TC; 74176-TC; 80048; 80053; 81003; 82272; 82607; 82728; 82746; 82803; 83540; 83550; 83605; 83615; 83735; 84100; 84484; 84550; 85025; 85045; 85610; 85730; 86140; 86850; 86900; 86901; 86922; 87040; 87077; 87086; 93005; 93010; 97161-GP; 99291; 99292; C9803; P9058; U0003